=== PATIENT | male | born 1940 | race Caucasian/White ===

== ENCOUNTER → 2017-05-27 15:58 | Outpatient (CLI) | payer MEDICARE, SELFPAY ==
[2017-05-27 17:17] LABS: Absolute Lymphocyte Count 2.94 X10^3/ul (0.83-4.51); Absolute Neutrophil Count 6.9 X10^3/uL (2.0-7.7); Basophil# 0.05 X10^3/uL; Basophil% 0.5 % (0-1); Eosinophil# 0.33 X10^3/uL; Hematocrit 41.6 % (40-54); Lymphocyte # 2.94 X10^3/ul (4.0); Lymphocyte % 27.1 % (19-41); Mean Corp Hgb Conc 33.7 g/gl (32-36); Mean Corpuscular Hgb 29.8 pg (27.0-32.0); Mean Corpuscular Volume 88.5 fL (80-94); Mean Platelet Vol. 10.7 fl (6.2-12.0); Monocyte# 0.61 X10^3/uL; Monocyte% 5.6 % (0-10); Neutrophil # 6.89 X10^3/uL (2.7-7.7); Neutrophil % 63.5 % (47-70); Platelet Count 242 K/mm3 (150-450); RBC Distribution Width CV 14.4 % (11.6-14.6); RBC Distribution Width SD 46.8 fl (35.1-43.9); White Blood Count 10.9 K/mm3 (4.4-11.0)
[2017-05-27 17:29] LABS: POSITIVE COUNT NO; POSITIVE DIFFERENTIAL NO; POSITIVE MORPHOLOGY NO
[2017-05-27 17:30] LABS: Vitamin D,25 Hydroxy 36.4 ng/mL (19.95-100.01)
[2017-05-27 17:34] LABS: ALB/GLOB Ratio 0.8 RATIO (0.9-2.4); AST(SGOT) 23 U/L (15-37); Alanine Aminotransfer ALT/SGPT 45 U/L (16-61); Albumin, Serum 3.3 g/dL (3.2-5.0); Alkaline Phosphatase 127 U/L (45-117); Anion Gap 10 (5-15); BUN 9 mg/dL (7-18); Calcium,Total 9.1 mg/dL (8.5-10.1); Chloride 100 mmol/L (98-107); Creatinine, Serum 0.53 mg/dL (0.70-1.30); EST Glomerular Filtration Rate 161 mL/min (>60); Est Glom Filt Rate - Afr Amer 195 mL/min (>60); Glucose 243 mg/dL (74-106); Potassium 3.9 mmol/L (3.5-5.1); Protein, Total 7.3 g/dL (6.4-8.2); Sodium Level 134 mmol/L (136-145); Thyroid Stim Hormone (TSH) 1.44 uIU/mL (0.358-3.74)
== END ==
PROVIDERS: Visit Provider Family Medicine Geriatric Medicine
DX: R53.83 Other fatigue (principal); E55.9 Vitamin D deficiency, unspecified
CPT/HCPCS: 36415; 80053; 82306; 84443; 85025

== ENCOUNTER → 2017-06-18 17:10 | Outpatient (CLI) | payer MEDICARE, SELFPAY ==
[2017-06-18 17:39] LABS: Absolute Lymphocyte Count 2.85 X10^3/ul (0.83-4.51); Absolute Neutrophil Count 7.6 X10^3/uL (2.0-7.7); Basophil# 0.09 X10^3/uL; Basophil% 0.8 % (0-1); Eosinophil# 0.18 X10^3/uL; Eosinophils% 1.6 % (0-5); Hematocrit 43.9 % (40-54); Hemoglobin 15.3 g/dl (13.0-16.5); Lymphocyte # 2.85 X10^3/ul (4.0); Lymphocyte % 24.7 % (19-41); Mean Corp Hgb Conc 34.9 g/gl (32-36); Mean Corpuscular Hgb 30.6 pg (27.0-32.0); Mean Corpuscular Volume 87.8 fL (80-94); Monocyte% 6.1 % (0-10); Neutrophil # 7.63 X10^3/uL (2.7-7.7); Neutrophil % 66.1 % (47-70); Platelet Count 275 K/mm3 (150-450); RBC Distribution Width CV 14.4 % (11.6-14.6); RBC Distribution Width SD 45.6 fl (35.1-43.9); White Blood Count 11.5 K/mm3 (4.4-11.0)
--- NOTE | 2017-06-18 17:39 | RAD_ITS ---
STUDY: X-RAY - ABDOMEN/PELVIS REASON FOR EXAM: Male, 77 years old. Abdominal pain. TECHNIQUE: AP supine and decubitus views of the abdomen and pelvis. COMPARISON: CT of the abdomen and pelvis dated June 16, 2013. FINDINGS: Normal visualized lung bases. There is an unremarkable bowel gas pattern. Surgical clips are visible in the right upper quadrant. There is no obvious visceromegaly, mass or dilated bowel. There appears to be inspissated contrast within the rectum. There are calcified phleboliths in the pelvis. The bones are osteopenic. There are degenerative changes of the imaged spine. Patient has Muhammad rods within the imaged thoracic spine. There are degenerative changes of both hips. RAD/Abd Inc Decub and/or Erect IMPRESSION: Inspissated contrast is visible in the rectum. Electronically Signed: Enedeila Bruce MD at 12:17 EDT , Service support ,
[2017-06-18 17:41] LABS: POSITIVE COUNT NO; POSITIVE DIFFERENTIAL NO; POSITIVE MORPHOLOGY NO
[2017-06-18 18:21] LABS: ALB/GLOB Ratio 0.9 RATIO (0.9-2.4); AST(SGOT) 22 U/L (15-37); Alanine Aminotransfer ALT/SGPT 46 U/L (16-61); Albumin, Serum 3.5 g/dL (3.2-5.0); Alkaline Phosphatase 120 U/L (45-117); Anion Gap 8 (5-15); BUN 10 mg/dL (7-18); BUN/Creat Ratio 13.2 RATIO (10-20); Calcium,Total 9.1 mg/dL (8.5-10.1); Chloride 100 mmol/L (98-107); Creatinine, Serum 0.76 mg/dL (0.70-1.30); EST Glomerular Filtration Rate 107 mL/min (>60); Est Glom Filt Rate - Afr Amer 129 mL/min (>60); Globulin 3.8 g/dL (2.2-4.2); Glucose 206 mg/dL (74-106); Potassium 3.5 mmol/L (3.5-5.1); Protein, Total 7.3 g/dL (6.4-8.2); Sodium Level 137 mmol/L (136-145); Thyroid Stim Hormone (TSH) 1.19 uIU/mL (0.358-3.74)
== END ==
PROVIDERS: Family Provider Family Medicine Geriatric Medicine; PCP Family Medicine Geriatric Medicine; Visit Provider Family Medicine Geriatric Medicine
DX: R47.02 Dysphasia (principal); I10 Essential (primary) hypertension; N39.0 Urinary tract infection, site not specified; K59.00 Constipation, unspecified
CPT/HCPCS: 36415; 74019; 80053; 84443; 85025; 87077; 87086; 87088; 87186

== ENCOUNTER 2017-07-03 09:14 | Inpatient (IN) | payer MEDICARE, SELFPAY ==
[2017-07-03] VITALS (12 sets, daily range): BP systolic 147–188; BP diastolic 80–151; PULSE 56–73; RESP 17–18; TEMP 36.3–36.7; O2SAT 95–98; BMI 33.0; BMI 27.6; BMI 27.7
--- NOTE | 2017-07-03 09:29 | CT_ITS ---
STUDY: CT BRAIN WITHOUT CONTRAST REASON FOR EXAM: Male, 77 years old. Headache. Mental status change. Recent change. RADIATION DOSAGE (If Supplied By Facility): CTDIvol = ( 44.99 ) mGy, DLP = ( 1524.73 ) mGycm TECHNIQUE: Transaxial CT imaging of the brain was performed without administration of intravenous contrast material. 2 sets of axial images are obtained due to patient's kyphosis causing positioning issues. Reconstructed sagittal/coronal imaging. Individualized dose optimization techniques were used for this CT. COMPARISON: None. FINDINGS: Mortar Carrier scanogram image shows normal sized sella. Normal soft tissue structures. Normal calvarium. No depressed skull fracture identified. Normal size ventricles and extra-axial spaces for the patient's age. Normal white matter tracts of the cerebral hemispheres. Normal basal ganglia and thalami. Normal brainstem. Normal cerebellum. However, low-attenuation oval lesion is seen in the right superior medial frontal cortex approximately 2.9 x 1.2 cm consistent with old infarct and encephalomalacia image #29/41 series #2, stable appearance. Smaller old lacunar infarct is seen in the left posterior lateral periventricular white matter, approximate 0.7 cm diameter image #26/41 series #2, stable appearance. There is no intracranial hemorrhage. There are no findings of a large territorial acute ischemic infarction. Nonacute visualized paranasal sinuses with mild bilateral ethmoid mucoperiosteal thickening suggested. Divergent gaze noted. CT/Brain/Head without Contrast IMPRESSION: Nonacute unenhanced CT scan of the brain. Divergent gaze noted. Clinical correlation recommended. Age-related changes consistent with central cerebral atrophic changes. Old stable appearing bilateral cerebral infarcts as described. Electronically Signed: Cruz Carney, at 10:39 EDT Tel , Service support ,
--- NOTE | 2017-07-03 09:30 | RAD_ITS ---
STUDY: X-RAY CHEST REASON FOR EXAM: Male, 77 years old. Right-sided rales. TECHNIQUE: AP and lateral views of the chest. COMPARISON: Chest radiograph dated January 18, 2017. FINDINGS: Cardiac monitoring leads are present. There is hyperinflation of the lungs consistent with chronic obstructive lung disease (COPD). There is no demonstrated pleural abnormality. Normal size heart. Normal mediastinum and jesus. There is prominence of the pulmonary hilar arteries without peripheral pulmonary vascular congestion. There is atherosclerotic calcification of the aortic arch with tortuosity. There is demineralization of the osseous structures. Patient has had extensive spine surgery with Muhammad rods present. Normal visualized ribs, clavicles, and shoulders. There is no demonstrated abnormality of the visualized soft tissue structures of the upper abdomen. RAD/Chest PA and Lateral IMPRESSION: COPD without radiographic evidence of acute cardiopulmonary disease. Electronically Signed: Enedelia Bruce MD at 10:56 EDT , Service support ,
--- NOTE | 2017-07-03 09:30 | EKG12_ITS ---
Test Reason : CONFUSION Blood Pressure : / mmHG Vent. Rate : 065 BPM Atrial Rate : 065 BPM P-R Int : 210 ms QRS Dur : 100 ms QT Int : 388 ms P-R-T Axes : 047 052 219 degrees QTc Int : 403 ms Sinus rhythm with 1st degree A-V block with Premature supraventricular complexes and Premature ventri cular complexes or Fusion complexes Nonspecific ST and T wave abnormality Abnormal ECG Confirmed by RADHA REESE, AUTUMN ([id number]), science editor TAMARA MURO ([id number]) on 07/06/2017 1:28:32 PM Referred By: EVER Confirmed By:AUTUMN GARCIA MD
[2017-07-03 09:45] LABS: Absolute Lymphocyte Count 2.44 X10^3/ul (0.83-4.51); Basophil# 0.07 X10^3/uL; Basophil% 0.6 % (0-1); Eosinophil# 0.31 X10^3/uL; Eosinophils% 2.6 % (0-5); Hematocrit 42.4 % (40-54); Hemoglobin 14.3 g/dl (13.0-16.5); Lymphocyte # 2.44 X10^3/ul (4.0); Lymphocyte % 20.6 % (19-41); Mean Corp Hgb Conc 33.7 g/gl (32-36); Mean Corpuscular Hgb 29.9 pg (27.0-32.0); Mean Corpuscular Volume 88.5 fL (80-94); Monocyte# 0.99 X10^3/uL; Monocyte% 8.3 % (0-10); Neutrophil # 8.02 X10^3/uL (2.7-7.7); Neutrophil % 67.6 % (47-70); Platelet Count 186 K/mm3 (150-450); RBC Distribution Width CV 14.8 % (11.6-14.6); RBC Distribution Width SD 47.8 fl (35.1-43.9); Red Blood Count 4.79 M/mm3 (4.6-6.2); White Blood Count 11.9 K/mm3 (4.4-11.0)
[2017-07-03 09:47] LABS: POSITIVE COUNT NO; POSITIVE DIFFERENTIAL NO; POSITIVE MORPHOLOGY NO
--- NOTE | 2017-07-03 09:48 | ED.VISSUMM ---
- ER Visit Summary Date of Service: 07/03/17 Chief Complaint: Slurred speech and increased confusion History of Present Illness: The patient is a 77 M disoriented and unable to contribute with regards to history and limited contribution with regards to physical examination. informed me that several of his medications were recently discontinued by his primary care physician, Dr. Rosales. and son states his symptoms started yesterday afternoon. His symptoms have been persistent. Son informed me that he does have dementia and his short-term memory is not as good as his long-term memory. Regardless, son reports that the slurred speech is new and that his confusion is much worse and he is not alert. Both the son and are concerned because he is not eating much. Patient acknowledges headache. states he has complained of headache. 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 He also has history of depression anxiety. Physical Examination: Patient's initial blood pressure was 188/151. Repeat is 139/100. Believe the first blood pressure to be inaccurate. He is not alert and he is not oriented. There is a ptosis on the right side. Pupils are equal round reactive. Believe his extraocular muscles are intact. TMs normal. Nares patent. Posterior pharynx other MHA. He has retained food products. Family was question regarding to difficulty swallowing or choking. Both the son and states he has had difficulty swallowing. Lungs reveal abnormal breath sounds/rales right side. Heart is regular without murmur, gallop or rub. Abdomen soft nontender. There is motor and sensory deficit below T8. Test Results: CT of the head reveals disconjugate gaze. Chest x-ray reveals no acute changes from prior. Cardiac silhouette is normal. Mediastinum appears normal. Lung parenchyma is normal. Muhammad rods are noted. White count is 11.9 thousand with out shift. Electronic panel is unremarkable. The potassium is 3.1 and the glucose is 143. Coags unremarkable. UA is normal. Emergency Department Course and Treatment: Because he complains of headache will obtain a CAT scan to rule out endocardial bleed. Because of difficulty swallowing with retained food products and abnormal breath sounds on the right will obtain chest x-ray to evaluate for possible aspiration pneumonitis. Will obtain blood work and urinalysis to evaluate for metabolic/infectious causes of his altered mental status as well. Treatment Plan: Since patient is disoriented unable to care for himself or help his care for him and has had a rapid deterioration will contact hospitalist for admission for further diagnostic testing to determine if this is a reversible process or not. Disposition: Admission to possibly PCU Impression: 1. Acute change in mental status with dysarthria and dysphasia 2. History of type 2 diabetes with hyperglycemia 3. History of hypertension 4. History of CVA 4. History of depression anxiety 6. T8 paraplegic secondary to remote traumatic injury This note was generated with [employer] dictation software. It may contain incorrect words, spelling, and punctuation that were not noted in review of the chart prior to signing ED Disposition - Plan for ED Patient: Chief Complaint: Confusion Referrals: Young Marie Chi, MD [Primary Care Provider] -
[2017-07-03 09:49] LABS: Prothrombin Time (Protime)PT. 13.5 SECONDS (11.7-14.9)
[2017-07-03 09:51] LABS: Partial Thromboplast Time 40.8 Seconds (24.1-36.2)
[2017-07-03 09:51] LABS: Bedside Glucose 153 mg/dL (70-110)
[2017-07-03 09:55] LABS: Anion Gap 8 (5-15); BUN 7 mg/dL (7-18); BUN/Creat Ratio 12.8 RATIO (10-20); Calcium,Total 9.1 mg/dL (8.5-10.1); Chloride 99 mmol/L (98-107); Creatinine, Serum 0.55 mg/dL (0.70-1.30); EST Glomerular Filtration Rate 154 mL/min (>60); Est Glom Filt Rate - Afr Amer 186 mL/min (>60); Estimated Creatinine Clearance 69.91 ml/min; Glucose 143 mg/dL (74-106); Potassium 3.1 mmol/L (3.5-5.1); Sodium Level 139 mmol/L (136-145)
[2017-07-03 10:23] LABS: Bacteria 0 SEEN /hpf (None Seen); Mucous, Urine 0 SEEN /hpf (<or=2+); Red Blood Cells-Urine 0 SEEN /hpf (0-5); Squamous Epithelial Cells - UA 0 SEEN /hpf (0-5); White Blood Cells 0 SEEN /hpf (0-5)
[2017-07-03 10:31] LABS: Color, Urine Yellow (Yellow); Glucose, Dipstick Normal (Normal); Ketone-Dipstick Negative (Negative); Leukocyte Esterase-Dipstick Negative /ul (Negative); Nitrite-Dipstick Negative (Negative); Occult Blood-Urine Negative /ul (Negative); Protein-Dipstick Negative (Negative); Urine Bilirubin Dipstick Negative (Negative); Urine Clarity Clear (Clear); Urine Urobilinogen Normal (Normal)
--- NOTE | 2017-07-03 11:26 | NURSING ---
PCU AMS, CONFUSION, R/O STROKE LUZ
--- NOTE | 2017-07-03 11:47 | NURSING ---
NO OLD EKGS
--- NOTE | 2017-07-03 13:30 | CT_ITS ---
STUDY: CTA NECK WITH CONTRAST REASON FOR EXAM: Male, 77 years old. Altered mental status. Confusion. RADIATION DOSAGE (If Supplied By Facility): CTDIvol = ( 23.80 ) mGy, DLP = ( 718.80 ) mGycm TECHNIQUE: CT angiography with multi-detector data acquisition was performed from the aortic arch to the skull base following intravenous administration of 100 ml of Isovue 370 contrast. MIP images were reconstructed from the axial data set. Post-processing of the angiographic images was performed, with multiplanar reformation and 3D reconstruction. Individualized dose optimization techniques were used for this CT. COMPARISON: None. FINDINGS: AORTIC ARCH: Not included in the scan. The visualized portions of the brachiocephalic artery, left common carotid artery and left subclavian artery are widely patent. There origins are not included in this scan. RIGHT CAROTID ARTERIES: Normal right common carotid artery (CCA). Normal right common carotid bulb. Normal origin of the right internal carotid (ICA) artery without a hemodynamically significant stenosis. Normal visualized cervical portion of the right internal carotid artery. Normal origin of the right external carotid artery (ECA). LEFT CAROTID ARTERIES: Normal left common carotid artery (CCA). Normal left common carotid bulb. Normal origin of the left internal carotid (ICA) artery without a hemodynamically significant stenosis. Normal visualized cervical portion of the left internal carotid artery. Normal origin of the left external carotid artery (ECA). VERTEBRAL ARTERIES: Normal bilateral vertebral arteries. The left vertebral artery is slightly more dominant. Widely patent subclavian origins of both vertebral arteries and. CT/CTA Neck W/WO Contrast IMPRESSION: 1. No CTA evidence of any vaso-occlusive disease of both common carotid arteries, both internal and external carotid arteries and both vertebral arteries. 2. The aortic arch is not included in the scan. 3. The visualized portions of the right brachiocephalic artery, left common carotid artery and left subclavian artery are widely patent. 4. Widely patent subclavian origins of both vertebral arteries, the cervical portions of both vertebral arteries and the intradural segments of both vertebral arteries. 5. No CT evidence of any suspicious mass in the suprahyoid neck and infrahyoid neck. 6. Bridging anterior longitudinal ligament and anterior marginal spurs from C2-C3 down to C6-C7 disc space levels. Electronically Signed: Peter Anderson MD at 15:34 EDT , Service support ,
--- NOTE | 2017-07-03 13:30 | CT_ITS ---
STUDY: CTA OF THE BRAIN REASON FOR EXAM: Male, 77 years old. Altered mental status. Confusion. RADIATION DOSAGE (If Supplied By Facility): CTDIvol = ( 23.80 ) mGy, DLP = ( 718.80 ) mGycm TECHNIQUE: CT angiography was performed with a multi-detector CT scanner. Data acquisition was obtained from the skull base through the vertex following intravenous administration of 100 ml of Isovue 370. MIP images were reconstructed from the axial data set. Post-processing of the angiographic images was performed, with multiplanar reformation and 3D reconstruction. Individualized dose optimization techniques were used for this CT. COMPARISON: None. FINDINGS: Normal bilateral petrous carotid arteries. Normal right cavernous carotid artery with a normal supraclinoid bifurcation. Normal left cavernous carotid artery with a normal supraclinoid bifurcation. Normal right A1 segment of the anterior cerebral artery. Normal left A1 segment of the anterior cerebral artery. Normal intact anterior communicating artery (ACOM). Normal bilateral A2 segments of the anterior cerebral arteries. Normal right M1 and M2 segments of the middle cerebral arteries, with a normal M1 bifurcation. Normal left M1 and M2 segments of the middle cerebral arteries, with a normal M1 bifurcation. No visible right posterior communicating artery (PCOM). No visible left posterior communicating artery (PCOM). Normal bilateral vertebral arteries. Normal basilar artery with a normal basilar bifurcation. The visualized bilateral superior cerebellar (SCA) arteries are normal. Normal bilateral P1, P2 and visualized P3 segments of the posterior cerebral arteries. There is no demonstrated aneurysm of the [place]. Old lacunar cystic infarct in the left periventricular white matter and chronic white matter ischemic changes in both cerebral hemispheres. CT/CTA Head W/WO Contrast IMPRESSION: 1. No CTA evidence of intracranial vaso-occlusive disease of the anterior and posterior intracranial circulation. 2. Normal CTA head. 3. Old lacunar cystic infarct in the left periventricular white matter and chronic white matter ischemic changes in both cerebral hemispheres. Electronically Signed: Peter Anderson MD at 15:31 EDT , Service support ,
--- NOTE | 2017-07-03 14:35 | HP.PCM_ITS ---
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 (9) Diabetes mellitus, type II Status: Chronic Qualifiers: (10) Muscle spasm Status: Chronic (11) Panic disorder Status: Chronic (12) Anxiety Status: Chronic (13) Depression Status: Chronic (14) COPD (chronic obstructive pulmonary disease) Status: Chronic Qualifiers: History of Present Illness Date of Admission: 07/03/17 Chief Complaint: Altered mental status for a few days The patient is a 77 year old M with multiple comorbidities as listed above including recent history of possible stroke in January 2017 for which he was admitted came to ER with altered mental status since yesterday afternoon. As per the patient's and daughter, the patient is not acting right, mumbling, incomprehensible words and phrases not able to feed himself, and not able to do basic activities of daily living. also stated that he complained of headache. As per his daughter, she also noticed some facial droop on the right side and slurred speech and drooping right eyelid. CT head reports divergent gaze with none acute findings. 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 (Chronic) Diabetes mellitus, type II (Chronic) Muscle spasm (Chronic) Panic disorder (Chronic) Anxiety (Chronic) Depression (Chronic) COPD (chronic obstructive pulmonary disease) (Chronic) Allergies codeine Allergy (Verified 07/03/17 09:17) Unknown morphine Allergy (Verified 07/03/17 09:17) Unknown Home Medications: Ambulatory Orders Medication Instructions Recorded Bupropion HCl [Wellbutrin Xl] 300 mg PO DAILY 07/03/17 Ciprofloxacin [Cipro] 250 mg PO BID 07/03/17 Clonazepam [Klonopin] 1 mg PO BID 07/03/17 Clopidogrel Bisulfate [Plavix] 75 mg PO DAILY 07/03/17 Famotidine 40 mg PO DAILY 07/03/17 Fluticasone/Vilanterol [Breo 1 each IH DAILY 07/03/17 Ellipta Inhaler] Gabapentin [Neurontin] 300 mg PO TIDCM 07/03/17 Metformin HCl 1,000 mg PO BID 07/03/17 Metoprolol Tartrate [Lopressor 50 mg PO BID 07/03/17 (Beta Lamar)] Paroxetine [Paxil] 20 mg PO DAILY 07/03/17 Surgical History: - - Trauma w/ spinal cord injury, hardward thoracic spine, colostomy, BL LE surgery w/ rods, LUE surgery repair (ligament, bone), T+A, Hemorrhoidectomy. Psychiatric History: Anxiety, Depression Smoking Status: Never smoker - *Family History Maternal History Items: No pertinent history Paternal History Items: Heart Disease - Father w/ DC 65 years old. Review of Systems Unable to obtain accurate/complete ROS d/t: Patient is confused and disoriented. 12 ROS unobtainable VTE Information - Inpt Only VTE Present on Admission: No VTE Mechan Device Prophylaxis: SCD's VTE Pharm Prophylaxis ordered?: Yes Patient Problems: Active and Suspected Problems Altered mental status, unspecified (Acute) - Physical Exam General: Confused, Disoriented, Lethargic HEENT: Atraumatic, PERRLA, EOMI, Normocephalic, - - On visual confrontation test although difficult but does not seem to be major hemianopia/quadrantopia. No nystagamus noted Oral: Dry Mucosa Neck: Supple, No JVD, Negative Carotid Bruits Lungs: Clear to auscultation, No rhonchi, No wheeze, Diminished Cardiovascular: Regular rate, Regular Rhythm, Normal S1, Normal S2, No murmurs Abdomen: Bowel Sounds Present, Soft, Non Tender, - - Colostomy bag present over the left upper quadrant Extremities: Edema Musculoskeletal: Arthritic Changes, Muscle Wasting, - - Paraplegia Neurological: Cranial nerves II-XII grossly intact, - - Neuro exam is not possible as patient is confused and disoriented. Patient is not following command Psych/Mental Status: Anxious, Restless Vital Signs Temp Pulse Resp BP Pulse Ox 97.6 F L 65 18 147/85 H 96 07/03/17 13:25 07/03/17 13:25 07/03/17 13:25 07/03/17 13:25 07/03/17 13:25 Oxygen Delivery Method Room Air Weight: 209 lb 14.081 oz Body Mass Index (BMI) 27.6 Assessment/Plan Active and Suspected Problems Altered mental status, unspecified (Acute) The patient is a 77 year old M with multiple comorbidities as listed above including recent history of possible stroke in January 2017 for which he was admitted came to ER with altered mental status since yesterday afternoon. As per the patient's and daughter, the patient is not acting right, mumbling, incomprehensible words and phrases not able to feed himself, and not able to do basic activities of daily living. also stated that he complained of headache. As per his daughter, she also noticed some facial droop on the right side and slurred speech and drooping right eyelid. CT head reports divergent gaze with none acute findings. 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 1. Altered mental status with confusion, acute encephalopathy on baseline with history of a stroke and T8 paraplegia, from spinal cord injury: The patient is being admitted in PCU to rule out new stroke which is difficult as the patient is very claustrophobic for MRI. Her daughter asked that he needs to be sedated in order for MRI which is high risk; explained to the daughter. Patient is on Plavix and a statin. Neuro checks every 4 hourly. PT OT and speech evaluation. Neuro consult. Patient had 2D echo in January 2017 which showed EF 65%, bubble study negative with no valvular abnormalities. CT angiogram head and neck showed lacunar infarct left basal ganglia age-indeterminate with normal bilateral cervical carotid arteries and vertebral arteries. 2. Possible metabolic/toxic encephalopathy from polypharmacy or sudden withdrawal of multiple antipsychotic medications: Patient looks mildly dehydrated. IV fluid normal saline. Mild hypokalemia: Replace potassium. Patient is to be slowly tapered off the antipsychotic medications. Paroxetine decreased to 10 mg daily, clonazepam 0.5 mg twice daily and bupropion XL 150 mg daily. 3. Diabetes mellitus type 2: Currently, patient is n.p.o. except medication until he passes swallow evaluation. Accu-Chek every 6 hours and cover with NovoLog sliding scale. A1c tomorrow a.m. Other multiple comorbidities include hypertension, COPD, anxiety and depression , obesity, old T8 paraplegia from spinal cord injury. Home medication reconciliation done. DVT prophylaxis: On heparin 500 subcutaneous twice daily and bilateral SCDs. Code Visit Inpatient E&M: 88199 Init Hosp L3
[2017-07-03 14:46] LABS: AST(SGOT) 19 U/L (15-37); Alanine Aminotransfer ALT/SGPT 34 U/L (16-61); Albumin, Serum 3.4 g/dL (3.2-5.0); Alkaline Phosphatase 110 U/L (45-117); Bilirubin, Direct 0.19 mg/dL (0.00-0.30); Globulin 3.3 g/dL (2.2-4.2); Protein, Total 6.7 g/dL (6.4-8.2); Thyroid Stim Hormone (TSH) 0.88 uIU/mL (0.358-3.74)
[2017-07-03] MEDS: 0.9% Normal Saline 1,000 ML 100 ML IV (15:32)
--- NOTE | 2017-07-03 15:42 | CON.PCM_ITS ---
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 History is obtained from and medical records, history could not be obtained from the patient. Per he was very confused since yesterday (07/02/17), had garbled speech, at baseline is bed bound , and uses wheel chair to ambulate, at present patient denies any SIMEON, visual disturbances, speech disturbances, new onset focal motor weakness or sensory loss. denies any seizures, per he had some mild right eye ptosis since his stroke in January 2018. Per he sees Dr. Marie/PCP and most of his psychiatry medications were discontinued by the PCP. he was on Klonopin, Xanax, bupropion and Paxil. At present patient denies any double vision. 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) Diabetes mellitus, type II (Chronic) Muscle spasm (Chronic) Panic disorder (Chronic) Anxiety (Chronic) Depression (Chronic) COPD (chronic obstructive pulmonary disease) (Chronic) Allergies codeine Allergy (Verified 07/03/17 09:17) Unknown morphine Allergy (Verified 07/03/17 09:17) Unknown Home Medications: Ambulatory Orders Medication Instructions Recorded Bupropion HCl [Wellbutrin Xl] 300 mg PO DAILY 07/03/17 Ciprofloxacin [Cipro] 250 mg PO BID PRN 07/03/17 Clonazepam [Klonopin] 1 mg PO QHS 07/03/17 Clopidogrel Bisulfate [Plavix] 75 mg PO DAILY 07/03/17 Fluticasone/Vilanterol [Breo 1 each IH DAILY 07/03/17 Ellipta Inhaler] Gabapentin [Neurontin] 600 mg PO TIDCM 07/03/17 Metformin HCl 1,000 mg PO BID 07/03/17 Metoprolol Tartrate [Lopressor 50 mg PO BID 07/03/17 (Beta Lamar)] ALPRAZolam [Xanax] 0.5 mg PO BID 07/04/17 Acetaminophen [Tylenol Extra 500 mg PO TID PRN 07/04/17 Strength] Amlodipine Besylate [Norvasc] 10 mg PO DAILY 07/04/17 Baclofen 10 mg PO TID 07/04/17 Clonazepam [Klonopin] 0.5 mg PO 0800 07/04/17 Cranberry 07/04/17 Duloxetine Hcl [Cymbalta] 60 mg PO DAILY 07/04/17 Glipizide [Glipizide ER] 5 mg PO BID 07/04/17 Multivit-Min/FA/Lycopen/Lutein 1 each PO DAILY 07/04/17 [Centrum Silver Tablet] Pantoprazole Sodium 40 mg PO DAILY 07/04/17 Psyllium [Metamucil] 1 packet PO DAILY 07/04/17 Tramadol HCl [Ultram] 50 mg PO TID PRN 07/04/17 Surgical History: - - Trauma w/ spinal cord injury, hardward thoracic spine, colostomy, BL LE surgery w/ rods, LUE surgery repair (ligament, bone), T+A, Hemorrhoidectomy. Psychiatric History: Anxiety, Depression Lives: Spouse/ Significant Other Smoking Status: Never smoker Alcohol: None Drugs: None - *Family History Maternal History Items: No pertinent history Paternal History Items: Heart Disease - Father w/ MO 65 years old. Review of Systems Constitutional: Reports: - - ROS negative except as documented in HPI Patient Problems: Active and Suspected Problems Altered mental status, unspecified (Acute) Encephalopathy (Acute) - Physical Exam General: Alert HEENT: Normocephalic Neck: Supple Lungs: Clear to auscultation Cardiovascular: Normal S1, Normal S2 Abdomen: Bowel Sounds Present Extremities: No cyanosis Skin: No rashes Musculoskeletal: No Tenderness to Palpation of Joints or Extremities Neurological: - - consious, awake, AoA x2, is following commands, CN 2-12 grossly intact, pupils BERL, EOMI intact, no FD at present, no dysarthria/ aphasia, power 5/5 both UE, LE 0/5, mild sensory loss to light touch UE but per patient it is chronic since his last stroke, Reflexes + B/L B/S, gait cannot be assessed, no cerebellar signs. 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 History is obtained from and medical records, history could not be obtained from the patient. Per he was very confused since yesterday (07/02/17), had garbled speech, at baseline is bed bound , and uses wheel chair to ambulate, at present patient denies any SIMEON, visual disturbances, speech disturbances, new onset focal motor weakness or sensory loss. denies any seizures, per he had some mild right eye ptosis since his stroke in January 2018. Per he sees Dr. Marie/PCP and most of his psychiatry medications were discontinued by the PCP. he was on Klonopin, Xanax, bupropion and Paxil. At present patient denies any double vision. Has been on Plavix since had the stroke in January 2017. Per his garbled speech has improved at present. Impression Likely Metabolic encephalopathy Plan -Recommend MRI brain w/o contrast -CT head-nothing acute -Labs reviewed -Recommend LFTs, ammonia level, Vitamin B12 level, TSH. -On Plavix -Can decrease Lipitor to 40 mg PO q hs -Further medical management per primary team -Avoid polypharmacy, avoid benzodiazepines if possible. -GI/DVT prophylaxis -Fall precautions -Please call with questions if any -Thank you for allowing us to participate in patient's care and management I spent 60 minutes taking history, doing physical examination, reviewing medical records, coordinating care and counseling the patient and his /son. Code Visit Inpatient E&M: 79046 Init Hosp L3
[2017-07-03] MEDS: Gabapentin 300 MG Capsule PO (16:21)
[2017-07-03 16:55] LABS: Bedside Glucose 136 mg/dL (70-110)
[2017-07-03 18:06] LABS: Vitamin B12 1018 pg/mL (211-911)
[2017-07-03] MEDS: LORazepam 2 MG/ML Syringe IV (18:16)
[2017-07-03] MEDS: Albuterol 2.5 MG/3 ML VIAL.NEB. INHALATION (19:43)
[2017-07-03] MEDS: Budesonide Respules 0.5 MG/2 ML AMPUL.NEB. INHALATION (19:44)
[2017-07-03 20:49] LABS: Magnesium 1.8 mg/dL (1.6-2.6); Potassium 3.2 mmol/L (3.5-5.1)
[2017-07-03] MEDS: clonazePAM 1 MG Tablet 0.5 MG PO (21:28)
[2017-07-03] MEDS: Metoprolol Tartrate 50 MG Tablet PO (21:32)
[2017-07-03] MEDS: Famotidine 20 MG Tablet PO (21:33)
[2017-07-03 22:36] LABS: Bedside Glucose 132 mg/dL (70-110)
[2017-07-04] VITALS (17 sets, daily range): BP systolic 137–166; BP diastolic 76–86; PULSE 58–94; RESP 16–20; TEMP 36.5–36.9; O2SAT 93–97; BMI 27.6
[2017-07-04] MEDS: 0.9% Normal Saline 1,000 ML 100 ML IV (02:17)
--- NOTE | 2017-07-04 07:00 | NURSING ---
Patient has removed 3 IV's overnight. Potassium Chloride 40meq in D5 water was not infusing on this nurses arrival at 0700. Patient without IV access. Access obtained to right hand but patient immediately pulled out. MD Wills made aware.
[2017-07-04 07:12] LABS: Anion Gap 8 (5-15); BUN 5 mg/dL (7-18); BUN/Creat Ratio 10.8 RATIO (10-20); Calcium,Total 8.9 mg/dL (8.5-10.1); Chloride 104 mmol/L (98-107); Cholesterol 114 mg/dL (200); Creatinine, Serum 0.46 mg/dL (0.70-1.30); EST Glomerular Filtration Rate 188 mL/min (>60); Est Glom Filt Rate - Afr Amer 228 mL/min (>60); Estimated Creatinine Clearance 69.91 ml/min; Glucose 137 mg/dL (74-106); High Density Lipoprotein 40 mg/dL; Potassium 3.3 mmol/L (3.5-5.1); Sodium Level 139 mmol/L (136-145); Triglycerides 171 mg/dL; Very Low Density Lipoprotein 34 mg/dL (5-40)
[2017-07-04] MEDS: Ipratropium/Albuterol Sulfate 3 ML AMPUL.NEB INHALATION (07:28)
[2017-07-04] MEDS: Albuterol 2.5 MG/3 ML VIAL.NEB. INHALATION (07:28)
[2017-07-04] MEDS: Budesonide Respules 0.5 MG/2 ML AMPUL.NEB. INHALATION (07:28)
[2017-07-04 07:46] LABS: Hemoglobin A1c 6.2 % (4.2-6.3)
[2017-07-04 08:01] LABS: Bedside Glucose 152 mg/dL (70-110)
--- NOTE | 2017-07-04 08:45 | NURSING ---
Attempt made to fix patients IV as he took his dressing off. Patient combative and will not let this nurse assess IV at this time. Will continue to monitor.
[2017-07-04] MEDS: Famotidine 20 MG Tablet PO ×2 (08:49→22:29)
[2017-07-04] MEDS: Atorvastatin Calcium 80 MG Tablet PO (08:49)
[2017-07-04] MEDS: buPROPion (XL) 150 MG TABLET.XL PO (08:49)
[2017-07-04] MEDS: Gabapentin 300 MG Capsule PO ×3 (08:49→16:53)
[2017-07-04] MEDS: PARoxetine 10 MG Tablet PO (08:49)
[2017-07-04] MEDS: Metoprolol Tartrate 50 MG Tablet PO ×2 (08:49→22:29)
[2017-07-04] MEDS: Clopidogrel Bisulfate 75 MG Tablet PO (08:49)
[2017-07-04] MEDS: clonazePAM 1 MG Tablet 0.5 MG PO (08:59)
--- NOTE | 2017-07-04 10:27 | PCM.PN.HOSP ---
Patient Problems: Active and Suspected Problems Altered mental status, unspecified (Acute) Encephalopathy (Acute) Subjective: The patient was very restless and agitated last night. Patient had CT angiogram and neck which does not show acute change. Discussed with the patient's who is very anxious and worried regarding altered mental status and withdrawal reaction of different medications. Discussed with the neurologist Dr. Greenwood and CT head repeat and EEG ordered. Vitals/I&O's: Vital Signs Temp Pulse Resp BP Pulse Ox 97.9 F 73 20 H 158/86 H 94 07/04/17 06:45 07/04/17 08:49 07/04/17 07:28 07/04/17 06:45 07/04/17 06:45 Oxygen Delivery Method Room Air Weight: 209 lb 14.081 oz Body Mass Index (BMI) 27.6 Intake and Output for Last 24 Hours 07/02/17 07/03/17 07/04/17 23:59 23:59 23:59 Intake Total 1569 / 1569 Output Total 650 / 650 1575 / 1575 Balance -650 / -650 -6 / -6 General: Confused, Disoriented, Lethargic, - HEENT: Atraumatic, PERRLA, EOMI, Normocephalic Oral: Dry Mucosa Neck: Supple, No JVD, Negative Carotid Bruits Lungs: No rhonchi, No wheeze, Diminished Cardiovascular: Regular rate, Normal S1, Normal S2, No murmurs Abdomen: Bowel Sounds Present, Soft, Non Tender, Non-Distended, - - Double colostomy Extremities: Edema Skin: No rashes, No breakdown Musculoskeletal: No Tenderness to Palpation of Joints or Extremities, Arthritic Changes, Muscle Wasting, - - Paraplegia Neurological: - - Nonfocal exam with diffuse encephalopathy with lethargic. Laboratory Results 07/03/17 14:10: Total Bilirubin 0.70, Direct Bilirubin 0.19, AST 19, ALT 34, Alkaline Phosphatase 110, Troponin I < 0.02, Total Protein 6.7, Albumin 3.4, Globulin 3.3, TSH 0.88 07/03/17 16:29: POC Glucose 136 H 07/03/17 17:21: Vitamin B12 1018 H 07/03/17 17:21: Ammonia 15.0 07/03/17 20:12: Potassium 3.2 L, Magnesium 1.8 07/03/17 21:21: POC Glucose 132 H 07/04/17 06:20: Sodium 139, Potassium 3.3 L, Chloride 104, Carbon Dioxide 27.0, Anion Gap 8, BUN 5 L, Creatinine 0.46 L, Estim Creat Clear Calc 69.91, Est GFR (MDRD) Af Amer 228, Est GFR (MDRD) Non-Af 188, BUN/Creatinine Ratio 10.8, Glucose 137 H, Calcium 8.9, Triglycerides 171, Cholesterol 114, LDL Cholesterol 40, VLDL Cholesterol 34, HDL Cholesterol 40 07/04/17 06:20: Hemoglobin A1c 6.2 07/04/17 06:55: POC Glucose 152 H Current Medications Acetaminophen (Tylenol) 650 mg PO Q4H PRN PRN PRN Reason: Headache/Temp>99F Acetaminophen (Tylenol) 650 mg RECTAL Q4H PRN PRN PRN Reason: Headache/Temp>99F Albuterol Sulfate (Ventolin Aerosols) 2.5 mg INHALATION Q6H.RT [facility] Last Admin: 07/03/17 19:43 Dose: 2.5 mg Albuterol/Ipratropium (Duoneb) 3 ml INHALATION Q4H PRN PRN Reason: sob Last Admin: 07/04/17 07:28 Dose: 3 ml Alprazolam (Xanax) 0.25 mg PO BID [facility] Amlodipine Besylate (Norvasc) 5 mg PO DAILY [facility] Atorvastatin Calcium (Lipitor) 80 mg PO DAILY [facility] Last Admin: 07/04/17 08:49 Dose: 80 mg Baclofen (Lioresal) 5 mg PO TID [facility] Budesonide (Pulmicort Aerosol) 0.5 mg INHALATION Q12H.RT [facility] Last Admin: 07/04/17 07:28 Dose: 0.5 mg Bupropion HCl (Wellbutrin Xl) 300 mg PO DAILY [facility] Clopidogrel Bisulfate (Plavix) 75 mg PO DAILY [facility] Last Admin: 07/04/17 08:49 Dose: 75 mg Famotidine (Pepcid) 20 mg PO BID [facility] Last Admin: 07/04/17 08:49 Dose: 20 mg Gabapentin (Neurontin) 300 mg PO TIDCM [facility] Last Admin: 07/04/17 08:49 Dose: 300 mg Haloperidol Lactate (Haldol) 2 mg IV Q4H PRN PRN PRN Reason: AGITATION Heparin Sodium (Porcine) () 5,000 units SC BID [facility] Last Admin: 07/03/17 21:33 Dose: Not Given Sodium Chloride () 1,000 mls @ 75 mls/hr IV .[id number] [facility] Metoprolol Tartrate (Lopressor (Beta Lamar)) 50 mg PO BID [facility] Last Admin: 07/04/17 08:49 Dose: 50 mg Paroxetine HCl (Paxil) 20 mg PO DAILY [facility] Quetiapine Fumarate (Seroquel) 25 mg PO QHS [facility] Tramadol HCl (Ultram) 50 mg PO TID PRN PRN PRN Reason: MODERATE PAIN (4-5/10) Medical Necessity - Tobacco Use Smoking Status: Never smoker Assessment/Plan Active and Suspected Problems Altered mental status, unspecified (Acute) Encephalopathy (Acute) The patient is a 77 year old M with multiple comorbidities as listed above including recent history of possible stroke in January 2017 for which he was admitted came to ER with altered mental status since yesterday afternoon. As per the patient's and daughter, the patient is not acting right, mumbling, incomprehensible words and phrases not able to feed himself, and not able to do basic activities of daily living. also stated that he complained of headache. As per his daughter, she also noticed some facial droop on the right side and slurred speech and drooping right eyelid. CT head reports divergent gaze with none acute findings. 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 1. Acute encephalopathy on baseline with history of a stroke and T8 paraplegia, from spinal cord injury most rarely toxic encephalopathy from withdrawal reaction of multiple neurotropic medications/ polypharmacy: The patient is being admitted in PCU to rule out new stroke which is difficult as the patient is very claustrophobic for MRI. Her daughter asked that he needs to be sedated in order for MRI which is high risk; explained to the daughter. Patient was given Ativan 2 mg on 07/03/2017 but could not be calmed down and so MRI was not done. Patient is on Plavix and a statin. Neuro checks every 4 hourly. PT OT and speech evaluation. Just with the neurologist, Dr. Greenwood he advised to repeat CT head. EEG ordered. CTA head and neck does not show acute change this time but old lacunar infarct. Patient had 2D echo in January 2017 which showed EF 65%, bubble study negative with no valvular abnormalities. CT angiogram head and neck in January 2017 showed lacunar infarct left basal ganglia age-indeterminate with normal bilateral cervical carotid arteries and vertebral arteries. 2. Possible metabolic/toxic encephalopathy from polypharmacy or sudden withdrawal of multiple antipsychotic medications: Patient looks mildly dehydrated. IV fluid normal saline. Patient was on bupropion XL 450 mg daily; Xanax 0.5 mg a.m. and 1 mg at bedtime daily, tramadol and paroxetine 20 mg daily and duloxetine 60 mg daily about [address] Marie discontinued it Mild hypokalemia: Replace potassium. 3. Diabetes mellitus type 2: Currently, patient is n.p.o. except medication until he passes swallow evaluation. Accu-Chek every 6 hours and cover with NovoLog sliding scale. 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 Home medication reconciliation done. DVT prophylaxis: On heparin 5000 subcutaneous twice daily and bilateral SCDs. Laboratory Results 07/03/17 09:35: PT 13.5, INR 1.0, APTT 40.8 H 07/03/17 10:20: Urine Color Yellow, Urine Clarity Clear, Urine pH 8.0, Ur Specific [place] 1.010, Urine Protein Negative, Urine Glucose (UA) Normal, Urine Ketones Negative, Urine Occult Blood Negative, Urine Nitrite Negative, Urine Bilirubin Negative, Urine Urobilinogen Normal, Ur Leukocyte Esterase Negative, Urine RBC 0 SEEN, Urine WBC 0 SEEN, Ur Squamous Epith Cells 0 SEEN, Urine Bacteria 0 SEEN, Urine Mucus 0 SEEN 07/03/17 14:10: Total Bilirubin 0.70, Direct Bilirubin 0.19, AST 19, ALT 34, Alkaline Phosphatase 110, Troponin I < 0.02, Total Protein 6.7, Albumin 3.4, Globulin 3.3, TSH 0.88 07/03/17 16:29: POC Glucose 136 H 07/03/17 17:21: Vitamin B12 1018 H 07/03/17 17:21: Ammonia 15.0 07/03/17 20:12: Potassium 3.2 L, Magnesium 1.8 07/03/17 21:21: POC Glucose 132 H 07/04/17 06:20: Sodium 139, Potassium 3.3 L, Chloride 104, Carbon Dioxide 27.0, Anion Gap 8, BUN 5 L, Creatinine 0.46 L, Estim Creat Clear Calc 69.91, Est GFR (MDRD) Af Amer 228, Est GFR (MDRD) Non-Af 188, BUN/Creatinine Ratio 10.8, Glucose 137 H, Calcium 8.9, Triglycerides 171, Cholesterol 114, LDL Cholesterol 40, VLDL Cholesterol 34, HDL Cholesterol 40 07/04/17 06:20: Hemoglobin A1c 6.2 07/04/17 06:55: POC Glucose 152 H Clinical Impression(s) from Imaging Studies Brain CT 07/03/17 09:29 IMPRESSION: Nonacute unenhanced CT scan of the brain. Divergent gaze noted. Clinical correlation recommended. Age-related changes consistent with central cerebral atrophic changes. Old stable appearing bilateral cerebral infarcts as described. Electronically Signed: Cruz Carney at 10:39 EDT Tel , Service support , Chest X-Ray 07/03/17 09:30 IMPRESSION: COPD without radiographic evidence of acute cardiopulmonary disease. Electronically Signed: Enedelia Bruce MD at 10:56 EDT , Service support , Head CTA 07/03/17 13:30 IMPRESSION: 1. No CTA evidence of intracranial vaso-occlusive disease of the anterior and posterior intracranial circulation. 2. Normal CTA head. 3. Old lacunar cystic infarct in the left periventricular white matter and chronic white matter ischemic changes in both cerebral hemispheres. Electronically Signed: Peter Anderson MD at 15:31 EDT , Service support , Neck CTA 07/03/17 13:30 IMPRESSION: 1. No CTA evidence of any vaso-occlusive disease of both common carotid arteries, both internal and external carotid arteries and both vertebral arteries. 2. The aortic arch is not included in the scan. 3. The visualized portions of the right brachiocephalic artery, left common carotid artery and left subclavian artery are widely patent. 4. Widely patent subclavian origins of both vertebral arteries, the cervical portions of both vertebral arteries and the intradural segments of both vertebral arteries. 5. No CT evidence of any suspicious mass in the suprahyoid neck and infrahyoid neck. 6. Bridging anterior longitudinal ligament and anterior marginal spurs from C2-C3 down to C6-C7 disc space levels. Electronically Signed: Peter Anderson MD at 15:34 EDT , Service support , Code Visit Inpatient E&M: 36061 Subs Hosp L3
--- NOTE | 2017-07-04 10:37 | PN_ITS ---
Patient Problems: Active and Suspected Problems Altered mental status, unspecified (Acute) Encephalopathy (Acute) Subjective: The patient was very restless and agitated last night. Patient had CT angiogram and neck which does not show acute change. Discussed with the patient 's who is very anxious and worried regarding altered mental status and withdrawal reaction of different medications. Discussed with the neurologist Dr. Greenwood and CT head repeat and EEG ordered. Vitals/I&O's: Vital Signs Temp Pulse Resp BP Pulse Ox 97.9 F 73 20 H 158/86 H 94 07/04/17 06:45 07/04/17 08:49 07/04/17 07:28 07/04/17 06:45 07/04/17 06:45 Oxygen Delivery Method Room Air Weight: 209 lb 14.081 oz Body Mass Index (BMI) 27.6 Intake and Output for Last 24 Hours 07/02/17 07/03/17 07/04/17 23:59 23:59 23:59 Intake Total 1569 / 1569 Output Total 650 / 650 1575 / 1575 Balance -650 / -650 -6 / -6 General: Confused, Disoriented, Lethargic, - HEENT: Atraumatic, PERRLA, EOMI, Normocephalic Oral: Dry Mucosa Neck: Supple, No JVD, Negative Carotid Bruits Lungs: No rhonchi, No wheeze, Diminished Cardiovascular: Regular rate, Normal S1, Normal S2, No murmurs Abdomen: Bowel Sounds Present, Soft, Non Tender, Non-Distended, - - Double colostomy Extremities: Edema Skin: No rashes, No breakdown Musculoskeletal: No Tenderness to Palpation of Joints or Extremities, Arthritic Changes, Muscle Wasting, - - Paraplegia Neurological: - - Nonfocal exam with diffuse encephalopathy with lethargic. Laboratory Results 07/03/17 14:10: Total Bilirubin 0.70, Direct Bilirubin 0.19, AST 19, ALT 34, Alkaline Phosphatase 110, Troponin I < 0.02, Total Protein 6.7, Albumin 3.4, Globulin 3.3, TSH 0.88 07/03/17 16:29: POC Glucose 136 H 07/03/17 17:21: Vitamin B12 1018 H 07/03/17 17:21: Ammonia 15.0 07/03/17 20:12: Potassium 3.2 L, Magnesium 1.8 07/03/17 21:21: POC Glucose 132 H 07/04/17 06:20: Sodium 139, Potassium 3.3 L, Chloride 104, Carbon Dioxide 27.0, Anion Gap 8, BUN 5 L, Creatinine 0.46 L, Estim Creat Clear Calc 69.91, Est GFR ( MDRD) Af Amer 228, Est GFR (MDRD) Non-Af 188, BUN/Creatinine Ratio 10.8, Glucose 137 H, Calcium 8.9, Triglycerides 171, Cholesterol 114, LDL Cholesterol 40, VLDL Cholesterol 34, HDL Cholesterol 40 07/04/17 06:20: Hemoglobin A1c 6.2 07/04/17 06:55: POC Glucose 152 H Current Medications Acetaminophen (Tylenol) 650 mg PO Q4H PRN PRN PRN Reason: Headache/Temp>99F Acetaminophen (Tylenol) 650 mg RECTAL Q4H PRN PRN PRN Reason: Headache/Temp>99F Albuterol Sulfate (Ventolin Aerosols) 2.5 mg INHALATION Q6H.RT [facility] Last Admin: 07/03/17 19:43 Dose: 2.5 mg Albuterol/Ipratropium (Duoneb) 3 ml INHALATION Q4H PRN PRN Reason: sob Last Admin: 07/04/17 07:28 Dose: 3 ml Alprazolam (Xanax) 0.25 mg PO BID [facility] Amlodipine Besylate (Norvasc) 5 mg PO DAILY [facility] Atorvastatin Calcium (Lipitor) 80 mg PO DAILY [facility] Last Admin: 07/04/17 08:49 Dose: 80 mg Baclofen (Lioresal) 5 mg PO TID [facility] Budesonide (Pulmicort Aerosol) 0.5 mg INHALATION Q12H.RT [facility] Last Admin: 07/04/17 07:28 Dose: 0.5 mg Bupropion HCl (Wellbutrin Xl) 300 mg PO DAILY [facility] Clopidogrel Bisulfate (Plavix) 75 mg PO DAILY [facility] Last Admin: 07/04/17 08:49 Dose: 75 mg Famotidine (Pepcid) 20 mg PO BID [facility] Last Admin: 07/04/17 08:49 Dose: 20 mg Gabapentin (Neurontin) 300 mg PO TIDCM [facility] Last Admin: 07/04/17 08:49 Dose: 300 mg Haloperidol Lactate (Haldol) 2 mg IV Q4H PRN PRN PRN Reason: AGITATION Heparin Sodium (Porcine) () 5,000 units SC BID [facility] Last Admin: 07/03/17 21:33 Dose: Not Given Sodium Chloride () 1,000 mls @ 75 mls/hr IV .[id number] [facility] Metoprolol Tartrate (Lopressor (Beta Lamar)) 50 mg PO BID [facility] Last Admin: 07/04/17 08:49 Dose: 50 mg Paroxetine HCl (Paxil) 20 mg PO DAILY [facility] Quetiapine Fumarate (Seroquel) 25 mg PO QHS [facility] Tramadol HCl (Ultram) 50 mg PO TID PRN PRN PRN Reason: MODERATE PAIN (4-5/10) Medical Necessity - Tobacco Use Smoking Status: Never smoker Assessment/Plan Active and Suspected Problems Altered mental status, unspecified (Acute) Encephalopathy (Acute) The patient is a 77 year old M with multiple comorbidities as listed above including recent history of possible stroke in January 2017 for which he was admitted came to ER with altered mental status since yesterday afternoon. As per the patient's and daughter, the patient is not acting right, mumbling, incomprehensible words and phrases not able to feed himself, and not able to do basic activities of daily living. also stated that he complained of headache. As per his daughter, she also noticed some facial droop on the right side and slurred speech and drooping right eyelid. CT head reports divergent gaze with none acute findings. 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 1. Acute encephalopathy on baseline with history of a stroke and T8 paraplegia , from spinal cord injury most rarely toxic encephalopathy from withdrawal reaction of multiple neurotropic medications/ polypharmacy: The patient is being admitted in PCU to rule out new stroke which is difficult as the patient is very claustrophobic for MRI. Her daughter asked that he needs to be sedated in order for MRI which is high risk; explained to the daughter. Patient was given Ativan 2 mg on 07/03/2017 but could not be calmed down and so MRI was not done. Patient is on Plavix and a statin. Neuro checks every 4 hourly. PT OT and speech evaluation. Just with the neurologist, Dr. Greenwood he advised to repeat CT head. EEG ordered. CTA head and neck does not show acute change this time but old lacunar infarct. Patient had 2D echo in January 2017 which showed EF 65%, bubble study negative with no valvular abnormalities. CT angiogram head and neck in January 2017 showed lacunar infarct left basal ganglia age-indeterminate with normal bilateral cervical carotid arteries and vertebral arteries. 2. Possible metabolic/toxic encephalopathy from polypharmacy or sudden withdrawal of multiple antipsychotic medications: Patient looks mildly dehydrated. IV fluid normal saline. Patient was on bupropion XL 450 mg daily; Xanax 0.5 mg a.m. and 1 mg at bedtime daily, tramadol and paroxetine 20 mg daily and duloxetine 60 mg daily about [address] Marie discontinued it Mild hypokalemia: Replace potassium. 3. Diabetes mellitus type 2: Currently, patient is n.p.o. except medication until he passes swallow evaluation. Accu-Chek every 6 hours and cover with NovoLog sliding scale. 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 Home medication reconciliation done. DVT prophylaxis: On heparin 5000 subcutaneous twice daily and bilateral SCDs. Laboratory Results 07/03/17 09:35: PT 13.5, INR 1.0, APTT 40.8 H 07/03/17 10:20: Urine Color Yellow, Urine Clarity Clear, Urine pH 8.0, Ur Specific [place] 1.010, Urine Protein Negative, Urine Glucose (UA) Normal, Urine Ketones Negative, Urine Occult Blood Negative, Urine Nitrite Negative, Urine Bilirubin Negative, Urine Urobilinogen Normal, Ur Leukocyte Esterase Negative, Urine RBC 0 SEEN, Urine WBC 0 SEEN, Ur Squamous Epith Cells 0 SEEN, Urine Bacteria 0 SEEN, Urine Mucus 0 SEEN 07/03/17 14:10: Total Bilirubin 0.70, Direct Bilirubin 0.19, AST 19, ALT 34, Alkaline Phosphatase 110, Troponin I < 0.02, Total Protein 6.7, Albumin 3.4, Globulin 3.3, TSH 0.88 07/03/17 16:29: POC Glucose 136 H 07/03/17 17:21: Vitamin B12 1018 H 07/03/17 17:21: Ammonia 15.0 07/03/17 20:12: Potassium 3.2 L, Magnesium 1.8 07/03/17 21:21: POC Glucose 132 H 07/04/17 06:20: Sodium 139, Potassium 3.3 L, Chloride 104, Carbon Dioxide 27.0, Anion Gap 8, BUN 5 L, Creatinine 0.46 L, Estim Creat Clear Calc 69.91, Est GFR ( MDRD) Af Amer 228, Est GFR (MDRD) Non-Af 188, BUN/Creatinine Ratio 10.8, Glucose 137 H, Calcium 8.9, Triglycerides 171, Cholesterol 114, LDL Cholesterol 40, VLDL Cholesterol 34, HDL Cholesterol 40 07/04/17 06:20: Hemoglobin A1c 6.2 07/04/17 06:55: POC Glucose 152 H Clinical Impression(s) from Imaging Studies Brain CT 07/03/17 09:29 IMPRESSION: Nonacute unenhanced CT scan of the brain. Divergent gaze noted. Clinical correlation recommended. Age-related changes consistent with central cerebral atrophic changes. Old stable appearing bilateral cerebral infarcts as described. Electronically Signed: Cruz Carney at 10:39 EDT Tel , Service support , Chest X-Ray 07/03/17 09:30 IMPRESSION: COPD without radiographic evidence of acute cardiopulmonary disease. Electronically Signed: Enedelia Bruce MD at 10:56 EDT , Service support , Head CTA 07/03/17 13:30 IMPRESSION: 1. No CTA evidence of intracranial vaso-occlusive disease of the anterior and posterior intracranial circulation. 2. Normal CTA head. 3. Old lacunar cystic infarct in the left periventricular white matter and chronic white matter ischemic changes in both cerebral hemispheres. Electronically Signed: Peter Anderson MD at 15:31 EDT , Service support , Neck CTA 07/03/17 13:30 IMPRESSION: 1. No CTA evidence of any vaso-occlusive disease of both common carotid arteries, both internal and external carotid arteries and both vertebral arteries. 2. The aortic arch is not included in the scan. 3. The visualized portions of the right brachiocephalic artery, left common carotid artery and left subclavian artery are widely patent. 4. Widely patent subclavian origins of both vertebral arteries, the cervical portions of both vertebral arteries and the intradural segments of both vertebral arteries. 5. No CT evidence of any suspicious mass in the suprahyoid neck and infrahyoid neck. 6. Bridging anterior longitudinal ligament and anterior marginal spurs from C2-C3 down to C6-C7 disc space levels. Electronically Signed: Peter Anderson MD at 15:34 EDT , Service support , Code Visit Inpatient E&M: 30665 Subs Hosp L3
--- NOTE | 2017-07-04 10:45 | NURSING ---
Attempt made by this nurse to preform NIH at this time. Patient not answering questions or following commands at this time. Patient noted to be turning over side to side quickly in bed, talking but not answering questions appropriately when asked. Unable to obtain accurate NIH assessment. Will continue to monitor.
--- NOTE | 2017-07-04 10:59 | CPS ---
Dr. Wills ordered EEG. Pt is extremely agitated. Spoke to Dr. Osman (revenue liaison neurologist) per Dr. Wills request concerning EEG. Dr. Osman said to hold off on EEG.
--- NOTE | 2017-07-04 11:45 | NURSING ---
Attempt made at this time to assess and redress patients IV to start ordered IV fluids. Patient combative at this time turning back and forth in the bed. Haldol administered IM with family permission. Will continue to attempt to assess IV and start fluids. Patient tolerated straight cath without complaints of discomfort.
[2017-07-04] MEDS: Haloperidol Lactate 5 MG/ML Vial 2 MG IV ×2 (11:46→16:53)
[2017-07-04] MEDS: amLODIPine 5 MG Tablet PO (12:52)
[2017-07-04] MEDS: Ziprasidone IM 20 MG/ML VIAL IM ×2 (13:35→19:26)
--- NOTE | 2017-07-04 14:45 | NURSING ---
Attempt made by this nurse to complete NIH assessment at this time. Patient restless and agitated, grabbing at this nurse and staff. Patient will not answer questions or cooperate for assessment. Unable to complete appropriate NIH assessment at this time. Dr. Wills aware of patient's condition. Will continue to monitor and assess as appropriate.
[2017-07-04 16:51] LABS: Bedside Glucose 164 mg/dL (70-110)
--- NOTE | 2017-07-04 18:45 | NURSING ---
Attempt made at this time to complete NIH assessment with patient. Patient continues to be agitated and restless, grabbing at staff and family. Patient is unable to follow the commands at this time for an accurate NIH assessment. MD Johann aware of patient condition. Will continue to monitor and reassess to complete NIH.
--- NOTE | 2017-07-04 19:58 | NURSING ---
This nurse made multiple attempts at the times of 1045, 1245, 1645, and 1835 to obtain vitals as ordered for the hospital policy of patients admitted to rule out stroke. Due to patient being agitated and combative this nurse was unable to obtain vitals at all of the appropriate times.
[2017-07-04] MEDS: 0.9% Normal Saline 1,000 ML 75 ML IV (20:13)
[2017-07-04] MEDS: Baclofen 10 MG Tablet 5 MG PO (22:29)
[2017-07-04] MEDS: Heparin Injection 5,000 UNITS/ML Syringe 5000 UNITS SC (22:29)
[2017-07-04] MEDS: QUEtiapine 25 MG Tablet 50 MG PO (22:29)
[2017-07-04] MEDS: ALPRAZolam 0.5 MG Tablet 0.25 MG PO (22:47)
[2017-07-04 22:51] LABS: Bedside Glucose 176 mg/dL (70-110)
[2017-07-05] VITALS (15 sets, daily range): BP systolic 128–186; BP diastolic 58–97; PULSE 68–97; RESP 16–18; TEMP 36.6–37.1; O2SAT 94–98; BMI 27.6
[2017-07-05] MEDS: Haloperidol Lactate 5 MG/ML Vial IM ×2 (01:09→20:47)
--- NOTE | 2017-07-05 04:12 | NURSING ---
This RN has documented what areas of NIH scale patient has been able to do/answer. Full NIH not able to obtain d/t patient agitation and restlessness.
[2017-07-05] MEDS: Baclofen 10 MG Tablet 5 MG PO (05:11)
--- NOTE | 2017-07-05 06:26 | NURSING ---
Addendum entered by Laura Carolina 07/05/17 07:16: This RN unable to complete NIH at this time d/t patient agitation. Original Note: This
[2017-07-05 06:46] LABS: Bedside Glucose 166 mg/dL (70-110)
[2017-07-05] MEDS: 0.9% Normal Saline 1,000 ML 75 ML IV ×2 (08:35→22:08)
[2017-07-05] MEDS: Gabapentin 300 MG Capsule PO ×3 (08:36→16:52)
--- NOTE | 2017-07-05 10:29 | PCM.PN.HOSP ---
Patient Problems: Active and Suspected Problems Altered mental status, unspecified (Acute) Encephalopathy (Acute) Subjective: Patient is awake but restless, incoherent speech. Patient is disoriented and not able to recognize his daughter. No fever. No hypoxia. Vitals/I&O's: Vital Signs Temp Pulse Resp BP Pulse Ox 97.9 F 68 18 151/68 H 94 07/05/17 06:26 07/05/17 07:07 07/05/17 06:26 07/05/17 06:26 07/05/17 07:40 Oxygen Flow Rate (L/min) 4 Oxygen Delivery Method Room Air Weight: 209 lb 14.081 oz Body Mass Index (BMI) 27.6 Intake and Output for Last 24 Hours 07/03/17 07/04/17 07/05/17 23:59 23:59 23:59 Intake Total 0 / 0 527 / 527 Output Total 650 / 650 2450 / 2450 250 / 250 Balance -650 / -650 -370 / -370 277 / 277 General: Confused, Disoriented, - - / HEENT: Atraumatic, PERRLA, EOMI, Normocephalic Neck: Supple, No JVD, Negative Carotid Bruits Lungs: Diminished, - - No hypoxia or tachypnea Cardiovascular: Regular rate, Normal S1, Normal S2, No murmurs Abdomen: Bowel Sounds Present, Soft, Non Tender, - - Stop Extremities: Edema Skin: No rashes, No breakdown Musculoskeletal: Arthritic Changes Neurological: - - Paraplegia. Nonfocal exam Laboratory Results 07/04/17 16:45: POC Glucose 164 H 07/04/17 22:28: POC Glucose 176 H 07/05/17 06:39: POC Glucose 166 H Current Medications Acetaminophen (Tylenol) 650 mg PO Q4H PRN PRN PRN Reason: Headache/Temp>99F Acetaminophen (Tylenol) 650 mg RECTAL Q4H PRN PRN PRN Reason: Headache/Temp>99F Albuterol Sulfate (Ventolin Aerosols) 2.5 mg INHALATION Q6H.RT [place] Last Admin: 07/05/17 07:32 Dose: Not Given Albuterol/Ipratropium (Duoneb) 3 ml INHALATION Q4H PRN PRN Reason: sob Last Admin: 07/04/17 07:28 Dose: 3 ml Alprazolam (Xanax) 0.25 mg PO BID [facility] Last Admin: 07/04/17 22:47 Dose: 0.25 mg Amlodipine Besylate (Norvasc) 5 mg PO DAILY [facility] Last Admin: 07/04/17 12:52 Dose: 5 mg Atorvastatin Calcium (Lipitor) 80 mg PO DAILY [facility] Last Admin: 07/04/17 08:49 Dose: 80 mg Baclofen (Lioresal) 5 mg PO TID [facility] Last Admin: 07/05/17 05:11 Dose: 5 mg Budesonide (Pulmicort Aerosol) 0.5 mg INHALATION Q12H.RT [facility] Last Admin: 07/05/17 07:32 Dose: Not Given Bupropion HCl (Wellbutrin Xl) 300 mg PO DAILY [facility] Clopidogrel Bisulfate (Plavix) 75 mg PO DAILY [facility] Last Admin: 07/04/17 08:49 Dose: 75 mg Famotidine (Pepcid) 20 mg PO BID [facility] Last Admin: 07/04/17 22:29 Dose: 20 mg Gabapentin (Neurontin) 300 mg PO TIDCM [facility] Last Admin: 07/05/17 08:36 Dose: 300 mg Haloperidol Lactate (Haldol) 5 mg IM Q4H PRN PRN PRN Reason: AGITATION Last Admin: 07/05/17 01:09 Dose: 5 mg Heparin Sodium (Porcine) () 5,000 units SC BID [facility] Last Admin: 07/04/17 22:29 Dose: 5,000 units Sodium Chloride () 1,000 mls @ 75 mls/hr IV .[id number] [facility] Last Admin: 07/05/17 08:35 Dose: 75 mls/hr Insulin Aspart (Novolog Flexpen (Bkc)) 0 units SC ACHS [facility] PRN Reason: Protocol Last Admin: 07/05/17 08:40 Dose: 1 u Metoprolol Tartrate (Lopressor (Beta Lamar)) 50 mg PO BID [facility] Last Admin: 07/04/17 22:29 Dose: 50 mg Paroxetine HCl (Paxil) 20 mg PO DAILY [facility] Last Admin: 07/04/17 12:52 Dose: 10 mg Quetiapine Fumarate (Seroquel) 50 mg PO QHS [facility] Last Admin: 07/04/17 22:29 Dose: 50 mg Tramadol HCl (Ultram) 50 mg PO TID PRN PRN PRN Reason: MODERATE PAIN (4-5/10) Medical Necessity - Tobacco Use Smoking Status: Never smoker Assessment/Plan Active and Suspected Problems Altered mental status, unspecified (Acute) Encephalopathy (Acute) The patient is a 77 year old M with multiple comorbidities as listed above including recent history of possible stroke in January 2017 for which he was admitted came to ER with altered mental status since yesterday afternoon. As per the patient's and daughter, the patient is not acting right, mumbling, incomprehensible words and phrases not able to feed himself, and not able to do basic activities of daily living. also stated that he complained of headache. As per his daughter, she also noticed some facial droop on the right side and slurred speech and drooping right eyelid. CT head reports divergent gaze with none acute findings. 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 1. Acute encephalopathy on baseline with history of a stroke and T8 paraplegia, from spinal cord injury most probably toxic encephalopathy from withdrawal reaction of multiple neurotropic medications/ polypharmacy: The patient is being admitted in PCU to rule out new stroke which is difficult as the patient is very claustrophobic for MRI. Her daughter asked that he needs to be sedated in order for MRI which is high risk; explained to the daughter. Patient was given Ativan 2 mg on 07/03/2017 but could not be calmed down and so MRI was not done. Patient is on Plavix and a statin. Neuro checks every 4 hourly. PT OT and speech evaluation. Discussed with the neurologist, Dr. Greenwood he advised to repeat CT head. EEG ordered. CTA head and neck does not show acute change this time but old lacunar infarct. Patient had 2D echo in January 2017 which showed EF 65%, bubble study negative with no valvular abnormalities. CT angiogram head and neck in January 2017 showed lacunar infarct left basal ganglia age-indeterminate with normal bilateral cervical carotid arteries and vertebral arteries. 2. Possible metabolic/toxic encephalopathy from polypharmacy or sudden withdrawal of multiple antipsychotic medications: Patient looks mildly dehydrated. IV fluid normal saline. Patient was on bupropion XL 450 mg daily; Xanax 0.5 mg a.m. and 1 mg at bedtime daily, tramadol and paroxetine 20 mg daily and duloxetine 60 mg daily about [address] Marie discontinued it. Genex is being tapered off. Paroxetine decreased paroxetine 10 mg daily. On gabapentin. Duloxetine discontinued. Bupropion XL decreased to 300 mg daily. Mild hypokalemia: Replace potassium. 3. Diabetes mellitus type 2: Currently, patient is n.p.o. except medication until he passes swallow evaluation. Accu-Chek every 6 hours and cover with NovoLog sliding scale. 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 Home medication reconciliation done. DVT prophylaxis: On heparin 5000 subcutaneous twice daily and bilateral SCDs. Laboratory Results 07/03/17 09:35: PT 13.5, INR 1.0, APTT 40.8 H 07/03/17 10:20: Urine Color Yellow, Urine Clarity Clear, Urine pH 8.0, Ur Specific [place] 1.010, Urine Protein Negative, Urine Glucose (UA) Normal, Urine Ketones Negative, Urine Occult Blood Negative, Urine Nitrite Negative, Urine Bilirubin Negative, Urine Urobilinogen Normal, Ur Leukocyte Esterase Negative, Urine RBC 0 SEEN, Urine WBC 0 SEEN, Ur Squamous Epith Cells 0 SEEN, Urine Bacteria 0 SEEN, Urine Mucus 0 SEEN 07/03/17 14:10: Total Bilirubin 0.70, Direct Bilirubin 0.19, AST 19, ALT 34, Alkaline Phosphatase 110, Troponin I < 0.02, Total Protein 6.7, Albumin 3.4, Globulin 3.3, TSH 0.88 07/03/17 16:29: POC Glucose 136 H 07/03/17 17:21: Vitamin B12 1018 H 07/03/17 17:21: Ammonia 15.0 07/03/17 20:12: Potassium 3.2 L, Magnesium 1.8 07/03/17 21:21: POC Glucose 132 H 07/04/17 06:20: Sodium 139, Potassium 3.3 L, Chloride 104, Carbon Dioxide 27.0, Anion Gap 8, BUN 5 L, Creatinine 0.46 L, Estim Creat Clear Calc 69.91, Est GFR (MDRD) Af Amer 228, Est GFR (MDRD) Non-Af 188, BUN/Creatinine Ratio 10.8, Glucose 137 H, Calcium 8.9, Triglycerides 171, Cholesterol 114, LDL Cholesterol 40, VLDL Cholesterol 34, HDL Cholesterol 40 07/04/17 06:20: Hemoglobin A1c 6.2 07/04/17 06:55: POC Glucose 152 H Clinical Impression(s) from Imaging Studies Brain CT 07/03/17 09:29 IMPRESSION: Nonacute unenhanced CT scan of the brain. Divergent gaze noted. Clinical correlation recommended. Age-related changes consistent with central cerebral atrophic changes. Old stable appearing bilateral cerebral infarcts as described. Chest X-Ray 07/03/17 09:30 IMPRESSION: COPD without radiographic evidence of acute cardiopulmonary disease. Head CTA 07/03/17 13:30 IMPRESSION: 1. No CTA evidence of intracranial vaso-occlusive disease of the anterior and posterior intracranial circulation. 2. Normal CTA head. 3. Old lacunar cystic infarct in the left periventricular white matter and chronic white matter ischemic changes in both cerebral hemispheres. Neck CTA 07/03/17 13:30 IMPRESSION: 1. No CTA evidence of any vaso-occlusive disease of both common carotid arteries, both internal and external carotid arteries and both vertebral arteries. 2. The aortic arch is not included in the scan. 3. The visualized portions of the right brachiocephalic artery, left common carotid artery and left subclavian artery are widely patent. 4. Widely patent subclavian origins of both vertebral arteries, the cervical portions of both vertebral arteries and the intradural segments of both vertebral arteries. 5. No CT evidence of any suspicious mass in the suprahyoid neck and infrahyoid neck. 6. Bridging anterior longitudinal ligament and anterior marginal spurs from C2-C3 down to C6-C7 disc space levels. Code Visit Inpatient E&M: 95602 Subs Hosp L3
[2017-07-05 10:39] LABS: Absolute Lymphocyte Count 2.51 X10^3/ul (0.83-4.51); Absolute Neutrophil Count 8.4 X10^3/uL (2.0-7.7); Basophil# 0.08 X10^3/uL; Basophil% 0.7 % (0-1); Eosinophil# 0.14 X10^3/uL; Eosinophils% 1.1 % (0-5); Hematocrit 41.1 % (40-54); Hemoglobin 14.7 g/dl (13.0-16.5); Lymphocyte # 2.51 X10^3/ul (4.0); Lymphocyte % 20.5 % (19-41); Mean Corp Hgb Conc 35.8 g/gl (32-36); Mean Corpuscular Volume 86.7 fL (80-94); Mean Platelet Vol. 10.3 fl (6.2-12.0); Monocyte# 1.13 X10^3/uL; Monocyte% 9.2 % (0-10); Neutrophil # 8.37 X10^3/uL (2.7-7.7); Neutrophil % 68.3 % (47-70); Platelet Count 241 K/mm3 (150-450); RBC Distribution Width CV 14.6 % (11.6-14.6); RBC Distribution Width SD 45.4 fl (35.1-43.9); Red Blood Count 4.74 M/mm3 (4.6-6.2); White Blood Count 12.3 K/mm3 (4.4-11.0)
--- NOTE | 2017-07-05 10:42 | PN_ITS ---
Patient Problems: Active and Suspected Problems Altered mental status, unspecified (Acute) Encephalopathy (Acute) Subjective: Patient is awake but restless, incoherent speech. Patient is disoriented and not able to recognize his daughter. No fever. No hypoxia. Vitals/I&O's: Vital Signs Temp Pulse Resp BP Pulse Ox 97.9 F 68 18 151/68 H 94 07/05/17 06:26 07/05/17 07:07 07/05/17 06:26 07/05/17 06:26 07/05/17 07:40 Oxygen Flow Rate (L/min) 4 Oxygen Delivery Method Room Air Weight: 209 lb 14.081 oz Body Mass Index (BMI) 27.6 Intake and Output for Last 24 Hours 07/03/17 07/04/17 07/05/17 23:59 23:59 23:59 Intake Total 0 / 0 527 / 527 Output Total 650 / 650 2450 / 2450 250 / 250 Balance -650 / -650 -370 / -370 277 / 277 General: Confused, Disoriented, - - / HEENT: Atraumatic, PERRLA, EOMI, Normocephalic Neck: Supple, No JVD, Negative Carotid Bruits Lungs: Diminished, - - No hypoxia or tachypnea Cardiovascular: Regular rate, Normal S1, Normal S2, No murmurs Abdomen: Bowel Sounds Present, Soft, Non Tender, - - Stop Extremities: Edema Skin: No rashes, No breakdown Musculoskeletal: Arthritic Changes Neurological: - - Paraplegia. Nonfocal exam Laboratory Results 07/04/17 16:45: POC Glucose 164 H 07/04/17 22:28: POC Glucose 176 H 07/05/17 06:39: POC Glucose 166 H Current Medications Acetaminophen (Tylenol) 650 mg PO Q4H PRN PRN PRN Reason: Headache/Temp>99F Acetaminophen (Tylenol) 650 mg RECTAL Q4H PRN PRN PRN Reason: Headache/Temp>99F Albuterol Sulfate (Ventolin Aerosols) 2.5 mg INHALATION Q6H.RT [place] Last Admin: 07/05/17 07:32 Dose: Not Given Albuterol/Ipratropium (Duoneb) 3 ml INHALATION Q4H PRN PRN Reason: sob Last Admin: 07/04/17 07:28 Dose: 3 ml Alprazolam (Xanax) 0.25 mg PO BID [facility] Last Admin: 07/04/17 22:47 Dose: 0.25 mg Amlodipine Besylate (Norvasc) 5 mg PO DAILY [facility] Last Admin: 07/04/17 12:52 Dose: 5 mg Atorvastatin Calcium (Lipitor) 80 mg PO DAILY [facility] Last Admin: 07/04/17 08:49 Dose: 80 mg Baclofen (Lioresal) 5 mg PO TID [facility] Last Admin: 07/05/17 05:11 Dose: 5 mg Budesonide (Pulmicort Aerosol) 0.5 mg INHALATION Q12H.RT [facility] Last Admin: 07/05/17 07:32 Dose: Not Given Bupropion HCl (Wellbutrin Xl) 300 mg PO DAILY [facility] Clopidogrel Bisulfate (Plavix) 75 mg PO DAILY [facility] Last Admin: 07/04/17 08:49 Dose: 75 mg Famotidine (Pepcid) 20 mg PO BID [facility] Last Admin: 07/04/17 22:29 Dose: 20 mg Gabapentin (Neurontin) 300 mg PO TIDCM [facility] Last Admin: 07/05/17 08:36 Dose: 300 mg Haloperidol Lactate (Haldol) 5 mg IM Q4H PRN PRN PRN Reason: AGITATION Last Admin: 07/05/17 01:09 Dose: 5 mg Heparin Sodium (Porcine) () 5,000 units SC BID [facility] Last Admin: 07/04/17 22:29 Dose: 5,000 units Sodium Chloride () 1,000 mls @ 75 mls/hr IV .[id number] [facility] Last Admin: 07/05/17 08:35 Dose: 75 mls/hr Insulin Aspart (Novolog Flexpen (Bkc)) 0 units SC ACHS [facility] PRN Reason: Protocol Last Admin: 07/05/17 08:40 Dose: 1 u Metoprolol Tartrate (Lopressor (Beta Lamar)) 50 mg PO BID [facility] Last Admin: 07/04/17 22:29 Dose: 50 mg Paroxetine HCl (Paxil) 20 mg PO DAILY [facility] Last Admin: 07/04/17 12:52 Dose: 10 mg Quetiapine Fumarate (Seroquel) 50 mg PO QHS [facility] Last Admin: 07/04/17 22:29 Dose: 50 mg Tramadol HCl (Ultram) 50 mg PO TID PRN PRN PRN Reason: MODERATE PAIN (4-5/10) Medical Necessity - Tobacco Use Smoking Status: Never smoker Assessment/Plan Active and Suspected Problems Altered mental status, unspecified (Acute) Encephalopathy (Acute) The patient is a 77 year old M with multiple comorbidities as listed above including recent history of possible stroke in January 2017 for which he was admitted came to ER with altered mental status since yesterday afternoon. As per the patient's and daughter, the patient is not acting right, mumbling, incomprehensible words and phrases not able to feed himself, and not able to do basic activities of daily living. also stated that he complained of headache. As per his daughter, she also noticed some facial droop on the right side and slurred speech and drooping right eyelid. CT head reports divergent gaze with none acute findings. 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 1. Acute encephalopathy on baseline with history of a stroke and T8 paraplegia , from spinal cord injury most probably toxic encephalopathy from withdrawal reaction of multiple neurotropic medications/ polypharmacy: The patient is being admitted in PCU to rule out new stroke which is difficult as the patient is very claustrophobic for MRI. Her daughter asked that he needs to be sedated in order for MRI which is high risk; explained to the daughter. Patient was given Ativan 2 mg on 07/03/2017 but could not be calmed down and so MRI was not done. Patient is on Plavix and a statin. Neuro checks every 4 hourly. PT OT and speech evaluation. Discussed with the neurologist, Dr. Greenwood he advised to repeat CT head. EEG ordered. CTA head and neck does not show acute change this time but old lacunar infarct. Patient had 2D echo in January 2017 which showed EF 65%, bubble study negative with no valvular abnormalities. CT angiogram head and neck in January 2017 showed lacunar infarct left basal ganglia age-indeterminate with normal bilateral cervical carotid arteries and vertebral arteries. 2. Possible metabolic/toxic encephalopathy from polypharmacy or sudden withdrawal of multiple antipsychotic medications: Patient looks mildly dehydrated. IV fluid normal saline. Patient was on bupropion XL 450 mg daily; Xanax 0.5 mg a.m. and 1 mg at bedtime daily, tramadol and paroxetine 20 mg daily and duloxetine 60 mg daily about [address] Marie discontinued it. Genex is being tapered off. Paroxetine decreased paroxetine 10 mg daily. On gabapentin. Duloxetine discontinued. Bupropion XL decreased to 300 mg daily. Mild hypokalemia: Replace potassium. 3. Diabetes mellitus type 2: Currently, patient is n.p.o. except medication until he passes swallow evaluation. Accu-Chek every 6 hours and cover with NovoLog sliding scale. 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 Home medication reconciliation done. DVT prophylaxis: On heparin 5000 subcutaneous twice daily and bilateral SCDs. Laboratory Results 07/03/17 09:35: PT 13.5, INR 1.0, APTT 40.8 H 07/03/17 10:20: Urine Color Yellow, Urine Clarity Clear, Urine pH 8.0, Ur Specific [place] 1.010, Urine Protein Negative, Urine Glucose (UA) Normal, Urine Ketones Negative, Urine Occult Blood Negative, Urine Nitrite Negative, Urine Bilirubin Negative, Urine Urobilinogen Normal, Ur Leukocyte Esterase Negative, Urine RBC 0 SEEN, Urine WBC 0 SEEN, Ur Squamous Epith Cells 0 SEEN, Urine Bacteria 0 SEEN, Urine Mucus 0 SEEN 07/03/17 14:10: Total Bilirubin 0.70, Direct Bilirubin 0.19, AST 19, ALT 34, Alkaline Phosphatase 110, Troponin I < 0.02, Total Protein 6.7, Albumin 3.4, Globulin 3.3, TSH 0.88 07/03/17 16:29: POC Glucose 136 H 07/03/17 17:21: Vitamin B12 1018 H 07/03/17 17:21: Ammonia 15.0 07/03/17 20:12: Potassium 3.2 L, Magnesium 1.8 07/03/17 21:21: POC Glucose 132 H 07/04/17 06:20: Sodium 139, Potassium 3.3 L, Chloride 104, Carbon Dioxide 27.0, Anion Gap 8, BUN 5 L, Creatinine 0.46 L, Estim Creat Clear Calc 69.91, Est GFR ( MDRD) Af Amer 228, Est GFR (MDRD) Non-Af 188, BUN/Creatinine Ratio 10.8, Glucose 137 H, Calcium 8.9, Triglycerides 171, Cholesterol 114, LDL Cholesterol 40, VLDL Cholesterol 34, HDL Cholesterol 40 07/04/17 06:20: Hemoglobin A1c 6.2 07/04/17 06:55: POC Glucose 152 H Clinical Impression(s) from Imaging Studies Brain CT 07/03/17 09:29 IMPRESSION: Nonacute unenhanced CT scan of the brain. Divergent gaze noted. Clinical correlation recommended. Age-related changes consistent with central cerebral atrophic changes. Old stable appearing bilateral cerebral infarcts as described. Chest X-Ray 07/03/17 09:30 IMPRESSION: COPD without radiographic evidence of acute cardiopulmonary disease. Head CTA 07/03/17 13:30 IMPRESSION: 1. No CTA evidence of intracranial vaso-occlusive disease of the anterior and posterior intracranial circulation. 2. Normal CTA head. 3. Old lacunar cystic infarct in the left periventricular white matter and chronic white matter ischemic changes in both cerebral hemispheres. Neck CTA 07/03/17 13:30 IMPRESSION: 1. No CTA evidence of any vaso-occlusive disease of both common carotid arteries, both internal and external carotid arteries and both vertebral arteries. 2. The aortic arch is not included in the scan. 3. The visualized portions of the right brachiocephalic artery, left common carotid artery and left subclavian artery are widely patent. 4. Widely patent subclavian origins of both vertebral arteries, the cervical portions of both vertebral arteries and the intradural segments of both vertebral arteries. 5. No CT evidence of any suspicious mass in the suprahyoid neck and infrahyoid neck. 6. Bridging anterior longitudinal ligament and anterior marginal spurs from C2-C3 down to C6-C7 disc space levels. Code Visit Inpatient E&M: 53329 Subs Hosp L3
[2017-07-05] MEDS: Clopidogrel Bisulfate 75 MG Tablet PO (10:47)
[2017-07-05] MEDS: buPROPion (XL) 150 MG TABLET.XL 300 MG PO (10:47)
[2017-07-05] MEDS: Heparin Injection 5,000 UNITS/ML Syringe 5000 UNITS SC ×2 (10:47→22:09)
[2017-07-05] MEDS: Famotidine 20 MG Tablet PO ×2 (10:47→22:10)
[2017-07-05] MEDS: Atorvastatin Calcium 80 MG Tablet PO (10:48)
[2017-07-05] MEDS: Metoprolol Tartrate 50 MG Tablet PO ×2 (10:48→22:09)
[2017-07-05] MEDS: amLODIPine 5 MG Tablet PO (10:48)
[2017-07-05 10:49] LABS: POSITIVE COUNT NO; POSITIVE DIFFERENTIAL NO; POSITIVE MORPHOLOGY NO
[2017-07-05 10:59] LABS: ALB/GLOB Ratio 1.1 RATIO (0.9-2.4); AST(SGOT) 80 U/L (15-37); Alanine Aminotransfer ALT/SGPT 47 U/L (16-61); Albumin, Serum 3.6 g/dL (3.2-5.0); Alkaline Phosphatase 104 U/L (45-117); Anion Gap 8 (5-15); BUN 7 mg/dL (7-18); BUN/Creat Ratio 12.9 RATIO (10-20); Calcium,Total 8.8 mg/dL (8.5-10.1); Chloride 110 mmol/L (98-107); Creatinine, Serum 0.54 mg/dL (0.70-1.30); EST Glomerular Filtration Rate 156 mL/min (>60); Est Glom Filt Rate - Afr Amer 188 mL/min (>60); Estimated Creatinine Clearance 69.91 ml/min; Globulin 3.4 g/dL (2.2-4.2); Glucose 184 mg/dL (74-106); Magnesium 1.7 mg/dL (1.6-2.6); Potassium 3.2 mmol/L (3.5-5.1); Sodium Level 143 mmol/L (136-145)
--- NOTE | 2017-07-05 10:59 | PCM.PN.NEU ---
Patient Problems: Active and Suspected Problems Altered mental status, unspecified (Acute) Encephalopathy (Acute) Subjective: family reports meds dc'd as op include xanax, neurontin, baclofen, tramadol and cymbalta about one month ago, then somewhere between 2-7days ago he began to experience nausea, stomach upset. he now has now been agitated and confused with circadian disruption. 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 intact bue intact - Physical Exam Vital Signs Temp Pulse Resp BP Pulse Ox 36.6 C 88 16 186/58 H 98 07/05/17 10:25 07/05/17 10:48 07/05/17 10:25 07/05/17 10:48 07/05/17 10:25 Oxygen Flow Rate (L/min) 4 Oxygen Delivery Method Room Air Weight: 95.2 kg Body Mass Index (BMI) 27.6 Intake and Output for Last 24 Hours 07/03/17 07/04/17 07/05/17 23:59 23:59 23:59 Intake Total 2080 / 2080 527 / 527 Output Total 650 / 650 2450 / 2450 250 / 250 Balance -650 / -650 -370 / -370 277 / 277 Laboratory Tests Past 24 Hrs 07/05/17 07/05/17 10:25 10:25 WBC 12.3 H RBC 4.74 Hgb 14.7 Hct 41.1 MCV 86.7 MCH 31.0 MCHC 35.8 RDW 14.6 RDW Differential 45.4 H Plt Count 241 MPV 10.3 Immature Gran % (Auto) 0.200 Neut % (Auto) 68.3 Lymph % (Auto) 20.5 [place] % (Auto) 9.2 Eos % (Auto) 1.1 Baso % (Auto) 0.7 Absolute Neuts (auto) 8.4 H Absolute Lymphs (auto) 2.51 Total Counted Not Reportable Sodium Pending Potassium Pending Chloride Pending Carbon Dioxide Pending Anion Gap Pending BUN Pending Creatinine Pending Est GFR (MDRD) Af Amer Pending Est GFR (MDRD) Non-Af Pending BUN/Creatinine Ratio Pending Glucose Pending Calcium Pending Magnesium Pending Total Bilirubin Pending AST Pending ALT Pending Alkaline Phosphatase Pending Total Protein Pending Albumin Pending POC Glucose 07/05/17 07/04/17 07/04/17 06:39 22:28 16:45 POC Glucose 166 H 176 H 164 H Current Medications Generic Name Dose Route Start Last Admin Trade Name Freq PRN Reason Stop Dose Admin Acetaminophen 650 mg 07/03/17 13:30 Tylenol PO Q4H PRN PRN Headache/Temp>99F Acetaminophen 650 mg 07/03/17 13:30 Tylenol RECTAL Q4H PRN PRN Headache/Temp>99F Albuterol Sulfate 2.5 mg 07/03/17 17:00 07/05/17 07:32 Ventolin Aerosols INHALATION Not Given Q6H.RT [place] Albuterol/Ipratropium 3 ml 07/03/17 14:51 07/04/17 07:28 Duoneb INHALATION 3 ml Q4H PRN Administration sob Alprazolam 0.25 mg 07/06/17 10:00 Xanax PO 07/06/17 10:01 DAILY [place] Amlodipine Besylate 5 mg 07/04/17 11:30 07/05/17 10:48 Norvasc PO 5 mg DAILY [place] Administration Atorvastatin Calcium 80 mg 07/04/17 10:00 07/05/17 10:48 Lipitor PO 80 mg DAILY [place] Administration Baclofen 5 mg 07/05/17 10:39 Lioresal PO TID PRN muscle rigidity Budesonide 0.5 mg 07/03/17 17:00 07/05/17 07:32 Pulmicort Aerosol INHALATION Not Given Q12H.RT [place] Bupropion HCl 300 mg 07/05/17 10:00 07/05/17 10:47 Wellbutrin Xl PO 300 mg DAILY [place] Administration Clopidogrel Bisulfate 75 mg 07/04/17 10:00 07/05/17 10:47 Plavix PO 75 mg DAILY [place] Administration Famotidine 20 mg 07/03/17 22:00 07/05/17 10:47 Pepcid PO 20 mg BID [place] Administration Gabapentin 300 mg 07/03/17 17:00 07/05/17 08:36 Neurontin PO 300 mg TIDCM [place] Administration Haloperidol Lactate 5 mg 07/04/17 17:34 07/05/17 01:09 Haldol IM 5 mg Q4H PRN PRN Administration AGITATION Heparin Sodium (Porcine) 5,000 units 07/03/17 22:00 07/05/17 10:47 SC 5,000 units BID [place] Administration Sodium Chloride 1,000 mls @ 75 mls/hr 07/04/17 10:18 07/05/17 08:35 IV 75 mls/hr .[id number] [place] Administration Insulin Aspart 0 units 07/05/17 07:00 07/05/17 08:40 Novolog Flexpen (Bkc) SC 1 u ACHS [place] Administration Protocol Metoprolol Tartrate 50 mg 07/03/17 22:00 07/05/17 10:48 Lopressor (Beta Lamar) PO 50 mg BID [place] Administration Paroxetine HCl 10 mg 07/05/17 10:40 Paxil PO DAILY [facility] Quetiapine Fumarate 25 mg 07/05/17 10:39 Seroquel PO QHS [facility] Current Home Med List Medication Instructions Recorded Confirmed Type Bupropion HCl [Wellbutrin Xl] 300 mg PO DAILY 07/03/17 07/03/17 History Ciprofloxacin [Cipro] 250 mg PO BID PRN 07/03/17 07/03/17 History Clonazepam [Klonopin] 1 mg PO QHS 07/03/17 07/04/17 History Clopidogrel Bisulfate [Plavix] 75 mg PO DAILY 07/03/17 07/03/17 History Fluticasone/Vilanterol [Breo 1 each IH DAILY 07/03/17 07/03/17 History Ellipta Inhaler] Gabapentin [Neurontin] 600 mg PO TIDCM 07/03/17 07/04/17 History Metformin HCl 1,000 mg PO BID 07/03/17 07/03/17 History Metoprolol Tartrate [Lopressor 50 mg PO BID 07/03/17 07/03/17 History (Beta Lamar)] ALPRAZolam [Xanax] 0.5 mg PO BID 07/04/17 07/04/17 History Acetaminophen [Tylenol Extra 500 mg PO TID PRN 07/04/17 07/04/17 History Strength] Amlodipine Besylate [Norvasc] 10 mg PO DAILY 07/04/17 07/04/17 History Baclofen 10 mg PO TID 07/04/17 07/04/17 History Clonazepam [Klonopin] 0.5 mg PO 0800 07/04/17 07/04/17 History [place] 07/04/17 History Duloxetine Hcl [Cymbalta] 60 mg PO DAILY 07/04/17 07/04/17 History Glipizide [Glipizide ER] 5 mg PO BID 07/04/17 07/04/17 History Multivit-Min/FA/Lycopen/Lutein 1 each PO DAILY 07/04/17 07/04/17 History [Centrum Silver Tablet] Pantoprazole Sodium 40 mg PO DAILY 07/04/17 07/04/17 History Psyllium [Metamucil] 1 packet PO DAILY 07/04/17 07/04/17 History Tramadol HCl [Ultram] 50 mg PO TID PRN 07/04/17 07/04/17 History Medical Necessity - Tobacco Use Smoking Status: Never smoker Assessment/Plan Active and Suspected Problems Altered mental status, unspecified (Acute) Encephalopathy (Acute) delerium seroquel qhs prn xanax avoid circadian disruption avoid other sedatives during daytime mri if able
--- NOTE | 2017-07-05 11:12 | PN.NEURO_ITS ---
Patient Problems: Active and Suspected Problems Altered mental status, unspecified (Acute) Encephalopathy (Acute) Subjective: family reports meds dc'd as op include xanax, neurontin, baclofen, tramadol and cymbalta about one month ago, then somewhere between 2-7days ago he began to experience nausea, stomach upset. he now has now been agitated and confused with circadian disruption. 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 bue intact - Physical Exam Vital Signs Temp Pulse Resp BP Pulse Ox 36.6 C 88 16 186/58 H 98 07/05/17 10:25 07/05/17 10:48 07/05/17 10:25 07/05/17 10:48 07/05/17 10:25 Oxygen Flow Rate (L/min) 4 Oxygen Delivery Method Room Air Weight: 95.2 kg Body Mass Index (BMI) 27.6 Intake and Output for Last 24 Hours 07/03/17 07/04/17 07/05/17 23:59 23:59 23:59 Intake Total 2080 / 2080 527 / 527 Output Total 650 / 650 2450 / 2450 250 / 250 Balance -650 / -650 -370 / -370 277 / 277 Laboratory Tests Past 24 Hrs 07/05/17 07/05/17 10:25 10:25 WBC 12.3 H RBC 4.74 Hgb 14.7 Hct 41.1 MCV 86.7 MCH 31.0 MCHC 35.8 RDW 14.6 RDW Differential 45.4 H Plt Count 241 MPV 10.3 Immature Gran % (Auto) 0.200 Neut % (Auto) 68.3 Lymph % (Auto) 20.5 [place] % (Auto) 9.2 Eos % (Auto) 1.1 Baso % (Auto) 0.7 Absolute Neuts (auto) 8.4 H Absolute Lymphs (auto) 2.51 Total Counted Not Reportable Sodium Pending Potassium Pending Chloride Pending Carbon Dioxide Pending Anion Gap Pending BUN Pending Creatinine Pending Est GFR (MDRD) Af Amer Pending Est GFR (MDRD) Non-Af Pending BUN/Creatinine Ratio Pending Glucose Pending Calcium Pending Magnesium Pending Total Bilirubin Pending AST Pending ALT Pending Alkaline Phosphatase Pending Total Protein Pending Albumin Pending POC Glucose 07/05/17 07/04/17 07/04/17 06:39 22:28 16:45 POC Glucose 166 H 176 H 164 H Current Medications Generic Name Dose Route Start Last Admin Trade Name Freq PRN Reason Stop Dose Admin Acetaminophen 650 mg 07/03/17 13:30 Tylenol PO Q4H PRN PRN Headache/Temp>99F Acetaminophen 650 mg 07/03/17 13:30 Tylenol RECTAL Q4H PRN PRN Headache/Temp>99F Albuterol Sulfate 2.5 mg 07/03/17 17:00 07/05/17 07:32 Ventolin Aerosols INHALATION Not Given Q6H.RT [place] Albuterol/Ipratropium 3 ml 07/03/17 14:51 07/04/17 07:28 Duoneb INHALATION 3 ml Q4H PRN Administration sob Alprazolam 0.25 mg 07/06/17 10:00 Xanax PO 07/06/17 10:01 DAILY [place] Amlodipine Besylate 5 mg 07/04/17 11:30 07/05/17 10:48 Norvasc PO 5 mg DAILY [place] Administration Atorvastatin Calcium 80 mg 07/04/17 10:00 07/05/17 10:48 Lipitor PO 80 mg DAILY [place] Administration Baclofen 5 mg 07/05/17 10:39 Lioresal PO TID PRN muscle rigidity Budesonide 0.5 mg 07/03/17 17:00 07/05/17 07:32 Pulmicort Aerosol INHALATION Not Given Q12H.RT [place] Bupropion HCl 300 mg 07/05/17 10:00 07/05/17 10:47 Wellbutrin Xl PO 300 mg DAILY [place] Administration Clopidogrel Bisulfate 75 mg 07/04/17 10:00 07/05/17 10:47 Plavix PO 75 mg DAILY [place] Administration Famotidine 20 mg 07/03/17 22:00 07/05/17 10:47 Pepcid PO 20 mg BID [place] Administration Gabapentin 300 mg 07/03/17 17:00 07/05/17 08:36 Neurontin PO 300 mg TIDCM [place] Administration Haloperidol Lactate 5 mg 07/04/17 17:34 07/05/17 01:09 Haldol IM 5 mg Q4H PRN PRN Administration AGITATION Heparin Sodium (Porcine) 5,000 units 07/03/17 22:00 07/05/17 10:47 SC 5,000 units BID [place] Administration Sodium Chloride 1,000 mls @ 75 mls/hr 07/04/17 10:18 07/05/17 08:35 IV 75 mls/hr .[id number] [place] Administration Insulin Aspart 0 units 07/05/17 07:00 07/05/17 08:40 Novolog Flexpen (Bkc) SC 1 u ACHS [place] Administration Protocol Metoprolol Tartrate 50 mg 07/03/17 22:00 07/05/17 10:48 Lopressor (Beta Lamar) PO 50 mg BID [place] Administration Paroxetine HCl 10 mg 07/05/17 10:40 Paxil PO DAILY [facility] Quetiapine Fumarate 25 mg 07/05/17 10:39 Seroquel PO QHS [facility] Current Home Med List Medication Instructions Recorded Confirmed Type Bupropion HCl [Wellbutrin Xl] 300 mg PO DAILY 07/03/17 07/03/17 History Ciprofloxacin [Cipro] 250 mg PO BID PRN 07/03/17 07/03/17 History Clonazepam [Klonopin] 1 mg PO QHS 07/03/17 07/04/17 History Clopidogrel Bisulfate [Plavix] 75 mg PO DAILY 07/03/17 07/03/17 History Fluticasone/Vilanterol [Breo 1 each IH DAILY 07/03/17 07/03/17 History Ellipta Inhaler] Gabapentin [Neurontin] 600 mg PO TIDCM 07/03/17 07/04/17 History Metformin HCl 1,000 mg PO BID 07/03/17 07/03/17 History Metoprolol Tartrate [Lopressor 50 mg PO BID 07/03/17 07/03/17 History (Beta [place])] ALPRAZolam [Xanax] 0.5 mg PO BID 07/04/17 07/04/17 History Acetaminophen [Tylenol Extra 500 mg PO TID PRN 07/04/17 07/04/17 History Strength] Amlodipine Besylate [Norvasc] 10 mg PO DAILY 07/04/17 07/04/17 History Baclofen 10 mg PO TID 07/04/17 07/04/17 History Clonazepam [Klonopin] 0.5 mg PO 0800 07/04/17 07/04/17 History Cranberry 07/04/17 History Duloxetine Hcl [Cymbalta] 60 mg PO DAILY 07/04/17 07/04/17 History Glipizide [Glipizide ER] 5 mg PO BID 07/04/17 07/04/17 History Multivit-Min/FA/Lycopen/Lutein 1 each PO DAILY 07/04/17 07/04/17 History [Centrum Silver Tablet] Pantoprazole Sodium 40 mg PO DAILY 07/04/17 07/04/17 History Psyllium [Metamucil] 1 packet PO DAILY 07/04/17 07/04/17 History Tramadol HCl [Ultram] 50 mg PO TID PRN 07/04/17 07/04/17 History Medical Necessity - Tobacco Use Smoking Status: Never smoker Assessment/Plan Active and Suspected Problems Altered mental status, unspecified (Acute) Encephalopathy (Acute) delerium seroquel qhs prn xanax avoid circadian disruption avoid other sedatives during daytime mri if able
[2017-07-05] MEDS: ALPRAZolam 0.25 MG Tablet PO ×2 (11:38→14:38)
[2017-07-05] MEDS: Acetaminophen 325 MG Tablet 650 MG PO (11:38)
[2017-07-05 17:01] LABS: Bedside Glucose 183 mg/dL (70-110)
[2017-07-05 21:11] LABS: Bedside Glucose 201 mg/dL (70-110)
[2017-07-05] MEDS: QUEtiapine 25 MG Tablet PO (22:10)
[2017-07-05 22:30] LABS: Bedside Glucose 143 mg/dL (70-110)
[2017-07-06] VITALS (16 sets, daily range): BP systolic 158–202; BP diastolic 66–101; PULSE 70–105; RESP 12–21; TEMP 36.6–37.3; O2SAT 92–100; BMI 27.6
--- NOTE | 2017-07-06 | CT_ITS ---
STUDY: CT BRAIN WITHOUT CONTRAST REASON FOR EXAM: Male, 77 years old. Agitated, combative with altered mental status. RADIATION DOSAGE (If Supplied By Facility): CTDIvol = ( 44.99 ) mGy, DLP = ( 863.60 ) mGycm TECHNIQUE: Transaxial CT imaging of the brain was performed without administration of intravenous contrast material. Individualized dose optimization techniques were used for this CT. COMPARISON: None. FINDINGS: Normal soft tissue structures. Normal calvarium. There is moderate cerebral atrophy with widening of the extra-axial spaces and ventricular dilatation. There are areas of decreased attenuation within the white matter tracts of the supratentorial brain, consistent with microvascular disease changes. Normal basal ganglia and thalami. Normal brainstem. Normal cerebellum. There is no intracranial hemorrhage. There are no findings of an acute ischemic infarction. Normal visualized paranasal sinuses. CT/Brain/Head without Contrast IMPRESSION: Senescent changes with no evidence of acute intracranial bleed, mass or ischemia. Electronically Signed: Robbie King DO at 21:56 EDT , Service support ,
[2017-07-06] MEDS: ALPRAZolam 0.25 MG Tablet PO ×3 (02:56→09:16)
[2017-07-06] MEDS: Acetaminophen 325 MG Tablet 650 MG PO (05:00)
--- NOTE | 2017-07-06 05:59 | NURSING ---
Spoke with patient's on phone at this time to see if family member able to come in and sit with patient d/t patient agitation and yelling
[2017-07-06 06:04] LABS: Anion Gap 10 (5-15); BUN 4 mg/dL (7-18); BUN/Creat Ratio 9.7 RATIO (10-20); Calcium,Total 8.9 mg/dL (8.5-10.1); Chloride 107 mmol/L (98-107); Creatinine, Serum 0.41 mg/dL (0.70-1.30); EST Glomerular Filtration Rate 214 mL/min (>60); Est Glom Filt Rate - Afr Amer 259 mL/min (>60); Estimated Creatinine Clearance 69.91 ml/min; Glucose 176 mg/dL (74-106); Potassium 3.7 mmol/L (3.5-5.1); Sodium Level 141 mmol/L (136-145)
[2017-07-06 07:01] LABS: Bedside Glucose 191 mg/dL (70-110)
[2017-07-06] MEDS: Budesonide Respules 0.5 MG/2 ML AMPUL.NEB. INHALATION ×2 (07:28→20:45)
[2017-07-06] MEDS: Ipratropium/Albuterol Sulfate 3 ML AMPUL.NEB INHALATION ×2 (07:28→13:22)
[2017-07-06] MEDS: Gabapentin 300 MG Capsule PO ×2 (09:55→12:50)
[2017-07-06] MEDS: Atorvastatin Calcium 80 MG Tablet PO (09:55)
[2017-07-06] MEDS: Metoprolol Tartrate 50 MG Tablet PO ×2 (09:56→22:31)
[2017-07-06] MEDS: amLODIPine 5 MG Tablet PO (09:56)
[2017-07-06] MEDS: PARoxetine 10 MG Tablet PO (09:56)
[2017-07-06] MEDS: Clopidogrel Bisulfate 75 MG Tablet PO (09:57)
[2017-07-06] MEDS: Heparin Injection 5,000 UNITS/ML Syringe 5000 UNITS SC ×2 (09:57→21:40)
[2017-07-06] MEDS: buPROPion (XL) 150 MG TABLET.XL 300 MG PO (09:58)
[2017-07-06] MEDS: 0.9% Normal Saline 1,000 ML 75 ML IV (10:00)
--- NOTE | 2017-07-06 10:01 | PN.NEURO_ITS ---
Patient Problems: Active and Suspected Problems Altered mental status, unspecified (Acute) Encephalopathy (Acute) Subjective: and daughter at the bedside, as well as nursing. He apparently did not sleep at all last night and remains agitated and confused. He received Seroquel 25 mg at bedtime last night and has had several doses of Xanax 0.25 mg but no Haldol or anything else. He has not been out of bed. Objective: On examination, he appears agitated and confused, moving his bilateral upper extremities, cranial nerves appear intact. Follows simple commands, speech is clear but nonsensical. - Physical Exam Vital Signs Temp Pulse Resp BP Pulse Ox 36.7 C 96 18 200/98 H 97 07/06/17 08:41 07/06/17 08:41 07/06/17 08:41 07/06/17 08:41 07/06/17 08:41 Oxygen Flow Rate (L/min) 4 Oxygen Delivery Method Room Air Weight: 95.2 kg Body Mass Index (BMI) 27.6 Intake and Output for Last 24 Hours 07/04/17 07/05/17 07/06/17 23:59 23:59 23:59 Intake Total 2080 / 2080 2393 / 2393 493 / 493 Output Total 2450 / 2450 1325 / 1325 550 / 550 Balance -370 / -370 1068 / 1068 -57 / -57 Laboratory Tests Past 24 Hrs 07/05/17 07/05/17 07/06/17 10:25 10:25 05:20 WBC 12.3 H RBC 4.74 Hgb 14.7 Hct 41.1 MCV 86.7 MCH 31.0 MCHC 35.8 RDW 14.6 RDW Differential 45.4 H Plt Count 241 MPV 10.3 Immature Gran % (Auto) 0.200 Neut % (Auto) 68.3 Lymph % (Auto) 20.5 [place] % (Auto) 9.2 Eos % (Auto) 1.1 Baso % (Auto) 0.7 Absolute Neuts (auto) 8.4 H Absolute Lymphs (auto) 2.51 Total Counted Not Reportable Sodium 143 141 Potassium 3.2 L 3.7 Chloride 110 H 107 Carbon Dioxide 25.0 24.0 Anion Gap 8 10 BUN 7 4 L Creatinine 0.54 L 0.41 L Estim Creat Clear Calc 69.91 69.91 Est GFR (MDRD) Af Amer 188 259 Est GFR (MDRD) Non-Af 156 214 BUN/Creatinine Ratio 12.9 9.7 L Glucose 184 H 176 H Calcium 8.8 8.9 Magnesium 1.7 Total Bilirubin 1.40 H AST 80 H ALT 47 Alkaline Phosphatase 104 Total Protein 7.0 Albumin 3.6 Globulin 3.4 Albumin/Globulin Ratio 1.1 POC Glucose 07/06/17 07/05/17 07/05/17 06:55 22:07 16:51 POC Glucose 191 H 143 H 183 H 07/05/17 11:34 POC Glucose 201 H Current Medications Acetaminophen 650 mg 07/03/17 13:30 07/06/17 05:00 Tylenol PO 650 mg Q4H PRN PRN Administration Headache/Temp>99F Acetaminophen 650 mg 07/03/17 13:30 Tylenol RECTAL Q4H PRN PRN Headache/Temp>99F Albuterol Sulfate 2.5 mg 07/03/17 17:00 07/05/17 19:42 Ventolin Aerosols INHALATION Not Given Q6H.RT [place] Albuterol/Ipratropium 3 ml 07/03/17 14:51 07/06/17 07:28 Duoneb INHALATION 3 ml Q4H PRN Administration sob Alprazolam 0.25 mg 07/06/17 10:00 07/06/17 09:16 Xanax PO 07/06/17 10:01 0.25 mg DAILY [place] Administration Alprazolam 0.25 mg 07/05/17 13:30 07/06/17 04:59 Xanax PO 0.25 mg Q2H PRN Administration AGITATION Amlodipine Besylate 5 mg 07/04/17 11:30 07/05/17 10:48 Norvasc PO 5 mg DAILY [place] Administration Atorvastatin Calcium 80 mg 07/04/17 10:00 07/05/17 10:48 Lipitor PO 80 mg DAILY [place] Administration Baclofen 5 mg 07/05/17 10:39 Lioresal PO TID PRN muscle rigidity Budesonide 0.5 mg 07/03/17 17:00 07/06/17 07:28 Pulmicort Aerosol INHALATION 0.5 mg Q12H.RT [place] Administration Bupropion HCl 300 mg 07/05/17 10:00 07/05/17 10:47 Wellbutrin Xl PO 300 mg DAILY [place] Administration Clopidogrel Bisulfate 75 mg 07/04/17 10:00 07/05/17 10:47 Plavix PO 75 mg DAILY [place] Administration Famotidine 20 mg 07/03/17 22:00 07/05/17 22:10 Pepcid PO 20 mg BID [place] Administration Gabapentin 300 mg 07/03/17 17:00 07/05/17 16:52 Neurontin PO 300 mg TIDCM [place] Administration Haloperidol Lactate 5 mg 07/04/17 17:34 07/05/17 20:47 Haldol IM 5 mg Q4H PRN PRN Administration AGITATION Heparin Sodium (Porcine) 5,000 units 07/03/17 22:00 07/05/17 22:09 SC 5,000 units BID [place] Administration Sodium Chloride 1,000 mls @ 75 mls/hr 07/04/17 10:18 07/05/17 22:08 IV 75 mls/hr .[id number] [place] Administration Insulin Aspart 0 units 07/05/17 07:00 07/06/17 09:13 Novolog Flexpen (Bkc) SC 1 u ACHS [place] Administration Protocol Metoprolol Tartrate 50 mg 07/03/17 22:00 07/05/17 22:09 Lopressor (Beta Lamar) PO 50 mg BID [place] Administration Paroxetine HCl 10 mg 07/05/17 10:40 Paxil PO DAILY [place] Quetiapine Fumarate 25 mg 07/05/17 10:39 07/05/17 22:10 Seroquel PO 25 mg QHS [place] Administration Medical Necessity - Tobacco Use Smoking Status: Never smoker Assessment/Plan Active and Suspected Problems Altered mental status, unspecified (Acute) Encephalopathy (Acute) 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
[2017-07-06] MEDS: Famotidine 20 MG Tablet PO ×2 (10:11→22:35)
--- NOTE | 2017-07-06 11:05 | CASEMGMT ---
Face to Face with patient for initial transition planning/care coordination assessment. BESSY COSTA introduced self and role at [facility], voices understanding and consents to assessment at this time. Pt is confused, agitated, and unable to answer any questions appropriately at this time. is A/O x4 at this time and answers all questions appropriately at this time. Care providers, pharmacy, and demographics verified. See attached link. voices no further questions/concerns at this time. Advised that Esmer GONCALVES will f/u with her regarding SNF placement after she places call to [facility] per their request, voices understanding. Advised to ask for CM if any further questions/concerns/needs arise, voices understanding. PLAN: SNF, possibly [facility]. SStaten BESSY COSTA
--- NOTE | 2017-07-06 11:45 | CASEMGMT ---
RN JULISSA said family would like patient to go to [facility]. IVANNA called [facility] and spoke with Sherine. They do have beds available and she can look at referral. IVANNA told her that patient is currently very confused, but his confusion is not normally this bad. She said family stopped by there recently to ask about placement. IVANNA faxed referral information to [facility]. We will need insurance authorization, however right now he is too confused to participate in therapy. Plan: placement pending accepting facility and insurance approval. Ila COLLIER
[2017-07-06 13:05] LABS: Bedside Glucose 240 mg/dL (70-110)
[2017-07-06] MEDS: ALPRAZolam 0.5 MG Tablet PO (13:20)
--- NOTE | 2017-07-06 13:34 | CASEMGMT ---
Call placed to Geri at [facility] to verify if HHC still active and she states that pt was discharged from RN on 06/04 and PT on 06/11. Alyssa DOHERTY CM
--- NOTE | 2017-07-06 13:46 | CPS ---
rx administered by blow-by method. pt combative and agitated at time aerosol being performed. family at bedside.
--- NOTE | 2017-07-06 15:20 | MRI_ITS ---
STUDY: MRI BRAIN WITHOUT CONTRAST REASON FOR EXAM: Male, 77 years old. Confusion. TECHNIQUE: Standardized multiplanar fat and water weighted pulse sequences were obtained. COMPARISON: None. FINDINGS: There is moderate cerebral atrophy with widening of the extra-axial spaces and ventricular dilatation. There are multiple confluent white matter hyperintensities, distributed throughout the deep white matter tracts of the cerebral hemispheres, consistent with severe chronic white matter ischemic changes. There is no evidence for recent intracranial ischemia or other cause of cytotoxic edema on diffusion weighted imaging (DWI). Normal T2* images of the brain without demonstrated susceptibility artifact. There is no demonstrated hemosiderin stain. Normal bilateral basal ganglia. Normal thalami. There is no extra-axial fluid accumulation. Normal flow voids within the major intracranial circulation suggesting patency by spin echo criteria. Normal sella turcica, pituitary gland, infundibular stalk, optic chiasm and hypothalamus. Normal tectal plate and pineal gland. Normal midbrain, amaris and medulla. Normal cerebellum. Normal basal cisterns. Normal bilateral temporal bones. Normal bilateral internal auditory canals. No demonstrated orbital abnormality, within the constraints of a routine brain study. Normal visualized paranasal sinuses. Normal calvarium and skull base. Normal visualized soft tissue structures. Normal visualized upper cervical spine. MRI/Brain without Contrast IMPRESSION: Moderate periventricular senescent changes with no evidence of acute intracranial bleed, mass or ischemia. Electronically Signed: Robbie King DO at 21:57 EDT , Service support ,
[2017-07-06] MEDS: LORazepam 2 MG/ML Syringe 1 MG IV (16:06)
--- NOTE | 2017-07-06 18:12 | PCM.PN.HOSP ---
Patient Problems: Active and Suspected Problems Altered mental status, unspecified (Acute) Encephalopathy (Acute) Subjective: CC; mental status changes Objective: Patient is still agitated , he is confused , he is making incomprehensible sounds. Vitals/I&O's: Vital Signs Temp Pulse Resp BP Pulse Ox 98.7 F 86 18 158/66 H 96 07/06/17 16:11 07/06/17 16:11 07/06/17 16:11 07/06/17 16:11 07/06/17 16:11 Oxygen Flow Rate (L/min) 4 Oxygen Delivery Method Room Air Weight: 95.2 kg Body Mass Index (BMI) 27.6 Intake and Output for Last 24 Hours 07/04/17 07/05/17 07/06/17 23:59 23:59 23:59 Intake Total 2080 / 2080 2393 / 2393 613 / 613 Output Total 2450 / 2450 1325 / 1325 1050 / 1050 Balance -370 / -370 1068 / 1068 -437 / -437 General: Alert, Oriented x3 HEENT: Atraumatic Oral: Moist Mucosa Neck: Supple, No JVD Lungs: Clear to auscultation, No wheeze, No rales Cardiovascular: Normal S1, Normal S2 Abdomen: Bowel Sounds Present, Soft, Non Tender Extremities: No clubbing Musculoskeletal: No Tenderness to Palpation of Joints or Extremities Neurological: Cranial nerves II-XII grossly intact, Neuro grossly intact, Motor Exam 5/5 strength throughout, Facial Droop Laboratory Results 07/05/17 11:34: POC Glucose 201 H 07/05/17 22:07: POC Glucose 143 H 07/06/17 05:20: Sodium 141, Potassium 3.7, Chloride 107, Carbon Dioxide 24.0, Anion Gap 10, BUN 4 L, Creatinine 0.41 L, Estim Creat Clear Calc 69.91, Est GFR (MDRD) Af Amer 259, Est GFR (MDRD) Non-Af 214, BUN/Creatinine Ratio 9.7 L, Glucose 176 H, Calcium 8.9 07/06/17 06:55: POC Glucose 191 H 07/06/17 12:49: POC Glucose 240 H Current Medications Acetaminophen (Tylenol) 650 mg PO Q4H PRN PRN PRN Reason: Headache/Temp>99F Last Admin: 07/06/17 05:00 Dose: 650 mg Acetaminophen (Tylenol) 650 mg RECTAL Q4H PRN PRN PRN Reason: Headache/Temp>99F Albuterol Sulfate (Ventolin Aerosols) 2.5 mg INHALATION Q6H.RT [facility] Last Admin: 07/05/17 19:42 Dose: Not Given Albuterol/Ipratropium (Duoneb) 3 ml INHALATION Q4H PRN PRN Reason: sob Last Admin: 07/06/17 13:22 Dose: 3 ml Alprazolam (Xanax) 0.5 mg PO Q2H PRN PRN PRN Reason: AGITATION Last Admin: 07/06/17 13:20 Dose: 0.5 mg Amlodipine Besylate (Norvasc) 5 mg PO DAILY [facility] Last Admin: 07/06/17 09:56 Dose: 5 mg Atorvastatin Calcium (Lipitor) 80 mg PO DAILY [facility] Last Admin: 07/06/17 09:55 Dose: 80 mg Baclofen (Lioresal) 5 mg PO TID PRN PRN Reason: muscle rigidity Budesonide (Pulmicort Aerosol) 0.5 mg INHALATION Q12H.RT [facility] Last Admin: 07/06/17 07:28 Dose: 0.5 mg Bupropion HCl (Wellbutrin Xl) 300 mg PO DAILY [facility] Last Admin: 07/06/17 09:58 Dose: 300 mg Clopidogrel Bisulfate (Plavix) 75 mg PO DAILY [facility] Last Admin: 07/06/17 09:57 Dose: 75 mg Famotidine (Pepcid) 20 mg PO BID [facility] Last Admin: 07/06/17 10:11 Dose: 20 mg Gabapentin (Neurontin) 300 mg PO TIDCM [facility] Last Admin: 07/06/17 12:50 Dose: 300 mg Haloperidol Lactate (Haldol) 5 mg IM Q4H PRN PRN PRN Reason: AGITATION Last Admin: 07/05/17 20:47 Dose: 5 mg Heparin Sodium (Porcine) () 5,000 units SC BID [facility] Last Admin: 07/06/17 09:57 Dose: 5,000 units Sodium Chloride () 1,000 mls @ 75 mls/hr IV .[id number] [facility] Last Admin: 07/06/17 10:00 Dose: 75 mls/hr Insulin Aspart (Novolog Flexpen (Bkc)) 0 units SC ACHS [facility] PRN Reason: Protocol Last Admin: 07/06/17 12:50 Dose: 2 u Lisinopril (Zestril) 5 mg PO DAILY [facility] Metoprolol Tartrate (Lopressor (Beta Lamar)) 50 mg PO BID [facility] Last Admin: 07/06/17 09:56 Dose: 50 mg Paroxetine HCl (Paxil) 10 mg PO DAILY [facility] Last Admin: 07/06/17 09:56 Dose: 10 mg Quetiapine Fumarate (Seroquel) 100 mg PO QHS [facility] Medical Necessity - Tobacco Use Smoking Status: Never smoker Assessment/Plan Active and Suspected Problems Altered mental status, unspecified (Acute) Encephalopathy (Acute) 1. Acute encephalopathy ; continue current medical regimen we will attempt to obtain MRI of the brain today. 2. Type 2 diabetes; continue a regular insulin sliding scale. 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 DVT prophylaxis with subcutaneous heparin. Code Visit Inpatient E&M: 74675 Subs Hosp L2
--- NOTE | 2017-07-06 18:15 | PN_ITS ---
Patient Problems: Active and Suspected Problems Altered mental status, unspecified (Acute) Encephalopathy (Acute) Subjective: CC; mental status changes Objective: Patient is still agitated , he is confused , he is making incomprehensible sounds. Vitals/I&O's: Vital Signs Temp Pulse Resp BP Pulse Ox 98.7 F 86 18 158/66 H 96 07/06/17 16:11 07/06/17 16:11 07/06/17 16:11 07/06/17 16:11 07/06/17 16:11 Oxygen Flow Rate (L/min) 4 Oxygen Delivery Method Room Air Weight: 95.2 kg Body Mass Index (BMI) 27.6 Intake and Output for Last 24 Hours 07/04/17 07/05/17 07/06/17 23:59 23:59 23:59 Intake Total 2080 / 2080 2393 / 2393 613 / 613 Output Total 2450 / 2450 1325 / 1325 1050 / 1050 Balance -370 / -370 1068 / 1068 -437 / -437 General: Alert, Oriented x3 HEENT: Atraumatic Oral: Moist Mucosa Neck: Supple, No JVD Lungs: Clear to auscultation, No wheeze, No rales Cardiovascular: Normal S1, Normal S2 Abdomen: Bowel Sounds Present, Soft, Non Tender Extremities: No clubbing Musculoskeletal: No Tenderness to Palpation of Joints or Extremities Neurological: Cranial nerves II-XII grossly intact, Neuro grossly intact, Motor Exam 5/5 strength throughout, Facial Droop Laboratory Results 07/05/17 11:34: POC Glucose 201 H 07/05/17 22:07: POC Glucose 143 H 07/06/17 05:20: Sodium 141, Potassium 3.7, Chloride 107, Carbon Dioxide 24.0, Anion Gap 10, BUN 4 L, Creatinine 0.41 L, Estim Creat Clear Calc 69.91, Est GFR (MDRD) Af Amer 259, Est GFR (MDRD) Non-Af 214, BUN/Creatinine Ratio 9.7 L, Glucose 176 H, Calcium 8.9 07/06/17 06:55: POC Glucose 191 H 07/06/17 12:49: POC Glucose 240 H Current Medications Acetaminophen (Tylenol) 650 mg PO Q4H PRN PRN PRN Reason: Headache/Temp>99F Last Admin: 07/06/17 05:00 Dose: 650 mg Acetaminophen (Tylenol) 650 mg RECTAL Q4H PRN PRN PRN Reason: Headache/Temp>99F Albuterol Sulfate (Ventolin Aerosols) 2.5 mg INHALATION Q6H.RT [facility] Last Admin: 07/05/17 19:42 Dose: Not Given Albuterol/Ipratropium (Duoneb) 3 ml INHALATION Q4H PRN PRN Reason: sob Last Admin: 07/06/17 13:22 Dose: 3 ml Alprazolam (Xanax) 0.5 mg PO Q2H PRN PRN PRN Reason: AGITATION Last Admin: 07/06/17 13:20 Dose: 0.5 mg Amlodipine Besylate (Norvasc) 5 mg PO DAILY [facility] Last Admin: 07/06/17 09:56 Dose: 5 mg Atorvastatin Calcium (Lipitor) 80 mg PO DAILY [facility] Last Admin: 07/06/17 09:55 Dose: 80 mg Baclofen (Lioresal) 5 mg PO TID PRN PRN Reason: muscle rigidity Budesonide (Pulmicort Aerosol) 0.5 mg INHALATION Q12H.RT [facility] Last Admin: 07/06/17 07:28 Dose: 0.5 mg Bupropion HCl (Wellbutrin Xl) 300 mg PO DAILY [facility] Last Admin: 07/06/17 09:58 Dose: 300 mg Clopidogrel Bisulfate (Plavix) 75 mg PO DAILY [facility] Last Admin: 07/06/17 09:57 Dose: 75 mg Famotidine (Pepcid) 20 mg PO BID [facility] Last Admin: 07/06/17 10:11 Dose: 20 mg Gabapentin (Neurontin) 300 mg PO TIDCM [facility] Last Admin: 07/06/17 12:50 Dose: 300 mg Haloperidol Lactate (Haldol) 5 mg IM Q4H PRN PRN PRN Reason: AGITATION Last Admin: 07/05/17 20:47 Dose: 5 mg Heparin Sodium (Porcine) () 5,000 units SC BID [facility] Last Admin: 07/06/17 09:57 Dose: 5,000 units Sodium Chloride () 1,000 mls @ 75 mls/hr IV .[id number] [facility] Last Admin: 07/06/17 10:00 Dose: 75 mls/hr Insulin Aspart (Novolog Flexpen (Bkc)) 0 units SC ACHS [facility] PRN Reason: Protocol Last Admin: 07/06/17 12:50 Dose: 2 u Lisinopril (Zestril) 5 mg PO DAILY [facility] Metoprolol Tartrate (Lopressor (Beta Lamar)) 50 mg PO BID [facility] Last Admin: 07/06/17 09:56 Dose: 50 mg Paroxetine HCl (Paxil) 10 mg PO DAILY [facility] Last Admin: 07/06/17 09:56 Dose: 10 mg Quetiapine Fumarate (Seroquel) 100 mg PO QHS [facility] Medical Necessity - Tobacco Use Smoking Status: Never smoker Assessment/Plan Active and Suspected Problems Altered mental status, unspecified (Acute) Encephalopathy (Acute) 1. Acute encephalopathy ; continue current medical regimen we will attempt to obtain MRI of the brain today. 2. Type 2 diabetes; continue a regular insulin sliding scale. 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 DVT prophylaxis with subcutaneous heparin. Code Visit Inpatient E&M: 04958 Subs Hosp L2
[2017-07-06 18:36] LABS: Bedside Glucose 171 mg/dL (70-110)
[2017-07-06] MEDS: Albuterol 2.5 MG/3 ML VIAL.NEB. INHALATION (20:45)
--- NOTE | 2017-07-06 21:35 | NURSING ---
Pt difficult to assess at this time. Given antianxiety meds for MRI. Has been lethargic since.
[2017-07-06 22:31] LABS: Bedside Glucose 184 mg/dL (70-110)
[2017-07-06] MEDS: QUEtiapine 100 MG Tablet PO (22:43)
[2017-07-07] VITALS (15 sets, daily range): BP systolic 166–209; BP diastolic 81–114; PULSE 72–118; RESP 11–24; TEMP 36.9–37.5; O2SAT 93–99; BMI 27.6
[2017-07-07] MEDS: 0.9% Normal Saline 1,000 ML 75 ML IV ×2 (01:57→16:21)
[2017-07-07 07:06] LABS: Bedside Glucose 203 mg/dL (70-110)
[2017-07-07] MEDS: Budesonide Respules 0.5 MG/2 ML AMPUL.NEB. INHALATION ×2 (07:33→19:41)
[2017-07-07] MEDS: Albuterol 2.5 MG/3 ML VIAL.NEB. INHALATION ×2 (07:33→13:29)
[2017-07-07] MEDS: amLODIPine 5 MG Tablet PO (11:06)
[2017-07-07] MEDS: Clopidogrel Bisulfate 75 MG Tablet PO (11:06)
[2017-07-07] MEDS: Lisinopril 5 MG Tablet PO (11:06)
[2017-07-07] MEDS: Gabapentin 300 MG Capsule PO ×2 (11:06→12:16)
[2017-07-07] MEDS: Famotidine 20 MG Tablet PO (11:07)
[2017-07-07] MEDS: buPROPion (XL) 150 MG TABLET.XL 300 MG PO (11:07)
[2017-07-07] MEDS: PARoxetine 10 MG Tablet PO (11:07)
[2017-07-07] MEDS: Metoprolol Tartrate 50 MG Tablet PO (11:07)
[2017-07-07] MEDS: Heparin Injection 5,000 UNITS/ML Syringe 5000 UNITS SC ×2 (11:09→21:11)
--- NOTE | 2017-07-07 12:06 | NURSING ---
Colostomy appliance intact to the left lower quadrant. applied was just changed on 07/05/17. no signs of leak. If patient is not discharged, plan to change appliance tomorrow or to assess peristomal skin. Since appliance was recently changed, did not want to remove today.
--- NOTE | 2017-07-07 12:08 | NURSING ---
Redness noted to bilateral elbows. applied elbow protectors at this time. states patient has been rubbing elbows on the bed.
[2017-07-07 12:30] LABS: Bedside Glucose 202 mg/dL (70-110)
--- NOTE | 2017-07-07 13:44 | CPS ---
aerosol rx given blow-by method. pt agitated and combative at time of rx. rx terminated after 5 min.
--- NOTE | 2017-07-07 16:35 | PCM.PN.HOSP ---
Patient Problems: Active and Suspected Problems Altered mental status, unspecified (Acute) Encephalopathy (Acute) Vitals/I&O's: Vital Signs Temp Pulse Resp BP Pulse Ox 98.4 F 82 13 187/85 H 97 07/07/17 14:30 07/07/17 14:30 07/07/17 14:30 07/07/17 14:30 07/07/17 14:30 Oxygen Flow Rate (L/min) 4 Oxygen Delivery Method Room Air Weight: 95.2 kg Body Mass Index (BMI) 27.6 Intake and Output for Last 24 Hours 07/05/17 07/06/17 07/07/17 23:59 23:59 23:59 Intake Total 2393 / 2393 2103 / 2103 1148 / 1148 Output Total 1325 / 1325 1550 / 1550 1050 / 1050 Balance 1068 / 1068 553 / 553 98 / 98 Laboratory Results 07/06/17 18:16: POC Glucose 171 H 07/06/17 21:38: POC Glucose 184 H 07/07/17 07:01: POC Glucose 203 H 07/07/17 12:14: POC Glucose 202 H Current Medications Acetaminophen (Tylenol) 650 mg PO Q4H PRN PRN PRN Reason: Headache/Temp>99F Last Admin: 07/06/17 05:00 Dose: 650 mg Acetaminophen (Tylenol) 650 mg RECTAL Q4H PRN PRN PRN Reason: Headache/Temp>99F Albuterol Sulfate (Ventolin Aerosols) 2.5 mg INHALATION Q6H.RT [facility] Last Admin: 07/07/17 13:29 Dose: 2.5 mg Albuterol/Ipratropium (Duoneb) 3 ml INHALATION Q4H PRN PRN Reason: sob Last Admin: 07/06/17 13:22 Dose: 3 ml Alprazolam (Xanax) 0.5 mg PO Q2H PRN PRN PRN Reason: AGITATION Last Admin: 07/06/17 13:20 Dose: 0.5 mg Amlodipine Besylate (Norvasc) 5 mg PO DAILY [facility] Last Admin: 07/07/17 11:06 Dose: 5 mg Atorvastatin Calcium (Lipitor) 80 mg PO DAILY [facility] Last Admin: 07/07/17 11:25 Dose: Not Given Baclofen (Lioresal) 5 mg PO TID PRN PRN Reason: muscle rigidity Budesonide (Pulmicort Aerosol) 0.5 mg INHALATION Q12H.RT [facility] Last Admin: 07/07/17 07:33 Dose: 0.5 mg Bupropion HCl (Wellbutrin Xl) 300 mg PO DAILY [facility] Last Admin: 07/07/17 11:07 Dose: 300 mg Clopidogrel Bisulfate (Plavix) 75 mg PO DAILY [facility] Last Admin: 07/07/17 11:06 Dose: 75 mg Famotidine (Pepcid) 20 mg PO BID [facility] Last Admin: 07/07/17 11:07 Dose: 20 mg Gabapentin (Neurontin) 300 mg PO TIDCM [facility] Last Admin: 07/07/17 12:16 Dose: 300 mg Haloperidol Lactate (Haldol) 5 mg IM Q4H PRN PRN PRN Reason: AGITATION Last Admin: 07/05/17 20:47 Dose: 5 mg Heparin Sodium (Porcine) () 5,000 units SC BID [facility] Last Admin: 07/07/17 11:09 Dose: 5,000 units Sodium Chloride () 1,000 mls @ 75 mls/hr IV .[id number] [facility] Last Admin: 07/07/17 01:57 Dose: 75 mls/hr Insulin Aspart (Novolog Flexpen (Bkc)) 0 units SC ACHS [facility] PRN Reason: Protocol Last Admin: 07/07/17 12:16 Dose: 1 u Lisinopril (Zestril) 5 mg PO DAILY [facility] Last Admin: 07/07/17 11:06 Dose: 5 mg Metoprolol Tartrate (Lopressor (Beta Lamar)) 50 mg PO BID [facility] Last Admin: 07/07/17 11:07 Dose: 50 mg Paroxetine HCl (Paxil) 10 mg PO DAILY [facility] Last Admin: 07/07/17 11:07 Dose: 10 mg Quetiapine Fumarate (Seroquel) 100 mg PO QHS [facility] Last Admin: 07/06/17 22:43 Dose: 100 mg Medical Necessity - Tobacco Use Smoking Status: Never smoker Assessment/Plan Active and Suspected Problems Altered mental status, unspecified (Acute) Encephalopathy (Acute) 1. 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 2. Type 2 diabetes; continue a regular insulin sliding scale. 3. old stroke; he is on Plavix for secondary stroke prevention. MRI of the brain is nonacute. 4. DVT prophylaxis with subcutaneous heparin. Code Visit Inpatient E&M: 14240 Subs Hosp L2
[2017-07-07 16:36] LABS: Bedside Glucose 164 mg/dL (70-110)
--- NOTE | 2017-07-07 16:38 | PN_ITS ---
Patient Problems: Active and Suspected Problems Altered mental status, unspecified (Acute) Encephalopathy (Acute) Vitals/I&O's: Vital Signs Temp Pulse Resp BP Pulse Ox 98.4 F 82 13 187/85 H 97 07/07/17 14:30 07/07/17 14:30 07/07/17 14:30 07/07/17 14:30 07/07/17 14:30 Oxygen Flow Rate (L/min) 4 Oxygen Delivery Method Room Air Weight: 95.2 kg Body Mass Index (BMI) 27.6 Intake and Output for Last 24 Hours 07/05/17 07/06/17 07/07/17 23:59 23:59 23:59 Intake Total 2393 / 2393 2103 / 2103 1148 / 1148 Output Total 1325 / 1325 1550 / 1550 1050 / 1050 Balance 1068 / 1068 553 / 553 98 / 98 Laboratory Results 07/06/17 18:16: POC Glucose 171 H 07/06/17 21:38: POC Glucose 184 H 07/07/17 07:01: POC Glucose 203 H 07/07/17 12:14: POC Glucose 202 H Current Medications Acetaminophen (Tylenol) 650 mg PO Q4H PRN PRN PRN Reason: Headache/Temp>99F Last Admin: 07/06/17 05:00 Dose: 650 mg Acetaminophen (Tylenol) 650 mg RECTAL Q4H PRN PRN PRN Reason: Headache/Temp>99F Albuterol Sulfate (Ventolin Aerosols) 2.5 mg INHALATION Q6H.RT [facility] Last Admin: 07/07/17 13:29 Dose: 2.5 mg Albuterol/Ipratropium (Duoneb) 3 ml INHALATION Q4H PRN PRN Reason: sob Last Admin: 07/06/17 13:22 Dose: 3 ml Alprazolam (Xanax) 0.5 mg PO Q2H PRN PRN PRN Reason: AGITATION Last Admin: 07/06/17 13:20 Dose: 0.5 mg Amlodipine Besylate (Norvasc) 5 mg PO DAILY [facility] Last Admin: 07/07/17 11:06 Dose: 5 mg Atorvastatin Calcium (Lipitor) 80 mg PO DAILY [facility] Last Admin: 07/07/17 11:25 Dose: Not Given Baclofen (Lioresal) 5 mg PO TID PRN PRN Reason: muscle rigidity Budesonide (Pulmicort Aerosol) 0.5 mg INHALATION Q12H.RT [facility] Last Admin: 07/07/17 07:33 Dose: 0.5 mg Bupropion HCl (Wellbutrin Xl) 300 mg PO DAILY [facility] Last Admin: 07/07/17 11:07 Dose: 300 mg Clopidogrel Bisulfate (Plavix) 75 mg PO DAILY [facility] Last Admin: 07/07/17 11:06 Dose: 75 mg Famotidine (Pepcid) 20 mg PO BID [facility] Last Admin: 07/07/17 11:07 Dose: 20 mg Gabapentin (Neurontin) 300 mg PO TIDCM [facility] Last Admin: 07/07/17 12:16 Dose: 300 mg Haloperidol Lactate (Haldol) 5 mg IM Q4H PRN PRN PRN Reason: AGITATION Last Admin: 07/05/17 20:47 Dose: 5 mg Heparin Sodium (Porcine) () 5,000 units SC BID [facility] Last Admin: 07/07/17 11:09 Dose: 5,000 units Sodium Chloride () 1,000 mls @ 75 mls/hr IV .[id number] [facility] Last Admin: 07/07/17 01:57 Dose: 75 mls/hr Insulin Aspart (Novolog Flexpen (Bkc)) 0 units SC ACHS [facility] PRN Reason: Protocol Last Admin: 07/07/17 12:16 Dose: 1 u Lisinopril (Zestril) 5 mg PO DAILY [facility] Last Admin: 07/07/17 11:06 Dose: 5 mg Metoprolol Tartrate (Lopressor (Beta Lamar)) 50 mg PO BID [facility] Last Admin: 07/07/17 11:07 Dose: 50 mg Paroxetine HCl (Paxil) 10 mg PO DAILY [facility] Last Admin: 07/07/17 11:07 Dose: 10 mg Quetiapine Fumarate (Seroquel) 100 mg PO QHS [facility] Last Admin: 07/06/17 22:43 Dose: 100 mg Medical Necessity - Tobacco Use Smoking Status: Never smoker Assessment/Plan Active and Suspected Problems Altered mental status, unspecified (Acute) Encephalopathy (Acute) 1. 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 2. Type 2 diabetes; continue a regular insulin sliding scale. 3. old stroke; he is on Plavix for secondary stroke prevention. MRI of the brain is nonacute. 4. DVT prophylaxis with subcutaneous heparin. Code Visit Inpatient E&M: 97207 Subs Hosp L2
--- NOTE | 2017-07-07 16:51 | NURSING ---
Patient sitting up in bed for supper. PATTERN PAINTER gave patient one bite of food and the patient began to choke. Patient able to clear throat on his own, but did cough up and spit out small pieces of macaroni. Patient was suctioned and mouth cleaned. Sitting up in bed right now. Family at bedside. Patient made NPO.
[2017-07-07] MEDS: Haloperidol Lactate 5 MG/ML Vial 2 MG IM (19:32)
[2017-07-07] MEDS: Ipratropium/Albuterol Sulfate 3 ML AMPUL.NEB INHALATION (19:41)
--- NOTE | 2017-07-07 20:08 | NURSING ---
RN provided education to family several times that patient would need to remain NPO for his safety until seen by ST again since he choked earlier today. Continued reinforcement needed.
[2017-07-07] MEDS: hydrALAZINE 20 MG/ML Vial 10 MG IV (21:07)
[2017-07-07 23:01] LABS: Bedside Glucose 131 mg/dL (70-110)
[2017-07-08] VITALS (17 sets, daily range): BP systolic 126–158; BP diastolic 64–94; PULSE 60–115; RESP 16–20; TEMP 36.7–37.4; O2SAT 93–96; BMI 27.6
[2017-07-08] MEDS: Albuterol 2.5 MG/3 ML VIAL.NEB. INHALATION ×4 (02:00→19:08)
[2017-07-08] MEDS: 0.9% Normal Saline 1,000 ML 75 ML IV ×2 (05:37→17:32)
[2017-07-08] MEDS: Haloperidol Lactate 5 MG/ML Vial 2 MG IM ×2 (05:38→20:32)
[2017-07-08 06:50] LABS: Bedside Glucose 168 mg/dL (70-110)
--- NOTE | 2017-07-08 07:00 | NURSING ---
Pt. called in to PCU for update and spoke with this nurse. Informed there was not much change in mental status overnight. Pt. sleeping at this time and was given a dose of Haldol this morning. felt that pt. condition was her fault because she took pt. to Dr. Marie who took pt. off some of his medications. This nurse also spoke with about risk for aspiration with pt. and needs to be further evaluated by speech therapy. verbalized understanding.
[2017-07-08] MEDS: Budesonide Respules 0.5 MG/2 ML AMPUL.NEB. INHALATION ×2 (07:22→19:08)
[2017-07-08] MEDS: Heparin Injection 5,000 UNITS/ML Syringe 5000 UNITS SC ×2 (09:00→22:08)
--- NOTE | 2017-07-08 10:36 | CASEMGMT ---
IVANNA spoke with patient's . She is very upset about her 's confused state and that he does not seem to be getting better. SW provided emotional support. IVANNA explained to her that right now he cannot even participate in therapy so we would not be able to get insurance to approve a SNF stay. IVANNA told her he may have to go to a fdc private pay. IVANNA told her SW is talking with [facility], but they have not told SW yes or no as they want to see if his confusion clears up at all and if they are able to manage his care. IVANNA told her SW will keep in touch with [facility]. The doctor then came to talk with patient's . IVANNA then called Sherine at [facility] and she asked SW to send more information and that she may come and do an on site visit. IVANNA told her that would be fine. IVANNA faxed updates to [facility]. IVANNA then went back and spoke with patient's letting her know this information. She said her son and daughter are working with their finances. She said SW should talk with them about finances. Her daughter is [facility] Hospital[facility]joe-[phone] Oedc-[phone] Her son is Benedicto[facility] Community HospitalKbby-[phone] Uyro-[phone] Plan: SNF. Waiting on [facility] to let us know if they can take patient. Also, not sure if patient will be able to go on his insurance or if he will have to go private pay. Ila DARNELL MSW
[2017-07-08] MEDS: Gabapentin 300 MG Capsule PO ×3 (10:42→17:25)
[2017-07-08] MEDS: amLODIPine 5 MG Tablet PO (10:42)
[2017-07-08] MEDS: Famotidine 20 MG Tablet PO ×2 (10:42→22:10)
[2017-07-08] MEDS: Clopidogrel Bisulfate 75 MG Tablet PO (10:42)
[2017-07-08] MEDS: Atorvastatin Calcium 80 MG Tablet PO (10:42)
[2017-07-08] MEDS: Metoprolol Tartrate 50 MG Tablet PO ×2 (10:42→22:09)
[2017-07-08] MEDS: PARoxetine 10 MG Tablet PO (10:42)
[2017-07-08] MEDS: Lisinopril 5 MG Tablet PO (10:42)
[2017-07-08] MEDS: buPROPion (XL) 150 MG TABLET.XL 300 MG PO (10:43)
--- NOTE | 2017-07-08 11:12 | PN.NEURO_ITS ---
Patient Problems: Active and Suspected Problems Altered mental status, unspecified (Acute) Encephalopathy (Acute) Subjective: Appears calm today, does not remember me from yesterday. Follow simple commands. and [id number] are present, questions are answered. They are looking into the [facility] upon discharge. Nursing tells me he did receive 2 doses of Haldol last night to help him sleep, otherwise slept okay, he was mildly agitated yesterday afternoon briefly. Objective: On examination he is awake and alert, oriented ?1. Follows commands, there is no asterixis, no drift, his cranial nerves in his upper extremities are intact, he has T8 paraparesis - Physical Exam Vital Signs Temp Pulse Resp BP Pulse Ox 37.4 C H 110 H 18 148/86 H 96 07/08/17 08:20 07/08/17 10:42 07/08/17 08:20 07/08/17 08:20 07/08/17 08:20 Oxygen Flow Rate (L/min) 4 Oxygen Delivery Method Room Air Weight: 95.2 kg Body Mass Index (BMI) 27.6 Intake and Output for Last 24 Hours 07/06/17 07/07/17 07/08/17 23:59 23:59 23:59 Intake Total 2103 / 2103 2105 / 2105 308 / 308 Output Total 1550 / 1550 1650 / 1650 150 / 150 Balance 553 / 553 455 / 455 158 / 158 POC Glucose 07/08/17 07/07/17 07/07/17 05:43 21:15 16:26 POC Glucose 168 H 131 H 164 H 07/07/17 12:14 POC Glucose 202 H Medical Necessity - Tobacco Use Smoking Status: Never smoker Assessment/Plan Active and Suspected Problems Altered mental status, unspecified (Acute) Encephalopathy (Acute) 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 Still has not been out of bed which is complicated because of his paresis in his lower extremities however this would help his orientation will ask again for him to be out of bed to chair seroquel qhs 100mg prn xanax increase to 0.5 avoid circadian disruption avoid other sedatives during daytime mri unremarkable * Suggest extended care facility at this point.
--- NOTE | 2017-07-08 11:29 | CASEMGMT ---
Pt's stopped this RN CM in hallway asking about SNF and is also very upset at this time that pt is still confused and that she feels like she 'did this to him' because she agreed with Dr. Marie stopping all pt meds about 6 weeks ago. also upset that family has been staying with her and she doesn't want to 'be a burden.' Emotional support given. This RN CM spoke with pt's for awhile and attempted to answer questions for at this time. Advised that this RN CM would send Esmer GONCALVES in for all questions regarding SNF and also for emotional support, voices understanding. Esmer GONCALVES aware and to lobby to speak with pt's at this time. Alyssa RN CM
[2017-07-08 13:00] LABS: Bedside Glucose 179 mg/dL (70-110)
--- NOTE | 2017-07-08 14:46 | CASEMGMT ---
SW spoke with patient's , daughter, and daughter in law. Explained that [facility] will come and visit patient. They want to make sure they can manage his care. SW explained he did do therapy today so that is good and we may be able to get insurance to approve a skilled stay at the care home instead of private pay. SW will continue to follow. Ila DARNELL MSW
--- NOTE | 2017-07-08 16:20 | PCM.PN.HOSP ---
Patient Problems: Active and Suspected Problems Altered mental status, unspecified (Acute) Encephalopathy (Acute) Subjective: CC: Acute Change in mental status Objective: Patient is less agitated today. He was able to tell me his full name and asked me who I was. Vitals/I&O's: Vital Signs Temp Pulse Resp BP Pulse Ox 99.4 F H 73 18 148/86 H 96 07/08/17 08:20 07/08/17 15:19 07/08/17 13:45 07/08/17 08:20 07/08/17 08:20 Oxygen Flow Rate (L/min) 4 Oxygen Delivery Method Room Air Weight: 95.2 kg Body Mass Index (BMI) 27.6 Intake and Output for Last 24 Hours 07/06/17 07/07/17 07/08/17 23:59 23:59 23:59 Intake Total 2103 / 2103 2105 / 2105 951 / 951 Output Total 1550 / 1550 1650 / 1650 500 / 500 Balance 553 / 553 455 / 455 451 / 451 General: Alert Oral: Moist Mucosa Neck: Supple, No JVD Lungs: Clear to auscultation, No rales Abdomen: Bowel Sounds Present Neurological: Cranial nerves II-XII grossly intact Laboratory Results 07/07/17 16:26: POC Glucose 164 H 07/07/17 21:15: POC Glucose 131 H 07/08/17 05:43: POC Glucose 168 H 07/08/17 12:13: POC Glucose 179 H Current Medications Acetaminophen (Tylenol) 650 mg PO Q4H PRN PRN PRN Reason: Headache/Temp>99F Last Admin: 07/06/17 05:00 Dose: 650 mg Acetaminophen (Tylenol) 650 mg RECTAL Q4H PRN PRN PRN Reason: Headache/Temp>99F Albuterol Sulfate (Ventolin Aerosols) 2.5 mg INHALATION Q6H.RT [facility] Last Admin: 07/08/17 13:45 Dose: 2.5 mg Albuterol/Ipratropium (Duoneb) 3 ml INHALATION Q4H PRN PRN Reason: sob Last Admin: 07/07/17 19:41 Dose: 3 ml Alprazolam (Xanax) 0.5 mg PO Q2H PRN PRN PRN Reason: AGITATION Last Admin: 07/06/17 13:20 Dose: 0.5 mg Amlodipine Besylate (Norvasc) 5 mg PO DAILY [facility] Last Admin: 07/08/17 10:42 Dose: 5 mg Atorvastatin Calcium (Lipitor) 80 mg PO DAILY [facility] Last Admin: 07/08/17 10:42 Dose: 80 mg Baclofen (Lioresal) 5 mg PO TID PRN PRN Reason: muscle rigidity Budesonide (Pulmicort Aerosol) 0.5 mg INHALATION Q12H.RT [facility] Last Admin: 07/08/17 07:22 Dose: 0.5 mg Bupropion HCl (Wellbutrin Xl) 300 mg PO DAILY [facility] Last Admin: 07/08/17 10:43 Dose: 300 mg Clopidogrel Bisulfate (Plavix) 75 mg PO DAILY [facility] Last Admin: 07/08/17 10:42 Dose: 75 mg Famotidine (Pepcid) 20 mg PO BID [facility] Last Admin: 07/08/17 10:42 Dose: 20 mg Gabapentin (Neurontin) 300 mg PO TIDCM [facility] Last Admin: 07/08/17 12:17 Dose: 300 mg Haloperidol Lactate (Haldol) 2 mg IM Q6H PRN PRN PRN Reason: AGITATION Last Admin: 07/08/17 05:38 Dose: 2 mg Heparin Sodium (Porcine) () 5,000 units SC BID [facility] Last Admin: 07/08/17 09:00 Dose: 5,000 units Hydralazine HCl (Apresoline Iv) 10 mg IV Q4H PRN PRN PRN Reason: Hypertensive Emergency Last Admin: 07/07/17 21:07 Dose: 10 mg Sodium Chloride () 1,000 mls @ 75 mls/hr IV .[id number] [facility] Last Admin: 07/08/17 05:37 Dose: 75 mls/hr Insulin Aspart (Novolog Flexpen (Bkc)) 0 units SC ACHS [facility] PRN Reason: Protocol Last Admin: 07/08/17 12:17 Dose: 1 u Lisinopril (Zestril) 5 mg PO DAILY [facility] Last Admin: 07/08/17 10:42 Dose: 5 mg Metoprolol Tartrate (Lopressor (Beta Lamar)) 50 mg PO BID [facility] Last Admin: 07/08/17 10:42 Dose: 50 mg Paroxetine HCl (Paxil) 10 mg PO DAILY [facility] Last Admin: 07/08/17 10:42 Dose: 10 mg Quetiapine Fumarate (Seroquel) 100 mg PO QHS [facility] Last Admin: 07/07/17 21:18 Dose: Not Given Medical Necessity - Tobacco Use Smoking Status: Never smoker Assessment/Plan Active and Suspected Problems Altered mental status, unspecified (Acute) Encephalopathy (Acute) 1. 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 2. Type 2 diabetes; continue a regular insulin sliding scale. 3. old stroke; he is on Plavix for secondary stroke prevention. MRI of the brain is nonacute. 4. 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 s/p colostomy 6. Neurogenic bladder; montez the in place 7. DVT Prophylaxis with subcutaneous heparin. Code Visit Inpatient E&M: 30062 Subs Hosp L2
--- NOTE | 2017-07-08 16:23 | PN_ITS ---
Patient Problems: Active and Suspected Problems Altered mental status, unspecified (Acute) Encephalopathy (Acute) Subjective: CC: Acute Change in mental status Objective: Patient is less agitated today. He was able to tell me his full name and asked me who I was. Vitals/I&O's: Vital Signs Temp Pulse Resp BP Pulse Ox 99.4 F H 73 18 148/86 H 96 07/08/17 08:20 07/08/17 15:19 07/08/17 13:45 07/08/17 08:20 07/08/17 08:20 Oxygen Flow Rate (L/min) 4 Oxygen Delivery Method Room Air Weight: 95.2 kg Body Mass Index (BMI) 27.6 Intake and Output for Last 24 Hours 07/06/17 07/07/17 07/08/17 23:59 23:59 23:59 Intake Total 2103 / 2103 2105 / 2105 951 / 951 Output Total 1550 / 1550 1650 / 1650 500 / 500 Balance 553 / 553 455 / 455 451 / 451 General: Alert Oral: Moist Mucosa Neck: Supple, No JVD Lungs: Clear to auscultation, No rales Abdomen: Bowel Sounds Present Neurological: Cranial nerves II-XII grossly intact Laboratory Results 07/07/17 16:26: POC Glucose 164 H 07/07/17 21:15: POC Glucose 131 H 07/08/17 05:43: POC Glucose 168 H 07/08/17 12:13: POC Glucose 179 H Current Medications Acetaminophen (Tylenol) 650 mg PO Q4H PRN PRN PRN Reason: Headache/Temp>99F Last Admin: 07/06/17 05:00 Dose: 650 mg Acetaminophen (Tylenol) 650 mg RECTAL Q4H PRN PRN PRN Reason: Headache/Temp>99F Albuterol Sulfate (Ventolin Aerosols) 2.5 mg INHALATION Q6H.RT [place] Last Admin: 07/08/17 13:45 Dose: 2.5 mg Albuterol/Ipratropium (Duoneb) 3 ml INHALATION Q4H PRN PRN Reason: sob Last Admin: 07/07/17 19:41 Dose: 3 ml Alprazolam (Xanax) 0.5 mg PO Q2H PRN PRN PRN Reason: AGITATION Last Admin: 07/06/17 13:20 Dose: 0.5 mg Amlodipine Besylate (Norvasc) 5 mg PO DAILY [facility] Last Admin: 07/08/17 10:42 Dose: 5 mg Atorvastatin Calcium (Lipitor) 80 mg PO DAILY [facility] Last Admin: 07/08/17 10:42 Dose: 80 mg Baclofen (Lioresal) 5 mg PO TID PRN PRN Reason: muscle rigidity Budesonide (Pulmicort Aerosol) 0.5 mg INHALATION Q12H.RT [facility] Last Admin: 07/08/17 07:22 Dose: 0.5 mg Bupropion HCl (Wellbutrin Xl) 300 mg PO DAILY [facility] Last Admin: 07/08/17 10:43 Dose: 300 mg Clopidogrel Bisulfate (Plavix) 75 mg PO DAILY [facility] Last Admin: 07/08/17 10:42 Dose: 75 mg Famotidine (Pepcid) 20 mg PO BID [facility] Last Admin: 07/08/17 10:42 Dose: 20 mg Gabapentin (Neurontin) 300 mg PO TIDCM [facility] Last Admin: 07/08/17 12:17 Dose: 300 mg Haloperidol Lactate (Haldol) 2 mg IM Q6H PRN PRN PRN Reason: AGITATION Last Admin: 07/08/17 05:38 Dose: 2 mg Heparin Sodium (Porcine) () 5,000 units SC BID [facility] Last Admin: 07/08/17 09:00 Dose: 5,000 units Hydralazine HCl (Apresoline Iv) 10 mg IV Q4H PRN PRN PRN Reason: Hypertensive Emergency Last Admin: 07/07/17 21:07 Dose: 10 mg Sodium Chloride () 1,000 mls @ 75 mls/hr IV .[id number] [facility] Last Admin: 07/08/17 05:37 Dose: 75 mls/hr Insulin Aspart (Novolog Flexpen (Bkc)) 0 units SC ACHS [facility] PRN Reason: Protocol Last Admin: 07/08/17 12:17 Dose: 1 u Lisinopril (Zestril) 5 mg PO DAILY [facility] Last Admin: 07/08/17 10:42 Dose: 5 mg Metoprolol Tartrate (Lopressor (Beta Lamar)) 50 mg PO BID [facility] Last Admin: 07/08/17 10:42 Dose: 50 mg Paroxetine HCl (Paxil) 10 mg PO DAILY [facility] Last Admin: 07/08/17 10:42 Dose: 10 mg Quetiapine Fumarate (Seroquel) 100 mg PO QHS [facility] Last Admin: 07/07/17 21:18 Dose: Not Given Medical Necessity - Tobacco Use Smoking Status: Never smoker Assessment/Plan Active and Suspected Problems Altered mental status, unspecified (Acute) Encephalopathy (Acute) 1. 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 2. Type 2 diabetes; continue a regular insulin sliding scale. 3. old stroke; he is on Plavix for secondary stroke prevention. MRI of the brain is nonacute. 4. 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 s/p colostomy 6. Neurogenic bladder; montez the in place 7. DVT Prophylaxis with subcutaneous heparin. Code Visit Inpatient E&M: 66441 Subs Hosp L2
[2017-07-08 16:36] LABS: Bedside Glucose 150 mg/dL (70-110)
[2017-07-08] MEDS: ALPRAZolam 0.5 MG Tablet PO ×2 (17:24→19:38)
[2017-07-08] MEDS: Acetaminophen 325 MG Tablet 650 MG PO (19:38)
[2017-07-08] MEDS: QUEtiapine 100 MG Tablet PO (22:09)
[2017-07-08 22:35] LABS: Bedside Glucose 167 mg/dL (70-110)
[2017-07-09] VITALS (18 sets, daily range): BP systolic 117–195; BP diastolic 66–98; PULSE 58–95; RESP 16–20; TEMP 36.2–37.1; O2SAT 94–97
[2017-07-09] MEDS: ALPRAZolam 0.5 MG Tablet PO (00:30)
[2017-07-09] MEDS: Albuterol 2.5 MG/3 ML VIAL.NEB. INHALATION ×4 (00:43→19:40)
[2017-07-09 06:56] LABS: Bedside Glucose 142 mg/dL (70-110)
[2017-07-09] MEDS: Budesonide Respules 0.5 MG/2 ML AMPUL.NEB. INHALATION ×2 (07:18→19:40)
--- NOTE | 2017-07-09 09:31 | CASEMGMT ---
IVANNA received a call from Sherine at [facility]. She said she and her interim academic director looked through patient's information and they have decided that they are not able to take patient. She said they just do not have the staffing to manage him if he continues to yell out etc. IVANNA told her he is doing really well and explained his medications need a chance to get back into his system. She still said no. IVANNA asked if she could just come in and see him and she again said they have decided not to take patient. IVANNA let patient and her daughter in law know this information. They were both very upset. We discussed a few more places. They would like SW to try [facility]. IVANNA told them that [facility] is often more difficult when it comes to patient's that may have behavioral issues. We also discussed some of the other options in the area. They would like to start with [facility]. IVANNA faxed a referral to [facility]. IVANNA also called Natalee. She said they are out of network with [facility]. IVANNA told her SW will call and see if he has in and out of network benefits. SW called [facility] and patient's benefits are as follows: In and out of network benefits are the same, days 1-100 are covered at 100% as long as insurance approves, his deductible (combined in and out of network) is $200 which has been met, and his max out of pocket (combined in and out of network) is $700 of which $312.92 has been met. IVANNA called [facility] back, but had to leave her a voice mail. IVANNA also told her SW would like to talk to her about the referral rather than her just reviewing it. IVANNA explained that patient has not had a sitter, he has yelled out, he is paralyzed from the waist down so he will not be able to get out of bed. Await return call from [facility]. Ila DARNELL MSW
[2017-07-09] MEDS: Lisinopril 5 MG Tablet PO (09:50)
[2017-07-09] MEDS: amLODIPine 5 MG Tablet PO (09:50)
[2017-07-09] MEDS: Gabapentin 300 MG Capsule PO ×2 (09:50→12:11)
[2017-07-09] MEDS: Clopidogrel Bisulfate 75 MG Tablet PO (09:50)
[2017-07-09] MEDS: Famotidine 20 MG Tablet PO ×2 (09:50→21:43)
[2017-07-09] MEDS: Atorvastatin Calcium 80 MG Tablet PO (09:50)
[2017-07-09] MEDS: PARoxetine 10 MG Tablet PO (09:50)
[2017-07-09] MEDS: Metoprolol Tartrate 50 MG Tablet PO ×2 (09:50→21:35)
[2017-07-09] MEDS: buPROPion (XL) 150 MG TABLET.XL 300 MG PO (09:50)
[2017-07-09] MEDS: Heparin Injection 5,000 UNITS/ML Syringe 5000 UNITS SC ×2 (09:50→21:34)
[2017-07-09] MEDS: 0.9% Normal Saline 1,000 ML 75 ML IV ×2 (09:51→21:50)
--- NOTE | 2017-07-09 10:26 | CASEMGMT ---
Addendum entered by Ila Sherwood 07/09/17 15:15: Eli from [facility] called and said they would be in to see patient today around 2p. SW let family know this information. Ila COLLIER Original Note: Received call from Natalee at [facility]. They are not able to accept patient. SW spoke with patient and her daughter in law letting them know that [facility] has said no. SW also did mention that [facility] may be able to take him as his in and out of network benefits are the same. They asked SW to send a referral to [facility]. SW called Eli at [facility] and told her about patient. SW also faxed referral. Await response from [facility]. Ila COLLIER
[2017-07-09 12:21] LABS: Bedside Glucose 286 mg/dL (70-110)
--- NOTE | 2017-07-09 15:16 | CASEMGMT ---
IVANNA spoke with Eli after she saw patient. She and her school of nursing director will go back and discuss the case. She will call IVANNA with their answer. Await response from [facility]. Ila COLLIER
[2017-07-09 16:25] LABS: Bedside Glucose 189 mg/dL (70-110)
--- NOTE | 2017-07-09 17:21 | PCM.PN.HOSP ---
Patient Problems: Active and Suspected Problems Altered mental status, unspecified (Acute) Encephalopathy (Acute) Subjective: CC: Confusion Objective: Patient is alert and oriented, he is sitting down and communicating with family . He recognized I was his doctor today. Vitals/I&O's: Vital Signs Temp Pulse Resp BP Pulse Ox 97.1 F L 69 18 143/82 H 94 07/09/17 15:40 07/09/17 15:40 07/09/17 15:40 07/09/17 15:40 07/09/17 15:40 Oxygen Flow Rate (L/min) 4 Oxygen Delivery Method Room Air Weight: 95.2 kg Body Mass Index (BMI) 27.6 Intake and Output for Last 24 Hours 07/07/17 07/08/17 07/09/17 23:59 23:59 23:59 Intake Total 2105 / 2105 1574 / 1574 2393 / 2393 Output Total 1650 / 1650 500 / 500 1950 / 1950 Balance 455 / 455 1074 / 1074 443 / 443 Laboratory Results 07/08/17 22:15: POC Glucose 167 H 07/09/17 06:49: POC Glucose 142 H 07/09/17 12:08: POC Glucose 286 H 07/09/17 16:17: POC Glucose 189 H Current Medications Acetaminophen (Tylenol) 650 mg PO Q4H PRN PRN PRN Reason: Headache/Temp>99F Last Admin: 07/08/17 19:38 Dose: 650 mg Acetaminophen (Tylenol) 650 mg RECTAL Q4H PRN PRN PRN Reason: Headache/Temp>99F Albuterol Sulfate (Ventolin Aerosols) 2.5 mg INHALATION Q6H.RT [facility] Last Admin: 07/09/17 13:19 Dose: 2.5 mg Albuterol/Ipratropium (Duoneb) 3 ml INHALATION Q4H PRN PRN Reason: sob Last Admin: 07/07/17 19:41 Dose: 3 ml Alprazolam (Xanax) 0.5 mg PO Q2H PRN PRN PRN Reason: AGITATION Last Admin: 07/09/17 00:30 Dose: 0.5 mg Amlodipine Besylate (Norvasc) 5 mg PO DAILY [facility] Last Admin: 07/09/17 09:50 Dose: 5 mg Atorvastatin Calcium (Lipitor) 80 mg PO DAILY [facility] Last Admin: 07/09/17 09:50 Dose: 80 mg Baclofen (Lioresal) 5 mg PO TID PRN PRN Reason: muscle rigidity Budesonide (Pulmicort Aerosol) 0.5 mg INHALATION Q12H.RT [facility] Last Admin: 07/09/17 07:18 Dose: 0.5 mg Bupropion HCl (Wellbutrin Xl) 300 mg PO DAILY [facility] Last Admin: 07/09/17 09:50 Dose: 300 mg Clopidogrel Bisulfate (Plavix) 75 mg PO DAILY [facility] Last Admin: 07/09/17 09:50 Dose: 75 mg Famotidine (Pepcid) 20 mg PO BID [facility] Last Admin: 07/09/17 09:50 Dose: 20 mg Gabapentin (Neurontin) 300 mg PO TIDCM [facility] Last Admin: 07/09/17 12:11 Dose: 300 mg Haloperidol Lactate (Haldol) 2 mg IM Q6H PRN PRN PRN Reason: AGITATION Last Admin: 07/08/17 20:32 Dose: 2 mg Heparin Sodium (Porcine) () 5,000 units SC BID [facility] Last Admin: 07/09/17 09:50 Dose: 5,000 units Hydralazine HCl (Apresoline Iv) 10 mg IV Q4H PRN PRN PRN Reason: Hypertensive Emergency Last Admin: 07/07/17 21:07 Dose: 10 mg Sodium Chloride () 1,000 mls @ 75 mls/hr IV .[id number] [facility] Last Admin: 07/09/17 09:51 Dose: 75 mls/hr Insulin Aspart (Novolog Flexpen (Bkc)) 0 units SC ACHS [facility] PRN Reason: Protocol Last Admin: 07/09/17 12:11 Dose: 3 u Lisinopril (Zestril) 10 mg PO DAILY [facility] Metoprolol Tartrate (Lopressor (Beta Lamar)) 50 mg PO BID [facility] Last Admin: 07/09/17 09:50 Dose: 50 mg Paroxetine HCl (Paxil) 10 mg PO DAILY [facility] Last Admin: 07/09/17 09:50 Dose: 10 mg Quetiapine Fumarate (Seroquel) 100 mg PO QHS [facility] Last Admin: 07/08/17 22:09 Dose: 100 mg Medical Necessity - Tobacco Use Smoking Status: Never smoker Assessment/Plan Active and Suspected Problems Altered mental status, unspecified (Acute) Encephalopathy (Acute) 1. 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 2. Type 2 diabetes; continue a regular insulin sliding scale. 3. old stroke; he is on Plavix for secondary stroke prevention. MRI of the brain is nonacute. 4. 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 s/p colostomy 6. Neurogenic bladder; Clifford the in place 7. Disposition; discharge planning to [facility] soon. 8.DVT Prophylaxis with subcutaneous heparin. Code Visit Inpatient E&M: 59985 Subs Hosp L2
--- NOTE | 2017-07-09 17:33 | PN_ITS ---
Patient Problems: Active and Suspected Problems Altered mental status, unspecified (Acute) Encephalopathy (Acute) Subjective: CC: Confusion Objective: Patient is alert and oriented, he is sitting down and communicating with family . He recognized I was his doctor today. Vitals/I&O's: Vital Signs Temp Pulse Resp BP Pulse Ox 97.1 F L 69 18 143/82 H 94 07/09/17 15:40 07/09/17 15:40 07/09/17 15:40 07/09/17 15:40 07/09/17 15:40 Oxygen Flow Rate (L/min) 4 Oxygen Delivery Method Room Air Weight: 95.2 kg Body Mass Index (BMI) 27.6 Intake and Output for Last 24 Hours 07/07/17 07/08/17 07/09/17 23:59 23:59 23:59 Intake Total 2105 / 2105 1574 / 1574 2393 / 2393 Output Total 1650 / 1650 500 / 500 1950 / 1950 Balance 455 / 455 1074 / 1074 443 / 443 Laboratory Results 07/08/17 22:15: POC Glucose 167 H 07/09/17 06:49: POC Glucose 142 H 07/09/17 12:08: POC Glucose 286 H 07/09/17 16:17: POC Glucose 189 H Current Medications Acetaminophen (Tylenol) 650 mg PO Q4H PRN PRN PRN Reason: Headache/Temp>99F Last Admin: 07/08/17 19:38 Dose: 650 mg Acetaminophen (Tylenol) 650 mg RECTAL Q4H PRN PRN PRN Reason: Headache/Temp>99F Albuterol Sulfate (Ventolin Aerosols) 2.5 mg INHALATION Q6H.RT [facility] Last Admin: 07/09/17 13:19 Dose: 2.5 mg Albuterol/Ipratropium (Duoneb) 3 ml INHALATION Q4H PRN PRN Reason: sob Last Admin: 07/07/17 19:41 Dose: 3 ml Alprazolam (Xanax) 0.5 mg PO Q2H PRN PRN PRN Reason: AGITATION Last Admin: 07/09/17 00:30 Dose: 0.5 mg Amlodipine Besylate (Norvasc) 5 mg PO DAILY [facility] Last Admin: 07/09/17 09:50 Dose: 5 mg Atorvastatin Calcium (Lipitor) 80 mg PO DAILY [facility] Last Admin: 07/09/17 09:50 Dose: 80 mg Baclofen (Lioresal) 5 mg PO TID PRN PRN Reason: muscle rigidity Budesonide (Pulmicort Aerosol) 0.5 mg INHALATION Q12H.RT [facility] Last Admin: 07/09/17 07:18 Dose: 0.5 mg Bupropion HCl (Wellbutrin Xl) 300 mg PO DAILY [facility] Last Admin: 07/09/17 09:50 Dose: 300 mg Clopidogrel Bisulfate (Plavix) 75 mg PO DAILY [facility] Last Admin: 07/09/17 09:50 Dose: 75 mg Famotidine (Pepcid) 20 mg PO BID [facility] Last Admin: 07/09/17 09:50 Dose: 20 mg Gabapentin (Neurontin) 300 mg PO TIDCM [facility] Last Admin: 07/09/17 12:11 Dose: 300 mg Haloperidol Lactate (Haldol) 2 mg IM Q6H PRN PRN PRN Reason: AGITATION Last Admin: 07/08/17 20:32 Dose: 2 mg Heparin Sodium (Porcine) () 5,000 units SC BID [facility] Last Admin: 07/09/17 09:50 Dose: 5,000 units Hydralazine HCl (Apresoline Iv) 10 mg IV Q4H PRN PRN PRN Reason: Hypertensive Emergency Last Admin: 07/07/17 21:07 Dose: 10 mg Sodium Chloride () 1,000 mls @ 75 mls/hr IV .[id number] [facility] Last Admin: 07/09/17 09:51 Dose: 75 mls/hr Insulin Aspart (Novolog Flexpen (Bkc)) 0 units SC ACHS [facility] PRN Reason: Protocol Last Admin: 07/09/17 12:11 Dose: 3 u Lisinopril (Zestril) 10 mg PO DAILY [facility] Metoprolol Tartrate (Lopressor (Beta Lamar)) 50 mg PO BID [facility] Last Admin: 07/09/17 09:50 Dose: 50 mg Paroxetine HCl (Paxil) 10 mg PO DAILY [facility] Last Admin: 07/09/17 09:50 Dose: 10 mg Quetiapine Fumarate (Seroquel) 100 mg PO QHS [facility] Last Admin: 07/08/17 22:09 Dose: 100 mg Medical Necessity - Tobacco Use Smoking Status: Never smoker Assessment/Plan Active and Suspected Problems Altered mental status, unspecified (Acute) Encephalopathy (Acute) 1. 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 2. Type 2 diabetes; continue a regular insulin sliding scale. 3. old stroke; he is on Plavix for secondary stroke prevention. MRI of the brain is nonacute. 4. 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 s/p colostomy 6. Neurogenic bladder; Clifford the in place 7. Disposition; discharge planning to [facility] soon. 8.DVT Prophylaxis with subcutaneous heparin. Code Visit Inpatient E&M: 49305 Subs Hosp L2
[2017-07-09] MEDS: hydrALAZINE 20 MG/ML Vial 10 MG IV (20:48)
[2017-07-09] MEDS: QUEtiapine 100 MG Tablet PO (21:43)
[2017-07-09 22:55] LABS: Bedside Glucose 150 mg/dL (70-110)
[2017-07-10] VITALS (15 sets, daily range): BP systolic 117–164; BP diastolic 75–94; PULSE 65–117; RESP 12–20; TEMP 36.8–37.1; O2SAT 93–97
[2017-07-10] MEDS: Albuterol 2.5 MG/3 ML VIAL.NEB. INHALATION ×4 (01:03→19:37)
[2017-07-10 07:01] LABS: Bedside Glucose 126 mg/dL (70-110)
[2017-07-10] MEDS: Budesonide Respules 0.5 MG/2 ML AMPUL.NEB. INHALATION ×2 (07:12→19:37)
[2017-07-10] MEDS: Gabapentin 300 MG Capsule PO ×2 (09:57→16:07)
[2017-07-10] MEDS: Heparin Injection 5,000 UNITS/ML Syringe 5000 UNITS SC ×2 (09:57→21:26)
[2017-07-10] MEDS: Metoprolol Tartrate 50 MG Tablet PO ×2 (09:58→21:26)
[2017-07-10] MEDS: amLODIPine 5 MG Tablet PO (09:58)
[2017-07-10] MEDS: Famotidine 20 MG Tablet PO ×2 (09:58→21:26)
[2017-07-10] MEDS: PARoxetine 10 MG Tablet PO (09:58)
[2017-07-10] MEDS: Clopidogrel Bisulfate 75 MG Tablet PO (09:59)
[2017-07-10] MEDS: buPROPion (XL) 150 MG TABLET.XL 300 MG PO (09:59)
[2017-07-10] MEDS: Atorvastatin Calcium 80 MG Tablet PO (10:01)
[2017-07-10] MEDS: Lisinopril 10 MG Tablet PO (10:01)
[2017-07-10] MEDS: 0.9% Normal Saline 1,000 ML 75 ML IV ×2 (11:14→23:54)
[2017-07-10 11:25] LABS: Bedside Glucose 224 mg/dL (70-110)
--- NOTE | 2017-07-10 15:54 | NURSING ---
TODAY, 07/10/17, PT HAS BEEN VERY COOPERATIVE WITH CARE. PT IS ALERT AND RESPONSIVE. PT VERBALIZES UNDERSTANDING WHEN THIS RN DISCUSSES TASKS NEEDED TO BE DONE. NO INSTANCES OF CONFUSION OR ABNORMAL BEHAVIOR EXHIBITED. PT'S STATES PT IS VERY CLOSE TO BASELINE.
--- NOTE | 2017-07-10 16:07 | CASEMGMT ---
Social Work Multiple phone [facility] throughout the day requesting determination on acceptance to facility. At 1500 [facility] stating that they have decided they cannot accept pt due to behaviors. SW attempted to explain that pt is much calmer today than previously and mentation is almost back to baseline per pt . Eli continues to deny acceptance. SW met with pt, and dgt in room and informed of above. Presented other SNF options and provided Medicare Star Rating list. and dgt would like referrals to be made to [facility] and [facility]. Phone call to [facility] and they do have beds available. Referral faxed. Phone call to [facility] and they also have beds available. Referral faxed. Family updated on bed availability. SW will continue to follow for SNF placement. BREANNE Thornton
--- NOTE | 2017-07-10 16:54 | PCM.PN.HOSP ---
Patient Problems: Active and Suspected Problems Altered mental status, unspecified (Acute) Encephalopathy (Acute) Subjective: CC: Acute change in mental status Objective: Interval history: This is a 77-year-old male with paraplegia secondary to T8 spinal injury who presented with acute mental status changes. Per his psychotropic medications were abruptly discontinued by the PCP. He was on Klonopin, Xanax, bupropion and Paxil. He was very agitated and confused. Past 24 hours he is calm he is alert and communicative. No acute events reported overnight. Vitals/I&O's: Vital Signs Temp Pulse Resp BP Pulse Ox 98.3 F 78 12 164/94 H 94 07/10/17 15:50 07/10/17 15:50 07/10/17 15:50 07/10/17 15:50 07/10/17 15:50 Oxygen Flow Rate (L/min) 4 Oxygen Delivery Method Room Air Weight: 95.2 kg Body Mass Index (BMI) 27.6 Intake and Output for Last 24 Hours 07/08/17 07/09/17 07/10/17 23:59 23:59 23:59 Intake Total 1574 / 1574 3050 / 3050 1584 / 1584 Output Total 500 / 500 2350 / 2350 1200 / 1200 Balance 1074 / 1074 700 / 700 384 / 384 General: Alert, Oriented x3 Oral: Moist Mucosa Neck: Supple, No JVD Lungs: Clear to auscultation Cardiovascular: Regular rate, Normal S1 Abdomen: Bowel Sounds Present, Non Tender Extremities: No clubbing Neurological: Cranial nerves II-XII grossly intact, - - He is paraplegic Laboratory Results 07/09/17 22:49: POC Glucose 150 H 07/10/17 06:57: POC Glucose 126 H 07/10/17 11:13: POC Glucose 224 H Current Medications Acetaminophen (Tylenol) 650 mg PO Q4H PRN PRN PRN Reason: Headache/Temp>99F Last Admin: 07/08/17 19:38 Dose: 650 mg Acetaminophen (Tylenol) 650 mg RECTAL Q4H PRN PRN PRN Reason: Headache/Temp>99F Albuterol Sulfate (Ventolin Aerosols) 2.5 mg INHALATION Q6H.RT [place] Last Admin: 07/10/17 13:20 Dose: 2.5 mg Albuterol/Ipratropium (Duoneb) 3 ml INHALATION Q4H PRN PRN Reason: sob Last Admin: 07/07/17 19:41 Dose: 3 ml Alprazolam (Xanax) 0.5 mg PO Q2H PRN PRN PRN Reason: AGITATION Last Admin: 07/09/17 00:30 Dose: 0.5 mg Amlodipine Besylate (Norvasc) 5 mg PO DAILY [facility] Last Admin: 07/10/17 09:58 Dose: 5 mg Atorvastatin Calcium (Lipitor) 80 mg PO DAILY [facility] Last Admin: 07/10/17 10:01 Dose: 80 mg Baclofen (Lioresal) 5 mg PO TID PRN PRN Reason: muscle rigidity Budesonide (Pulmicort Aerosol) 0.5 mg INHALATION Q12H.RT [facility] Last Admin: 07/10/17 07:12 Dose: 0.5 mg Bupropion HCl (Wellbutrin Xl) 300 mg PO DAILY [facility] Last Admin: 07/10/17 09:59 Dose: 300 mg Clopidogrel Bisulfate (Plavix) 75 mg PO DAILY [facility] Last Admin: 07/10/17 09:59 Dose: 75 mg Famotidine (Pepcid) 20 mg PO BID [facility] Last Admin: 07/10/17 09:58 Dose: 20 mg Gabapentin (Neurontin) 300 mg PO TIDCM [facility] Last Admin: 07/10/17 16:07 Dose: 300 mg Haloperidol Lactate (Haldol) 2 mg IM Q6H PRN PRN PRN Reason: AGITATION Last Admin: 07/08/17 20:32 Dose: 2 mg Heparin Sodium (Porcine) () 5,000 units SC BID [facility] Last Admin: 07/10/17 09:57 Dose: 5,000 units Hydralazine HCl (Apresoline Iv) 10 mg IV Q4H PRN PRN PRN Reason: Hypertensive Emergency Last Admin: 07/09/17 20:48 Dose: 10 mg Sodium Chloride () 1,000 mls @ 75 mls/hr IV .[id number] [facility] Last Admin: 07/10/17 11:14 Dose: 75 mls/hr Insulin Aspart (Novolog Flexpen (Bkc)) 0 units SC ACHS [facility] PRN Reason: Protocol Last Admin: 07/10/17 16:07 Dose: 1 u Lisinopril (Zestril) 10 mg PO DAILY [facility] Last Admin: 07/10/17 10:01 Dose: 10 mg Metoprolol Tartrate (Lopressor (Beta Lamar)) 50 mg PO BID [facility] Last Admin: 07/10/17 09:58 Dose: 50 mg Paroxetine HCl (Paxil) 10 mg PO DAILY [facility] Last Admin: 07/10/17 09:58 Dose: 10 mg Quetiapine Fumarate (Seroquel) 100 mg PO QHS [facility] Last Admin: 07/09/17 21:43 Dose: 100 mg Tramadol HCl (Ultram) 50 mg PO TID PRN PRN PRN Reason: MODERATE PAIN (4-5/10) Medical Necessity - Tobacco Use Smoking Status: Never smoker Assessment/Plan Active and Suspected Problems Altered mental status, unspecified (Acute) Encephalopathy (Acute) 1. 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 2. Type 2 diabetes; continue a regular insulin sliding scale. 3. old stroke; he is on Plavix for secondary stroke prevention. MRI of the brain is nonacute. 4. 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 s/p colostomy 6. Neurogenic bladder; montez the in place 7. Disposition; discharge planning to ECF soon. 8.DVT Prophylaxis with subcutaneous heparin. Code Visit Inpatient E&M: 28030 Subs Hosp L2
[2017-07-10 17:36] LABS: Bedside Glucose 197 mg/dL (70-110)
[2017-07-10] MEDS: QUEtiapine 100 MG Tablet PO (21:26)
[2017-07-10 21:41] LABS: Bedside Glucose 218 mg/dL (70-110)
[2017-07-11] VITALS (17 sets, daily range): BP systolic 132–163; BP diastolic 58–105; PULSE 63–86; RESP 14–20; TEMP 36.4–36.9; O2SAT 95–97
[2017-07-11] MEDS: Albuterol 2.5 MG/3 ML VIAL.NEB. INHALATION ×2 (06:41→13:32)
[2017-07-11] MEDS: Budesonide Respules 0.5 MG/2 ML AMPUL.NEB. INHALATION (06:41)
[2017-07-11 07:01] LABS: Bedside Glucose 125 mg/dL (70-110)
[2017-07-11] MEDS: Clopidogrel Bisulfate 75 MG Tablet PO (09:21)
[2017-07-11] MEDS: amLODIPine 5 MG Tablet PO (09:21)
[2017-07-11] MEDS: PARoxetine 10 MG Tablet PO (09:21)
[2017-07-11] MEDS: Lisinopril 10 MG Tablet PO (09:21)
[2017-07-11] MEDS: buPROPion (XL) 150 MG TABLET.XL 300 MG PO (09:22)
[2017-07-11] MEDS: Metoprolol Tartrate 50 MG Tablet PO ×2 (09:22→21:22)
[2017-07-11] MEDS: Atorvastatin Calcium 80 MG Tablet PO (09:22)
[2017-07-11] MEDS: Famotidine 20 MG Tablet PO ×2 (09:22→21:22)
[2017-07-11] MEDS: Gabapentin 300 MG Capsule PO ×3 (09:26→16:14)
[2017-07-11] MEDS: Heparin Injection 5,000 UNITS/ML Syringe 5000 UNITS SC ×2 (09:27→21:22)
[2017-07-11] MEDS: traMADol 50 MG Tablet PO (10:40)
[2017-07-11 11:31] LABS: Bedside Glucose 220 mg/dL (70-110)
[2017-07-11] MEDS: 0.9% Normal Saline 1,000 ML 75 ML IV (12:10)
--- NOTE | 2017-07-11 12:29 | PCM.PN.HOSP ---
Patient Problems: Active and Suspected Problems Altered mental status, unspecified (Acute) Encephalopathy (Acute) Objective: Is a 77-year-old male with paraplegia due to spinal injury to [facility] was admitted with acute altered mental status. According to his his psychotropic medications had been abruptly discontinued by his primary care doctor; he had been on Klonopin, Xanax, bupropion and Paxil. On admission he was noted to be very agitated and confused. This was thought to be medication induced due to withdrawal from his psychotropic medications. Patient subsequently became calm, alert and communicative. He has remained stable and is awaiting placement. Patient seen and examined this morning. He has no complaints. He feels quite well and denies any fever or chills, any cough, any chest pain, any shortness of breath, any abdominal pain, any diarrhea vomiting. Review of systems otherwise negative. Vitals/I&O's: Vital Signs Temp Pulse Resp BP Pulse Ox 98.4 F 73 14 151/83 H 95 07/11/17 12:04 07/11/17 12:04 07/11/17 12:04 07/11/17 12:04 07/11/17 12:04 Oxygen Flow Rate (L/min) 4 Oxygen Delivery Method Room Air Weight: 209 lb 14.081 oz Body Mass Index (BMI) 27.6 Intake and Output for Last 24 Hours 07/09/17 07/10/17 07/11/17 23:59 23:59 23:59 Intake Total 3050 / 3050 1759 / 1759 1900 / 1900 Output Total 2350 / 2350 1500 / 1500 2650 / 2650 Balance 700 / 700 259 / 259 -750 / -750 General: Alert, Oriented x3, Cooperative, No apparent distress HEENT: Atraumatic, PERRLA, EOMI, Normocephalic Oral: Moist Mucosa Neck: Supple, No JVD, Negative Carotid Bruits Lungs: Clear to auscultation, Normal air movement, No rhonchi, No wheeze, No rales Cardiovascular: Regular rate, Regular Rhythm, Normal S1, Normal S2, No murmurs Abdomen: Bowel Sounds Present, Soft, Non Tender, Non-Distended, No Hepato-splenomegaly Extremities: No clubbing, No cyanosis, No edema, Capillary Refill Less than 3 Seconds Skin: No rashes, No breakdown Musculoskeletal: No Tenderness to Palpation of Joints or Extremities, - Lymphatic: No Cervical, Supraclavicular, or Inguinal Adenopathy Neurological: Cranial nerves II-XII grossly intact, - - Paraplegia of lower extremities due to remote spinal injury. Psych/Mental Status: Normal Affect, Appropriate, Alert and oriented to time, place, person, mood and affect Laboratory Results 07/10/17 16:05: POC Glucose 197 H 07/10/17 21:19: POC Glucose 218 H 07/11/17 06:47: POC Glucose 125 H 07/11/17 11:07: POC Glucose 220 H Current Medications Acetaminophen (Tylenol) 650 mg PO Q4H PRN PRN PRN Reason: Headache/Temp>99F Last Admin: 07/08/17 19:38 Dose: 650 mg Acetaminophen (Tylenol) 650 mg RECTAL Q4H PRN PRN PRN Reason: Headache/Temp>99F Albuterol Sulfate (Ventolin Aerosols) 2.5 mg INHALATION Q6H.RT [facility] Last Admin: 07/11/17 06:41 Dose: 2.5 mg Albuterol/Ipratropium (Duoneb) 3 ml INHALATION Q4H PRN PRN Reason: sob Last Admin: 07/07/17 19:41 Dose: 3 ml Alprazolam (Xanax) 0.5 mg PO Q2H PRN PRN PRN Reason: AGITATION Last Admin: 07/09/17 00:30 Dose: 0.5 mg Amlodipine Besylate (Norvasc) 5 mg PO DAILY [facility] Last Admin: 07/11/17 09:21 Dose: 5 mg Atorvastatin Calcium (Lipitor) 80 mg PO DAILY [facility] Last Admin: 07/11/17 09:22 Dose: 80 mg Baclofen (Lioresal) 5 mg PO TID PRN PRN Reason: muscle rigidity Budesonide (Pulmicort Aerosol) 0.5 mg INHALATION Q12H.RT [facility] Last Admin: 07/11/17 06:41 Dose: 0.5 mg Bupropion HCl (Wellbutrin Xl) 300 mg PO DAILY [facility] Last Admin: 07/11/17 09:22 Dose: 300 mg Clopidogrel Bisulfate (Plavix) 75 mg PO DAILY [facility] Last Admin: 07/11/17 09:21 Dose: 75 mg Famotidine (Pepcid) 20 mg PO BID [facility] Last Admin: 07/11/17 09:22 Dose: 20 mg Gabapentin (Neurontin) 300 mg PO TIDCM [facility] Last Admin: 07/11/17 12:06 Dose: 300 mg Haloperidol Lactate (Haldol) 2 mg IM Q6H PRN PRN PRN Reason: AGITATION Last Admin: 07/08/17 20:32 Dose: 2 mg Heparin Sodium (Porcine) () 5,000 units SC BID [facility] Last Admin: 07/11/17 09:27 Dose: 5,000 units Hydralazine HCl (Apresoline Iv) 10 mg IV Q4H PRN PRN PRN Reason: Hypertensive Emergency Last Admin: 07/09/17 20:48 Dose: 10 mg Sodium Chloride () 1,000 mls @ 75 mls/hr IV .[id number] [facility] Last Admin: 07/11/17 12:10 Dose: 75 mls/hr Insulin Aspart (Novolog Flexpen (Bkc)) 0 units SC ACHS [facility] PRN Reason: Protocol Last Admin: 07/11/17 12:06 Dose: 2 u Lisinopril (Zestril) 10 mg PO DAILY [facility] Last Admin: 07/11/17 09:21 Dose: 10 mg Metoprolol Tartrate (Lopressor (Beta Lamar)) 50 mg PO BID [facility] Last Admin: 07/11/17 09:22 Dose: 50 mg Paroxetine HCl (Paxil) 10 mg PO DAILY [facility] Last Admin: 07/11/17 09:21 Dose: 10 mg Quetiapine Fumarate (Seroquel) 100 mg PO QHS [facility] Last Admin: 07/10/17 21:26 Dose: 100 mg Tramadol HCl (Ultram) 50 mg PO TID PRN PRN PRN Reason: MODERATE PAIN (4-5/10) Last Admin: 07/11/17 10:40 Dose: 50 mg Medical Necessity - Tobacco Use Smoking Status: Never smoker Assessment/Plan Active and Suspected Problems Altered mental status, unspecified (Acute) Encephalopathy (Acute) 1. Acute delirum due to circadian disruption Patient currently stable. This comment was alert and oriented ?2 this morning. Stable. Physical examination noncontributory. Seroquel 100 mg nightly, on Xanax 0.5 mg as needed. Avoid circadian disruption and to avoid sedatives during the daytime. Received 2 doses of Haldol overnight to calm down. MRI was unremarkable upon admission. Awaiting discharge to extended-care facility. Family looking into going [facility] upon discharge. 2. History of CVA: MRI was unremarkable on admission. On plavix for secondary stroke prevention. 3. Hypertension: On amlodipine, lisinopril and metoprolol. 4. Type 2 diabetes: On metformin and glipizide. On insulin sliding scale. 7. 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 PT/OT on board 8. DVT prophylaxis: heparin 9. GI prophylaxis: pantoprazole 10. Disposition:Awaiting DC to extended care facility. Code Visit Inpatient E&M: 32062 Subs Hosp L2
--- NOTE | 2017-07-11 12:37 | PN_ITS ---
Patient Problems: Active and Suspected Problems Altered mental status, unspecified (Acute) Encephalopathy (Acute) Objective: Is a 77-year-old male with paraplegia due to spinal injury to [facility] was admitted with acute altered mental status. According to his his psychotropic medications had been abruptly discontinued by his primary care doctor; he had been on Klonopin, Xanax, bupropion and Paxil. On admission he was noted to be very agitated and confused. This was thought to be medication induced due to withdrawal from his psychotropic medications. Patient subsequently became calm , alert and communicative. He has remained stable and is awaiting placement. Patient seen and examined this morning. He has no complaints. He feels quite well and denies any fever or chills, any cough, any chest pain, any shortness of breath, any abdominal pain, any diarrhea vomiting. Review of systems otherwise negative. Vitals/I&O's: Vital Signs Temp Pulse Resp BP Pulse Ox 98.4 F 73 14 151/83 H 95 07/11/17 12:04 07/11/17 12:04 07/11/17 12:04 07/11/17 12:04 07/11/17 12:04 Oxygen Flow Rate (L/min) 4 Oxygen Delivery Method Room Air Weight: 209 lb 14.081 oz Body Mass Index (BMI) 27.6 Intake and Output for Last 24 Hours 07/09/17 07/10/17 07/11/17 23:59 23:59 23:59 Intake Total 3050 / 3050 1759 / 1759 1900 / 1900 Output Total 2350 / 2350 1500 / 1500 2650 / 2650 Balance 700 / 700 259 / 259 -750 / -750 General: Alert, Oriented x3, Cooperative, No apparent distress HEENT: Atraumatic, PERRLA, EOMI, Normocephalic Oral: Moist Mucosa Neck: Supple, No JVD, Negative Carotid Bruits Lungs: Clear to auscultation, Normal air movement, No rhonchi, No wheeze, No rales Cardiovascular: Regular rate, Regular Rhythm, Normal S1, Normal S2, No murmurs Abdomen: Bowel Sounds Present, Soft, Non Tender, Non-Distended, No Hepato- splenomegaly Extremities: No clubbing, No cyanosis, No edema, Capillary Refill Less than 3 Seconds Skin: No rashes, No breakdown Musculoskeletal: No Tenderness to Palpation of Joints or Extremities, - Lymphatic: No Cervical, Supraclavicular, or Inguinal Adenopathy Neurological: Cranial nerves II-XII grossly intact, - - Paraplegia of lower extremities due to remote spinal injury. Psych/Mental Status: Normal Affect, Appropriate, Alert and oriented to time, place, person, mood and affect Laboratory Results 07/10/17 16:05: POC Glucose 197 H 07/10/17 21:19: POC Glucose 218 H 07/11/17 06:47: POC Glucose 125 H 07/11/17 11:07: POC Glucose 220 H Current Medications Acetaminophen (Tylenol) 650 mg PO Q4H PRN PRN PRN Reason: Headache/Temp>99F Last Admin: 07/08/17 19:38 Dose: 650 mg Acetaminophen (Tylenol) 650 mg RECTAL Q4H PRN PRN PRN Reason: Headache/Temp>99F Albuterol Sulfate (Ventolin Aerosols) 2.5 mg INHALATION Q6H.RT [facility] Last Admin: 07/11/17 06:41 Dose: 2.5 mg Albuterol/Ipratropium (Duoneb) 3 ml INHALATION Q4H PRN PRN Reason: sob Last Admin: 07/07/17 19:41 Dose: 3 ml Alprazolam (Xanax) 0.5 mg PO Q2H PRN PRN PRN Reason: AGITATION Last Admin: 07/09/17 00:30 Dose: 0.5 mg Amlodipine Besylate (Norvasc) 5 mg PO DAILY [facility] Last Admin: 07/11/17 09:21 Dose: 5 mg Atorvastatin Calcium (Lipitor) 80 mg PO DAILY [facility] Last Admin: 07/11/17 09:22 Dose: 80 mg Baclofen (Lioresal) 5 mg PO TID PRN PRN Reason: muscle rigidity Budesonide (Pulmicort Aerosol) 0.5 mg INHALATION Q12H.RT [facility] Last Admin: 07/11/17 06:41 Dose: 0.5 mg Bupropion HCl (Wellbutrin Xl) 300 mg PO DAILY [facility] Last Admin: 07/11/17 09:22 Dose: 300 mg Clopidogrel Bisulfate (Plavix) 75 mg PO DAILY [facility] Last Admin: 07/11/17 09:21 Dose: 75 mg Famotidine (Pepcid) 20 mg PO BID [facility] Last Admin: 07/11/17 09:22 Dose: 20 mg Gabapentin (Neurontin) 300 mg PO TIDCM [facility] Last Admin: 07/11/17 12:06 Dose: 300 mg Haloperidol Lactate (Haldol) 2 mg IM Q6H PRN PRN PRN Reason: AGITATION Last Admin: 07/08/17 20:32 Dose: 2 mg Heparin Sodium (Porcine) () 5,000 units SC BID [facility] Last Admin: 07/11/17 09:27 Dose: 5,000 units Hydralazine HCl (Apresoline Iv) 10 mg IV Q4H PRN PRN PRN Reason: Hypertensive Emergency Last Admin: 07/09/17 20:48 Dose: 10 mg Sodium Chloride () 1,000 mls @ 75 mls/hr IV .[id number] [facility] Last Admin: 07/11/17 12:10 Dose: 75 mls/hr Insulin Aspart (Novolog Flexpen (Bkc)) 0 units SC ACHS [facility] PRN Reason: Protocol Last Admin: 07/11/17 12:06 Dose: 2 u Lisinopril (Zestril) 10 mg PO DAILY [facility] Last Admin: 07/11/17 09:21 Dose: 10 mg Metoprolol Tartrate (Lopressor (Beta Lamar)) 50 mg PO BID [facility] Last Admin: 07/11/17 09:22 Dose: 50 mg Paroxetine HCl (Paxil) 10 mg PO DAILY [facility] Last Admin: 07/11/17 09:21 Dose: 10 mg Quetiapine Fumarate (Seroquel) 100 mg PO QHS [facility] Last Admin: 07/10/17 21:26 Dose: 100 mg Tramadol HCl (Ultram) 50 mg PO TID PRN PRN PRN Reason: MODERATE PAIN (4-5/10) Last Admin: 07/11/17 10:40 Dose: 50 mg Medical Necessity - Tobacco Use Smoking Status: Never smoker Assessment/Plan Active and Suspected Problems Altered mental status, unspecified (Acute) Encephalopathy (Acute) 1. Acute delirum due to circadian disruption * Patient currently stable. This comment was alert and oriented ?2 this morning. * Stable. Physical examination noncontributory. * Seroquel 100 mg nightly, on Xanax 0.5 mg as needed. * Avoid circadian disruption and to avoid sedatives during the daytime. Received 2 doses of Haldol overnight to calm down. * MRI was unremarkable upon admission. * Awaiting discharge to extended-care facility. Family looking into going [facility] upon discharge. * 2. History of CVA: MRI was unremarkable on admission. On plavix for secondary stroke prevention. 3. Hypertension: On amlodipine, lisinopril and metoprolol. 4. Type 2 diabetes: On metformin and glipizide. On insulin sliding scale. 7. 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 PT/OT on board 8. DVT prophylaxis: heparin 9. GI prophylaxis: pantoprazole 10. Disposition:Awaiting DC to extended care facility. Code Visit Inpatient E&M: 88427 Subs Hosp L2
[2017-07-11] MEDS: Baclofen 10 MG Tablet 5 MG PO (12:59)
[2017-07-11] MEDS: metFORMIN HCl 1,000 MG Tablet 1000 MG PO (16:13)
[2017-07-11 17:11] LABS: Bedside Glucose 202 mg/dL (70-110)
[2017-07-11] MEDS: QUEtiapine 100 MG Tablet PO (21:22)
[2017-07-11 23:15] LABS: Bedside Glucose 190 mg/dL (70-110)
[2017-07-12] VITALS (15 sets, daily range): BP systolic 144–183; BP diastolic 70–96; PULSE 60–82; RESP 16–18; TEMP 36.6–36.8; O2SAT 95–97
[2017-07-12] MEDS: 0.9% Normal Saline 1,000 ML 75 ML IV ×2 (03:15→17:28)
[2017-07-12 06:03] LABS: Absolute Lymphocyte Count 3.29 X10^3/ul (0.83-4.51); Absolute Neutrophil Count 6.1 X10^3/uL (2.0-7.7); Basophil# 0.12 X10^3/uL; Basophil% 1.1 % (0-1); Eosinophil# 0.31 X10^3/uL; Eosinophils% 2.9 % (0-5); Hematocrit 38.2 % (40-54); Hemoglobin 13.3 g/dl (13.0-16.5); Lymphocyte # 3.29 X10^3/ul (4.0); Lymphocyte % 30.4 % (19-41); Mean Corp Hgb Conc 34.8 g/gl (32-36); Mean Corpuscular Hgb 30.7 pg (27.0-32.0); Mean Corpuscular Volume 88.2 fL (80-94); Mean Platelet Vol. 10.8 fl (6.2-12.0); Monocyte# 0.94 X10^3/uL; Monocyte% 8.7 % (0-10); Neutrophil # 6.11 X10^3/uL (2.7-7.7); Neutrophil % 56.3 % (47-70); Platelet Count 244 K/mm3 (150-450); RBC Distribution Width CV 14.8 % (11.6-14.6); RBC Distribution Width SD 46.7 fl (35.1-43.9); Red Blood Count 4.33 M/mm3 (4.6-6.2); White Blood Count 10.8 K/mm3 (4.4-11.0)
[2017-07-12 06:11] LABS: POSITIVE COUNT NO; POSITIVE DIFFERENTIAL NO; POSITIVE MORPHOLOGY NO
[2017-07-12 06:41] LABS: Anion Gap 9 (5-15); BUN 4 mg/dL (7-18); BUN/Creat Ratio 12.4 RATIO (10-20); Calcium,Total 8.6 mg/dL (8.5-10.1); Chloride 106 mmol/L (98-107); Creatinine, Serum 0.32 mg/dL (0.70-1.30); EST Glomerular Filtration Rate 284 mL/min (>60); Est Glom Filt Rate - Afr Amer 343 mL/min (>60); Estimated Creatinine Clearance 69.91 ml/min; Glucose 119 mg/dL (74-106); Potassium 2.5 mmol/L (3.5-5.1); Sodium Level 143 mmol/L (136-145)
[2017-07-12] MEDS: Budesonide Respules 0.5 MG/2 ML AMPUL.NEB. INHALATION ×2 (06:42→19:21)
[2017-07-12] MEDS: Albuterol 2.5 MG/3 ML VIAL.NEB. INHALATION ×3 (06:42→19:21)
[2017-07-12 06:54] LABS: Magnesium 1.7 mg/dL (1.6-2.6)
[2017-07-12 07:05] LABS: Bedside Glucose 142 mg/dL (70-110)
[2017-07-12] MEDS: Gabapentin 300 MG Capsule PO ×3 (09:39→17:23)
[2017-07-12] MEDS: Famotidine 20 MG Tablet PO ×2 (09:40→21:29)
[2017-07-12] MEDS: PARoxetine 10 MG Tablet PO (09:40)
[2017-07-12] MEDS: Metoprolol Tartrate 50 MG Tablet PO ×2 (09:40→21:29)
[2017-07-12] MEDS: Atorvastatin Calcium 80 MG Tablet PO (09:41)
[2017-07-12] MEDS: buPROPion (XL) 150 MG TABLET.XL 300 MG PO (09:41)
[2017-07-12] MEDS: Lisinopril 10 MG Tablet PO (09:41)
[2017-07-12] MEDS: amLODIPine 5 MG Tablet PO (09:41)
[2017-07-12] MEDS: Clopidogrel Bisulfate 75 MG Tablet PO (09:42)
[2017-07-12] MEDS: metFORMIN HCl 1,000 MG Tablet 1000 MG PO ×2 (09:43→17:23)
[2017-07-12] MEDS: glipiZIDE XL 5 MG Tablet PO (09:43)
[2017-07-12] MEDS: Heparin Injection 5,000 UNITS/ML Syringe 5000 UNITS SC ×2 (09:56→21:29)
[2017-07-12] MEDS: ALPRAZolam 0.5 MG Tablet PO ×2 (11:41→20:11)
[2017-07-12 11:56] LABS: Bedside Glucose 184 mg/dL (70-110)
--- NOTE | 2017-07-12 12:21 | PN_ITS ---
Patient Problems: Active and Suspected Problems Altered mental status, unspecified (Acute) Encephalopathy (Acute) Subjective: Patient seen and examined this morning. he had no complaints, though upon further questioning, he admitted to being depressed. He denied any fever, chills , cough, chest pain, SOB, abdominal pain, diarrhea or vomiting. Review of systems is otherwise negative. Vitals/I&O's: Vital Signs Temp Pulse Resp BP Pulse Ox 98.1 F 82 18 183/96 H 96 07/12/17 09:36 07/12/17 09:40 07/12/17 09:36 07/12/17 09:36 07/12/17 09:36 Oxygen Flow Rate (L/min) 4 Oxygen Delivery Method Room Air Weight: 209 lb 14.081 oz Body Mass Index (BMI) 27.6 Intake and Output for Last 24 Hours 07/10/17 07/11/17 07/12/17 23:59 23:59 23:59 Intake Total 1759 / 1759 2770 / 2770 1334 / 1334 Output Total 1500 / 1500 3720 / 3720 1750 / 1750 Balance 259 / 259 -950 / -950 -416 / -416 General: Alert, Oriented x3, Cooperative HEENT: Atraumatic, PERRLA, EOMI, Normocephalic Oral: Moist Mucosa Neck: Supple, No JVD, Negative Carotid Bruits Lungs: Clear to auscultation, Normal air movement, No rhonchi, No wheeze, No rales Cardiovascular: Regular rate, Regular Rhythm, Normal S1, Normal S2, No murmurs Abdomen: Bowel Sounds Present, Soft, Non Tender, Non-Distended, No Hepato- splenomegaly, - - has colostomy bag, which was empty at time of review Extremities: No clubbing, No cyanosis, No edema, Capillary Refill Less than 3 Seconds Skin: No rashes, No breakdown Musculoskeletal: No Tenderness to Palpation of Joints or Extremities Lymphatic: No Cervical, Supraclavicular, or Inguinal Adenopathy Neurological: Cranial nerves II-XII grossly intact, Neuro grossly intact, Motor Exam 5/5 strength throughout Psych/Mental Status: Normal Affect, Appropriate, Alert and oriented to time, place, person, mood and affect Laboratory Results 07/11/17 16:13: POC Glucose 202 H 07/11/17 21:21: POC Glucose 190 H 07/12/17 05:11: WBC 10.8, RBC 4.33 L, Hgb 13.3, Hct 38.2 L, MCV 88.2, MCH 30.7, MCHC 34.8, RDW 14.8 H, RDW Differential 46.7 H, Plt Count 244, MPV 10.8, Immature Gran % (Auto) 0.600, Neut % (Auto) 56.3, Lymph % (Auto) 30.4, [place] % ( Auto) 8.7, Eos % (Auto) 2.9, Baso % (Auto) 1.1 H, Absolute Neuts (auto) 6.1, Absolute Lymphs (auto) 3.29, Total Counted Not Reportable 07/12/17 05:11: Sodium 143, Potassium 2.5 L*, Chloride 106, Carbon Dioxide 28.0 , Anion Gap 9, BUN 4 L, Creatinine 0.32 L, Estim Creat Clear Calc 69.91, Est GFR (MDRD) Af Amer 343, Est GFR (MDRD) Non-Af 284, BUN/Creatinine Ratio 12.4, Glucose 119 H, Calcium 8.6 07/12/17 05:11: Magnesium 1.7 07/12/17 06:58: POC Glucose 142 H 07/12/17 11:38: POC Glucose 184 H Current Medications Acetaminophen (Tylenol) 650 mg PO Q4H PRN PRN PRN Reason: Headache/Temp>99F Last Admin: 07/08/17 19:38 Dose: 650 mg Acetaminophen (Tylenol) 650 mg RECTAL Q4H PRN PRN PRN Reason: Headache/Temp>99F Albuterol Sulfate (Ventolin Aerosols) 2.5 mg INHALATION Q6H.RT [facility] Last Admin: 07/12/17 06:42 Dose: 2.5 mg Albuterol/Ipratropium (Duoneb) 3 ml INHALATION Q4H PRN PRN Reason: sob Last Admin: 07/07/17 19:41 Dose: 3 ml Alprazolam (Xanax) 0.5 mg PO Q2H PRN PRN PRN Reason: AGITATION Last Admin: 07/12/17 11:41 Dose: 0.5 mg Amlodipine Besylate (Norvasc) 5 mg PO DAILY [facility] Last Admin: 07/12/17 09:41 Dose: 5 mg Atorvastatin Calcium (Lipitor) 80 mg PO DAILY [facility] Last Admin: 07/12/17 09:41 Dose: 80 mg Baclofen (Lioresal) 5 mg PO TID PRN PRN Reason: muscle rigidity Last Admin: 07/11/17 12:59 Dose: 5 mg Budesonide (Pulmicort Aerosol) 0.5 mg INHALATION Q12H.RT [facility] Last Admin: 07/12/17 06:42 Dose: 0.5 mg Bupropion HCl (Wellbutrin Xl) 300 mg PO DAILY [facility] Last Admin: 07/12/17 09:41 Dose: 300 mg Clopidogrel Bisulfate (Plavix) 75 mg PO DAILY [facility] Last Admin: 07/12/17 09:42 Dose: 75 mg Famotidine (Pepcid) 20 mg PO BID [facility] Last Admin: 07/12/17 09:40 Dose: 20 mg Gabapentin (Neurontin) 300 mg PO TIDCM [facility] Last Admin: 07/12/17 12:04 Dose: 300 mg Glipizide (Glucotrol Xl) 5 mg PO DAILY@0800 [facility] Last Admin: 07/12/17 09:43 Dose: 5 mg Haloperidol Lactate (Haldol) 2 mg IM Q6H PRN PRN PRN Reason: AGITATION Last Admin: 07/08/17 20:32 Dose: 2 mg Heparin Sodium (Porcine) () 5,000 units SC BID [facility] Last Admin: 07/12/17 09:56 Dose: 5,000 units Hydralazine HCl (Apresoline Iv) 10 mg IV Q4H PRN PRN PRN Reason: Hypertensive Emergency Last Admin: 07/09/17 20:48 Dose: 10 mg Sodium Chloride () 1,000 mls @ 75 mls/hr IV .[id number] [facility] Last Admin: 07/12/17 03:15 Dose: 75 mls/hr Potassium Chloride (Kcl 10meq/100ml) 10 meq in 100 mls @ 100 mls/hr IV BOLUS Q1H [facility] Stop: 07/12/17 12:59 Last Admin: 07/12/17 11:41 Dose: 100 mls/hr Potassium Chloride (Kcl 10meq/100ml) 10 meq in 100 mls @ 100 mls/hr IV BOLUS Q1H [facility] Stop: 07/12/17 14:59 Insulin Aspart (Novolog Flexpen (Bkc)) 0 units SC ACHS [facility] PRN Reason: Protocol Last Admin: 07/12/17 12:05 Dose: 1 u Lisinopril (Zestril) 10 mg PO DAILY [facility] Last Admin: 07/12/17 09:41 Dose: 10 mg Metformin HCl (Glucophage) 1,000 mg PO BIDCM [facility] Last Admin: 07/12/17 09:43 Dose: 1,000 mg Metoprolol Tartrate (Lopressor (Beta Lmaar)) 50 mg PO BID [facility] Last Admin: 07/12/17 09:40 Dose: 50 mg Paroxetine HCl (Paxil) 10 mg PO DAILY [facility] Last Admin: 07/12/17 09:40 Dose: 10 mg Quetiapine Fumarate (Seroquel) 100 mg PO QHS [facility] Last Admin: 07/11/17 21:22 Dose: 100 mg Tramadol HCl (Ultram) 50 mg PO TID PRN PRN PRN Reason: MODERATE PAIN (4-5/10) Last Admin: 07/11/17 10:40 Dose: 50 mg Medical Necessity - Tobacco Use Smoking Status: Never smoker Assessment/Plan Active and Suspected Problems Altered mental status, unspecified (Acute) Encephalopathy (Acute) 1. Acute delirum due to circadian disruption * resolving. Patient currently stable. MRI was normal at admission * on seroquel qhs and xanax 0.5mg prn. * to avoid circadian disruption adn avoid sedatives during the daytime. * Awaiting discharge to extended-care facility. Family looking into [facility] upon discharge. * 2. Hypokalemia; K is 2.5 today. replacement given. Magnesium was 1.7. Replacement also given. Will recheck K in the evening. 3. History of CVA: MRI was unremarkable on admission. On plavix for secondary stroke prevention. 3. Hypertension: On amlodipine, lisinopril and metoprolol. 4. Type 2 diabetes: On metformin and glipizide. On insulin sliding scale. 7. 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 PT/OT on board 8. DVT prophylaxis: heparin 9. GI prophylaxis: pantoprazole 10. Disposition:Awaiting DC to extended care facility. Code Visit Inpatient E&M: 62899 Subs Hosp L2
[2017-07-12] MEDS: traMADol 50 MG Tablet PO (15:17)
[2017-07-12] MEDS: Ondansetron 4 MG/2 ML Vial IV (16:00)
[2017-07-12 16:45] LABS: Potassium 3.2 mmol/L (3.5-5.1)
[2017-07-12 17:55] LABS: Bedside Glucose 162 mg/dL (70-110)
[2017-07-12] MEDS: QUEtiapine 100 MG Tablet PO (21:29)
[2017-07-13] VITALS (10 sets, daily range): BP systolic 129–160; BP diastolic 68–75; PULSE 60–74; RESP 16; TEMP 36.9; O2SAT 95–97
[2017-07-13 00:25] LABS: Bedside Glucose 131 mg/dL (70-110)
[2017-07-13 05:41] LABS: Anion Gap 7 (5-15); BUN 7 mg/dL (7-18); BUN/Creat Ratio 15.1 RATIO (10-20); Calcium,Total 8.5 mg/dL (8.5-10.1); Chloride 107 mmol/L (98-107); Creatinine, Serum 0.46 mg/dL (0.70-1.30); EST Glomerular Filtration Rate 187 mL/min (>60); Est Glom Filt Rate - Afr Amer 226 mL/min (>60); Estimated Creatinine Clearance 69.91 ml/min; Glucose 95 mg/dL (74-106); Magnesium 1.9 mg/dL (1.6-2.6); Potassium 3.3 mmol/L (3.5-5.1); Sodium Level 143 mmol/L (136-145)
[2017-07-13 05:43] LABS: Absolute Lymphocyte Count 3.42 X10^3/ul (0.83-4.51); Absolute Neutrophil Count 5.3 X10^3/uL (2.0-7.7); Basophil# 0.06 X10^3/uL; Basophil% 0.6 % (0-1); Eosinophil# 0.31 X10^3/uL; Eosinophils% 3.1 % (0-5); Hematocrit 37.2 % (40-54); Hemoglobin 12.5 g/dl (13.0-16.5); Lymphocyte # 3.42 X10^3/ul (4.0); Lymphocyte % 33.8 % (19-41); Mean Corp Hgb Conc 33.6 g/gl (32-36); Mean Corpuscular Hgb 30.3 pg (27.0-32.0); Mean Corpuscular Volume 90.3 fL (80-94); Mean Platelet Vol. 10.1 fl (6.2-12.0); Monocyte# 0.91 X10^3/uL; Neutrophil # 5.33 X10^3/uL (2.7-7.7); Neutrophil % 52.7 % (47-70); Platelet Count 226 K/mm3 (150-450); RBC Distribution Width CV 15.1 % (11.6-14.6); RBC Distribution Width SD 49.4 fl (35.1-43.9); Red Blood Count 4.12 M/mm3 (4.6-6.2); White Blood Count 10.1 K/mm3 (4.4-11.0)
[2017-07-13 05:47] LABS: POSITIVE COUNT NO; POSITIVE DIFFERENTIAL NO; POSITIVE MORPHOLOGY NO
--- NOTE | 2017-07-13 05:55 | RAD_ITS ---
STUDY: X-RAY - ABDOMEN/PELVIS REASON FOR EXAM: Male, 77 years old. Abdominal distention. TECHNIQUE: AP supine and decubitus views of the abdomen and pelvis. COMPARISON: Comparison is made with prior examination dated June 19, 2017. FINDINGS: Stable mild increased markings at the left lung base suggestive scarring. There is an abundance of fecal material throughout the colon. A colostomy is seen in the left lower quadrant. Dense barium is seen within the rectal stump. There is no demonstrated free abdominal air. The visualized liver, spleen and kidneys are grossly normal in size and morphology. Normal soft tissue structures. There are diffuse degenerative changes of the visualized lumbar spine. The patient is status post averaging nato fixation of the dorsal spine. RAD/Abd Inc Decub and/or Erect IMPRESSION: Large amount of fecal material is seen in the colon. Stable appearance of the dense contrast within the rectal stump Electronically Signed: Wiley Marcial MD at 11:31 EDT Tel [phone], Service support ,
[2017-07-13 06:50] LABS: Bedside Glucose 106 mg/dL (70-110)
[2017-07-13] MEDS: Albuterol 2.5 MG/3 ML VIAL.NEB. INHALATION ×2 (07:44→13:04)
[2017-07-13] MEDS: Budesonide Respules 0.5 MG/2 ML AMPUL.NEB. INHALATION (07:44)
[2017-07-13] MEDS: metFORMIN HCl 1,000 MG Tablet 1000 MG PO (09:36)
[2017-07-13] MEDS: Metoprolol Tartrate 50 MG Tablet PO (09:37)
[2017-07-13] MEDS: glipiZIDE XL 5 MG Tablet PO (09:37)
[2017-07-13] MEDS: Gabapentin 300 MG Capsule PO ×2 (09:37→12:02)
[2017-07-13] MEDS: Atorvastatin Calcium 80 MG Tablet PO (09:37)
[2017-07-13] MEDS: PARoxetine 10 MG Tablet PO (09:38)
[2017-07-13] MEDS: Famotidine 20 MG Tablet PO (09:38)
[2017-07-13] MEDS: amLODIPine 5 MG Tablet PO (09:38)
[2017-07-13] MEDS: Lisinopril 10 MG Tablet PO (09:39)
[2017-07-13] MEDS: Clopidogrel Bisulfate 75 MG Tablet PO (09:39)
[2017-07-13] MEDS: buPROPion (XL) 150 MG TABLET.XL 300 MG PO (09:39)
--- NOTE | 2017-07-13 09:47 | CASEMGMT ---
Social Work Met with pt and two daughters. Family stating they visited both [facility] and [facility] over the weekend and family does not want pt to go to [facility] but is agreeable to [facility]. Phone call to [facility] and they are able to accept pt. SW requested that insurance precert be started as soon as possible as pt is ready for d/c. Updated Clinicals faxed. Met with family and informed that [facility] is accepting and they will start precert. Phone call to [facility] and cancelled referral. SW will continue to follow for SNF placement. Plan: [facility], pending insurance BREANNE Ramos
[2017-07-13] MEDS: 0.9% Normal Saline 1,000 ML 75 ML IV (10:36)
[2017-07-13] MEDS: Heparin Injection 5,000 UNITS/ML Syringe 5000 UNITS SC (10:37)
[2017-07-13 11:23] LABS: Phosphorus 2.9 mg/dL (2.5-4.9)
[2017-07-13 11:36] LABS: Bedside Glucose 183 mg/dL (70-110)
[2017-07-13] MEDS: Senna/Docusate Sodium 1 Tablet 2 TABLET PO (12:00)
[2017-07-13] MEDS: Polyethylene Glycol 3350 17 GM PACKET PO (12:00)
--- NOTE | 2017-07-13 13:05 | PCM.PROGNOTE ---
<Freddy Roberts - Last Filed: 07/13/17 13:05> Patient Problems: Active and Suspected Problems Altered mental status, unspecified (Acute) Encephalopathy (Acute) Constipation (Acute) Debility (Acute) Dysphagia (Acute) Subjective: He received some tramadol yesterday for increased lower abdominal pain which has improved today. He has not had any stool in his colostomy yesterday or today and kub shows constipation. He denies irritation around his colostomy site. He has no nausea or vomiting. His family and he both agree that his mentation is significantly improved and he is mostly back to his normal self. They are awaiting for insurance approval to be discharged to a custodial facility. He is in his own wheelchair and is comfortable. - Physical Exam General: Alert, Oriented x3, Cooperative HEENT: Atraumatic, PERRLA, EOMI, Normocephalic Neck: Supple, No JVD, Negative Carotid Bruits Lungs: Clear to auscultation, Normal air movement Cardiovascular: Regular rate, No murmurs Abdomen: Bowel Sounds Present, Soft, Non Tender Extremities: No edema, Capillary Refill Less than 3 Seconds Skin: No rashes, No breakdown Musculoskeletal: No Tenderness to Palpation of Joints or Extremities Neurological: Cranial nerves II-XII grossly intact Psych/Mental Status: Normal Affect, Appropriate Vital Signs Temp Pulse Resp BP Pulse Ox 98.5 F 73 16 160/75 H 95 07/13/17 09:15 07/13/17 11:07 07/13/17 09:15 07/13/17 09:15 07/13/17 09:15 Oxygen Flow Rate (L/min) 4 Oxygen Delivery Method Room Air Weight: 95.2 kg Body Mass Index (BMI) 27.6 Intake and Output for Last 24 Hours 07/11/17 07/12/17 07/13/17 23:59 23:59 23:59 Intake Total 2770 / 2770 2884 / 2884 Output Total 3720 / 3720 2300 / 2300 650 / 650 Balance -950 / -950 584 / 584 -650 / -650 Laboratory Tests Past 24 Hrs 07/12/17 07/12/17 07/13/17 16:10 16:10 05:16 WBC 10.1 RBC 4.12 L Hgb 12.5 L Hct 37.2 L MCV 90.3 MCH 30.3 MCHC 33.6 RDW 15.1 H RDW Differential 49.4 H Plt Count 226 MPV 10.1 Immature Gran % (Auto) 0.800 Neut % (Auto) 52.7 Lymph % (Auto) 33.8 [place] % (Auto) 9.0 Eos % (Auto) 3.1 Baso % (Auto) 0.6 Absolute Neuts (auto) 5.3 Absolute Lymphs (auto) 3.42 Total Counted Not Reportable Sodium Potassium 3.2 L Chloride Carbon Dioxide Anion Gap BUN Creatinine Estim Creat Clear Calc Est GFR (MDRD) Af Amer Est GFR (MDRD) Non-Af BUN/Creatinine Ratio Glucose Calcium Phosphorus Magnesium 2.0 07/13/17 07/13/17 05:16 05:16 WBC RBC Hgb Hct MCV MCH MCHC RDW RDW Differential Plt Count MPV Immature Gran % (Auto) Neut % (Auto) Lymph % (Auto) [place] % (Auto) Eos % (Auto) Baso % (Auto) Absolute Neuts (auto) Absolute Lymphs (auto) Total Counted Sodium 143 Potassium 3.3 L Chloride 107 Carbon Dioxide 29.0 Anion Gap 7 BUN 7 Creatinine 0.46 L Estim Creat Clear Calc 69.91 Est GFR (MDRD) Af Amer 226 Est GFR (MDRD) Non-Af 187 BUN/Creatinine Ratio 15.1 Glucose 95 Calcium 8.5 Phosphorus 2.9 Magnesium 1.9 POC Glucose 07/13/17 07/13/17 07/12/17 11:29 06:48 21:25 POC Glucose 183 H 106 131 H 07/12/17 16:13 POC Glucose 162 H Medical Necessity - Tobacco Use Smoking Status: Never smoker Assessment/Plan Active and Suspected Problems Altered mental status, unspecified (Acute) Encephalopathy (Acute) Constipation (Acute) Debility (Acute) Dysphagia (Acute) 1. Acute delirium 2/2 medication withdrawal/circadian disruption - continue current medications. Dc IV haldol as he has remained stable. 2. Constipation - with lower abd pain and constipation seen on KUB. Bowel regimen adjusted. Senna S + miralax. 3. Hypokalemia - replete. Mag and phos normal. 4. HTN - trending high, increase lisinopril 5. T2DM - continue current regimen 6. Neurogenic bladder - montez in place. 7. s/p colostomy - ostomy care, adjust bowel regimen as above for constipation 8. Debility 2/2 paraplegia 2/2 spinal injury, and prior CVA. PTOT, SNF placement. On plavix, statin. Acute stroke ruled out. 9. Dysphagia - Speech therapy, mechanical and liquid alterations per shirt marker. Continue at discharge. DC planning: stable for discharge, waiting for insurance auth DVT prophylaxis:heparin This patient was seen by Freddy Roberts PA-C under the supervision of Doctor Johann. <Benjy Wills - Last Filed: 07/13/17 15:45> - Physical Exam Vital Signs Temp Pulse Resp BP Pulse Ox 98.4 F 67 16 131/68 H 96 07/13/17 15:10 07/13/17 15:22 07/13/17 15:10 07/13/17 15:10 07/13/17 15:10 Oxygen Flow Rate (L/min) 4 Oxygen Delivery Method Room Air Weight: 209 lb 14.081 oz Body Mass Index (BMI) 27.6 Intake and Output for Last 24 Hours 07/11/17 07/12/17 07/13/17 23:59 23:59 23:59 Intake Total 2770 / 2770 2884 / 2884 Output Total 3720 / 3720 2300 / 2300 650 / 650 Balance -950 / -950 584 / 584 -650 / -650 Laboratory Tests Past 24 Hrs 07/12/17 07/12/17 07/13/17 16:10 16:10 05:16 WBC 10.1 RBC 4.12 L Hgb 12.5 L Hct 37.2 L MCV 90.3 MCH 30.3 MCHC 33.6 RDW 15.1 H RDW Differential 49.4 H Plt Count 226 MPV 10.1 Immature Gran % (Auto) 0.800 Neut % (Auto) 52.7 Lymph % (Auto) 33.8 [place] % (Auto) 9.0 Eos % (Auto) 3.1 Baso % (Auto) 0.6 Absolute Neuts (auto) 5.3 Absolute Lymphs (auto) 3.42 Total Counted Not Reportable Sodium Potassium 3.2 L Chloride Carbon Dioxide Anion Gap BUN Creatinine Estim Creat Clear Calc Est GFR (MDRD) Af Amer Est GFR (MDRD) Non-Af BUN/Creatinine Ratio Glucose Calcium Phosphorus Magnesium 2.0 07/13/17 07/13/17 05:16 05:16 WBC RBC Hgb Hct MCV MCH MCHC RDW RDW Differential Plt Count MPV Immature Gran % (Auto) Neut % (Auto) Lymph % (Auto) [place] % (Auto) Eos % (Auto) Baso % (Auto) Absolute Neuts (auto) Absolute Lymphs (auto) Total Counted Sodium 143 Potassium 3.3 L Chloride 107 Carbon Dioxide 29.0 Anion Gap 7 BUN 7 Creatinine 0.46 L Estim Creat Clear Calc 69.91 Est GFR (MDRD) Af Amer 226 Est GFR (MDRD) Non-Af 187 BUN/Creatinine Ratio 15.1 Glucose 95 Calcium 8.5 Phosphorus 2.9 Magnesium 1.9 POC Glucose 07/13/17 07/13/17 07/12/17 11:29 06:48 21:25 POC Glucose 183 H 106 131 H 07/12/17 16:13 POC Glucose 162 H Assessment/Plan Seen and examined. Please see discharge summary note. Hospital course, medication reconciliation discussed with the patient's .
--- NOTE | 2017-07-13 14:44 | CASEMGMT ---
Addendum entered by Ruby Tang 07/13/17 15:38: Social Work Pt ready for discharge. Transportation arranged for 4pm picked edge sewing machine operator by Janine Meehan. Pt, and nurse made aware of d/c time. HENS [id number] completed and faxed along with the orders to [facility]. Phone call to Jenna at [facility] and notified of pickup time. No further d/c needs. BREANNE Thornton Original Note: Social Work Return call from Claudia at [facility] and insurance auth has been obtained and can be admitted to [facility] today. Physician notified and plan is for d/c today. Met with pt and family in room and informed that pt insurance has given authorization and physician planned to d/c today. Pt and family are agreeable. Explained insurance coverage at [facility] and also asked about pt transportation. Pt verbalizing that he feels he can go by wheelchair van and does not need an ambulance. SW spoke with pt nurse and she agrees pt would be appropriate for Wheelchair transport. IVANNA will continue to follow for SNF placement. BREANNE Thornton
--- NOTE | 2017-07-13 14:59 | NURSING ---
Removed colostomy appliance to assess the peristomal skin. there is a large amount of flatus noted in the appliance. peristomal skin is intact. no breakdown noted. applied a 2 piece flat [place] appliance. states she prefers to not use stoma paste.
--- NOTE | 2017-07-13 15:05 | TREXTCAR_ITS ---
- Diet 07/08/17 10:37 Diet: Carbohydrate Controlled Food consistency:: Mechanical Soft/Ground Liquid Consistency:: [place] Thick Dietary Modifications:: Mechanical Soft Diet [place] Thick Liquids Type of Dietary Supplement:: ENSURE PUDDING WITH MEALS Is pt able to select menu?: No Diet Comments: TOTAL FEED; straw w/ nectar thickened liquids; seated upright - Routine Orders/Code Status Suppository Type: Dulcolax 10mg Suppository Frequency: Daily PRN Routine Lab Work: CBC, BMP Code Status: DNC-A - Therapies Physical Therapy: Eval and Treat Occupational Therapy: Eval and Treat Speech Therapy: Eval and Treat - Problem/Diagnosis (1) Altered mental status, unspecified Status: Acute Current Visit: Yes (2) Constipation Status: Acute Current Visit: Yes (3) Debility Status: Acute Current Visit: Yes (4) Dysphagia Status: Acute Current Visit: Yes (5) Anxiety and depression Status: Chronic Current Visit: No (6) Neurogenic bladder Status: Chronic Current Visit: No (7) GERD (gastroesophageal reflux disease) Status: Chronic Current Visit: No (8) HTN (hypertension) Status: Chronic Current Visit: No (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 Current Visit: No (10) Diabetes mellitus, type II Status: Chronic Current Visit: No (11) COPD (chronic obstructive pulmonary disease) Status: Chronic Current Visit: No (12) Colostomy in place Status: Chronic Current Visit: Yes - Allergies/Procedures Done in Hospital Allergies/Adverse Reactions: Allergies codeine Allergy (Verified 07/03/17 09:17) Unknown morphine Allergy (Verified 07/03/17 09:17) Unknown Procedures: None - Type of Care/Length of Stay Estimated LOS: Convalescent Care Less Than 30 days Type of Care Needed: Skilled Rehab Potential: Fair Prognosis: Fair - Additional Orders/Day of Discharge Day of Discharge: 07/13/17 - Dietary and Speech Recommendations Dietitian Recommendations/Changes: Obtain current weight as able. - Follow Up Care Primary Care Physician: Young Marie Chi, MD [Primary Care Provider] - Please follow up with your Primary Care Physician in: 2 weeks
--- NOTE | 2017-07-13 15:14 | PCM.DC.SUM ---
<Freddy Roberts - Last Filed: 07/13/17 15:14> Discharge Date and Diagnosis - Problem List Patient Problems: Active and Suspected Problems Altered mental status, unspecified (Acute) Encephalopathy (Acute) Constipation (Acute) Debility (Acute) Dysphagia (Acute) Date of Admission: 07/03/17 Date of Discharge: 07/13/17 - Primary Discharge Diagnosis Active and Suspected Problems Altered mental status 2/2 medication withdrawal, circadian disruption Constipation (Acute) Debility (Acute) Dysphagia (Acute) Paraplegia 2/2 prior thoracic spine injury Neurogenic bladder Prior CVA s/p colostomy HTN T2DM - Secondary Discharge Diagnosis Chronic Problems Colostomy in place (Chronic) Stroke (Chronic) Anxiety and depression (Chronic) Neurogenic bladder (Chronic) GERD (gastroesophageal reflux disease) (Chronic) HTN (hypertension) (Chronic) Obesity (BMI 30.0-34.9) (Chronic) 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 Divergent gaze noted. Clinical correlation recommended. Age-related changes consistent with central cerebral atrophic changes. Old stable appearing bilateral cerebral infarcts as described. CT/CTA Head W/WO Contrast IMPRESSION: 1. No CTA evidence of intracranial vaso-occlusive disease of the anterior and posterior intracranial circulation. 2. Normal CTA head. 3. Old lacunar cystic infarct in the left periventricular white matter and chronic white matter ischemic changes in both cerebral hemispheres. CT/CTA Neck W/WO Contrast IMPRESSION: 1. No CTA evidence of any vaso-occlusive disease of both common carotid arteries, both internal and external carotid arteries and both vertebral arteries. 2. The aortic arch is not included in the scan. 3. The visualized portions of the right brachiocephalic artery, left common carotid artery and left subclavian artery are widely patent. 4. Widely patent subclavian origins of both vertebral arteries, the cervical portions of both vertebral arteries and the intradural segments of both vertebral arteries. 5. No CT evidence of any suspicious mass in the suprahyoid neck and infrahyoid neck. 6. Bridging anterior longitudinal ligament and anterior marginal spurs from C2-C3 down to C6-C7 disc space levels. CT/Brain/Head without Contrast IMPRESSION: Senescent changes with no evidence of acute intracranial bleed, mass or ischemia. MRI/Brain without Contrast IMPRESSION: Moderate periventricular senescent changes with no evidence of acute intracranial bleed, mass or ischemia. RAD/Abd Inc Decub and/or Erect IMPRESSION: Large amount of fecal material is seen in the colon. Stable appearance of the dense contrast within the rectal stump Consultations Neuro: Dawson 07/04/17 08:26 Consult: Onc/Wound/orchard sprayer Routine Comment: Reason for Consult:: Colostomy Operations: None Procedures: None Summary of Care Provided: Physical exam on day of discharge: See daily progress note Hospital course: The patient is a 77 year old M with a hx of stroke, paraplegia 2/2 prior thoracic spine T8 injury, neurogenic bladder, HTN, anxiety and depression, DM2t, and COPD hwo presented to the ER with change in mental status. He was reported to be behaving abnormally, mumbling, incomprehensible words and phrases, not able to feed himself, not able to complete ADLs. His daughter felt he may have right facial droop, right eyelid droop, and slurred speech. He also had recently been discontinued from multiple psychotropic medications by his PCP (this included xanax, neurontin, baclofen, tramadol, and cymbalta about a month prior) as their was a concern for polypharmacy. He was placed on these medications as he was expected to be in withdrawal. He experienced agitation, confusion, and incomprehensible speech while here. Stroke work up including CTA head and neck, brain MRI, CT brain were negative for an acute process. His symptoms were felt to be related to the sudden medication changes. His medications were adjusted until he had an appropriate behavioral response. The day of discharge the family felt that his behavior was dramatically improved. He did have an episode of lower abdominal pain. He had not had a BM in several days from his ostomy, and a KUB was done which showed constipation. His bowel regimen was adjusted. We also adjusted his diabetic medications and antihypertensives. His diet was adjusted for dysphagia to include mechanical soft and nectar thick liquids. He will need to continue his medications as ordered, which if further discontinuation is desired will require slow taper down. Xanax should be use during the daytime only for agitation. [facility]. Please follow up with your PCP in 2 weeks. This patient was seen by Freddy Roberts PA-C under the supervision of Doctor Wills. [] Discharge Diet: Low fat/ Low Cholesterol, 1800 Calorie Control Diet, 2000 mg Sodium Diet Discharge Activity: Return to Normal Activity Home Medications: Medications to take at Discharge Bupropion HCl [Wellbutrin Xl] 300 mg PO DAILY 07/03/17 Clopidogrel Bisulfate [Plavix] 75 mg PO DAILY 07/03/17 Fluticasone/Vilanterol [Breo Ellipta 100-25 Mcg INH] 1 each IH DAILY 07/03/17 Metoprolol Tartrate [Lopressor (beta vanessa)] 50 mg PO BID 07/03/17 Multivit-Min/FA/Lycopen/Lutein [Centrum Silver Tablet] 1 each PO DAILY 07/04/17 Pantoprazole Sodium 40 mg PO DAILY 07/04/17 Psyllium [Metamucil] 1 packet PO DAILY 07/04/17 ALPRAZolam [Xanax] 0.5 mg PO Q2H PRN PRN #8 tab 07/13/17 Acetaminophen [Tylenol Tablet] 650 mg PO Q4H PRN PRN tablet 07/13/17 Albuterol Aerosols [Ventolin Aerosols] 2.5 mg INHALATION Q6H.RT vial.neb. 07/13/17 Amlodipine [Norvasc] 5 mg PO DAILY tablet 07/13/17 Atorvastatin Calcium [Lipitor] 80 mg PO DAILY tablet 07/13/17 Baclofen [Lioresal] 5 mg PO TID PRN tablet 07/13/17 Gabapentin [Neurontin] 300 mg PO TIDCM capsule 07/13/17 Lisinopril [Zestril] 20 mg PO DAILY tablet 07/13/17 Metformin HCl [Glucophage] 1,000 mg PO BIDCM tablet 07/13/17 Paroxetine [Paxil] 10 mg PO DAILY tablet 07/13/17 Polyethylene Glycol 3350 [Miralax] 17 gm PO DAILY packet 07/13/17 Potassium Chloride [K-Dur] 40 meq PO DAILYCM tablet 07/13/17 Quetiapine Fumarate [Seroquel] 100 mg PO QHS tablet 07/13/17 Senna/Docusate Sodium [Senokot-S] 2 tablet PO BID tablet 07/13/17 glipiZIDE XL [Glucotrol Xl] 5 mg PO DAILY@0800 tablet 07/13/17 traMADol [Ultram] 50 mg PO TID PRN PRN #9 tab 07/13/17 Following Prescrptions Were Given to Patient: ALPRAZolam [Xanax] 0.5 mg PO Q2H PRN PRN #8 tab PRN Reason: AGITATION traMADol [Ultram] 50 mg PO TID PRN PRN #9 tab PRN Reason: Moderate Pain (4-5/10) Primary Care Physician: Young Marie Chi, MD [Primary Care Provider] - Please follow up with your Primary Care Physician in: 2 weeks Disposition: [facility] facility Minutes spent on discharge:: 40 Patient Condition:: Stable Medical Necessity - Tobacco Use Smoking Status: Never smoker Meaningful Use Info Meaningful Use Diagnoses (Choose all that apply): None applicable <Benjy Wills - Last Filed: 07/13/17 15:44> Discharge Date and Diagnosis - Primary Discharge Diagnosis Active and Suspected Problems Acute encephalopathy due to medication withdrawal, circadian disruption, unspecified (Acute) Encephalopathy (Acute) Constipation (Acute) Debility (Acute) Dysphagia (Acute) - Secondary Discharge Diagnosis Chronic Problems Colostomy in place (Chronic) Stroke (Chronic) Anxiety and depression (Chronic) Neurogenic bladder (Chronic) GERD (gastroesophageal reflux disease) (Chronic) HTN (hypertension) (Chronic) Obesity (BMI 30.0-34.9) (Chronic) 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 I have independently interviewed and examined the patient and reviewed pertinent history, examination findings, laboratory and plan of management. I have reviewed the note and agree with the documented findings with the few additional points. In brief, patient is admitted for change in mental status associated with agitation, restlessness, abnormality in behavior and speech; incomprehensible words and phrases. Patient was seen by neurologist and was thought to be due to polypharmacy associated with drug withdrawal and disruption of psychotic and rhythm. Patient also has mild constipation and x-ray KUB shows fecal material in the colon. Patient is started on senna S and MiraLAX. I have discussed my assessment with Freddy KATZ and orders have been reviewed. [] Code Visit Inpatient E&M: 59541 Disch Hosp
[2017-07-13] MEDS: Acetaminophen 325 MG Tablet 650 MG PO (15:16)
--- NOTE | 2017-07-13 15:31 | DS.PCM_ITS ---
<Freddy Roberts - Last Filed: 07/13/17 15:14> Discharge Date and Diagnosis - Problem List Patient Problems: Active and Suspected Problems Altered mental status, unspecified (Acute) Encephalopathy (Acute) Constipation (Acute) Debility (Acute) Dysphagia (Acute) Date of Admission: 07/03/17 Date of Discharge: 07/13/17 - Primary Discharge Diagnosis Active and Suspected Problems Altered mental status 2/2 medication withdrawal, circadian disruption Constipation (Acute) Debility (Acute) Dysphagia (Acute) Paraplegia 2/2 prior thoracic spine injury Neurogenic bladder Prior CVA s/p colostomy HTN T2DM - Secondary Discharge Diagnosis Chronic Problems Colostomy in place (Chronic) Stroke (Chronic) Anxiety and depression (Chronic) Neurogenic bladder (Chronic) GERD (gastroesophageal reflux disease) (Chronic) HTN (hypertension) (Chronic) Obesity (BMI 30.0-34.9) (Chronic) 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 Divergent gaze noted. Clinical correlation recommended. Age-related changes consistent with central cerebral atrophic changes. Old stable appearing bilateral cerebral infarcts as described. CT/CTA Head W/WO Contrast IMPRESSION: 1. No CTA evidence of intracranial vaso-occlusive disease of the anterior and posterior intracranial circulation. 2. Normal CTA head. 3. Old lacunar cystic infarct in the left periventricular white matter and chronic white matter ischemic changes in both cerebral hemispheres. CT/CTA Neck W/WO Contrast IMPRESSION: 1. No CTA evidence of any vaso-occlusive disease of both common carotid arteries, both internal and external carotid arteries and both vertebral arteries. 2. The aortic arch is not included in the scan. 3. The visualized portions of the right brachiocephalic artery, left common carotid artery and left subclavian artery are widely patent. 4. Widely patent subclavian origins of both vertebral arteries, the cervical portions of both vertebral arteries and the intradural segments of both vertebral arteries. 5. No CT evidence of any suspicious mass in the suprahyoid neck and infrahyoid neck. 6. Bridging anterior longitudinal ligament and anterior marginal spurs from C2-C3 down to C6-C7 disc space levels. CT/Brain/Head without Contrast IMPRESSION: Senescent changes with no evidence of acute intracranial bleed, mass or ischemia. MRI/Brain without Contrast IMPRESSION: Moderate periventricular senescent changes with no evidence of acute intracranial bleed, mass or ischemia. RAD/Abd Inc Decub and/or Erect IMPRESSION: Large amount of fecal material is seen in the colon. Stable appearance of the dense contrast within the rectal stump Consultations Neuro: Dawson 07/04/17 08:26 Consult: Onc/Wound/refinery process engineer Routine Comment: Reason for Consult:: Colostomy Operations: None Procedures: None Summary of Care Provided: Physical exam on day of discharge: See daily progress note Hospital course: The patient is a 77 year old M with a hx of stroke, paraplegia 2/2 prior thoracic spine T8 injury, neurogenic bladder, HTN, anxiety and depression, DM2t , and COPD hwo presented to the ER with change in mental status. He was reported to be behaving abnormally, mumbling, incomprehensible words and phrases , not able to feed himself, not able to complete ADLs. His daughter felt he may have right facial droop, right eyelid droop, and slurred speech. He also had recently been discontinued from multiple psychotropic medications by his PCP ( this included xanax, neurontin, baclofen, tramadol, and cymbalta about a month prior) as their was a concern for polypharmacy. He was placed on these medications as he was expected to be in withdrawal. He experienced agitation, confusion, and incomprehensible speech while here. Stroke work up including CTA head and neck, brain MRI, CT brain were negative for an acute process. His symptoms were felt to be related to the sudden medication changes. His medications were adjusted until he had an appropriate behavioral response. The day of discharge the family felt that his behavior was dramatically improved. He did have an episode of lower abdominal pain. He had not had a BM in several days from his ostomy, and a KUB was done which showed constipation. His bowel regimen was adjusted. We also adjusted his diabetic medications and antihypertensives. His diet was adjusted for dysphagia to include mechanical soft and nectar thick liquids. He will need to continue his medications as ordered, which if further discontinuation is desired will require slow taper down. Xanax should be use during the daytime only for agitation. [facility] Please follow up with your PCP in 2 weeks. This patient was seen by Freddy Roberts PA-C under the supervision of Doctor Wills. [] Discharge Diet: Low fat/ Low Cholesterol, 1800 Calorie Control Diet, 2000 mg Sodium Diet Discharge Activity: Return to Normal Activity Home Medications: Medications to take at Discharge Bupropion HCl [Wellbutrin Xl] 300 mg PO DAILY 07/03/17 Clopidogrel Bisulfate [Plavix] 75 mg PO DAILY 07/03/17 Fluticasone/Vilanterol [Breo Ellipta 100-25 Mcg INH] 1 each IH DAILY 07/03/17 Metoprolol Tartrate [Lopressor (beta vanessa)] 50 mg PO BID 07/03/17 Multivit-Min/FA/Lycopen/Lutein [Centrum Silver Tablet] 1 each PO DAILY 07/04/17 Pantoprazole Sodium 40 mg PO DAILY 07/04/17 Psyllium [Metamucil] 1 packet PO DAILY 07/04/17 ALPRAZolam [Xanax] 0.5 mg PO Q2H PRN PRN #8 tab 07/13/17 Acetaminophen [Tylenol Tablet] 650 mg PO Q4H PRN PRN tablet 07/13/17 Albuterol Aerosols [Ventolin Aerosols] 2.5 mg INHALATION Q6H.RT vial.neb. 07/13 Amlodipine [Norvasc] 5 mg PO DAILY tablet 07/13/17 Atorvastatin Calcium [Lipitor] 80 mg PO DAILY tablet 07/13/17 Baclofen [Lioresal] 5 mg PO TID PRN tablet 07/13/17 Gabapentin [Neurontin] 300 mg PO TIDCM capsule 07/13/17 Lisinopril [Zestril] 20 mg PO DAILY tablet 07/13/17 Metformin HCl [Glucophage] 1,000 mg PO BIDCM tablet 07/13/17 Paroxetine [Paxil] 10 mg PO DAILY tablet 07/13/17 Polyethylene Glycol 3350 [Miralax] 17 gm PO DAILY packet 07/13/17 Potassium Chloride [K-Dur] 40 meq PO DAILYCM tablet 07/13/17 Quetiapine Fumarate [Seroquel] 100 mg PO QHS tablet 07/13/17 Senna/Docusate Sodium [Senokot-S] 2 tablet PO BID tablet 07/13/17 glipiZIDE XL [Glucotrol Xl] 5 mg PO DAILY@0800 tablet 07/13/17 traMADol [Ultram] 50 mg PO TID PRN PRN #9 tab 07/13/17 Following Prescrptions Were Given to Patient: ALPRAZolam [Xanax] 0.5 mg PO Q2H PRN PRN #8 tab PRN Reason: AGITATION traMADol [Ultram] 50 mg PO TID PRN PRN #9 tab PRN Reason: Moderate Pain (4-5/10) Primary Care Physician: Young Marie Chi, MD [Primary Care Provider] - Please follow up with your Primary Care Physician in: 2 weeks Disposition: [facility] facility Minutes spent on discharge:: 40 Patient Condition:: Stable Medical Necessity - Tobacco Use Smoking Status: Never smoker Meaningful Use Info Meaningful Use Diagnoses (Choose all that apply): None applicable <Benjy Wills - Last Filed: 07/13/17 15:44> Discharge Date and Diagnosis - Primary Discharge Diagnosis Active and Suspected Problems Acute encephalopathy due to medication withdrawal, circadian disruption, unspecified (Acute) Encephalopathy (Acute) Constipation (Acute) Debility (Acute) Dysphagia (Acute) - Secondary Discharge Diagnosis Chronic Problems Colostomy in place (Chronic) Stroke (Chronic) Anxiety and depression (Chronic) Neurogenic bladder (Chronic) GERD (gastroesophageal reflux disease) (Chronic) HTN (hypertension) (Chronic) Obesity (BMI 30.0-34.9) (Chronic) 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 I have independently interviewed and examined the patient and reviewed pertinent history, examination findings, laboratory and plan of management. I have reviewed the note and agree with the documented findings with the few additional points. In brief, patient is admitted for change in mental status associated with agitation, restlessness, abnormality in behavior and speech; incomprehensible words and phrases. Patient was seen by neurologist and was thought to be due to polypharmacy associated with drug withdrawal and disruption of psychotic and rhythm. Patient also has mild constipation and x-ray KUB shows fecal material in the colon. Patient is started on senna S and MiraLAX. I have discussed my assessment with Freddy KATZ and orders have been reviewed. [] Code Visit Inpatient E&M: 05585 Disch Hosp
== END 2017-07-13 16:17 | disposition skilled nursing facility (03) | DRG 92 ==
LOC: ED 11:38 → PCU 12:03
PROVIDERS: Family Medicine; Internal Medicine; Physician Assistant; Psychiatry & Neurology Neurology; Student in an Organized Health Care Education/Training Program; Admitting Provider Internal Medicine; Emergency Provider Emergency Medicine; Family Provider Family Medicine Geriatric Medicine; PCP Family Medicine Geriatric Medicine; Visit Provider Internal Medicine
DX: G47.20 Circadian rhythm sleep disorder, unspecified type (principal); G82.20 Paraplegia, unspecified; F19.931 Other psychoactive substance use, unspecified with withdrawal delirium; E86.0 Dehydration; K59.00 Constipation, unspecified; E87.6 Hypokalemia; I10 Essential (primary) hypertension; E11.9 Type 2 diabetes mellitus without complications; N31.9 Neuromuscular dysfunction of bladder, unspecified; R13.10 Dysphagia, unspecified; E66.9 Obesity, unspecified; K21.9 Gastro-esophageal reflux disease without esophagitis; F32.9 Major depressive disorder, single episode, unspecified; F41.9 Anxiety disorder, unspecified; Z86.73 Personal history of transient ischemic attack (TIA), and cerebral infarction without residual deficits; Z93.3 Colostomy status; Z68.27 Body mass index [BMI] 27.0-27.9, adult; F40.240 Claustrophobia; J44.9 Chronic obstructive pulmonary disease, unspecified; Z74.01 Bed confinement status
CPT/HCPCS: 36415; 70450; 70496; 70498; 70551; 71046; 74019; 80048; 80053; 80061; 80076; 81001; 82140; 82607; 82962; 83036; 83735; 84100; 84132; 84443; 84484; 85025; 85610; 85730; 92507; 92526; 93005; 94640; 97110; 97162; 97165; 97530; 97802; 99284; J7030; P9612; Q9967; A4216; J2405; J3486

== ENCOUNTER → 2017-12-08 11:14 | Outpatient (CLI) | payer MEDICARE, SELFPAY ==
[2017-12-08 12:38] LABS: AST(SGOT) 24 U/L (15-37); Alanine Aminotransfer ALT/SGPT 49 U/L (16-61); Albumin, Serum 3.6 g/dL (3.2-5.0); Alkaline Phosphatase 138 U/L (45-117); Anion Gap 11 (5-15); BUN 6 mg/dL (7-18); BUN/Creat Ratio 11.8 RATIO (10-20); Calcium,Total 9.3 mg/dL (8.5-10.1); Chloride 101 mmol/L (98-107); Cholesterol 78 mg/dL (200); Creatinine, Serum 0.51 mg/dL (0.70-1.30); EST Glomerular Filtration Rate 168 mL/min (>60); Est Glom Filt Rate - Afr Amer 203 mL/min (>60); Globulin 3.5 g/dL (2.2-4.2); Glucose 154 mg/dL (74-106); High Density Lipoprotein 45 mg/dL; Protein, Total 7.1 g/dL (6.4-8.2); Sodium Level 140 mmol/L (136-145); Triglycerides 118 mg/dL; Very Low Density Lipoprotein 24 mg/dL (5-40)
[2017-12-08 12:41] LABS: Hemoglobin A1c 6.4 % (4.2-6.3)
== END ==
PROVIDERS: Family Provider Family Medicine Geriatric Medicine; PCP Family Medicine Geriatric Medicine
DX: E78.2 Mixed hyperlipidemia (principal); E11.9 Type 2 diabetes mellitus without complications
CPT/HCPCS: 36415; 80053; 80061; 83036

== ENCOUNTER → 2018-01-25 10:43 | Outpatient (CLI) | payer MEDICARE, SELFPAY ==
[2018-01-25 12:11] LABS: AST(SGOT) 21 U/L (15-37); Alanine Aminotransfer ALT/SGPT 40 U/L (16-61); Cholesterol 79 mg/dL (200); High Density Lipoprotein 46 mg/dL; Triglycerides 123 mg/dL; Very Low Density Lipoprotein 25 mg/dL (5-40)
== END ==
DX: E78.5 Hyperlipidemia, unspecified (principal); Z79.899 Other long term (current) drug therapy
CPT/HCPCS: 36415; 80061; 84450; 84460

== ENCOUNTER → 2018-05-12 11:18 | Outpatient (CLI) | payer MEDICARE, SELFPAY ==
[2018-05-12 13:21] LABS: Cholesterol 96 mg/dL (200); High Density Lipoprotein 45 mg/dL; Triglycerides 143 mg/dL; Very Low Density Lipoprotein 29 mg/dL (5-40)
[2018-05-12 13:23] LABS: Hemoglobin A1c 6.8 % (4.2-6.3)
== END ==
DX: E11.9 Type 2 diabetes mellitus without complications (principal)
CPT/HCPCS: 36415; 80061; 83036

== ENCOUNTER 2018-05-14 11:21 | Outpatient (RCR) | payer MEDICARE, SELFPAY ==
[2017-07-08 01:41] VITALS: BMI 27.6
--- NOTE | 2018-05-14 12:20 | HP.PTEVAL_ITS ---
Patient's Visit Information KIN FONTANEZ is a 77 year old M referred to Physical Therapy by TANYA MANCINI with a diagnosis of SCI. Date of Evaluation: 05/14/18 Physical Therapist: Britney Tripp DPT - Visit Plan Plan: w/c evaluation - Subjective Findings: 77 year old male- has been in a w/c for 26 years- fell off a roof and had a spinal cord injury at T8. 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 He was doing great until January 18, 2017 when he had a mild stroke- then had a delerium for about [address] [facility] and they worked on his speech, OT and PT. Lives with his who can't lift but she can help some. They live in a single story home that has been built for him. Either in bed or chair- uses a slide board transfer. Full size bed that moves like a hospital bed. Has someone who comes 3x a week for bathing purposes. Fully I with transfers. Has a van currently but someone has to drive it for him. Can himself around his home but is unable to get himself up/down ramps. Does have lower back pain- he also has problems with his shoulders and was told the only option is to have surgery. Has a lot of pain in the shoulders when he pushes to much. He is able to do his own weight shifts with his UE and has never had a pressure sore. Does not stand at all- no stand pivot transfers. Patient is 6'1 approx 235 lbs. - Objective Posture:FH, RS, Increased kyphosis. Gait: does not ambulate. ROM: LE: PROM: WFL, UE: WFL in all planes- reports discomfort at end range flexion/abduction of the shoulder. Strength: LE: no trace contractions UE: Left 5/5 throughout Right: 4+/5 including shoulder, elbow, wrist and project development director Scap: fair Core: fair minus. Weight shift: able to lift himself with his UE to change positions in chair. Transfers: slide board I to/from different surfaces. W/c mobility: able to propel himself to treatment room 150 feet and turn chair to face different directions - Anticipated Interventions Thank you for the opportunity to evaluate your patient. For Medicare and Medicare HMO plans, please review the plan of care and approve it. It will need to be FAXED BACK to us at [phone] for Medicare purposes. For Medicare only, by signing this I certify the plan of care. Please let me know if there are questions or concerns regarding this plan of care. Physician Signature: Date:
--- NOTE | 2018-08-05 10:35 | HP.PT.NRP ---
HP - Discharge Summary (1) - Patient Information KIN FONTANEZ was seen in my office for initial evaluation on 05/14/18. The following Plan of Care was established for this patient: This patient was last seen in our office . Pertinent comments regarding their Physical therapy will appear below: Patient was here for w/c evaluation- d/c At this point I will be discontinuing this patient from physical therapy. I would be happy to see this patient again in the future if found appropriate by the physician. Thank you! KIMBERLI WalkerT
== END 2018-05-14 19:00 | disposition home or self-care (01) ==
LOC: PT 11:21
DX: G82.20 Paraplegia, unspecified (principal)
CPT/HCPCS: 97161

== ENCOUNTER 2018-07-16 06:11 | Emergency (ER) | payer MEDICARE, SELFPAY ==
[2018-07-16 06:15] VITALS: BP 158/88; PULSE 82; RESP 16; TEMP 36.7; O2SAT 94; BMI 31.0
--- NOTE | 2018-07-16 06:27 | RAD_ITS ---
STUDY: X-RAY CHEST REASON FOR EXAM: Male, 78 years old. Cough. TECHNIQUE: Two AP portable views of the chest. COMPARISON: July 03, 2017. FINDINGS: There is hyperinflation of the lungs consistent with chronic obstructive lung disease (COPD). There is mild interstitial thickening present in both lungs. There is no demonstrated pleural abnormality. There is mild cardiac enlargement. Normal mediastinum and jesus. Normal visualized pulmonary arteries. There is atherosclerotic tortuosity of the aortic arch and descending thoracic aorta. There is demineralization of the osseous structures. The patient has had surgery on the thoracic spine with two Muhammad rods. There is no demonstrated abnormality of the visualized soft tissue structures of the upper abdomen. RAD/Chest 1 View (Portable) IMPRESSION: COPD and mild pulmonary congestion. Electronically Signed: Enedelia Bruce MD at 7:00 EDT , Service support ,
--- NOTE | 2018-07-16 06:27 | ED.VIS.GEN ---
History of Present Illness Chief Complaint: Cough Narrative: Patient stated he has had a cough nonproductive with some chest congestion for the last week. He saw his family doctor was told it was likely viral and would have to run its course. He has been using Delsym and Afrin nasal spray. No fevers or chills. He is paralyzed from the chest down. Comes in for further evaluation as he wants to make sure he does not have a pneumonia as he still has symptoms. Current severity is mild. It is worse when he lays flat. Relieved when they are able to sit him up. - Past Medical History (1) Altered mental status, unspecified Status: Acute (2) Constipation Status: Acute (3) Debility Status: Acute (4) Dysphagia Status: Acute (5) Encephalopathy Status: Acute (6) Anxiety Status: Chronic (7) Anxiety and depression Status: Chronic (8) COPD (chronic obstructive pulmonary disease) Status: Chronic (9) Colostomy in place Status: Chronic (10) Depression Status: Chronic (11) Diabetes mellitus, type II Status: Chronic (12) GERD (gastroesophageal reflux disease) Status: Chronic (13) HTN (hypertension) Status: Chronic (14) Muscle spasm Status: Chronic (15) Neurogenic bladder Status: Chronic (16) Obesity (BMI 30.0-34.9) Status: Chronic (17) Panic disorder Status: Chronic (18) Stroke Status: Chronic (1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 Lives: Spouse/ Significant Other Smoking Status: Never smoker Alcohol: None Drugs: None - Family History Maternal Family History: Reports: No pertinent history Paternal Family History: Reports: Heart Disease - Father w/ [place] 65 years old. Review of Systems General: Denies: Chills, Fever, Sweats Eyes: Denies: Visual changes - bilaterally, Diplopia ENT: Denies: Rhinorrhea, Sore throat Cardiovascular: Denies: Chest pain, Palpitations Respiratory: Reports: Cough. Denies: Dyspnea, Dyspnea on exertion Gastrointestinal: Denies: Abdominal pain, Nausea, Vomiting, Diarrhea, Melena, Hematochezia Genitourinary: Denies: Dysuria, Hematuria, Frequency Musculoskeletal: Denies: Back pain, Extremity Pain Skin: Denies: Rash, Wounds Neurological: Denies: Headache, Weakness, Numbness Physical Exam Vital Signs/Narrative: Vital Signs Temp Pulse Resp BP Pulse Ox 07/16/18 06:15 98.1 F 82 16 158/88 H 94 General: Well nourished, Well developed, No Acute Distress Head: Normocephalic, Atraumatic Eyes: Perrl, EOMI ENT: Moist mucous membranes, No rhinorrhea Neck: Supple, Nontender Cardiovascular: Regular rate, Regular rhythm, No murmurs Respiratory: No distress, CTA bilaterally, Chest nontender Abdomen: Soft, Nontender, Nondistended, Normal bowel sounds Back: Nontender, Normal Inspection Extremities: Nontender, No edema Skin: Normal color, No rash Neurological: Alert, Oriented x3, Cranial nerves II-XII grossly intact, Weakness - Chronic paralysis chest down Psychological: Normal affect, Normal Mood Diagnostic/Tx/Re-eval - Medical Decision Making Appears to be resting comfortably. Normal vital signs except for slightly elevated blood pressure. Afebrile. Normal pulse ox. Chest x-ray obtained. Chest x-ray shows COPD-like picture. Patient does not have any wheezing. Will be treated with Levaquin for her symptoms have been going on for a week and history of COPD. We will follow-up as an outpatient. ED Disposition - Plan for ED Patient: Disposition: Home or Assisted Living Diagnosis: Pneumonia Instructions: ED Pneumonia Adult Prescriptions: Levofloxacin [Levaquin] 750 mg PO DAILY 6 Days #6 tab Referrals: [facility] Doctor,Out of [Primary Care Provider] -
[2018-07-16] MEDS: levoFLOXacin 750 MG Tablet PO (07:20)
[2018-07-16 07:22] VITALS: BP 165/106; PULSE 73; RESP 20; O2SAT 94
== END 2018-07-16 07:32 | disposition home or self-care (01) ==
PROVIDERS: Emergency Provider Emergency Medicine
DX: J18.9 Pneumonia, unspecified organism (principal); Z88.5 Allergy status to narcotic agent; G82.20 Paraplegia, unspecified; F41.0 Panic disorder [episodic paroxysmal anxiety]; N31.9 Neuromuscular dysfunction of bladder, unspecified; I10 Essential (primary) hypertension; K21.9 Gastro-esophageal reflux disease without esophagitis; E11.9 Type 2 diabetes mellitus without complications; F32.9 Major depressive disorder, single episode, unspecified; J44.9 Chronic obstructive pulmonary disease, unspecified; F41.9 Anxiety disorder, unspecified; Z93.3 Colostomy status
CPT/HCPCS: 71045; 99283

== ENCOUNTER → 2018-09-07 14:48 | Outpatient (CLI) | payer MEDICARE, SELFPAY ==
[2018-09-07 16:14] LABS: AST(SGOT) 24 U/L (15-37); Alanine Aminotransfer ALT/SGPT 33 U/L (16-61); Albumin, Serum 3.7 g/dL (3.2-5.0); Alkaline Phosphatase 103 U/L (45-117); Anion Gap 8 (5-15); BUN 7 mg/dL (7-18); BUN/Creat Ratio 13.4 RATIO (10-20); Calcium,Total 9.2 mg/dL (8.5-10.1); Chloride 104 mmol/L (98-107); Cholesterol 107 mg/dL (200); Creatinine, Serum 0.52 mg/dL (0.70-1.30); EST Glomerular Filtration Rate 163 mL/min (>60); Est Glom Filt Rate - Afr Amer 197 mL/min (>60); Globulin 3.7 g/dL (2.2-4.2); Glucose 115 mg/dL (74-106); High Density Lipoprotein 46 mg/dL; Potassium 3.9 mmol/L (3.5-5.1); Protein, Total 7.4 g/dL (6.4-8.2); Sodium Level 140 mmol/L (136-145); Triglycerides 142 mg/dL; Very Low Density Lipoprotein 28 mg/dL (5-40)
== END ==
DX: E11.9 Type 2 diabetes mellitus without complications (principal); I63.9 Cerebral infarction, unspecified; F32.9 Major depressive disorder, single episode, unspecified; E78.5 Hyperlipidemia, unspecified; J43.9 Emphysema, unspecified
CPT/HCPCS: 36415; 80053; 80061; 83036

== ENCOUNTER → 2018-12-10 17:07 | Outpatient (CLI) | payer MEDICARE, SELFPAY ==
[2018-11-10 09:50] VITALS: BMI 31.0
== END ==
DX: R19.7 Diarrhea, unspecified (principal)

== ENCOUNTER 2019-01-29 16:38 | Emergency (ER) | payer MEDICARE, SELFPAY ==
[2018-11-10 09:50] VITALS: BMI 31.0
[2019-01-29 16:38] VITALS: BP 186/87; PULSE 62; RESP 16; TEMP 36.1; O2SAT 97; BMI 29.1
--- NOTE | 2019-01-29 17:26 | CT_ITS ---
STUDY: CT BRAIN WITHOUT CONTRAST REASON FOR EXAM: Male, 78 years old. Headache, visual problems. RADIATION DOSAGE (If Supplied By Facility): CTDIvol = ( 44.99 ) mGy, DLP = ( 829.85 ) mGycm TECHNIQUE: Transaxial CT imaging of the brain was performed without administration of intravenous contrast material. Individualized dose optimization techniques were used for this CT. COMPARISON: 07/06/2017. FINDINGS: Normal soft tissue structures. Normal calvarium. There is mild cerebral atrophy with widening of the extra-axial spaces and ventricular dilatation. There are areas of decreased attenuation within the white matter tracts of the supratentorial brain, consistent with microvascular disease changes. There is no intracranial hemorrhage. There are no findings of an acute ischemic infarction. Normal visualized paranasal sinuses. CT/Brain/Head without Contrast IMPRESSION: 1. No acute findings. 2. Moderate microvascular ischemic changes. Atrophy. Electronically Signed: Gloria Crawford MD at 19:43 EDT Tel , Service support ,
--- NOTE | 2019-01-29 17:27 | EKG12_ITS ---
Test Reason : Blood Pressure : / mmHG Vent. Rate : 053 BPM Atrial Rate : 053 BPM P-R Int : 222 ms QRS Dur : 108 ms QT Int : 444 ms P-R-T Axes : 090 050 073 degrees QTc Int : 416 ms Sinus bradycardia with 1st degree A-V block Nonspecific ST and T wave abnormality Abnormal ECG Confirmed by RADHA REESE, AUTUMN ([id number]), website/blog editor MARCELLO WEI ([id number]) on 02/01/2019 11:22:32 AM Referred By: Confirmed By:AUTUMN GARCIA MD
--- NOTE | 2019-01-29 17:39 | RAD_ITS ---
STUDY: X-RAY CHEST REASON FOR EXAM: Male, 78 years old. Fatigue. TECHNIQUE: Portable chest. COMPARISON: 07/16/2018. FINDINGS: The lungs are clear and expanded. There is no demonstrated pleural abnormality. Normal size heart. Normal mediastinum and jesus. Normal visualized pulmonary arteries. Normal visualized aortic arch and descending thoracic aorta. Parenting rods in the thoracic spine. Degenerative changes of the right shoulder. Soft tissues and bony structures are otherwise unremarkable. RAD/Chest 1 View (Portable) IMPRESSION: No acute findings. Electronically Signed: Gloria Crawford MD at 17:59 EDT Tel , Service support ,
[2019-01-29 17:47] LABS: Absolute Neutrophil Count 4.2 X10^3/uL (2.0-7.7); Basophil% 1.2 % (0-1); Eosinophil# 0.43 X10^3/uL; Eosinophils% 5.2 % (0-5); Lymphocyte % 34.1 % (19-41); Mean Corp Hgb Conc 33.3 g/dL (32-36); Mean Platelet Vol. 10.8 fl (6.2-12.0); Monocyte# 0.63 X10^3/uL; Monocyte% 7.7 % (0-10); NRBC Flagged by Analyzer 0 % (0-5); Neutrophil # 4.22 X10^3/uL (2.7-7.7); Neutrophil % 51.3 % (47-70); Platelet Count 232 K/mm3 (150-450); RBC Distribution Width CV 14.1 % (11.6-14.6); White Blood Count 8.2 K/mm3 (4.4-11.0)
[2019-01-29 18:01] LABS: AST(SGOT) 16 U/L (15-37); Alanine Aminotransfer ALT/SGPT 33 U/L (16-61); Albumin, Serum 3.6 g/dL (3.2-5.0); Alkaline Phosphatase 109 U/L (45-117); Anion Gap 4 (5-15); BUN 8 mg/dL (7-18); BUN/Creat Ratio 14.1 RATIO (10-20); Calcium,Total 9.2 mg/dL (8.5-10.1); Chloride 105 mmol/L (98-107); Creatinine, Serum 0.57 mg/dL (0.70-1.30); EST Glomerular Filtration Rate 148 mL/min (>60); Est Glom Filt Rate - Afr Amer 179 mL/min (>60); Estimated Creatinine Clearance 66.82 ml/min; Globulin 3.7 g/dL (2.2-4.2); Glucose 166 mg/dL (74-106); Lipase 70 U/L (73-393); Potassium 3.9 mmol/L (3.5-5.1); Protein, Total 7.3 g/dL (6.4-8.2); Sodium Level 139 mmol/L (136-145)
--- NOTE | 2019-01-29 18:08 | CT_ITS ---
STUDY: CT ABDOMEN AND PELVIS WITH CONTRAST REASON FOR EXAM: Male, 78 years old. Right lower quadrant pain. Paraplegia. RADIATION DOSAGE (If Supplied By Facility): CTDIvol = ( 21.99 ) mGy, DLP = ( 1472.67 ) mGycm TECHNIQUE: Transaxial images were obtained from the dome of the diaphragm to the symphysis pubis without oral contrast. IV 100mL Isovue-300 100ML was administered. Sagittal and coronal images were reconstructed. Individualized dose optimization techniques were used for this CT. COMPARISON: None. FINDINGS: Lung bases are clear. Heart size is normal. The liver is unremarkable. The gallbladder is surgically absent. Splenic calcifications consistent with old granulomatous disease. The spleen is otherwise unremarkable. Moderate pancreatic atrophy. No focal lesion. The adrenal glands are normal. The kidneys are unremarkable. No stones or hydronephrosis. The aorta is normal in caliber. There is no free fluid, free air, or organized collection. Left lower quadrant colostomy. No bowel obstruction or inflammatory change. Retained oral contrast in the distal colon. Urinary bladder is unremarkable. Normal abdominal wall. Mild to moderate degenerative changes of the lumbar spine. L3-[address]/Abdomen/Pelvis W IV Cont ONLY IMPRESSION: 1. No acute findings. 2. Retained contrast in the rectosigmoid colon consistent with recent barium study. 3. Old granulomatous disease. Additional chronic changes are detailed above. Electronically Signed: Gloria rCawford MD at 19:41 EDT Tel , Service support ,
--- NOTE | 2019-01-29 18:09 | ED.DCSUM_ITS ---
History of Present Illness Chief Complaint: Headache Informant: Patient, Family Onset: Days - 4 Timing: Intermittent Quality: Aching Location: From right neck radiating over her forehead and behind both eyes Current Severity: Mild Narrative: Patient is a 78-year-old male with history of stroke and paraplegia from the chest down presenting with 4 days of headache and blurry vision. Patient states that headache is intermittent and is relieved with Tylenol but comes back. He notes that his vision feels blurry and like it is at 50%. He is not having any defects of his visual field. He notes the headache is worse when he sits up and better when he lays down. The headache seems to come from his right neck and radiate up his face and across. It is behind his eyes bilaterally. It is aching in nature. He said no associated fevers, head injuries or falls. Patient is a paraplegic and wheelchair-bound. He self caths himself and has a colostomy. notes that he has had increased output from his colostomy over the past few days. They are not sure if he had any blood. He did have a colonoscopy about 3 weeks ago. They are not sure if that is associated. Patient has complained of some mild upset stomach but its been nonspecific. Patient does have a history of stroke which presented with right facial droop and speech changes as well as right-sided weakness. His symptoms have since resolved. This was years ago. Patient is on Plavix but nothing else. He denies any other complaints at this time. Past Medical History - Allergies and Home Meds Allergies/Adverse Reactions: Allergies codeine Allergy (Verified 01/29/19 16:39) Unknown morphine Allergy (Verified 01/29/19 16:39) Unknown Primary Care Physician: Kush Álvarez MD [STAFF PHYSICIAN] - [facility] Doctor,Out of [Primary Care Provider] - Past Medical History: - - T8 Paraplegia, stroke, Anxiety, neurogenic bladder, GERD, hypertension, DM 2, COPD Surgical History: - Lives: With Family Smoking Status: Never smoker - Family History Maternal Family History: Family History (Last Reviewed 11/15/18 @ 14:52 by Britney Lagunas) Father Diabetes Mother Hypertension Family History: Reports: No pertinent history Paternal Family History: Family History (Last Reviewed 11/15/18 @ 14:52 by Britney Lagunas) Father Diabetes Mother Hypertension Family History: Reports: Heart Disease - Father w/ [place] 65 years old. Review of Systems All systems negative except as indicated Eyes: Reports: Blurred Vision - bilaterally Gastrointestinal: Reports: Abdominal pain, Nausea Neurological: Reports: Headache, - - Chronic paralysis from the chest down Physical Exam Vital Signs/Narrative: Vital Signs Temp Pulse Resp BP Pulse Ox 01/29/19 16:38 96.9 F L 62 16 186/87 H 97 Inital Vital Signs reviewed: Yes General: Well nourished, Well developed, No Acute Distress Head: Normocephalic, Atraumatic Eyes: Perrl, EOMI, - - Normal visual lopez ENT: Moist mucous membranes, No rhinorrhea, TM's clear. Negative for: Nasal congestion, Sinus tenderness Neck: Supple, Nontender Cardiovascular: Regular rate, Regular rhythm, No murmurs Respiratory: No distress, CTA bilaterally, Chest nontender Abdomen: Soft, Nondistended, Normal bowel sounds, Tender - Right lower quadrant, suprapubic region, Hyperactive bowel sounds, - - Colostomy in place Back: Nontender, Normal Inspection Extremities: Nontender, No edema Skin: Normal color, No rash Neurological: Alert, Oriented x3, Cranial nerves II-XII grossly intact, - - Paralysis of the lower extreme is bilaterally. Negative for: Left side facial droop, Right side facial droop Psychological: Normal affect, Normal Mood Diagnostic/Tx/Re-eval Chest X-Ray - ED: 1 View, Read by ED Physician, Read by Radiologist, No Acute Disease Clinical Impression(s) from Imaging Studies Brain CT 01/29/19 17:26 IMPRESSION: 1. No acute findings. 2. Moderate microvascular ischemic changes. Atrophy. Electronically Signed: Gloria Crawford MD at 19:43 EDT Tel , Service support , Chest X-Ray 01/29/19 17:39 IMPRESSION: No acute findings. Electronically Signed: Gloria Crawford MD at 17:59 EDT Tel , Service support , Abdomen/Pelvis CT 01/29/19 18:08 IMPRESSION: 1. No acute findings. 2. Retained contrast in the rectosigmoid colon consistent with recent barium study. 3. Old granulomatous disease. Additional chronic changes are detailed above. Electronically Signed: Gloria Crawford MD at 19:41 EDT Tel , Service support , Laboratory Data 01/29/19 01/29/19 01/29/19 16:49 16:49 19:00 WBC 8.2 RBC 5.00 Hgb 15.0 Hct 45.0 MCV 90.0 MCH 30.0 MCHC 33.3 RDW Std Deviation 46.0 H RDW Coeff of Madhav 14.1 Plt Count 232 MPV 10.8 Immature Gran % (Auto) 0.500 Neut % (Auto) 51.3 Lymph % (Auto) 34.1 Gregg % (Auto) 7.7 Eos % (Auto) 5.2 H Baso % (Auto) 1.2 H Absolute Neuts (auto) 4.2 Absolute Lymphs (auto) 2.80 Nucleated RBC % 0 Sodium 139 Potassium 3.9 Chloride 105 Carbon Dioxide 30.0 Anion Gap 4 L BUN 8 Creatinine 0.57 L Estim Creat Clear Calc 66.82 Est GFR (MDRD) Af Amer 179 Est GFR (MDRD) Non-Af 148 BUN/Creatinine Ratio 14.1 Glucose 166 H Calcium 9.2 Total Bilirubin 0.40 AST 16 ALT 33 Alkaline Phosphatase 109 Troponin I < 0.015 Total Protein 7.3 Albumin 3.6 Globulin 3.7 Albumin/Globulin Ratio 1.0 Lipase 70 L Urine Color Straw Urine Clarity Clear Urine pH 7.0 Ur Specific [place] 1.010 Urine Protein Negative Urine Glucose (UA) Normal Urine Ketones Negative Urine Occult Blood Negative Urine Nitrite Negative Urine Bilirubin Negative Urine Urobilinogen Normal Ur Leukocyte Esterase 25 H Urine RBC 0-5 SEEN Urine WBC 0-5 SEEN Ur Squamous Epith Cells 0-5 SEEN Urine Bacteria 0 SEEN Urine Mucus 0 SEEN - Rhythm Strip Rhythm Strip: Sinus bradycardia Rate: 53 Ectopy: None - EKG Initial EKG Interpretation: Sinus Bradycardia, - - Sinus tachycardia at a rate of 53 First- degree AV block QRS 108 QT/QTc 444/460 Normal axis No significant ST segment changes - Medical Decision Making Patient is evaluated for headaches as well as vision changes. He appears nontoxic in no acute distress. Vital signs are significant only for hypertension. Patient does have a history of hypertension. Patient admits that he only came to the ER because a friend of the family insisted that he be evalu ated. Symptoms been present for for 5 days. He has no focal neurologic deficits. He has no visual field deficits. He currently only has a very mild headache. The headache has been improving with Tylenol at home. It does seem to be positional. Head CT does not show any acute intracranial process. CBC, BMP, troponin and urinalysis do not show any acute abnormality. Patient has no obvious signs of acute infection. He has no meningeal signs. I do not suspect meningitis or encephalitis at this time. Patient was complaining of some upset stomach and had some tenderness to palpation of his abdomen. CT the abdomen pelvis also obtained to look for any acute process. This was also grossly normal. I feel that patient is stable for outpatient follow-up. I did call his PCP superintendent operations division line to make sure they are aware that he was in the emergency room and his need for short outpatient follow-up. Spoke to Dr. Hilario who states he will relay the message to his primary care doctor. Patient is also referred to ophthalmology for outpatient follow-up of his vision changes. Patient and family are counseled on signs and symptoms requiring return to emergency room. They verbalized agreement understand this plan. Patient discharged home in stable condition. ED Disposition - Plan for ED Patient: Disposition: Home or Assisted Living Diagnosis: Headache, Blurry vision, bilateral Instructions: Blurred Vision, HEADACHE, Unspecified Referrals: [facility] Doctor,Out of [Primary Care Provider] - Kush Álvarez MD [STAFF PHYSICIAN] - Additional Instructions: We could not find a cause of your symptoms today. At this time I believe it safe for you to go home. While you are blood pressure is elevated it is not dangerously elevated. Continue to take all of your medications at home as prescribed. Please follow-up with your primary care doctor early next week as well as your eye doctor. If you cannot get into your eye doctor, you have been referred to a local vegetable trimmer, . Return to the emergency room if you develop worsening symptoms or change in your symptoms including vomiting, fever, chest pain or strokelike symptoms such as change in speech or facial droop.
[2019-01-29 19:09] LABS: Bacteria 0 SEEN /hpf (None Seen); Mucous, Urine 0 SEEN /hpf (<or=2+)
[2019-01-29 19:10] LABS: Color, Urine Straw (Yellow); Glucose, Dipstick Normal (Normal); Ketone-Dipstick Negative (Negative); Leukocyte Esterase-Dipstick 25 /ul (Negative); Nitrite-Dipstick Negative (Negative); Occult Blood-Urine Negative /ul (Negative); Protein-Dipstick Negative (Negative); Urine Bilirubin Dipstick Negative (Negative); Urine Clarity Clear (Clear); Urine Urobilinogen Normal (Normal)
[2019-01-29 19:27] LABS: Red Blood Cells-Urine 0-5 SEEN /hpf (0-5); Squamous Epithelial Cells - UA 0-5 SEEN /hpf (0-5); White Blood Cells 0-5 SEEN /hpf (0-5)
[2019-01-29 21:36] VITALS: BP 174/86; PULSE 62; RESP 14; O2SAT 95
== END 2019-01-29 21:37 | disposition home or self-care (01) ==
PROVIDERS: Emergency Provider Emergency Medicine
DX: R51 Headache (principal); H53.8 Other visual disturbances; G82.20 Paraplegia, unspecified; I44.0 Atrioventricular block, first degree; I10 Essential (primary) hypertension; E11.9 Type 2 diabetes mellitus without complications; J44.9 Chronic obstructive pulmonary disease, unspecified; K21.9 Gastro-esophageal reflux disease without esophagitis; F41.9 Anxiety disorder, unspecified; Z93.3 Colostomy status; Z99.3 Dependence on wheelchair; Z79.02 Long term (current) use of antithrombotics/antiplatelets; Z79.84 Long term (current) use of oral hypoglycemic drugs; Z79.899 Other long term (current) drug therapy; Z86.73 Personal history of transient ischemic attack (TIA), and cerebral infarction without residual deficits
CPT/HCPCS: 70450; 71045; 74177; 80053; 81001; 83690; 84484; 85025; 93005; 96360; 99284; J7040; Q9967; A4216

== ENCOUNTER → 2019-02-07 10:04 | Outpatient (CLI) | payer MEDICARE, SELFPAY ==
[2019-01-29 16:38] VITALS: BMI 29.1
--- NOTE | 2019-02-07 10:07 | CT_ITS ---
STUDY: CTA HEAD AND NECK WITH CONTRAST REASON FOR EXAM: Male, 78 years old. Headaches. Visual disturbances. The patient is paraplegic. RADIATION DOSAGE (If Supplied By Facility): CTDIvol = ( 31.29 ) mGy, DLP = ( 1615.19 ) mGycm TECHNIQUE: CT angiography was performed with a multi-detector CT scanner. Data acquisition was obtained from the skull base through the vertex following intravenous administration of IV Isovue 370 100. MIP images were reconstructed from the axial data set. Post-processing of the angiographic images was performed, with multiplanar reformation and 3D reconstruction. Individualized dose optimization techniques were used for this CT. COMPARISON: No relevant priors. FINDINGS: Normal bilateral petrous carotid arteries. Normal right cavernous carotid artery with a normal supraclinoid bifurcation. Normal left cavernous carotid artery with a normal supraclinoid bifurcation. Normal right A1 segments of the anterior cerebral artery. Normal left A1 segments of the anterior cerebral artery. Normal intact anterior communicating artery (ACOM). Normal bilateral A2 segments of the anterior cerebral arteries. Normal right M1 and M2 segments of the middle cerebral arteries, with a normal M1 bifurcation. Normal left M1 and M2 segments of the middle cerebral arteries, with a normal M1 bifurcation. Normal right posterior communicating artery (PCOM). Normal left posterior communicating artery (PCOM). Normal bilateral vertebral arteries. Normal basilar artery with a normal basilar bifurcation. The visualized bilateral superior cerebellar (SCA) arteries are normal. Normal bilateral P1, P2 and visualized P3 segments of the posterior cerebral arteries. There is no demonstrated aneurysm of the [place]. There is no demonstrated abnormality of the visualized brain. AORTIC ARCH: There is scattered atherosclerotic calcific plaque formation of the aortic arch and great vessels arising from the aortic arch, without a hemodynamically significant stenosis. There is a normal origin of the brachiocephalic, left common carotid, and left subclavian arteries. Normal origins of the brachiocephalic, left common carotid, and left subclavian arteries. RIGHT CAROTID ARTERIES: Normal right common carotid artery (CCA). Normal right common carotid bulb. There is mild atherosclerotic plaque formation of the origin of the right internal carotid artery with less than 50% cross sectional diameter stenosis. Normal visualized cervical portion of the right internal carotid artery. Normal origin of the right external carotid artery (ECA). LEFT CAROTID ARTERIES: Normal left common carotid artery (CCA). Normal left common carotid bulb. Normal origin of the left internal carotid (ICA) artery without a hemodynamically significant stenosis. Normal visualized cervical portion of the left internal carotid artery. Normal origin of the left external carotid artery (ECA). VERTEBRAL ARTERIES: Normal bilateral vertebral arteries. CT/CTA Head AND Neck W/ Contrast IMPRESSION: Tiny calcific plaque at the origin of the right internal carotid artery without significant stenosis. Electronically Signed: Wiley Marcial, at 12:33 EST , Service support ,
== END ==
PROVIDERS: Referring Provider Ophthalmology; Visit Provider Ophthalmology
DX: H53.10 Unspecified subjective visual disturbances (principal); R51 Headache
CPT/HCPCS: 70496; 70498; Q9967

== ENCOUNTER → 2019-03-08 09:31 | Outpatient (CLI) | payer MEDICARE, SELFPAY ==
[2019-03-08 10:47] LABS: Cholesterol 121 mg/dL (200); High Density Lipoprotein 49 mg/dL; Triglycerides 164 mg/dL; Very Low Density Lipoprotein 33 mg/dL (5-40)
[2019-03-08 10:49] LABS: Hemoglobin A1c 6.6 % (4.2-6.3)
== END ==
DX: E78.5 Hyperlipidemia, unspecified (principal); E11.9 Type 2 diabetes mellitus without complications
CPT/HCPCS: 36415; 80061; 83036

== ENCOUNTER → 2019-09-28 10:34 | Outpatient (CLI) | payer MEDICARE, SELFPAY ==
[2019-09-28 11:26] LABS: ALB/GLOB Ratio 0.9 RATIO (0.9-2.4); AST(SGOT) 19 U/L (15-37); Alanine Aminotransfer ALT/SGPT 38 U/L (16-61); Albumin, Serum 3.7 g/dL (3.2-5.0); Alkaline Phosphatase 106 U/L (45-117); Anion Gap 5 (5-15); BUN 8 mg/dL (7-18); BUN/Creat Ratio 14.7 RATIO (10-20); Calcium,Total 9.4 mg/dL (8.5-10.1); Chloride 104 mmol/L (98-107); Cholesterol 118 mg/dL (200); Creatinine, Serum 0.54 mg/dL (0.70-1.30); EST Glomerular Filtration Rate 154 mL/min (>60); Est Glom Filt Rate - Afr Amer 187 mL/min (>60); Globulin 3.9 g/dL (2.2-4.2); Glucose 137 mg/dL (74-106); High Density Lipoprotein 47 mg/dL; Protein, Total 7.6 g/dL (6.4-8.2); Sodium Level 139 mmol/L (136-145); Triglycerides 156 mg/dL; Very Low Density Lipoprotein 31 mg/dL (5-40)
[2019-09-28 11:29] LABS: Hemoglobin A1c 6.5 % (3.8-5.6)
== END ==
DX: I10 Essential (primary) hypertension (principal); E78.5 Hyperlipidemia, unspecified; E11.9 Type 2 diabetes mellitus without complications
CPT/HCPCS: 36415; 80053; 80061; 83036

== ENCOUNTER → 2019-10-06 15:24 | Outpatient (CLI) | payer MEDICARE, SELFPAY | DX: R19.4 Change in bowel habit (principal); R19.7 Diarrhea, unspecified | CPT/HCPCS: 87493 ==

== ENCOUNTER 2020-01-14 11:25 | Emergency (ER) | payer MEDICARE, SELFPAY ==
[2020-01-14 11:27] VITALS: BP 167/118; PULSE 74; RESP 16; TEMP 36.3; O2SAT 99; BMI 29.1
--- NOTE | 2020-01-14 11:52 | EKG12_ITS ---
Test Reason : Blood Pressure : / mmHG Vent. Rate : 068 BPM Atrial Rate : 068 BPM P-R Int : 230 ms QRS Dur : 098 ms QT Int : 406 ms P-R-T Axes : 078 028 107 degrees QTc Int : 431 ms Sinus rhythm with 1st degree A-V block Nonspecific ST and T wave abnormality Abnormal ECG Confirmed by SONAL REESE, AGNES ([id number]), metropolitan editor ROGELIO ARREGUIN ([id number]) on 01/17/2020 12:30:43 PM Referred By: BRANDON Confirmed By:AGNES PRUITT MD
--- NOTE | 2020-01-14 11:52 | RAD_ITS ---
STUDY: X-RAY CHEST REASON FOR EXAM: Male, 79 years old. Worsening shortness of breath. TECHNIQUE: Single AP portable view of the chest. COMPARISON: 01/29/2019 FINDINGS: The lungs are clear and expanded. There is no demonstrated pleural abnormality. There is borderline cardiomegaly. Normal mediastinum and jesus. Normal visualized pulmonary arteries. There is atherosclerotic tortuosity of the aortic arch and descending thoracic aorta. The osseous structures are unchanged. Muhammad rods in the thoracic spine are again seen. There is no demonstrated abnormality of the visualized soft tissue structures of the upper abdomen. RAD/Chest PA and Lateral IMPRESSION: No active pulmonary disease. Electronically Signed: Jaya Florez MD at 13:14 EDT Tel , Service support ,
--- NOTE | 2020-01-14 11:55 | ED.VIS.DYS ---
History of Present Illness <Didire Townsend - Last Filed: 01/14/20 13:16> Informant: Patient, Relative Onset: Days - 5 days Activity at onset: Light Activity, Rest Timing: Continuous Quality: Wheezing Current Severity: Moderate Maximum Severity: Severe Worsened by: Coughing Relieved by: Nothing Associated Symptoms: Cough, Green sputum. Negative for: Bloody Sputum, Chills, Clear sputum, Ear pain, Fever, Post-nasal drainage, Rhinorrhea, Sore throat, Sweats, White sputum, Yellow sputum Chest Pain: None Narrative: 79-year-old male history of COPD and paraplegia from a previous work incident 20 years ago presents with his daughter to the emergency department secondary to shortness of breath and cough. Symptoms have been ongoing now for about 5 days. Patient states he is coughing up green sputum. He feels short of breath. He states it is worse at night when he tries to sleep. Patient has not had chest pain or fever or hemoptysis. No vomiting or diarrhea. He uses a daily inhaler for his COPD but nothing as needed. He has no sick contacts. No history of CHF or PE. No history of sleep apnea. Otherwise he has been eating and drinking normally he has had normal output through his colostomy he does self catheterize and has no issues with that either. PE Risk Factors: Negative for: Cancer, OCP + Smoking + > 35, Prior DVT or PE, Recent immobilization, Recent surgery, Recent travel Prior similar symptoms: Yes Recent Illness/Hospitalization: No <Enoc Aguirre - Last Filed: 01/14/20 13:20> Chief Complaint: Shortness of Breath Past Medical History - Family History Maternal Family History: Family History (Last Reviewed 11/15/18 @ 14:52 by Britney Lagunas) Father Diabetes Mother Hypertension Paternal Family History: Family History (Last Reviewed 11/15/18 @ 14:52 by Britney Lagunas) Father Diabetes Mother Hypertension <Didier Townsend - Last Filed: 01/14/20 13:16> Prior records reviewed: Yes Past Medical History: - - Hypertension, hyperlipidemia, type 2 diabetes mellitus, COPD, paraplegia, CVA Surgical History: - - Colostomy Lives: With Family Smoking Status: Never smoker Alcohol: None Drugs: None - Family History Maternal Family History: Family History (Last Reviewed 11/15/18 @ 14:52 by Britney Lagunas) Father Diabetes Mother Hypertension Family History: Reports: No pertinent history Paternal Family History: Family History (Last Reviewed 11/15/18 @ 14:52 by Britney Lagunas) Father Diabetes Mother Hypertension Family History: Reports: Heart Disease - Father w/ AL 65 years old. <Enoc Aguirre - Last Filed: 01/14/20 13:20> - Allergies and Home Meds Allergies/Adverse Reactions: Allergies codeine Allergy (Verified 01/14/20 11:27) Unknown morphine Allergy (Verified 01/14/20 11:27) Unknown Primary Care Physician: TANYA MANCINI [Other] Review of Systems All systems negative except as indicated General: Denies: Chills, Fever, Sweats Eyes: Denies: Visual changes - bilaterally, Diplopia ENT: Denies: Rhinorrhea, Sore throat Cardiovascular: Denies: Chest pain, Palpitations Respiratory: Reports: Dyspnea, Cough, Sputum. Denies: Dyspnea on exertion, Orthopnea, Paroxysmal nocturnal dyspnea Gastrointestinal: Denies: Abdominal pain, Nausea, Vomiting, Diarrhea, Melena, Hematochezia Genitourinary: Denies: Dysuria, Hematuria, Frequency Musculoskeletal: Denies: Neck pain, Back pain, Swelling, Extremity Pain Skin: Denies: Rash, Wounds Neurological: Denies: Headache, Weakness, Numbness <Enoc Aguirre - Last Filed: 01/14/20 13:20> Physical Exam Vital Signs/Narrative: Vital Signs Temp Pulse Resp BP Pulse Ox 01/14/20 11:27 97.3 F L 74 16 167/118 H 99 <Didier Townsend - Last Filed: 01/14/20 13:16> Vital Signs/Narrative: Vital Signs Temp Pulse Resp BP Pulse Ox 01/14/20 11:27 97.3 F L 74 16 167/118 H 99 Inital Vital Signs reviewed: Yes General: Well nourished, Well developed, No Acute Distress Head: Normocephalic, Atraumatic Eyes: Perrl, EOMI ENT: Moist mucous membranes, No rhinorrhea Neck: Supple, Nontender Cardiovascular: Regular rate, Regular rhythm, No murmurs Respiratory: No distress, Chest nontender, Diminished, Decreased Air Movement Abdomen: Soft, Nontender, Nondistended, Normal bowel sounds Back: Nontender, Normal Inspection Extremities: Nontender, No edema Skin: Normal color, No rash Neurological: Alert, Oriented x3, - - Patient has paraplegia which is at baseline. He has right-sided weakness from previous stroke which is at baseline as well. He has no focal neurological deficits. Psychological: Normal affect, Normal Mood <Enoc Aguirre - Last Filed: 01/14/20 13:20> Diagnostic/Tx/Re-eval - Medical Decision Making Patient seen with Enoc zee with history and physical as above, presents with some shortness of breath he has a history of COPD he is on 1 inhaler at home he has had no obvious exposures to coronavirus but he does per the daughter go to [employer] and does not wear a mask etc., he has had just a sense of shortness of breath no fever cough is dry nonproductive and for the most part he is at his baseline in a wheelchair related to prior stroke His lungs are clear his pulse ox is 92% his nose is clear he is in no distress speaking full sentences S COVID screen we discussed differential he does not wish to be admitted to the hospital he wants to go home the daughter believes that he requires more than 1 inhaler we discussed that with her we will try to enhance his medication status he wants to be managed as an outpatient and will follow-up with his outpatient providers see the chart for full details <Didier Townsend - Last Filed: 01/14/20 13:16> Chest X-Ray - ED: 2 View, Read by ED Physician, Read by Radiologist - Rhythm Strip Rhythm Strip: Sinus Rhythm Rate: 68 Ectopy: None - EKG Initial EKG Interpretation: Sinus Rhythm, No Acute Injury Pattern Prior: Unchanged Treatment - Dyspnea: Albuterol Repeat Evaluation: Improved <Enoc Aguirre - Last Filed: 01/14/20 13:20> ED Disposition <Didier Townsend - Last Filed: 01/14/20 13:16> <Enoc Aguirre - Last Filed: 01/14/20 13:20> - Plan for ED Patient: Disposition: Home or Assisted Living Diagnosis: Dyspnea, COPD (chronic obstructive pulmonary disease), 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
[2020-01-14 12:24] LABS: Absolute Lymphocyte Count 2.55 X10^3/uL (0.83-4.51); Absolute Neutrophil Count 6.5 X10^3/uL (2.0-7.7); Basophil# 0.09 X10^3/uL; Basophil% 0.9 % (0-1); Eosinophil# 0.29 X10^3/uL; Eosinophils% 2.9 % (0-5); Hematocrit 44.6 % (40-54); Hemoglobin 14.8 g/dL (13.0-16.5); Lymphocyte # 2.55 X10^3/ul (4.0); Lymphocyte % 25.1 % (19-41); Mean Corp Hgb Conc 33.2 g/dL (32-36); Mean Corpuscular Hgb 29.8 pg (27.0-32.0); Mean Corpuscular Volume 89.7 fL (80-94); Mean Platelet Vol. 10.7 fl (6.2-12.0); Monocyte# 0.69 X10^3/uL; Monocyte% 6.8 % (0-10); NRBC Flagged by Analyzer 0 % (0-5); Neutrophil # 6.47 X10^3/uL (2.7-7.7); Neutrophil % 63.7 % (47-70); Platelet Count 237 K/mm3 (150-450); RBC Distribution Width CV 14.4 % (11.6-14.6); Red Blood Count 4.97 M/mm3 (4.6-6.2); White Blood Count 10.2 K/mm3 (4.4-11.0)
[2020-01-14 12:28] VITALS: BP 128/83; PULSE 68; RESP 18; TEMP 36; O2SAT 95
[2020-01-14 12:39] LABS: Anion Gap 5 (5-15); BUN 9 mg/dL (7-18); BUN/Creat Ratio 15.3 RATIO (10-20); Calcium,Total 9.2 mg/dL (8.5-10.1); Chloride 106 mmol/L (98-107); Creatinine, Serum 0.59 mg/dL (0.70-1.30); EST Glomerular Filtration Rate 141 mL/min (>60); Est Glom Filt Rate - Afr Amer 171 mL/min (>60); Estimated Creatinine Clearance 65.74 ml/min; Glucose 140 mg/dL (74-106); Potassium 3.8 mmol/L (3.5-5.1); Sodium Level 139 mmol/L (136-145)
[2020-01-14 12:46] LABS: BNP,B-Type NATRIURETIC PEPTIDE 34.6 pg/mL (0-100)
[2020-01-14 13:00] VITALS: BP 121/72; PULSE 68; RESP 18; TEMP 36.1; O2SAT 96
[2020-01-14 14:09] VITALS: BP 146/74; PULSE 91; RESP 22; O2SAT 97
--- NOTE | 2020-01-14 14:10 | ED.RN ---
THIS NURSE REVIEWED D/C INSTRUCTIONS WITH PT AND DAUGHTER. BOTH VERBALIZED UNDERSTANDING OF INSTRUCTIONS. IV D/C. IV CATHETER INTACT. PT TOLERATED WELL. PT ASSISTED TO HIS W/C WITH THIS NURSE AND DAUGHTER'S ASSISTANCE. BOTH DENY FURTHER NEEDS OR QUESTIONS AT THIS TIME.
== END 2020-01-14 14:12 | disposition home or self-care (01) ==
PROVIDERS: Emergency Provider Physician Assistant Medical
DX: R06.00 Dyspnea, unspecified (principal); J44.9 Chronic obstructive pulmonary disease, unspecified; G82.20 Paraplegia, unspecified; S24.103S Unspecified injury at T7-T10 level of thoracic spinal cord, sequela; Z93.3 Colostomy status
CPT/HCPCS: 71046; 80048; 83880; 84484; 85025; 87635; 93005; 99284; A4216; U0003

== ENCOUNTER → 2020-05-08 14:58 | Outpatient (CLI) | payer MEDICARE, SELFPAY ==
[2020-05-08 16:02] LABS: Hematocrit 47.4 % (40-54); Hemoglobin 15.7 g/dL (13.0-16.5); Mean Corp Hgb Conc 33.1 g/dL (32-36); Mean Corpuscular Hgb 29.3 pg (27.0-32.0); Mean Corpuscular Volume 88.6 fL (80-94); Platelet Count 272 K/mm3 (150-450); RBC Distribution Width CV 13.8 % (11.6-14.6); RBC Distribution Width SD 44.6 fl (35.1-43.9); Red Blood Count 5.35 M/mm3 (4.6-6.2); White Blood Count 8.7 K/mm3 (4.4-11.0)
[2020-05-08 16:34] LABS: ALB/GLOB Ratio 0.9 RATIO (0.9-2.4); AST(SGOT) 29 U/L (15-37); Alanine Aminotransfer ALT/SGPT 36 U/L (16-61); Albumin, Serum 3.7 g/dL (3.2-5.0); Alkaline Phosphatase 117 U/L (45-117); Anion Gap 6 (5-15); BUN 8 mg/dL (7-18); BUN/Creat Ratio 14.1 RATIO (10-20); Calcium,Total 9.3 mg/dL (8.5-10.1); Chloride 105 mmol/L (98-107); Cholesterol 119 mg/dL (200); Creatinine, Serum 0.57 mg/dL (0.70-1.30); EST Glomerular Filtration Rate 147 mL/min (>60); Est Glom Filt Rate - Afr Amer 178 mL/min (>60); Globulin 4.1 g/dL (2.2-4.2); Glucose 130 mg/dL (74-106); High Density Lipoprotein 52 mg/dL; Protein, Total 7.8 g/dL (6.4-8.2); Sodium Level 137 mmol/L (136-145); Thyroid Stim Hormone (TSH) 1.61 uIU/mL (0.358-3.74); Triglycerides 168 mg/dL; Very Low Density Lipoprotein 34 mg/dL (5-40)
== END ==
DX: Z00.00 Encounter for general adult medical examination without abnormal findings (principal); E11.9 Type 2 diabetes mellitus without complications; E78.5 Hyperlipidemia, unspecified
CPT/HCPCS: 36415; 80053; 80061; 83036; 84443; 85027

== ENCOUNTER → 2020-11-09 11:14 | Outpatient (CLI) | payer MEDICARE, SELFPAY ==
[2020-11-09 12:50] LABS: Hemoglobin A1c 6.7 % (3.8-5.6)
[2020-11-09 12:52] LABS: PSA,Total - Annual Screen 2.95 ng/mL (0.00-4.00)
== END ==
DX: E11.9 Type 2 diabetes mellitus without complications (principal); Z12.5 Encounter for screening for malignant neoplasm of prostate
CPT/HCPCS: 36415; 83036; 84153; G0103

== ENCOUNTER 2020-12-11 09:29 | Inpatient (IN) | payer MEDICARE, SELFPAY ==
[2020-12-11] VITALS (14 sets, daily range): BP systolic 122–161; BP diastolic 67–117; PULSE 63–81; RESP 18–24; TEMP 36.4–37.4; O2SAT 91–95; BMI 30.5; BMI 31.0
--- NOTE | 2020-12-11 10:12 | EDS_ITS ---
HPI History of Present Illness Chief Complaint: Shortness of Breath Narrative Narrative: Patient is on day 8 of symptoms, he was tested positive for Covid 7 days ago. He does not have Covid vaccination. He is presenting with shortness of breath and generalized weakness. No fevers or chills. He has chronic debility and is in a wheelchair secondary to spinal cord trauma 29 years ago. He has anxiety, he has no chest pain or pleuritic component. [facility] Medical History (Updated 12/11/20 @ 11:[address] 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 Home Medications bupropion HCl 300 mg PO DAILY 07/03/17 [History Last Taken 07/03/17 08:00] clopidogrel 75 mg PO DAILY 07/03/17 [History Last Taken 07/03/17 08:00] fluticasone furoate-vilanterol 1 ea IH DAILY 07/03/17 [History Last Taken 07/02/17 18:00] metoprolol tartrate 50 mg PO BID 07/03/17 [History Last Taken 07/03/17 08:00] gkaxvpdz-jrt-XR-lycopen-lutein 1 ea PO DAILY 07/04/17 [History Last Taken Unknown] pantoprazole 40 mg PO DAILY 07/04/17 [History Last Taken Unknown] psyllium husk (aspartame) 1 packet PO DAILY 07/04/17 [History Last Taken Unknown] gabapentin 300 mg PO TIDCM cap 07/13/17 [Rx Last Taken Unknown] glipizide 5 mg PO DAILY@0800 tab 07/13/17 [Rx Last Taken Unknown] polyethylene glycol 3350 17 gm PO DAILY packet 07/13/17 [Rx Last Taken Unknown] potassium chloride 40 meq PO DAILYCM tab 07/13/17 [Rx Last Taken Unknown] tramadol 50 mg PO TID PRN PRN #9 tab 07/13/17 [Rx Last Taken Unknown] alprazolam 0.5 mg PO TID PRN PRN 07/16/18 [History Last Taken Unknown] paroxetine HCl 40 mg PO DAILY 07/16/18 [History Last Taken Unknown] metformin 1,000 mg tablet 1,000 mg PO DAILY tab 10/28/18 [History Last Taken Unknown] albuterol sulfate 1 - 2 puff INHALATION Q4H PRN PRN #1 inhaler 01/14/20 [Rx Last Taken Unknown] albuterol sulfate 2.5 mg INHALATION Q4H PRN #25 vial 01/14/20 [Rx Last Taken Unknown] amlodipine 10 mg PO DAILY 01/14/20 [History Last Taken Unknown] atorvastatin 5 mg PO QHS 01/14/20 [History Last Taken Unknown] lisinopril 40 mg PO DAILY 01/14/20 [History Last Taken Unknown] Allergy/AdvReac Type Severity Reaction Status Date / Time codeine Allergy Unknown Verified 12/11/20 09:33 morphine Allergy Unknown Verified 12/11/20 09:33 Family History Father Diabetes Mother Hypertension Surgical History history left arm surgery History of colostomy History of hemorrhoidectomy History of laparoscopic cholecystectomy History of spinal surgery History of tonsillectomy history nato left leg Social History (Updated 11/16/18 @ 12:39 by JAY CalabreseC) Smoking Status: Never smoker alcohol intake: never substance use type: does not use ROS ROS ED ROS Narrative Past medical history: Reviewed, significant for history of encephalopathy, stroke, paraplegia T8 and down, diabetes, hypertension, hypercholesterolemia, COPD Medications: Reviewed Social history: Noncontributory Review of systems: All systems negative except as indicated General: No fever. Generalized weakness as in HPI Eyes: No visual changes ENT: No upper airway congestion, normal voice Neck: No neck pain Cardiovascular: No chest pain Respiratory: Shortness of breath as in HPI Gastrointestinal: No abdominal pain, nausea vomiting or diarrhea Genitourinary: Neurogenic bladder no change Musculoskeletal: Paraplegia otherwise no other myalgias Skin: No rash Neurological: No memory loss, confusion or any new focal weakness Psych: No recent behavioral changes Hematologic: No easy bleeding or easy bruising EXAM Physical Exam Narrative Exam Narrative: Physical exam General: Patient appears chronically ill, otherwise he appears anxious but he does not appear in any significant distress. Head: Normocephalic, Atraumatic Eyes: Conjunctiva not pale ENT: Moist mucous membranes. No upper airway congestion. Neck: Supple, Nontender, No lymphadenopathy Cardiovascular: Regular rate, Regular rhythm Respiratory: Mostly clear breath sounds he is speaking in full sentences. I do not appreciate any wheezing. Abdomen: Soft, Nontender, Nondistended Back: Nontender, Normal Inspection. Negative for: CVA tenderness Extremities: Slight bilateral lower extremity edema without any signs of cellulitis. Skin: Normal color, No rash Neurological: Paraplegia lower extremities otherwise moves upper extremities without any problem. Psychological: Appears somewhat anxious Const Vital Signs: 12/11/20 09:30 12/11/20 10:19 12/11/20 10:23 Temperature 98.4 F 97.8 F Temperature Source Oral Temporal Pulse Rate 78 74 Respiratory Rate 24 H 18 Respiratory Effort Non-Labored Labored Respiratory Depth Normal Respiratory Pattern Tachypnea Blood Pressure 138/117 H 149/108 H Blood Pressure Mean 124 121 Pulse Ox 93 93 Oxygen Delivery Method Room Air Nasal Cannula Room Air Oxygen Flow Rate (L/min) 2 2 12/11/20 11:29 Temperature Temperature Source Pulse Rate 70 Respiratory Rate 19 H Respiratory Effort Respiratory Depth Respiratory Pattern Blood Pressure 140/67 H Blood Pressure Mean 91 Pulse Ox 91 Oxygen Delivery Method Nasal Cannula Oxygen Flow Rate (L/min) MDM MDM MDM Narrative Medical decision making narrative: Patient is found to have a left-sided pneumonia, he also is positive for Covid but the x-ray does not show a classic Covid type x-ray therefore I will be cautious and start antibiotics. I discussed with the hospitalist for admission. At this time he is saturating at 91% on room air and he was started on oxygen for comfort and he will be ad mitted. Lab Data Labs: Laboratory Results - last 24 hr 12/11/20 12/11/20 12/11/20 10:15 10:15 10:15 WBC 4.1 L RBC 5.05 Hgb 14.7 Hct 43.7 MCV 86.5 MCH 29.1 MCHC 33.6 RDW Std Deviation 45.0 H RDW Coeff of Madhav 14.4 Plt Count 149 L MPV 11.0 Immature Gran % (Auto) 0.700 Neut % (Auto) 67.9 Lymph % (Auto) 24.2 Billings % (Auto) 6.5 Eos % (Auto) 0.2 Baso % (Auto) 0.5 Absolute Neuts (auto) 2.8 Absolute Lymphs (auto) 1.00 Nucleated RBC % 0 Fibrinogen 346 Sodium 133 L Potassium 3.6 Chloride 100 Carbon Dioxide 25.0 Anion Gap 8 BUN 4 L Creatinine 0.58 L Estim Creat Clear Calc 64.67 Est GFR (MDRD) Af Amer 172 Est GFR (MDRD) Non-Af 142 BUN/Creatinine Ratio 6.8 L Glucose 199 H Lactic Acid Calcium 8.8 Total Bilirubin 0.70 AST 83 H ALT 81 H Alkaline Phosphatase 125 H Troponin I High Sens 16 Total Protein 7.4 Albumin 3.3 Globulin 4.1 Albumin/Globulin Ratio 0.8 L 12/11/20 10:15 WBC RBC Hgb Hct MCV MCH MCHC RDW Std Deviation RDW Coeff of Madhav Plt Count MPV Immature Gran % (Auto) Neut % (Auto) Lymph % (Auto) Bill[place] % (Auto) Eos % (Auto) Baso % (Auto) Absolute Neuts (auto) Absolute Lymphs (auto) Nucleated RBC % Fibrinogen Sodium Potassium Chloride Carbon Dioxide Anion Gap BUN Creatinine Estim Creat Clear Calc Est GFR (MDRD) Af Amer Est GFR (MDRD) Non-Af BUN/Creatinine Ratio Glucose Lactic Acid 2.1 H* Calcium Total Bilirubin AST ALT Alkaline Phosphatase Troponin I High Sens Total Protein Albumin Globulin Albumin/Globulin Ratio Radiography Diagnostic Testing: Radiology Impression Chest X-Ray 12/11/20 10:27 IMPRESSION: Patchy lingular/left lower lobe infiltrate. Electronically Signed: Wiley Marcial MD at 10:53 EDT , Service support , Chest x-ray read by me and the radiologist shows a left-sided infiltrate this is different than the prior x-ray. Discharge Plan Dx/Rx/DC Orders Clinical Impression: Pneumonia, COVID-19 Disposition Disposition: Acute Care [facility]
--- NOTE | 2020-12-11 10:27 | RAD_ITS ---
STUDY: X-RAY CHEST REASON FOR EXAM: Male, 80 years old. Increasing shortness of breath. Headaches. Covid positive. TECHNIQUE: Single AP portable view of the chest. COMPARISON: Comparison is made with prior study dated 01/14/2020. FINDINGS: EKG electrodes are seen. Hyperinflation. Patchy left lower lobe infiltrate. There is no demonstrated pleural abnormality. Normal size heart. Normal mediastinum and jesus. Normal visualized pulmonary arteries. There is atherosclerotic tortuosity of the aortic arch and descending thoracic aorta. Prior LEIA and nato fixation of multiple thoracic vertebral level. Normal visualized ribs, clavicles, and shoulders. There is no demonstrated abnormality of the visualized soft tissue structures of the upper abdomen. RAD/Chest 1 View (Portable) IMPRESSION: Patchy lingular/left lower lobe infiltrate. Electronically Signed: Wiley Marcial MD at 10:53 EDT , Service support ,
[2020-12-11 10:33] LABS: Absolute Neutrophil Count 2.8 X10^3/uL (2.0-7.7); Basophil# 0.02 X10^3/uL; Basophil% 0.5 % (0-1); Eosinophil# 0.01 X10^3/uL; Eosinophils% 0.2 % (0-5); Hematocrit 43.7 % (40-54); Hemoglobin 14.7 g/dL (13.0-16.5); Lymphocyte % 24.2 % (19-41); Mean Corp Hgb Conc 33.6 g/dL (32-36); Mean Corpuscular Hgb 29.1 pg (27.0-32.0); Mean Corpuscular Volume 86.5 fL (80-94); Monocyte# 0.27 X10^3/uL; Monocyte% 6.5 % (0-10); NRBC Flagged by Analyzer 0 % (0-5); Neutrophil % 67.9 % (47-70); Platelet Count 149 K/mm3 (150-450); RBC Distribution Width CV 14.4 % (11.6-14.6); Red Blood Count 5.05 M/mm3 (4.6-6.2); White Blood Count 4.1 K/mm3 (4.4-11.0)
[2020-12-11 10:51] LABS: Fibrinogen 346 mg/dl (203-444)
[2020-12-11 10:56] LABS: Lactic Acid 2.1 mmol/L (0.4-1.9)
[2020-12-11 10:57] LABS: ALB/GLOB Ratio 0.8 RATIO (0.9-2.4); AST(SGOT) 83 U/L (15-37); Alanine Aminotransfer ALT/SGPT 81 U/L (16-61); Albumin, Serum 3.3 g/dL (3.2-5.0); Alkaline Phosphatase 125 U/L (45-117); Anion Gap 8 (5-15); BUN 4 mg/dL (7-18); BUN/Creat Ratio 6.8 RATIO (10-20); Calcium,Total 8.8 mg/dL (8.5-10.1); Chloride 100 mmol/L (98-107); Creatinine, Serum 0.58 mg/dL (0.70-1.30); EST Glomerular Filtration Rate 142 mL/min (>60); Est Glom Filt Rate - Afr Amer 172 mL/min (>60); Estimated Creatinine Clearance 64.67 ml/min; Globulin 4.1 g/dL (2.2-4.2); Glucose 199 mg/dL (74-106); Potassium 3.6 mmol/L (3.5-5.1); Protein, Total 7.4 g/dL (6.4-8.2); Sodium Level 133 mmol/L (136-145); Troponin-I HS 16 pg/mL (3.0-78.0)
--- NOTE | 2020-12-11 11:31 | NURSING ---
DR LUZ ALBARRAN
--- NOTE | 2020-12-11 11:58 | NURSING ---
PCU LUZ PNEUMONIA, COVID
--- NOTE | 2020-12-11 12:19 | HP.PCM.HOS_ITS ---
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 Patient has symptoms for 8 days and tested +7 days ago. He did not had Covid vaccine. He has history of COPD/emphysema and his has been giving him frequent bronchodilator nebulization at home. He is not on oxygen at home. He also complains of productive cough of clearish sputum. Denies chest pain or tightness. No fever In ED, no fever mild tachypneic 22-24 pulse ox 93% on 2 L of oxygen. Chest x-ray shows left lung infiltrate, individually reviewed.The patient is started on IV Decadron, remdesivir, Rocephin and Zithromax. [facility] Medical History (Updated 12/11/20 @ 12:[address] 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 Home Medications bupropion HCl 300 mg PO DAILY 07/03/17 [History Last Taken 07/03/17 08:00] clopidogrel 75 mg PO DAILY 07/03/17 [History Last Taken 07/03/17 08:00] fluticasone furoate-vilanterol 1 ea IH DAILY 07/03/17 [History Last Taken 07/02/17 18:00] metoprolol tartrate 50 mg PO BID 07/03/17 [History Last Taken 07/03/17 08:00] awlwqywy-gmb-PD-lycopen-lutein 1 ea PO DAILY 07/04/17 [History Last Taken Unknown] pantoprazole 40 mg PO DAILY 07/04/17 [History Last Taken Unknown] psyllium husk (aspartame) 1 packet PO DAILY 07/04/17 [History Last Taken Unknown] gabapentin 300 mg PO TIDCM cap 07/13/17 [Rx Last Taken Unknown] glipizide 5 mg PO DAILY@0800 tab 07/13/17 [Rx Last Taken Unknown] polyethylene glycol 3350 17 gm PO DAILY packet 07/13/17 [Rx Last Taken Unknown] potassium chloride 40 meq PO DAILYCM tab 07/13/17 [Rx Last Taken Unknown] tramadol 50 mg PO TID PRN PRN #9 tab 07/13/17 [Rx Last Taken Unknown] alprazolam 0.5 mg PO TID PRN PRN 07/16/18 [History Last Taken Unknown] paroxetine HCl 40 mg PO DAILY 07/16/18 [History Last Taken Unknown] metformin 1,000 mg tablet 1,000 mg PO DAILY tab 10/28/18 [History Last Taken Unknown] albuterol sulfate 1 - 2 puff INHALATION Q4H PRN PRN #1 inhaler 01/14/20 [Rx Last Taken Unknown] albuterol sulfate 2.5 mg INHALATION Q4H PRN #25 vial 01/14/20 [Rx Last Taken Unknown] amlodipine 10 mg PO DAILY 01/14/20 [History Last Taken Unknown] atorvastatin 5 mg PO QHS 01/14/20 [History Last Taken Unknown] lisinopril 40 mg PO DAILY 01/14/20 [History Last Taken Unknown] Allergy/AdvReac Type Severity Reaction Status Date / Time codeine Allergy Unknown Verified 12/11/20 09:33 morphine Allergy Unknown Verified 12/11/20 09:33 Family History Father Diabetes Mother Hypertension Surgical History history left arm surgery History of colostomy History of hemorrhoidectomy History of laparoscopic cholecystectomy History of spinal surgery History of tonsillectomy history nato left leg Social History Smoking Status: Never smoker alcohol intake: never substance use type: does not use ROS ROS Narrative Constitutional: Reports fatigue and weakness, shortness of breath on exertion HEENT: Reports systems reviewed and no addt'l complaints, except as documented Respiratory/Chest: As mentioned in HPI Gastrointestinal: Patient has colostomy. Denies coffee ground emesis, hematemesis or vomiting Genitourinary: Self-intermittent catheterization. Musculoskeletal: Paraplegia. Uses hands for transfer. Has home health care and to help Neurologic: Paraplegia below T8 level. No sensation below T8 level. Denies seizure-like activity skin: Dry skin. No ulcer Endocrinology: Reports systems reviewed and no addt'l complaints, except as documented Hematologic/Lymphatic: Reports systems reviewed and no addt'l complaints, except as documented Rest 12 ROS are negative except as mentioned in HPI Vital Signs Vital Signs Vital Signs: 12/11/20 09:30 12/11/20 10:19 12/11/20 10:23 Temperature 98.4 F 97.8 F Temperature Source Oral Temporal Pulse Rate 78 74 Respiratory Rate 24 H 18 Respiratory Effort Non-Labored Labored Respiratory Depth Normal Respiratory Pattern Tachypnea Blood Pressure 138/117 H 149/108 H Blood Pressure Mean 124 121 Pulse Ox 93 93 Oxygen Delivery Method Room Air Nasal Cannula Room Air Oxygen Flow Rate (L/min) 2 2 12/11/20 11:29 Temperature Temperature Source Pulse Rate 70 Respiratory Rate 19 H Respiratory Effort Respiratory Depth Respiratory Pattern Blood Pressure 140/67 H Blood Pressure Mean 91 Pulse Ox 91 Oxygen Delivery Method Nasal Cannula Oxygen Flow Rate (L/min) Weight Weight: 225 lb Body Mass Index (BMI) 30.5 Physical Exam Narrative General: Alert, Oriented x3, Cooperative HEENT: Atraumatic, PERRLA, EOMI, Normocephalic Oral: No Gingival or Mucosal Lesions/ Ulcerations Neck: Supple, No JVD, Negative Carotid Bruits Lungs: Air entry diminished in bilateral lung bases. No crepitation/rhonchi Cardiovascular: Regular rate, Regular Rhythm, Normal S1, Normal S2, No murmurs Abdomen: Colostomy present. Bowel Sounds Present, Soft, Non Tender, Non- Distended : Self intermittent catheterization. No renal angle or suprapubic tenderness. Extremities: Mild dependent bilateral ankle edema, Capillary Refill Less than 3 Seconds Skin: No rashes, No breakdown Musculoskeletal: Back surgery. Muhammad rods multiple thoracic vertebra. Paraplegic Neurological: Cranial nerves II-XII grossly intact, paraplegia and no sensation below T8 level Psych/Mental Status: Normal Affect, Appropriate. Results Lab / Micro Data Result Diagrams: 12/11/20 10:15 12/11/20 10:15 Labs: Laboratory Results - last 24 hr 12/11/20 10:15: WBC 4.1 L, RBC 5.05, Hgb 14.7, Hct 43.7, MCV 86.5, MCH 29.1, MCHC 33.6, RDW Std Deviation 45.0 H, RDW Coeff of Madhav 14.4, Plt Count 149 L, MPV 11.0, Immature Gran % (Auto) 0.700, Neut % (Auto) 67.9, Lymph % (Auto) 24.2, [place] % (Auto) 6.5, Eos % (Auto) 0.2, Baso % (Auto) 0.5, Absolute Neuts (auto) 2.8, Absolute Lymphs (auto) 1.00, Nucleated RBC % 0 12/11/20 10:15: Fibrinogen 346 12/11/20 10:15: Sodium 133 L, Potassium 3.6, Chloride 100, Carbon Dioxide 25.0, Anion Gap 8, BUN 4 L, Creatinine 0.58 L, Estim Creat Clear Calc 64.67, Est GFR (MDRD) Af Amer 172, Est GFR (MDRD) Non-Af 142, BUN/Creatinine Ratio 6.8 L, Glucose 199 H, Calcium 8.8, Total Bilirubin 0.70, AST 83 H, ALT 81 H, Alkaline Phosphatase 125 H, Troponin I High Sens 16, Total Protein 7.4, Albumin 3.3, Globulin 4.1, Albumin/Globulin Ratio 0.8 L 12/11/20 10:15: Lactic Acid 2.1 H* Radiology Impression Chest X-Ray 12/11/20 10:27 IMPRESSION: Patchy lingular/left lower lobe infiltrate. Electronically Signed: Wiley Marcial MD at 10:53 EDT , Service support , Assessment & Plan Assessment/Plan (1) COVID-19: (2) Pneumonia: QUALIFIERS: Pneumonia type: due to unspecified organism PLAN: This 80-year-old gentleman admitted with Covid pneumonia and mild hypoxia 1 severe sepsis due to Covid infection with possible bacterial superinfection, left lower lobe. Patient is admitted in PCU. Lactic acid elevated. Mild leukopenia. Started on IV Decadron and remdesivir. IV ceftriaxone and Zi thromax for bacterial superinfection. ID consult. Inflammatory markers ordered. IV fluid 1 L in 2 hours and then 125 mL/h for 1 L, then reevaluate. Pneumonia work-up including urinary antigens and sputum culture and blood culture ordered. ALT and AST are elevated. Sodium 133, mild hyponatremia 2. COPD exacerbation probably from pneumonia: DuoNeb every 4 hourly. Patient is on Decadron. Incentive spirometry PEP. 3. Debility due to T8 spinal cord injury with paraplegia and anesthesia, n eurogenic bladder on self intermittent catheterization and colostomy: PT and OT ordered. Nursing care. 4. Diabetes mellitus type 2: Glucose 199. Accu-Chek ACH and cover with block sliding scale 5. Hypertension, GERD with history of a stroke: Home medication reconciliation done 6. Anxiety and depression disorder VTE prophylaxis: Lovenox 30 mg subcu twice daily. D-dimer normal Living will/advanced directive/end of life care: Patient does have living will or advanced directive. His is power of permastone installer for health. After discussion of benefits/risks procedures involved with full code, DNR CC arrest and DNR CC, the patient opted for DNR-CC Arrest with no intubation Patient does not want artificial life support including intubation, tube feed, ventilator and/chest compression, central venous catheter, vasopressor and DC shock if needed Total time spent in oqco-qf-gvck encounter in discussion of advanced directive 16 minutes. Laboratory Results 12/11/20 10:15: WBC 4.1 L, RBC 5.05, Hgb 14.7, Hct 43.7, MCV 86.5, MCH 29.1, MCHC 33.6, RDW Std Deviation 45.0 H, RDW Coeff of Madhav 14.4, Plt Count 149 L, MPV 11.0, Immature Gran % (Auto) 0.700, Neut % (Auto) 67.9, Lymph % (Auto) 24.2, [place] % (Auto) 6.5, Eos % (Auto) 0.2, Baso % (Auto) 0.5, Absolute Neuts (auto) 2.8, Absolute Lymphs (auto) 1.00, Nucleated RBC % 0 12/11/20 10:15: Fibrinogen 346 12/11/20 10:15: Sodium 133 L, Potassium 3.6, Chloride 100, Carbon Dioxide 25.0, Anion Gap 8, BUN 4 L, Creatinine 0.58 L, Estim Creat Clear Calc 64.67, Est GFR (MDRD) Af Amer 172, Est GFR (MDRD) Non-Af 142, BUN/Creatinine Ratio 6.8 L, Glucose 199 H, Calcium 8.8, Total Bilirubin 0.70, AST 83 H, ALT 81 H, Alkaline Phosphatase 125 H, Troponin I High Sens 16, Total Protein 7.4, Albumin 3.3, Globulin 4.1, Albumin/Globulin Ratio 0.8 L 12/11/20 10:15: Lactic Acid 2.1 H* 12/11/20 10:15: Magnesium Pending Clinical Impression(s) from Imaging Studies Chest X-Ray 12/11/20 10:27 IMPRESSION: Patchy lingular/left lower lobe infiltrate. Charges/Coding Visit Charges Inpatient E&M: 72879 Init Hosp L3 Procedures Hospitalists Procedures: 65932 Advncd Care Plan 30 Min
[2020-12-11] MEDS: Ceftriaxone 1 GM/50 ML BAG IV (12:32)
[2020-12-11 12:45] LABS: Magnesium 1.5 mg/dL (1.6-2.6)
--- NOTE | 2020-12-11 12:52 | EKG12_ITS ---
Test Reason : Blood Pressure : / mmHG Vent. Rate : 067 BPM Atrial Rate : 067 BPM P-R Int : 216 ms QRS Dur : 090 ms QT Int : 420 ms P-R-T Axes : 090 035 -24 degrees QTc Int : 443 ms Sinus rhythm with 1st degree A-V block Nonspecific ST and T wave abnormality Abnormal ECG Confirmed by SONAL REESE, AGNES ([id number]), acquisition editor MARCELLO WEI ([id number]) on 12/13/2020 9:37:29 AM Referred By: LUZ Confirmed By:AGNES PRUITT MD
[2020-12-11 13:12] LABS: Prothrombin Time (Protime)PT. 12.5 SECONDS (11.7-14.9)
[2020-12-11 13:22] LABS: CPK Total, Creatine Kinase 223 U/L (39-308); LDH 227 U/L (87-241)
[2020-12-11 13:27] LABS: Procalcitonin 0.09 ng/mL (0.00-0.09)
[2020-12-11 13:47] LABS: BNP,B-Type NATRIURETIC PEPTIDE 39.7 pg/mL (0-100)
[2020-12-11 14:17] LABS: D-Dimer Quantitative (DVT/PE) 0.47 FEU/ug/m (0.27-0.49)
[2020-12-11 14:29] LABS: Reflex Lactate? Y
[2020-12-11] MEDS: ALPRAZolam 0.5 MG Tablet PO ×2 (14:40→20:45)
[2020-12-11] MEDS: dexAMETHasone 10 MG/ML Vial 6 MG IV (14:45)
[2020-12-11] MEDS: Enoxaparin 30 MG/0.3 ML Syringe SC ×2 (14:48→20:45)
[2020-12-11] MEDS: 0.9% Normal Saline 1,000 ML 500 ML IV (14:54)
[2020-12-11 15:33] LABS: Lactic Acid 2.1 mmol/L (0.4-1.9)
[2020-12-11] MEDS: Potassium Chloride Oral Tablet 20 MEQ 40 MEQ PO (15:46)
[2020-12-11] MEDS: guaiFENesin/D-Methorphan TAB.SR.12H 1 TABLET PO ×2 (16:37→20:45)
[2020-12-11] MEDS: glipiZIDE 5 MG Tablet PO (16:37)
[2020-12-11] MEDS: Gabapentin 300 MG Capsule PO (16:37)
[2020-12-11] MEDS: 0.9% Normal Saline 1,000 ML 125 ML IV (16:39)
--- NOTE | 2020-12-11 19:27 | PCS.PANDOC ---
PANDEMIC DOCUMENTATION INITIATED: Date: 11/19/2020 Time: 190
[2020-12-11] MEDS: Ipratropium/Albuterol Sulfate 3 ML AMPUL.NEB INHALATION (20:06)
[2020-12-11] MEDS: Metoprolol Tartrate 50 MG Tablet PO (20:44)
[2020-12-11] MEDS: Acetaminophen 325 MG Tablet 650 MG PO (20:45)
[2020-12-11] MEDS: Senna/Docusate Sodium 1 Tablet 2 TABLET PO (20:45)
[2020-12-11] MEDS: Atorvastatin Calcium 10 MG Tablet 5 MG PO (20:45)
[2020-12-12] VITALS (16 sets, daily range): BP systolic 138–182; BP diastolic 59–88; PULSE 57–73; RESP 16–20; TEMP 36.3–37.2; O2SAT 87–96
[2020-12-12] MEDS: ALPRAZolam 0.5 MG Tablet PO ×3 (05:50→21:14)
[2020-12-12] MEDS: Ipratropium/Albuterol Sulfate 3 ML AMPUL.NEB INHALATION ×4 (07:08→19:32)
[2020-12-12 07:56] LABS: Absolute Lymphocyte Count 0.62 X10^3/uL (0.83-4.51); Absolute Neutrophil Count 1.1 X10^3/uL (2.0-7.7); Basophil# 0.01 X10^3/uL; Basophil% 0.5 % (0-1); Hematocrit 41.6 % (40-54); Lymphocyte # 0.62 X10^3/ul (0.83-4.51); Lymphocyte % 30.4 % (19-41); Mean Corp Hgb Conc 33.7 g/dL (32-36); Mean Corpuscular Hgb 29.1 pg (27.0-32.0); Mean Corpuscular Volume 86.5 fL (80-94); Mean Platelet Vol. 10.8 fl (6.2-12.0); Monocyte# 0.24 X10^3/uL; Monocyte% 11.8 % (0-10); NRBC Flagged by Analyzer 0 % (0-5); Neutrophil # 1.14 X10^3/uL (2.7-7.7); Neutrophil % 55.8 % (47-70); Platelet Count 139 K/mm3 (150-450); RBC Distribution Width CV 14.3 % (11.6-14.6); RBC Distribution Width SD 45.8 fl (35.1-43.9); Red Blood Count 4.81 M/mm3 (4.6-6.2)
[2020-12-12 08:02] LABS: ALB/GLOB Ratio 0.7 RATIO (0.9-2.4); AST(SGOT) 75 U/L (15-37); Alanine Aminotransfer ALT/SGPT 77 U/L (16-61); Albumin, Serum 2.8 g/dL (3.2-5.0); Alkaline Phosphatase 110 U/L (45-117); Anion Gap 6 (5-15); BUN 8 mg/dL (7-18); BUN/Creat Ratio 17.9 RATIO (10-20); Calcium,Total 8.3 mg/dL (8.5-10.1); Chloride 104 mmol/L (98-107); Creatinine, Serum 0.45 mg/dL (0.70-1.30); EST Glomerular Filtration Rate 193 mL/min (>60); Est Glom Filt Rate - Afr Amer 233 mL/min (>60); Estimated Creatinine Clearance 64.67 ml/min; Glucose 211 mg/dL (74-106); Potassium 3.5 mmol/L (3.5-5.1); Protein, Total 6.8 g/dL (6.4-8.2); Sodium Level 135 mmol/L (136-145)
[2020-12-12] MEDS: Ceftriaxone 1 GM/50 mL Premix Q24 IV (10:16)
[2020-12-12] MEDS: dexAMETHasone 10 MG/ML Vial 6 MG IV (10:21)
[2020-12-12] MEDS: Enoxaparin 30 MG/0.3 ML Syringe SC ×2 (10:23→21:14)
[2020-12-12] MEDS: Metoprolol Tartrate 50 MG Tablet PO ×2 (10:24→21:14)
[2020-12-12] MEDS: buPROPion (XL) 300 MG TABLET.XL PO (10:24)
[2020-12-12] MEDS: Pantoprazole Sodium 40 MG Tablet PO (10:24)
[2020-12-12] MEDS: glipiZIDE 5 MG Tablet PO ×2 (10:24→16:21)
[2020-12-12] MEDS: Lisinopril 20 MG Tablet PO ×2 (10:24→17:45)
[2020-12-12] MEDS: Azithromycin 250 MG Tablet 500 MG PO (10:24)
[2020-12-12] MEDS: Paroxetine 20 MG Tablet 40 MG PO (10:24)
[2020-12-12] MEDS: Clopidogrel Bisulfate 75 MG Tablet PO (10:24)
[2020-12-12] MEDS: Gabapentin 300 MG Capsule PO ×3 (10:24→16:21)
[2020-12-12] MEDS: Potassium Chloride Oral Tablet 20 MEQ 40 MEQ PO (10:25)
[2020-12-12] MEDS: Senna/Docusate Sodium 1 Tablet 2 TABLET PO ×2 (10:25→21:15)
[2020-12-12] MEDS: guaiFENesin/D-Methorphan TAB.SR.12H 1 TABLET PO ×2 (10:25→21:15)
--- NOTE | 2020-12-12 11:30 | CASEMGMT ---
Addendum entered by Sariah Dunn 12/12/20 14:16: Patient states he had is covid testing completed at [facility] Urgent Care Original Note: RN CM Face to Face with patient for initial transition planning/care coordination assessment. RN CM introduced self and role at [facility]. Patient lying in bed, alert and oriented. Patient willing to participate in assessment and is able to answer all questions appropriately. Care providers, pharmacy, and demographics verified. Patient wishes to discharge home with resumption of HHC with [facility]. Patient states he has no further needs or concerns at this time. CM to follow for discharge planning needs that may arise. PCP: Y[facility] Specialists: none Preferred Pharmacy: susi Arias with [facility] at discharge. Insurance: [employer] Prescription Benefit: yes Living Will/HPOA:yes, Ainsley Julien LNOK: Living Arrangements: Patient lives with in a single story home with ramp to enter. Patient states that provides care for patient with ADLs. Transportation: son, friends, has own wheelchair van. DME/HHC: Patient states he has shower chair, wheelchair, adjustable bed, and nebulizer at home. Patient is active with [facility] and also has aide service 3 days per week for 4 hours per day. Patient was provided a list of DME providers consistent with the patient?s preferred geographic region, medical needs, and insurance network. Patient states he has no prefrences. Disposition Plan: Paitent to discharge home with resumption of HHC, family support, and follow-up plans in place. Sariah CHINO, RN, CM
--- NOTE | 2020-12-12 15:37 | CON.PCM.ID_ITS ---
Assessment & Plan Assessment/Plan (1) COVID-19: PLAN: Covid with hypoxia. Sx started around 12/04. Unvaccinated, recom mend get tested. On dex for 10 day course, on remdesivir, will order monitoring lab. On lovenox 30mg bid, d-dimer was normal. Sputum with heavy GPC, cont azithro/ceftriaxone for now. Recommended covid vaccine after he recovers. Quarantine for 20 days from start of symptoms. Will follow, thank you (2) T8 Paraplegia after Spinal Cord Injury: HPI Consult Data Date of Consult: 12/12/20 HPI Narrative HPI Narrative: KIN FONTANEZ, is a 80 M who presented with 8 days of cough, headache, weakness, progressive dyspnea. Paraplegic. Unvaccinated. feeling ok. No fever. Came to ED, admitted on dex, remdesivir, azithro/ceftriaxone, feeling ok today. Full ROS performed and neg except as noted above. [facility] Medical History Altered mental status, unspecified Anxiety Anxiety and depression Colostomy in place Constipation COPD (chronic obstructive pulmonary disease) Debility Depression Diabetes mellitus, type II Dysphagia Encephalopathy GERD (gastroesophageal reflux disease) History of spinal cord injury HTN (hypertension) Muscle spasm Neurogenic bladder Obesity (BMI 30.0-34.9) Panic disorder Sebaceous cyst Stroke T8 Paraplegia after Spinal Cord Injury Home Medications bupropion HCl 300 mg PO DAILY 07/03/17 [History Last Taken 07/03/17 08:00] clopidogrel 75 mg PO DAILY 07/03/17 [History Last Taken 07/03/17 08:00] metoprolol tartrate 50 mg PO BID 07/03/17 [History Last Taken 07/03/17 08:00] yjzwcraw-iwh-RE-lycopen-lutein 1 ea PO DAILY 07/04/17 [History Last Taken Unknown] pantoprazole 40 mg PO DAILY 07/04/17 [History Last Taken Unknown] tramadol 50 mg PO TID PRN PRN #9 tab 07/13/17 [Rx Last Taken Unknown] alprazolam 0.5 mg PO TID PRN PRN 07/16/18 [History Last Taken Unknown] paroxetine HCl 40 mg PO DAILY 07/16/18 [History Last Taken Unknown] metformin 1,000 mg tablet 1,000 mg PO DAILY tab 10/28/18 [History Last Taken Unknown] atorvastatin 5 mg PO QHS 01/14/20 [History Last Taken Unknown] lisinopril 40 mg PO DAILY 01/14/20 [History Last Taken Unknown] albuterol sulfate 2.5 mg INHALATION Q4H PRN PRN 12/11/20 [History Last Taken Unknown] gabapentin 300 mg PO TIDCM 12/11/20 [History Last Taken Unknown] glipizide 5 mg PO BID 12/11/20 [History Last Taken Unknown] polyethylene glycol 3350 17 gm PO DAILY PRN 12/11/20 [History Last Taken Unknown] potassium chloride 40 meq PO DAILYCM 12/11/20 [History Last Taken Unknown] Allergy/AdvReac Type Severity Reaction Status Date / Time codeine Allergy Unknown Verified 12/11/20 09:33 morphine Allergy Unknown Verified 12/11/20 09:33 Family History Father Diabetes Mother Hypertension Surgical History history left arm surgery History of colostomy History of hemorrhoidectomy History of laparoscopic cholecystectomy History of spinal surgery History of tonsillectomy history nato left leg Social History Smoking Status: Never smoker alcohol intake: never substance use type: does not use Physical Exam Const alert and no apparent distress General Appearance: cooperative Exam Limitations: no limitations HEENT normocephalic and head/scalp atraumatic Eyes PERRL and EOMs intact bilaterally Neck supple and No nodes Resp clear to auscultation bilaterally Auscultation: diminished lung sounds Cardio regular rate and regular rhythm GI normal to inspection, nondistended, normoactive bowel sounds Extremity no clubbing, cyanosis or edema Skin no rashes or lesions noted Neuro CN's II-XII intact bilaterally Neuro Narrative: paraplegia Lab / Micro Data Result Diagrams: 12/12/20 07:06 12/12/20 07:06 Labs: Laboratory Results - last 24 hr 12/12/20 07:06: WBC 2.0 L, RBC 4.81, Hgb 14.0, Hct 41.6, MCV 86.5, MCH 29.1, MCHC 33.7, RDW Std Deviation 45.8 H, RDW Coeff of Madhav 14.3, Plt Count 139 L, MPV 10.8, Immature Gran % (Auto) 1.500 H, Neut % (Auto) 55.8, Lymph % (Auto) 30.4, [place] % (Auto) 11.8 H, Eos % (Auto) 0.0, Baso % (Auto) 0.5, Absolute Neuts (auto) 1.1 L, Absolute Lymphs (auto) 0.62 L, Nucleated RBC % 0 12/12/20 07:06: Sodium 135 L, Potassium 3.5, Chloride 104, Carbon Dioxide 25.0, Anion Gap 6, BUN 8, Creatinine 0.45 L, Estim Creat Clear Calc 64.67, Est GFR (MDRD) Af Amer 233, Est GFR (MDRD) Non-Af 193, BUN/Creatinine Ratio 17.9, Glucose 211 H, Calcium 8.3 L, Total Bilirubin 0.50, AST 75 H, ALT 77 H, Alkaline Phosphatase 110, Total Protein 6.8, Albumin 2.8 L, Globulin 4.0, Albumin/Globulin Ratio 0.7 L Micro: Microbiology 12/11/20 15:50 Sputum, Expectorated/Coughed Gram Stain - Final 12/11/20 15:50 Sputum, Expectorated/Coughed Respiratory Culture - Preliminary Staphylococcus aureus 12/11/20 15:00 Urine Catheter - Catheter Legionella Antigen - Final 12/11/20 15:00 Urine Catheter - Catheter Streptococcus pneumoniae Antigen (M - Final
--- NOTE | 2020-12-12 16:12 | PN.HOSP_ITS ---
Subjective Subjective Patient very anxious and restless to go home since last evening. T-max 99.3 Fahrenheit. Patient mild short of breath. We talked to the patient's and daughter and gave clinical update. Objective Data Objective Data Vital Signs: Vital Signs Temp Pulse Resp BP Pulse Ox 97.4 F L 72 19 H 182/88 H 96 12/12/20 10:02 12/12/20 15:05 12/12/20 15:05 12/12/20 10:02 12/12/20 15:29 Oxygen Flow Rate (L/min) 2 Oxygen Delivery Method Room Air Weight: 228 lb 13.437 oz Body Mass Index (BMI) 31.0 Intake & Output: Intake and Output for Last 24 Hours 12/10/20 12/11/20 12/12/20 23:59 23:59 23:59 Intake Total 1795 / 1795 1462.92 / 1462.92 Output Total 3350 / 3350 900 / 900 Balance -1555 / -1555 562.92 / 562.92 Lab / Micro Data Result Diagrams: 12/12/20 07:06 12/12/20 07:06 Labs: Laboratory Results - last 24 hr 12/12/20 07:06: WBC 2.0 L, RBC 4.81, Hgb 14.0, Hct 41.6, MCV 86.5, MCH 29.1, MCHC 33.7, RDW Std Deviation 45.8 H, RDW Coeff of Madhav 14.3, Plt Count 139 L, MPV 10.8, Immature Gran % (Auto) 1.500 H, Neut % (Auto) 55.8, Lymph % (Auto) 30.4, [place] % (Auto) 11.8 H, Eos % (Auto) 0.0, Baso % (Auto) 0.5, Absolute Neuts (auto) 1.1 L, Absolute Lymphs (auto) 0.62 L, Nucleated RBC % 0 12/12/20 07:06: Sodium 135 L, Potassium 3.5, Chloride 104, Carbon Dioxide 25.0, Anion Gap 6, BUN 8, Creatinine 0.45 L, Estim Creat Clear Calc 64.67, Est GFR (MDRD) Af Amer 233, Est GFR (MDRD) Non-Af 193, BUN/Creatinine Ratio 17.9, Glucose 211 H, Calcium 8.3 L, Total Bilirubin 0.50, AST 75 H, ALT 77 H, Alkaline Phosphatase 110, Total Protein 6.8, Albumin 2.8 L, Globulin 4.0, Albumin/Globulin Ratio 0.7 L Micro: Microbiology 12/11/20 15:50 Sputum, Expectorated/Coughed Gram Stain - Final 12/11/20 15:50 Sputum, Expectorated/Coughed Respiratory Culture - Preliminary Staphylococcus aureus 12/11/20 15:00 Urine Catheter - Catheter Legionella Antigen - Final 12/11/20 15:00 Urine Catheter - Catheter Streptococcus pneumoniae Antigen (M - Final Physical Exam Narrative General: Alert, Oriented x3, Cooperative HEENT: Atraumatic, PERRLA, EOMI, Normocephalic Oral: No Gingival or Mucosal Lesions/ Ulcerations Neck: Supple, No JVD, Negative Carotid Bruits Lungs: Air entry diminished in bilateral lung bases. No crepitation/rhonchi Cardiovascular: Sinus rhythm, PVCs, Normal S1, Normal S2, No murmurs Abdomen: Colostomy present. Bowel Sounds Present, Soft, Non Tender, Non- Distended : Self intermittent catheterization. No renal angle or suprapubic tenderness. Extremities: Mild dependent bilateral ankle edema, Capillary Refill Less than 3 Seconds Skin: No rashes, No breakdown Musculoskeletal: Back surgery. Muhammad rods multiple thoracic vertebra. Paraplegic Neurological: Cranial nerves II-XII grossly intact, paraplegia and no sensation below T8 level Psych/Mental Status: Restless, anxious Assessment & Plan Assessment/Plan (1) COVID-19: (2) Pneumonia: QUALIFIERS: Pneumonia type: due to unspecified organism PLAN: This 80-year-old gentleman admitted with Covid pneumonia and mild hypoxia 1 Covid infection with possible bacterial superinfection, left lower lobe. Patient is admitted in PCU. Lactic acid elevated. Mild leukopenia. Started on IV Decadron and remdesivir. IV ceftriaxone and Zithromax for bacterial superinfection. ID consult. Inflammatory markers ordered. IV fluid 1 L in 2 hours and then 125 mL/h for 1 L, then reevaluate. Pneumonia work-up including urinary antigens and sputum culture and blood culture ordered. ALT and AST are elevated. Sodium 133, mild hyponatremia 9/8: qSOFA score is 0. Patient still visibly short of breath on mild exertion. Leukopenia with with monocytosis. Continue antibiotics. Blood pressure is elevated. Blood pressure meds adjusted. I talked to patient's and daughter and though the patient wants to go home, they are agreeable for more monitoring and keeping the patient here and if he continues to improve then discharge. 2. COPD exacerbation probably from pneumonia: DuoNeb every 4 hourly. Patient is on Decadron. Incentive spirometry PEP. 3. Debility due to T8 spinal cord injury with paraplegia and anesthesia, neurogenic bladder on self intermittent catheterization and colostomy: PT and OT ordered. Nursing care. 4. Diabetes mellitus type 2: Glucose 199. Accu-Chek ACH and cover with block sliding scale 5. Hypertension, GERD with history of a stroke: Home medication reconciliation done 6. Anxiety and depression disorder VTE prophylaxis: Lovenox 30 mg subcu twice daily. D-dimer normal Living will/advanced directive/end of life care: Patient does have living will or advanced directive. His is power of trade mark attorney for health. After discussion of benefits/risks procedures involved with full code, DNR CC arrest and DNR CC, the patient opted for DNR-CC Arrest with no intubation Patient does not want artificial life support including intubation, tube feed, ventilator and/chest compression, central venous catheter, vasopressor and DC shock if needed Total time spent in [id number]-yf-rdsf encounter in discussion of advanced directive 16 minutes. Microbiology Past 72 Hours 12/11/20 15:50 Sputum, Expectorated/Coughed Gram Stain - Final 12/11/20 15:50 Sputum, Expectorated/Coughed Respiratory Culture - Preliminary Staphylococcus aureus 12/11/20 15:00 Urine Catheter - Catheter Legionella Antigen - Final 12/11/20 15:00 Urine Catheter - Catheter Streptococcus pneumoniae Antigen (M - Final Laboratory Results 12/12/20 07:06: WBC 2.0 L, RBC 4.81, Hgb 14.0, Hct 41.6, MCV 86.5, MCH 29.1, MCHC 33.7, RDW Std Deviation 45.8 H, RDW Coeff of Madhav 14.3, Plt Count 139 L, MPV 10.8, Immature Gran % (Auto) 1.500 H, Neut % (Auto) 55.8, Lymph % (Auto) 30.4, [place] % (Auto) 11.8 H, Eos % (Auto) 0.0, Baso % (Auto) 0.5, Absolute Neuts (auto) 1.1 L, Absolute Lymphs (auto) 0.62 L, Nucleated RBC % 0 12/12/20 07:06: Sodium 135 L, Potassium 3.5, Chloride 104, Carbon Dioxide 25.0, Anion Gap 6, BUN 8, Creatinine 0.45 L, Estim Creat Clear Calc 64.67, Est GFR (MDRD) Af Amer 233, Est GFR (MDRD) Non-Af 193, BUN/Creatinine Ratio 17.9, Glucose 211 H, Calcium 8.3 L, Total Bilirubin 0.50, AST 75 H, ALT 77 H, Alkaline Phosphatase 110, Total Protein 6.8, Albumin 2.8 L, Globulin 4.0, Albumin/Globulin Ratio 0.7 L Clinical Impression(s) from Imaging Studies Chest X-Ray 12/11/20 10:27 IMPRESSION: Patchy lingular/left lower lobe infiltrate. Charges/Coding Visit Charges Inpatient E&M: 89185 Subs Hosp L2
[2020-12-12] MEDS: Atorvastatin Calcium 10 MG Tablet 5 MG PO (21:14)
[2020-12-12] MEDS: traMADol 50 MG Tablet PO (23:39)
[2020-12-13] VITALS (17 sets, daily range): BP systolic 151–185; BP diastolic 74–108; PULSE 59–78; RESP 16–20; TEMP 36.1–36.6; O2SAT 87–94
[2020-12-13] MEDS: Ipratropium/Albuterol Sulfate 3 ML AMPUL.NEB INHALATION ×3 (06:48→14:27)
[2020-12-13 07:47] LABS: Hematocrit 42.8 % (40-54); Hemoglobin 14.7 g/dL (13.0-16.5); Mean Corp Hgb Conc 34.3 g/dL (32-36); Mean Corpuscular Hgb 29.2 pg (27.0-32.0); Mean Corpuscular Volume 84.9 fL (80-94); Mean Platelet Vol. 10.5 fl (6.2-12.0); Platelet Count 187 K/mm3 (150-450); RBC Distribution Width CV 14.3 % (11.6-14.6); Red Blood Count 5.04 M/mm3 (4.6-6.2); White Blood Count 5.5 K/mm3 (4.4-11.0)
[2020-12-13 08:18] LABS: ALB/GLOB Ratio 0.7 RATIO (0.9-2.4); AST(SGOT) 99 U/L (15-37); Alanine Aminotransfer ALT/SGPT 84 U/L (16-61); Alkaline Phosphatase 108 U/L (45-117); Anion Gap 8 (5-15); BUN 9 mg/dL (7-18); BUN/Creat Ratio 20.4 RATIO (10-20); Calcium,Total 8.8 mg/dL (8.5-10.1); Chloride 102 mmol/L (98-107); Creatinine, Serum 0.44 mg/dL (0.70-1.30); EST Glomerular Filtration Rate 196 mL/min (>60); Est Glom Filt Rate - Afr Amer 238 mL/min (>60); Estimated Creatinine Clearance 64.67 ml/min; Globulin 4.2 g/dL (2.2-4.2); Glucose 247 mg/dL (74-106); Potassium 3.6 mmol/L (3.5-5.1); Protein, Total 7.2 g/dL (6.4-8.2); Sodium Level 133 mmol/L (136-145)
[2020-12-13] MEDS: Potassium Chloride Oral Tablet 20 MEQ 40 MEQ PO (09:37)
[2020-12-13] MEDS: Lisinopril 40 MG Tablet PO (09:38)
[2020-12-13] MEDS: Metoprolol Tartrate 50 MG Tablet PO ×2 (09:38→23:07)
[2020-12-13] MEDS: glipiZIDE 5 MG Tablet PO ×2 (09:38→18:10)
[2020-12-13] MEDS: guaiFENesin/D-Methorphan TAB.SR.12H 1 TABLET PO (09:39)
[2020-12-13] MEDS: Clopidogrel Bisulfate 75 MG Tablet PO (09:39)
[2020-12-13] MEDS: Senna/Docusate Sodium 1 Tablet 2 TABLET PO ×2 (09:39→23:12)
[2020-12-13] MEDS: Pantoprazole Sodium 40 MG Tablet PO (09:39)
[2020-12-13] MEDS: buPROPion (XL) 300 MG TABLET.XL PO (09:39)
[2020-12-13] MEDS: 0.9% Saline Lock 10 ML Syringe IV ×3 (09:44→23:11)
[2020-12-13] MEDS: dexAMETHasone 10 MG/ML Vial 6 MG IV (09:47)
--- NOTE | 2020-12-13 09:48 | PCM.DC ---
Discharge Instructions Diet Discharge Diet: Low fat / Low cholesterol Activity Discharge Activity: Return to Normal Activity Weight Bearing Status: Weight bearing as tolerated Dressing / Incision Call your doctor if you observe: Fever of 101 or Higher, Change in Color, Fainting spells, Swelling in the ankles, Prolonged hiccupping, Increased palpitations (irregular heartbeat) and Uncontrolled pain Follow Up Care Test Results: Test results from this visit will be discussed in further detail at your follow-up appointment, if applicable. Discharge Plan Admission Admit Date/Time: 12/11/20 11:42 Primary Reason for Your Visit: MSSA Pneumonia on COVID Pnuemonia Attending Provider: Benjy Wills Consulting Providers: Cruz Alberto Instructions Additional Instructions / Restrictions: Patient Problems: Altered Health Status related to Hospitalization Patient Goals: *Optimal Level of Health *Keep Appointments *Medication Compliance *Remain Safe Self quarantine for 3 weeks from the start of symptoms on December 03, 2020 Discharge Orders/Prescriptions Prescriptions: New cephalexin 500 mg tablet 500 mg PO TID Qty: 15 RF: 0 dexamethasone 6 mg tablet 6 mg PO DAILY Qty: 7 RF: 0 Mucinex 1,200 mg tablet extended release 12hr 1,200 mg PO BID Qty: 14 RF: 0 Eliquis 2.5 mg tablet 2.5 mg PO BID Qty: 30 RF: 0 Continued metformin 1,000 mg tablet 1,000 mg PO DAILY RF: 0 clopidogrel 75 MG tablet 75 mg PO DAILY RF: 0 bupropion HCl 300 MG tablet extended release 24 hr 300 mg PO DAILY RF: 0 metoprolol tartrate 50 MG tablet 50 mg PO BID RF: 0 pantoprazole 40 MG tablet,delayed release (DR/EC) 40 mg PO DAILY RF: 0 bbqjofrb-osc-IT-lycopen-lutein 1 EACH tablet 1 ea PO DAILY RF: 0 tramadol 50 MG tablet 50 mg PO TID PRN PRN (Reason: Moderate Pain (4-5/10)) Qty: 9 RF: 0 alprazolam 0.5 MG tablet 0.5 mg PO TID PRN PRN (Reason: Anxiety) RF: 0 paroxetine HCl 10 MG tablet 40 mg PO DAILY RF: 0 lisinopril 20 MG tablet 40 mg PO DAILY RF: 0 atorvastatin 10 MG tablet 5 mg PO QHS RF: 0 albuterol sulfate 2.5 MG/3 ML solution for nebulization 2.5 mg INHALATION Q4H PRN PRN (Reason: breathing) RF: 0 glipizide 5 MG tablet extended release 24hr 5 mg PO BID RF: 0 potassium chloride 20 MEQ tablet,ER particles/crystals 40 meq PO DAILYCM RF: 0 gabapentin 300 MG capsule 300 mg PO TIDCM RF: 0 polyethylene glycol 3350 17 GM powder in packet 17 gm PO DAILY PRN (Reason: Constipation) RF: 0 Referrals / Follow Up: TANYA MANCINI [Other] (Office will call Ainsley mckeon, with telehealth appointment time for follow up appointment) TANYA MANCINI [Other] - Within 1 Week Ricardo Grimm DO [STAFF PHYSICIAN] - Within 1 Month (COVID pneumonia with MSSA bacterial pneumnia) Disposition Disposition (needs filled in before D/C Order can be placed): Home, Self Care
[2020-12-13] MEDS: Gabapentin 300 MG Capsule PO ×3 (10:05→18:10)
[2020-12-13] MEDS: Paroxetine 20 MG Tablet 40 MG PO (10:06)
[2020-12-13] MEDS: Enoxaparin 30 MG/0.3 ML Syringe SC ×2 (10:06→23:15)
[2020-12-13] MEDS: ALPRAZolam 0.5 MG Tablet PO (10:09)
[2020-12-13] MEDS: hydrALAZINE 25 MG Tablet PO (10:18)
--- NOTE | 2020-12-13 11:20 | DS.PCM_ITS ---
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 Diagnosis Discharge Diagnosis (1) COVID-19: Status: Acute Code(s): U07.1 - COVID-19 (2) Pneumonia: Status: Acute Code(s): J18.9 - Pneumonia, unspecified organism Qualifiers: Pneumonia type: due to unspecified organism Medications at Discharge Home Medications bupropion HCl 300 mg PO DAILY 07/03/17 clopidogrel 75 mg PO DAILY 07/03/17 metoprolol tartrate 50 mg PO BID 07/03/17 dehwcskl-chr-SY-lycopen-lutein 1 ea PO DAILY 07/04/17 pantoprazole 40 mg PO DAILY 07/04/17 tramadol 50 mg PO TID PRN PRN #9 tab 07/13/17 alprazolam 0.5 mg PO TID PRN PRN 07/16/18 paroxetine HCl 40 mg PO DAILY 07/16/18 metformin 1,000 mg tablet 1,000 mg PO DAILY tab 10/28/18 atorvastatin 5 mg PO QHS 01/14/20 lisinopril 40 mg PO DAILY 01/14/20 albuterol sulfate 2.5 mg INHALATION Q4H PRN PRN 12/11/20 gabapentin 300 mg PO TIDCM 12/11/20 glipizide 5 mg PO BID 12/11/20 polyethylene glycol 3350 17 gm PO DAILY PRN 12/11/20 potassium chloride 40 meq PO DAILYCM 12/11/20 apixaban [Eliquis] 2.5 mg PO BID #30 tab 12/13/20 cephalexin 500 mg PO TID #15 tab 12/13/20 dexamethasone 6 mg PO DAILY #7 tab 12/13/20 guaifenesin [Mucinex] 1,200 mg PO BID #14 tab 12/13/20 Hospital Course Summary of Care Provided Hospital Course: This 80-year-old gentleman admitted with Covid pneumonia and mild hypoxia 1 Covid infection with possible bacterial superinfection, left lower lobe, MSSA pneumonia. Patient is being admitted in PCU. Lactic acid elevated. Mild leukopenia. Was started on IV Decadron and remdesivir. IV ceftriaxone and Zithromax for bacterial superinfection. ID consult. Inflammatory markers elevated. Patient was resuscitated with IV fluid ALT and AST are elevated. Sodium 133, mild hyponatremia. Sputum culture shows 3+ is MSSA qSOFA score is 0. Leukopenia with with monocytosis. Continue antibiotics. Blood pressure is elevated and controlled with adjustment of blood pressure medications I talked to patient's and daughter when patient is ready to be discharged. Patient is discharged on Keflex for 5 more days. Decadron 6 mg daily total of 10 days, Mucinex and Eliquis 2.5 mg twice daily for 2 weeks. 2. COPD exacerbation probably from pneumonia: DuoNeb every 4 hourly. Patient is on Decadron. Incentive spirometry PEP. 3. Debility due to T8 spinal cord injury with paraplegia and anesthesia, neurogenic bladder on self intermittent catheterization and colostomy: PT and OT ordered. Nursing care. 4. Diabetes mellitus type 2: Glucose 199. Accu-Chek ACH and cover with block sliding scale 5. Hypertension, GERD with history of a stroke: Home medication reconciliation done 6. Anxiety and depression disorder VTE prophylaxis: Lovenox 30 mg subcu twice daily. D-dimer normal Discharge medication reconciliation done. Discharge follow-up instructions completed. Discharge process discussed with the patient and all questions were answered to patient's satisfaction. Total time spent, exact 35 minutes on discharge meds reconciliation, examination, coordination of care with nurses and ancillary staff, review of imaging and blood test and discussion with the patient on follow-up instructions Physical Exam Narrative Seen and examined. Patient wants to go home. No tachypnea. Pulse ox 93% on room air General: Alert, Oriented x3, Cooperative HEENT: Atraumatic, PERRLA, EOMI, Normocephalic Oral: No Gingival or Mucosal Lesions/ Ulcerations Neck: Supple, No JVD, Negative Carotid Bruits Lungs: Air entry diminished in bilateral lung bases. No crepitation/rhonchi Cardiovascular: Sinus rhythm, PVCs, Normal S1, Normal S2, No murmurs Abdomen: Colostomy present. Bowel Sounds Present, Soft, Non Tender, Non- Distended : Clifford catheter, draining clear urine. No renal angle or suprapubic tenderness. Extremities: Mild dependent bilateral ankle edema, Capillary Refill Less than 3 Seconds Skin: No rashes, No breakdown Musculoskeletal: Back surgery. Muhammad rods multiple thoracic vertebra. Paraplegic Neurological: Cranial nerves II-XII grossly intact, paraplegia and no sensation below T8 level Psych/Mental Status: Restless, anxious Weight / BMI Weight Weight: 228 lb 13.437 oz Body Mass Index (BMI) 31.0 ABG / Lab / Microbiology Data Result Diagrams: 12/13/20 07:10 12/13/20 07:10 Laboratory: Laboratory Results - last 24 hr 12/13/20 07:10: WBC 5.5, RBC 5.04, Hgb 14.7, Hct 42.8, MCV 84.9, MCH 29.2, MCHC 34.3, RDW Std Deviation 44.0 H, RDW Coeff of Madhav 14.3, Plt Count 187, MPV 10.5 12/13/20 07:10: Sodium 133 L, Potassium 3.6, Chloride 102, Carbon Dioxide 23.0, Anion Gap 8, BUN 9, Creatinine 0.44 L, Estim Creat Clear Calc 64.67, Est GFR (MDRD) Af Amer 238, Est GFR (MDRD) Non-Af 196, BUN/Creatinine Ratio 20.4 H, Glucose 247 H, Calcium 8.8, Total Bilirubin 0.50, AST 99 H, ALT 84 H, Alkaline Phosphatase 108, Total Protein 7.2, Albumin 3.0 L, Globulin 4.2, Albumin/ Globulin Ratio 0.7 L Microbiology: Microbiology 12/11/20 15:50 Sputum, Expectorated/Coughed Gram Stain - Final 12/11/20 15:50 Sputum, Expectorated/Coughed Respiratory Culture - Final Staphylococcus aureus 12/11/20 10:15 Blood Culture (Wb) - Right Hand Blood Culture - Preliminary No growth in 48 hours. 12/11/20 10:15 Blood Culture (Wb) - Anticubital Right Blood Culture - Preliminary No growth in 48 hours. 12/11/20 15:00 Urine Catheter - Catheter Legionella Antigen - Final 12/11/20 15:00 Urine Catheter - Catheter Streptococcus pneumoniae Antigen (M - Final D/C Instructions Discharge Diet: Low fat / Low cholesterol Weight Bearing Status: Weight bearing as tolerated Call your doctor if you observe: Fever of 101 or Higher, Change in Color, Fainting spells, Swelling in the ankles, Prolonged hiccupping, Increased palpitations (irregular heartbeat) and Uncontrolled pain Meaningful Use Info Meaningful Use Diagnoses (Choose all that apply): None applicable Discharge Plan Admission Admit Date/Time: 12/11/20 11:42 Primary Reason for Your Visit: MSSA Pneumonia on COVID Pnuemonia Attending Provider: Benjy Wills Consulting Providers: Cruz Alberto Instructions Additional Instructions / Restrictions: Patient Problems: Altered Health Status related to Hospitalization Patient Goals: *Optimal Level of Health *Keep Appointments *Medication Compliance *Remain SafePatient Problems: Altered Health Status related to Hospitalization Patient Goals: *Optimal Level of Health *Keep Appointments *Medication Compliance *Remain Safe Self quarantine for 3 weeks from the start of symptoms on December 03, 2020 Discharge Orders/Prescriptions Prescriptions: New cephalexin 500 mg tablet 500 mg PO TID Qty: 15 RF: 0 dexamethasone 6 mg tablet 6 mg PO DAILY Qty: 7 RF: 0 Mucinex 1,200 mg tablet extended release 12hr 1,200 mg PO BID Qty: 14 RF: 0 Eliquis 2.5 mg tablet 2.5 mg PO BID Qty: 30 RF: 0 Continued metformin 1,000 mg tablet 1,000 mg PO DAILY RF: 0 clopidogrel 75 MG tablet 75 mg PO DAILY RF: 0 bupropion HCl 300 MG tablet extended release 24 hr 300 mg PO DAILY RF: 0 metoprolol tartrate 50 MG tablet 50 mg PO BID RF: 0 pantoprazole 40 MG tablet,delayed release (DR/EC) 40 mg PO DAILY RF: 0 sfvmnlwy-ryr-NQ-lycopen-lutein 1 EACH tablet 1 ea PO DAILY RF: 0 tramadol 50 MG tablet 50 mg PO TID PRN PRN (Reason: Moderate Pain (4-5/10)) Qty: 9 RF: 0 alprazolam 0.5 MG tablet 0.5 mg PO TID PRN PRN (Reason: Anxiety) RF: 0 paroxetine HCl 10 MG tablet 40 mg PO DAILY RF: 0 lisinopril 20 MG tablet 40 mg PO DAILY RF: 0 atorvastatin 10 MG tablet 5 mg PO QHS RF: 0 albuterol sulfate 2.5 MG/3 ML solution for nebulization 2.5 mg INHALATION Q4H PRN PRN (Reason: breathing) RF: 0 glipizide 5 MG tablet extended release 24hr 5 mg PO BID RF: 0 potassium chloride 20 MEQ tablet,ER particles/crystals 40 meq PO DAILYCM RF: 0 gabapentin 300 MG capsule 300 mg PO TIDCM RF: 0 polyethylene glycol 3350 17 GM powder in packet 17 gm PO DAILY PRN (Reason: Constipation) RF: 0 Referrals / Follow Up: TANYA MANCINI [Other] (Office will call Ainsley mckeon, with telehealth appointment time for follow up appointment) TANYA MANCINI [Other] - Within 1 Week Ricardo Grimm DO [STAFF PHYSICIAN] - Within 1 Month (COVID pneumonia with MSSA bacterial pneumnia) Disposition Disposition (needs filled in before D/C Order can be placed): Home, Self Care Charges/Coding Visit Charges Inpatient E&M: 29492 Disch Hosp
--- NOTE | 2020-12-13 11:41 | CASEMGMT ---
Pt states no preference for DME company at this time and was previously provided list of local in-network DME companies. Pt states no further concerns/needs and therapy does not recommend any further therapy. Alyssa DOHERTY CM
[2020-12-13] MEDS: Cefazolin 2 GM in 0.9% Normal Saline 100 ML IV ×2 (12:07→23:06)
[2020-12-13] MEDS: hydrALAZINE 50 MG Tablet PO ×2 (14:40→23:12)
--- NOTE | 2020-12-13 15:25 | CASEMGMT ---
Per Ginger RN, pt qualifies for 2L continuous nc as he was 87% on room air. Pt stated no preference for DME and [place] [facility] [facility] [place]. Pt voices no further concerns with going home at time of discharge. Alyssa DOHERTY CM
[2020-12-13] MEDS: Atorvastatin Calcium 10 MG Tablet 5 MG PO (23:06)
[2020-12-14] VITALS (18 sets, daily range): BP systolic 112–157; BP diastolic 75–81; PULSE 61–95; RESP 16–20; TEMP 36.3–36.6; O2SAT 93–94
[2020-12-14] MEDS: Cefazolin 2 GM in 0.9% Normal Saline 100 ML IV ×3 (05:42→21:51)
[2020-12-14] MEDS: hydrALAZINE 50 MG Tablet PO ×3 (05:44→21:49)
[2020-12-14 05:54] LABS: Hematocrit 41.8 % (40-54); Hemoglobin 14.2 g/dL (13.0-16.5); Mean Corpuscular Volume 85.3 fL (80-94); Mean Platelet Vol. 10.5 fl (6.2-12.0); Platelet Count 193 K/mm3 (150-450); RBC Distribution Width CV 14.5 % (11.6-14.6); RBC Distribution Width SD 44.9 fl (35.1-43.9); White Blood Count 6.3 K/mm3 (4.4-11.0)
[2020-12-14 06:23] LABS: ALB/GLOB Ratio 0.7 RATIO (0.9-2.4); AST(SGOT) 64 U/L (15-37); Alanine Aminotransfer ALT/SGPT 75 U/L (16-61); Albumin, Serum 2.6 g/dL (3.2-5.0); Alkaline Phosphatase 106 U/L (45-117); Anion Gap 8 (5-15); BUN 10 mg/dL (7-18); BUN/Creat Ratio 18.9 RATIO (10-20); Calcium,Total 8.3 mg/dL (8.5-10.1); Chloride 102 mmol/L (98-107); Creatinine, Serum 0.53 mg/dL (0.70-1.30); EST Glomerular Filtration Rate 159 mL/min (>60); Est Glom Filt Rate - Afr Amer 193 mL/min (>60); Estimated Creatinine Clearance 64.67 ml/min; Globulin 3.9 g/dL (2.2-4.2); Glucose 260 mg/dL (74-106); Potassium 3.7 mmol/L (3.5-5.1); Protein, Total 6.5 g/dL (6.4-8.2); Sodium Level 133 mmol/L (136-145)
[2020-12-14] MEDS: Ipratropium/Albuterol Sulfate 3 ML AMPUL.NEB INHALATION ×3 (07:05→19:13)
[2020-12-14] MEDS: buPROPion (XL) 300 MG TABLET.XL PO (09:22)
[2020-12-14] MEDS: Potassium Chloride Oral Tablet 20 MEQ 40 MEQ PO (09:22)
[2020-12-14] MEDS: Pantoprazole Sodium 40 MG Tablet PO (09:22)
[2020-12-14] MEDS: dexAMETHasone 10 MG/ML Vial 6 MG IV (09:22)
[2020-12-14] MEDS: Paroxetine 20 MG Tablet 40 MG PO (09:22)
[2020-12-14] MEDS: Clopidogrel Bisulfate 75 MG Tablet PO (09:22)
[2020-12-14] MEDS: Enoxaparin 30 MG/0.3 ML Syringe SC ×2 (09:22→21:51)
[2020-12-14] MEDS: Gabapentin 300 MG Capsule PO ×3 (09:22→17:18)
[2020-12-14] MEDS: glipiZIDE 5 MG Tablet PO ×2 (09:22→17:18)
[2020-12-14] MEDS: Lisinopril 40 MG Tablet PO (09:23)
[2020-12-14] MEDS: Metoprolol Tartrate 50 MG Tablet PO ×2 (09:23→21:50)
[2020-12-14] MEDS: Senna/Docusate Sodium 1 Tablet 2 TABLET PO ×2 (09:23→21:49)
--- NOTE | 2020-12-14 09:31 | CASEMGMT ---
SW received a message that patient's family would like for him to go to a longterm[facility]. Therapy saw patient and said patient did not need further therapy. Patient is a paraplegic, uses a sliding board, and straight caths. However, this is not new so it is unlikely insurance would consider this a skilled need. SW spoke with patient, introduced self and role at [facility]. Patient is agreeable to going to a longterm. SW told him we will have to work on it. SW then got a message to call patient's daughter, Ivet. SW called Ivet. Introduced self and role at [facility]. SW told her that at this time he does not appear to have a skilled need. Therapy saw him and did not recommend any further therapy. She said he was supposed to start outpatient therapy for balance issues right around when he tested positive. She said even if there is no skilled need they will private pay. She said her mom cannot take care of him right now she is too sick. There is no way he can go home. SW told her that [facility] is not an option as they are only taking patient's that are 14 days out from their positive test. SW said patient tested positive on the 1st. SW went over the facilities that are taking patient's that are 10 days out and the ones that are taking positive patients. IVANNA also gave her star ratings for the facilities. IVANNA told her SW needs at least 3 choices and SW will take care of making referrals. IVANNA also told her that we will have therapy come and re-evaluate him. She thanked SW for the help. She will call patient's and discuss options. IVANNA gave her SW's direct number. Await return call. [facility] COSTA called therapy and asked them to re-evaluate patient. Ila Sherwood REAL ESTATE CLOSING COORDINATOR MANN
--- NOTE | 2020-12-14 10:11 | CASEMGMT ---
Addendum entered by Ila Sherwood 12/14/20 11:52: PT/OT evaluations faxed to [facility]. Ila DARNELL Original Note: SW received a return call from patient's daughter Ivet. She said their choices are as follows: [facility], [facility], [facility], and [facility]. SW told her SW will work on the referrals and get back with her as soon as SW gets more information. SW faxed referral to [facility]. IVANNA called [facility] and spoke with Sabra regarding referral. She said she will have the exceptional children's teacher look at it as well as Peri. Await return call. SW is also awaiting PT/OT re-evaluations. Ila DARNELL
[2020-12-14] MEDS: ALPRAZolam 0.5 MG Tablet PO ×2 (10:22→17:18)
--- NOTE | 2020-12-14 11:57 | PCM.TXEXTCAR ---
Diet 12/12/20 14:38 Diet: Carbohydrate Controlled Food consistency:: Regular Liquid Consistency:: Regular/Thin Dietary Modifications:: Cardiac / Heart Healthy Type of Dietary Supplement:: Glucerna Shake Diet Comments: 120ml glucerna shake TID w/ meals Routine Orders/Code Status Change Clifford Catheter: Self intermittent catheterization every 4 hours Code Status: DNRCC-A (No intubation) Therapies Weight Bearing: Weight bearing as tolerated Extremity Affected:: Bilateral Lower Physical Therapy: Eval and Treat Occupational Therapy: Eval and Treat Speech Therapy: Eval and Treat Problem/Diagnosis (1) COVID-19: Status: Acute (2) Pneumonia: Status: Acute Allergies/Procedures Done in Hospital Allergies codeine Allergy (Verified 12/11/20 09:33) Unknown morphine Allergy (Verified 12/11/20 09:33) Unknown Type of Care/Length of Stay Estimated LOS: Convalescent Care Less Than 30 days Type of Care Needed: Skilled Rehab Potential: Good Prognosis: Good Additional Orders/Day of Discharge Day of Discharge: 12/14/20 Dietary and Speech Recommendations Dietitian Recommendations/Changes: Will change diet to Carbohydrate-Controlled; Cardiac. Will add 120ml glucerna shake TID w/ meals. Follow Up Care Please follow up with your Primary Care Physician in: In 2 weeks Discharge Plan Admission Admit Date/Time: 12/11/20 11:42 Primary Reason for Your Visit: MSSA Pneumonia on COVID Pnuemonia Attending Provider: Benjy Wills Consulting Providers: Cruz Alberto Instructions Additional Instructions / Restrictions: Patient Problems: Altered Health Status related to Hospitalization Patient Goals: *Optimal Level of Health *Keep Appointments *Medication Compliance *Remain SafePatient Problems: Altered Health Status related to Hospitalization Patient Goals: *Optimal Level of Health *Keep Appointments *Medication Compliance *Remain Safe Self quarantine for 3 weeks from the start of symptoms on December 03, 2020 Discharge Orders/Prescriptions Prescriptions: New cephalexin 500 mg tablet 500 mg PO TID Qty: 15 RF: 0 dexamethasone 6 mg tablet 6 mg PO DAILY Qty: 7 RF: 0 Mucinex 1,200 mg tablet extended release 12hr 1,200 mg PO BID Qty: 14 RF: 0 Eliquis 2.5 mg tablet 2.5 mg PO BID Qty: 30 RF: 0 Continued metformin 1,000 mg tablet 1,000 mg PO DAILY RF: 0 clopidogrel 75 MG tablet 75 mg PO DAILY RF: 0 bupropion HCl 300 MG tablet extended release 24 hr 300 mg PO DAILY RF: 0 metoprolol tartrate 50 MG tablet 50 mg PO BID RF: 0 pantoprazole 40 MG tablet,delayed release (DR/EC) 40 mg PO DAILY RF: 0 nviikqkg-nro-CC-lycopen-lutein 1 EACH tablet 1 ea PO DAILY RF: 0 tramadol 50 MG tablet 50 mg PO TID PRN PRN (Reason: Moderate Pain (4-510)) Qty: 9 RF: 0 alprazolam 0.5 MG tablet 0.5 mg PO TID PRN PRN (Reason: Anxiety) RF: 0 paroxetine HCl 10 MG tablet 40 mg PO DAILY RF: 0 lisinopril 20 MG tablet 40 mg PO DAILY RF: 0 atorvastatin 10 MG tablet 5 mg PO QHS RF: 0 albuterol sulfate 2.5 MG/3 ML solution for nebulization 2.5 mg INHALATION Q4H PRN PRN (Reason: breathing) RF: 0 glipizide 5 MG tablet extended release 24hr 5 mg PO BID RF: 0 potassium chloride 20 MEQ tablet,ER particles/crystals 40 meq PO DAILYCM RF: 0 gabapentin 300 MG capsule 300 mg PO TIDCM RF: 0 polyethylene glycol 3350 17 GM powder in packet 17 gm PO DAILY PRN (Reason: Constipation) RF: 0 Referrals / Follow Up: TANYA MANCINI [Other] (Office will call Ainsley mckeon, with telehealth appointment time for follow up appointment) TANYA MANCINI [Other] - Within 1 Week Ricardo Grimm DO [STAFF PHYSICIAN] - Within 1 Month (COVID pneumonia with MSSA bacterial pneumnia) Disposition Disposition (needs filled in before D/C Order can be placed): Home, Self Care
--- NOTE | 2020-12-14 15:20 | PN.HOSP_ITS ---
Subjective Subjective Today evening, patient family changed her mind from discharge home to custodial. Patient did state and discharge test to be canceled. Objective Data Objective Data Vital Signs: Vital Signs Temp Pulse Resp BP Pulse Ox 97.4 F L 76 18 154/76 H 94 12/14/20 13:15 12/14/20 13:17 12/14/20 13:15 12/14/20 13:15 12/14/20 13:15 Oxygen Flow Rate (L/min) [At 2 REST with Oxygen] Oxygen Flow Rate (L/min) [At 0 REST on Room Air] Oxygen Flow Rate (L/min) 2 Oxygen Delivery Method Room Air Weight: 228 lb 13.437 oz Body Mass Index (BMI) 31.0 Intake & Output: Intake and Output for Last 24 Hours 12/12/20 12/13/20 12/14/20 23:59 23:59 23:59 Intake Total 1462.92 / 1462.92 1310 / 1310 1060 / 1060 Output Total 2700 / 3300 4000 / 4600 1700 / 1700 Balance -1237.08 / -1837.08 -2690 / -3290 -640 / -640 Lab / Micro Data Result Diagrams: 12/14/20 05:36 12/14/20 05:36 Labs: Laboratory Results - last 24 hr 12/14/20 05:36: WBC 6.3, RBC 4.90, Hgb 14.2, Hct 41.8, MCV 85.3, MCH 29.0, MCHC 34.0, RDW Std Deviation 44.9 H, RDW Coeff of Madhav 14.5, Plt Count 193, MPV 10.5 12/14/20 05:36: Sodium 133 L, Potassium 3.7, Chloride 102, Carbon Dioxide 23.0, Anion Gap 8, BUN 10, Creatinine 0.53 L, Estim Creat Clear Calc 64.67, Est GFR (MDRD) Af Amer 193, Est GFR (MDRD) Non-Af 159, BUN/Creatinine Ratio 18.9, Glucose 260 H, Calcium 8.3 L, Total Bilirubin 0.70, AST 64 H, ALT 75 H, Alkaline Phosphatase 106, Total Protein 6.5, Albumin 2.6 L, Globulin 3.9, Albumin/Globulin Ratio 0.7 L Micro: Microbiology 12/11/20 15:50 Sputum, Expectorated/Coughed Gram Stain - Final 12/11/20 15:50 Sputum, Expectorated/Coughed Respiratory Culture - Final Staphylococcus aureus 12/11/20 10:15 Blood Culture (Wb) - Right Hand Blood Culture - Preliminary No growth in 48 hours. 12/11/20 10:15 Blood Culture (Wb) - Anticubital Right Blood Culture - Preliminary No growth in 48 hours. 12/11/20 15:00 Urine Catheter - Catheter Legionella Antigen - Final 12/11/20 15:00 Urine Catheter - Catheter Streptococcus pneumoniae Antigen (M - Final Physical Exam Narrative Seen and examined. Heart rate and blood pressure are controlled. General: Alert, Oriented x3, Cooperative HEENT: Atraumatic, PERRLA, EOMI, Normocephalic Oral: No Gingival or Mucosal Lesions/ Ulcerations Neck: Supple, No JVD, Negative Carotid Bruits Lungs: Air entry diminished in bilateral lung bases. No crepitation/rhonchi Cardiovascular: Sinus rhythm, PVCs, Normal S1, Normal S2, No murmurs Abdomen: Colostomy present. Bowel Sounds Present, Soft, Non Tender, Non- Distended : Clifford catheter, draining clear urine. No renal angle or suprapubic tenderness. Extremities: Mild dependent bilateral ankle edema, Capillary Refill Less than 3 Seconds Skin: No rashes, No breakdown Musculoskeletal: Back surgery. Muhammad rods multiple thoracic vertebra. Paraplegic Neurological: Cranial nerves II-XII grossly intact, paraplegia and no sensation below T8 level Psych/Mental Status: Restless, anxious Assessment & Plan Assessment/Plan (1) COVID-19: (2) Pneumonia: QUALIFIERS: Pneumonia type: due to unspecified organism PLAN: This 80-year-old gentleman admitted with Covid pneumonia and mild hypoxia 1 Covid infection with possible bacterial superinfection, left lower lobe. Patient is admitted in PCU. Lactic acid elevated. Mild leukopenia. Started on IV Decadron and remdesivir. IV ceftriaxone and Zithromax for bacterial superinfection. ID consult. Inflammatory markers ordered. IV fluid 1 L in 2 hours and then 125 mL/h for 1 L, then reevaluate. Pneumonia work-up including urinary antigens and sputum culture and blood culture ordered. ALT and AST are elevated. Sodium 133, mild hyponatremia 9/8: qSOFA score is 0. Patient still visibly short of breath on mild exertion. Leukopenia with with monocytosis. Continue antibiotics. Blood pressure is britany vated. Blood pressure meds adjusted. I talked to patient's and daughter and though the patient wants to go home, they are agreeable for more monitoring and keeping the patient here and if he continues to improve then discharge. 12/14: Sepsis ruled out. MSSA left lower lobe pneumonia. On IV cefazolin. 2. COPD exacerbation probably from pneumonia: DuoNeb every 4 hourly. Patient is on Decadron. Incentive spirometry PEP. 3. Debility due to T8 spinal cord injury with paraplegia and anesthesia, neurogenic bladder on self intermittent catheterization and colostomy: PT and OT eval and treatment. Nursing care. 4. Diabetes mellitus type 2: Glucose 199. Accu-Chek ACH and cover with block sliding scale 5. Hypertension, GERD with history of a stroke: Home medication reconciliation done 6. Anxiety and depression disorder VTE prophylaxis: Lovenox 30 mg subcu twice daily. D-dimer normal Discussed with case assistant and social worker school in detail and plan for custodial. Living will/advanced directive/end of life care: Patient does have living will or advanced directive. His is power of corporate associate attorney for health. After discussion of benefits/risks procedures involved with full code, DNR CC arrest and DNR CC, the patient opted for DNR-CC Arrest with no intubation Patient does not want artificial life support including intubation, tube feed, ventilator and/chest compression, central venous catheter, vasopressor and DC shock if needed Total time spent in [id number] encounter in discussion of advanced directive 16 minutes. Microbiology Past 72 Hours 12/11/20 15:50 Sputum, Expectorated/Coughed Gram Stain - Final 12/11/20 15:50 Sputum, Expectorated/Coughed Respiratory Culture - Preliminary Staphylococcus aureus 12/11/20 15:00 Urine Catheter - Catheter Legionella Antigen - Final 12/11/20 15:00 Urine Catheter - Catheter Streptococcus pneumoniae Antigen (M - Final Laboratory Results 12/12/20 07:06: WBC 2.0 L, RBC 4.81, Hgb 14.0, Hct 41.6, MCV 86.5, MCH 29.1, MCHC 33.7, RDW Std Deviation 45.8 H, RDW Coeff of Madhav 14.3, Plt Count 139 L, MPV 10.8, Immature Gran % (Auto) 1.500 H, Neut % (Auto) 55.8, Lymph % (Auto) 30.4, [place] % (Auto) 11.8 H, Eos % (Auto) 0.0, Baso % (Auto) 0.5, Absolute Neuts (auto) 1.1 L, Absolute Lymphs (auto) 0.62 L, Nucleated RBC % 0 12/12/20 07:06: Sodium 135 L, Potassium 3.5, Chloride 104, Carbon Dioxide 25.0, Anion Gap 6, BUN 8, Creatinine 0.45 L, Estim Creat Clear Calc 64.67, Est GFR (MDRD) Af Amer 233, Est GFR (MDRD) Non-Af 193, BUN/Creatinine Ratio 17.9, Glucose 211 H, Calcium 8.3 L, Total Bilirubin 0.50, AST 75 H, ALT 77 H, Alkaline Phosphatase 110, Total Protein 6.8, Albumin 2.8 L, Globulin 4.0, Albumin/Globulin Ratio 0.7 L Clinical Impression(s) from Imaging Studies Chest X-Ray 12/11/20 10:27 IMPRESSION: Patchy lingular/left lower lobe infiltrate. Charges/Coding Visit Charges Inpatient E&M: 33977 Subs Hosp L2
--- NOTE | 2020-12-14 16:28 | CASEMGMT ---
IVANNA [place] a [place] from [place] [facility] not [place] patient as per physician note he is supposed to quarantine for 20 days and this will not be until . IVANNA called [facility] and they are full with a waiting list. IVANNA called Jasmin with [facility] and left her a voice mail regarding referral. SW also faxed referral. IVANNA called and faxed referral to [facility]. They are not able to take patient for the same reason as [facility]. IVANNA called patient's daughter at 1445 to update her. SW let her know that [facility] said no as he has to be out of quarantine which is 20 days. SW told her about the other referrals listed above. She was in agreement with IVANNA faxing referrals to facilities that are considering patient's 10 days out around the [facility]. IVANNA called 28+ facilities around [place]. SW left several messages. IVANNA did also talk with a handful of places that are taking COVID positive patient's 10 days or 14 days out, but they are full or full with a waiting list. IVANNA did talk with admissions at [facility] and she agreed to look at the referral. Her song plugger said she is not comfortable taking him over the weekend and she will re-look at him Thursday. IVANNA also spoke with admissions at [facility] and she agreed to look at the referral. However, IVANNA could not get the fax to go through. IVANNA called [facility] back, but no one was available. IVANNA called [facility] to see if they are in network. She checked to see if they are and they are not. At this point admissions people are leaving for the day. IVANNA called patient's daughter and let her know above information. She thanked IVANNA for the update. IVANNA told her SW will talk with her Thursday. SW notified physician, patient, and broker in charge. Plan: IVANNA will begin to make referrals again on Thursday. Ila DARNELL
[2020-12-14] MEDS: Atorvastatin Calcium 10 MG Tablet 5 MG PO (21:50)
[2020-12-14] MEDS: guaiFENesin 10 ML UDC (200MG/10ML) PO (22:02)
[2020-12-15] VITALS (10 sets, daily range): BP systolic 140–175; BP diastolic 66–100; PULSE 82–94; RESP 18; TEMP 36.1–36.6; O2SAT 91–94
[2020-12-15] MEDS: ALPRAZolam 0.5 MG Tablet PO ×3 (02:37→22:39)
[2020-12-15] MEDS: Cefazolin 2 GM in 0.9% Normal Saline 100 ML IV ×3 (06:12→22:42)
[2020-12-15] MEDS: hydrALAZINE 50 MG Tablet PO ×3 (06:16→22:42)
[2020-12-15 07:33] LABS: Hematocrit 43.4 % (40-54); Hemoglobin 14.6 g/dL (13.0-16.5); Mean Corp Hgb Conc 33.6 g/dL (32-36); Mean Corpuscular Hgb 28.7 pg (27.0-32.0); Mean Corpuscular Volume 85.4 fL (80-94); Mean Platelet Vol. 10.7 fl (6.2-12.0); Platelet Count 230 K/mm3 (150-450); RBC Distribution Width CV 14.3 % (11.6-14.6); RBC Distribution Width SD 44.9 fl (35.1-43.9); Red Blood Count 5.08 M/mm3 (4.6-6.2)
[2020-12-15 07:45] LABS: ALB/GLOB Ratio 0.7 RATIO (0.9-2.4); AST(SGOT) 60 U/L (15-37); Alanine Aminotransfer ALT/SGPT 78 U/L (16-61); Albumin, Serum 2.7 g/dL (3.2-5.0); Alkaline Phosphatase 109 U/L (45-117); Anion Gap 9 (5-15); BUN 11 mg/dL (7-18); BUN/Creat Ratio 25.2 RATIO (10-20); Calcium,Total 8.5 mg/dL (8.5-10.1); Chloride 101 mmol/L (98-107); Creatinine, Serum 0.44 mg/dL (0.70-1.30); EST Glomerular Filtration Rate 198 mL/min (>60); Est Glom Filt Rate - Afr Amer 240 mL/min (>60); Estimated Creatinine Clearance 64.67 ml/min; Globulin 3.8 g/dL (2.2-4.2); Glucose 256 mg/dL (74-106); Potassium 3.6 mmol/L (3.5-5.1); Protein, Total 6.5 g/dL (6.4-8.2); Sodium Level 133 mmol/L (136-145)
[2020-12-15] MEDS: Metoprolol Tartrate 50 MG Tablet PO ×2 (10:17→22:39)
[2020-12-15] MEDS: Senna/Docusate Sodium 1 Tablet 2 TABLET PO ×2 (10:18→22:38)
[2020-12-15] MEDS: 0.9% Saline Lock 10 ML Syringe IV ×2 (10:18→17:04)
[2020-12-15] MEDS: Potassium Chloride Oral Tablet 20 MEQ 40 MEQ PO (10:44)
[2020-12-15] MEDS: glipiZIDE 5 MG Tablet PO ×2 (10:44→17:10)
[2020-12-15] MEDS: dexAMETHasone 10 MG/ML Vial 6 MG IV (10:45)
[2020-12-15] MEDS: Enoxaparin 30 MG/0.3 ML Syringe SC ×2 (10:45→22:38)
[2020-12-15] MEDS: Gabapentin 300 MG Capsule PO ×3 (10:45→17:10)
[2020-12-15] MEDS: Paroxetine 20 MG Tablet 40 MG PO (10:45)
[2020-12-15] MEDS: buPROPion (XL) 300 MG TABLET.XL PO (10:46)
[2020-12-15] MEDS: Clopidogrel Bisulfate 75 MG Tablet PO (10:46)
[2020-12-15] MEDS: Lisinopril 40 MG Tablet PO (10:46)
[2020-12-15] MEDS: Pantoprazole Sodium 40 MG Tablet PO (10:46)
[2020-12-15] MEDS: Ipratropium/Albuterol Sulfate 3 ML AMPUL.NEB INHALATION (15:29)
--- NOTE | 2020-12-15 15:42 | PCM.PN.HOSP ---
Subjective Subjective Patient still the same. Yesterday social services technician called more than 28 facilities and did not find anyone to take her. Family does not want to take the patient. Social issues besides patient low functional status with paraplegia. Objective Data Objective Data Vital Signs: Vital Signs Temp Pulse Resp BP Pulse Ox 97.0 F L 94 18 162/100 H 91 12/15/20 10:00 12/15/20 10:17 12/15/20 10:00 12/15/20 10:17 12/15/20 14:07 Oxygen Flow Rate (L/min) [At 2 REST with Oxygen] Oxygen Flow Rate (L/min) [At 0 REST on Room Air] Oxygen Flow Rate (L/min) 2 Oxygen Delivery Method Room Air Weight: 228 lb 13.437 oz Body Mass Index (BMI) 31.0 Intake & Output: Intake and Output for Last 24 Hours 12/13/20 12/14/20 12/15/20 23:59 23:59 23:59 Intake Total 1310 / 1310 2170 / 2170 960 / 960 Output Total 4000 / 4600 4400 / 4400 1100 / 1100 Balance -2690 / -3290 -2230 / -2230 -140 / -140 Lab / Micro Data Result Diagrams: 12/15/20 07:10 12/15/20 07:10 Labs: Laboratory Results - last 24 hr 12/15/20 07:10: WBC 7.0, RBC 5.08, Hgb 14.6, Hct 43.4, MCV 85.4, MCH 28.7, MCHC 33.6, RDW Std Deviation 44.9 H, RDW Coeff of Madhav 14.3, Plt Count 230, MPV 10.7 12/15/20 07:10: Sodium 133 L, Potassium 3.6, Chloride 101, Carbon Dioxide 23.0, Anion Gap 9, BUN 11, Creatinine 0.44 L, Estim Creat Clear Calc 64.67, Est GFR (MDRD) Af Amer 240, Est GFR (MDRD) Non-Af 198, BUN/Creatinine Ratio 25.2 H, Glucose 256 H, Calcium 8.5, Total Bilirubin 1.00, AST 60 H, ALT 78 H, Alkaline Phosphatase 109, Total Protein 6.5, Albumin 2.7 L, Globulin 3.8, Albumin/Globulin Ratio 0.7 L Micro: Microbiology 12/11/20 15:50 Sputum, Expectorated/Coughed Gram Stain - Final 12/11/20 15:50 Sputum, Expectorated/Coughed Respiratory Culture - Final Staphylococcus aureus 12/11/20 10:15 Blood Culture (Wb) - Right Hand Blood Culture - Preliminary No growth in 48 hours. 12/11/20 10:15 Blood Culture (Wb) - Anticubital Right Blood Culture - Preliminary No growth in 48 hours. 12/11/20 15:00 Urine Catheter - Catheter Legionella Antigen - Final 12/11/20 15:00 Urine Catheter - Catheter Streptococcus pneumoniae Antigen (M - Final Physical Exam Narrative Seen and examined. Patient states he wants to go home. There is no family member to pick him up or wants to take him home. General: Alert, Oriented x3, Cooperative HEENT: Atraumatic, PERRLA, EOMI, Normocephalic Oral: No Gingival or Mucosal Lesions/ Ulcerations Neck: Supple, No JVD, Negative Carotid Bruits Lungs: Air entry diminished in bilateral lung bases. No crepitation/rhonchi Cardiovascular: Sinus rhythm, PVCs, Normal S1, Normal S2, No murmurs Abdomen: Colostomy present. Bowel Sounds Present, Soft, Non Tender, Non-Distended : Clifford catheter. No renal angle or suprapubic tenderness. Extremities: Mild dependent bilateral ankle edema, Capillary Refill Less than 3 Seconds Skin: No rashes, No breakdown Musculoskeletal: Back surgery. Muhammad rods multiple thoracic vertebra. Paraplegic Neurological: Cranial nerves II-XII grossly intact, paraplegia and no sensation below T8 level Psych/Mental Status: Restless, anxious Assessment & Plan Assessment/Plan (1) COVID-19: (2) Pneumonia: QUALIFIERS: Pneumonia type: due to unspecified organism PLAN: This 80-year-old gentleman admitted with Covid pneumonia and mild hypoxia 1 Covid infection with possible bacterial superinfection, left lower lobe. Patient is admitted in PCU. Lactic acid elevated. Mild leukopenia. Started on IV Decadron and remdesivir. IV ceftriaxone and Zithromax for bacterial superinfection. ID consult. Inflammatory markers ordered. IV fluid 1 L in 2 hours and then 125 mL/h for 1 L, then reevaluate. Pneumonia work-up including urinary antigens and sputum culture and blood culture ordered. ALT and AST are elevated. Sodium 133, mild hyponatremia 12/12: qSOFA score is 0. Patient still visibly short of breath on mild exertion. Leukopenia with with monocytosis. Continue antibiotics. Blood pressure is elevated. Blood pressure meds adjusted. I talked to patient's and daughter and though the patient wants to go home, they are agreeable for more monitoring and keeping the patient here and if he continues to improve then discharge. 12/14: Sepsis ruled out. MSSA left lower lobe pneumonia. On IV cefazolin. 12/15: Continue antibiotic. 2. COPD exacerbation probably from pneumonia: DuoNeb every 4 hourly. Patient is on Decadron. Incentive spirometry PEP. 3. Debility due to T8 spinal cord injury with paraplegia and anesthesia, neurogenic bladder on self intermittent catheterization and colostomy: PT and OT eval and treatment. Nursing care. 4. Diabetes mellitus type 2: Glucose 199. Accu-Chek ACH and cover with sliding scale 5. Hypertension, GERD with history of a stroke: Home medication reconciliation done 6. Anxiety and depression disorder VTE prophylaxis: Lovenox 30 mg subcu twice daily. D-dimer normal Discussed with protective services case worker and social services technician in detail and plan for retirement. Living will/advanced directive/end of life care: Patient does have living will or advanced directive. His is power of workers compensation attorney for health. After discussion of benefits/risks procedures involved with full code, DNR CC arrest and DNR CC, the patient opted for DNR-CC Arrest with no intubation Patient does not want artificial life support including intubation, tube feed, ventilator and/chest compression, central venous catheter, vasopressor and DC shock if needed Total time spent in vero-um-neno encounter in discussion of advanced directive 16 minutes. Microbiology Past 72 Hours 12/11/20 15:50 Sputum, Expectorated/Coughed Gram Stain - Final 12/11/20 15:50 Sputum, Expectorated/Coughed Respiratory Culture - Final Staphylococcus aureus 12/11/20 10:15 Blood Culture (Wb) - Right Hand Blood Culture - Preliminary No growth in 48 hours. 12/11/20 10:15 Blood Culture (Wb) - Anticubital Right Blood Culture - Preliminary No growth in 48 hours. Laboratory Results 12/15/20 07:10: WBC 7.0, RBC 5.08, Hgb 14.6, Hct 43.4, MCV 85.4, MCH 28.7, MCHC 33.6, RDW Std Deviation 44.9 H, RDW Coeff of Madhav 14.3, Plt Count 230, MPV 10.7 12/15/20 07:10: Sodium 133 L, Potassium 3.6, Chloride 101, Carbon Dioxide 23.0, Anion Gap 9, BUN 11, Creatinine 0.44 L, Estim Creat Clear Calc 64.67, Est GFR (MDRD) Af Amer 240, Est GFR (MDRD) Non-Af 198, BUN/Creatinine Ratio 25.2 H, Glucose 256 H, Calcium 8.5, Total Bilirubin 1.00, AST 60 H, ALT 78 H, Alkaline Phosphatase 109, Total Protein 6.5, Albumin 2.7 L, Globulin 3.8, Albumin/Globulin Ratio 0.7 L Clinical Impression(s) from Imaging Studies Chest X-Ray 12/11/20 10:27 IMPRESSION: Patchy lingular/left lower lobe infiltrate. Charges/Coding Visit Charges Inpatient E&M: 76365 Subs Hosp L2
[2020-12-15] MEDS: Atorvastatin Calcium 10 MG Tablet 5 MG PO (22:39)
[2020-12-15] MEDS: Acetaminophen 325 MG Tablet 650 MG PO (22:39)
[2020-12-16] VITALS (11 sets, daily range): BP systolic 116–161; BP diastolic 86–92; PULSE 82–99; RESP 16–20; TEMP 36.3–36.8; O2SAT 93–96
[2020-12-16 01:11] LABS: Bedside Glucose 332 mg/dL (70-110)
[2020-12-16] MEDS: traMADol 50 MG Tablet PO (03:36)
[2020-12-16] MEDS: hydrALAZINE 50 MG Tablet PO ×3 (06:45→21:52)
[2020-12-16] MEDS: Cefazolin 2 GM in 0.9% Normal Saline 100 ML IV ×3 (06:46→21:53)
[2020-12-16] MEDS: ALPRAZolam 0.5 MG Tablet PO ×3 (06:46→21:54)
[2020-12-16 07:00] LABS: Bedside Glucose 233 mg/dL (70-110)
[2020-12-16] MEDS: Ipratropium/Albuterol Sulfate 3 ML AMPUL.NEB INHALATION ×2 (07:36→20:05)
[2020-12-16] MEDS: Lisinopril 40 MG Tablet PO (10:33)
[2020-12-16] MEDS: Senna/Docusate Sodium 1 Tablet 2 TABLET PO ×2 (10:33→21:52)
[2020-12-16] MEDS: Pantoprazole Sodium 40 MG Tablet PO (10:33)
[2020-12-16] MEDS: Enoxaparin 30 MG/0.3 ML Syringe SC ×2 (10:33→21:57)
[2020-12-16] MEDS: glipiZIDE 5 MG Tablet PO ×2 (10:33→16:58)
[2020-12-16] MEDS: buPROPion (XL) 300 MG TABLET.XL PO (10:34)
[2020-12-16] MEDS: Metoprolol Tartrate 50 MG Tablet PO ×2 (10:34→21:54)
[2020-12-16] MEDS: Potassium Chloride Oral Tablet 20 MEQ 40 MEQ PO (10:34)
[2020-12-16] MEDS: Gabapentin 300 MG Capsule PO ×2 (10:34→16:59)
[2020-12-16] MEDS: Paroxetine 20 MG Tablet 40 MG PO (10:34)
[2020-12-16] MEDS: Clopidogrel Bisulfate 75 MG Tablet PO (10:34)
[2020-12-16] MEDS: dexAMETHasone 10 MG/ML Vial 6 MG IV (10:35)
[2020-12-16] MEDS: LORazepam 2 MG/ML Syringe 1 MG IV (12:11)
--- NOTE | 2020-12-16 14:30 | PCM.PN.HOSP ---
Subjective Subjective Patient could not sleep because of his discomfort. He wants to go home but does not like hospital bed. Objective Data Objective Data Vital Signs: Vital Signs Temp Pulse Resp BP Pulse Ox 97.4 F L 82 18 141/88 H 93 12/16/20 10:30 12/16/20 10:34 12/16/20 10:30 12/16/20 10:34 12/16/20 10:30 Oxygen Flow Rate (L/min) [At 2 REST with Oxygen] Oxygen Flow Rate (L/min) [At 0 REST on Room Air] Oxygen Flow Rate (L/min) 2 Oxygen Delivery Method Room Air Weight: 228 lb 13.437 oz Body Mass Index (BMI) 31.0 Intake & Output: Intake and Output for Last 24 Hours 12/14/20 12/15/20 12/16/20 23:59 23:59 23:59 Intake Total 2170 / 2170 1070 / 1870 1620 / 1620 Output Total 4400 / 4400 1100 / 0 2049 / 2049 Balance -2230 / -2230 -30 / -180 -430 / -430 Lab / Micro Data Result Diagrams: 12/15/20 07:10 12/15/20 07:10 Labs: Laboratory Results - last 24 hr 12/15/20 22:48: POC Glucose 332 H 12/16/20 06:38: POC Glucose 233 H Micro: Microbiology 12/11/20 10:15 Blood Culture (Wb) - Right Hand Blood Culture - Final No growth in 5 days. 12/11/20 10:15 Blood Culture (Wb) - Anticubital Right Blood Culture - Final No growth in 5 days. 12/11/20 15:50 Sputum, Expectorated/Coughed Gram Stain - Final 12/11/20 15:50 Sputum, Expectorated/Coughed Respiratory Culture - Final Staphylococcus aureus 12/11/20 15:00 Urine Catheter - Catheter Legionella Antigen - Final 12/11/20 15:00 Urine Catheter - Catheter Streptococcus pneumoniae Antigen (M - Final Physical Exam Narrative Seen and examined. General: Alert, Oriented x3, Cooperative HEENT: Atraumatic, PERRLA, EOMI, Normocephalic Oral: No Gingival or Mucosal Lesions/ Ulcerations Neck: Supple, No JVD, Negative Carotid Bruits Lungs: Air entry diminished in bilateral lung bases. No crepitation/rhonchi Cardiovascular: Sinus rhythm, PVCs, Normal S1, Normal S2, No murmurs Abdomen: Colostomy present. Bowel Sounds Present, Soft, Non Tender, Non-Distended : Clifford catheter. No renal angle or suprapubic tenderness. Extremities: Mild dependent bilateral ankle edema, Capillary Refill Less than 3 Seconds Skin: No rashes, No breakdown Musculoskeletal: Back surgery. Muhammad rods multiple thoracic vertebra. Paraplegic Neurological: Cranial nerves II-XII grossly intact, paraplegia and no sensation below T8 level Psych/Mental Status: Restless, anxious Assessment & Plan Assessment/Plan (1) COVID-19: (2) Pneumonia: QUALIFIERS: Pneumonia type: due to unspecified organism PLAN: This 80-year-old gentleman admitted with Covid pneumonia and mild hypoxia 1 Covid infection with possible bacterial superinfection, left lower lobe. Patient is admitted in PCU. Lactic acid elevated. Mild leukopenia. Started on IV Decadron and remdesivir. IV ceftriaxone and Zithromax for bacterial superinfection. ID consult. Inflammatory markers ordered. IV fluid 1 L in 2 hours and then 125 mL/h for 1 L, then reevaluate. Pneumonia work-up including urinary antigens and sputum culture and blood culture ordered. ALT and AST are elevated. Sodium 133, mild hyponatremia 12/12: qSOFA score is 0. Patient still visibly short of breath on mild exertion. Leukopenia with with monocytosis. Continue antibiotics. Blood pressure is elevated. Blood pressure meds adjusted. I talked to patient's and daughter and though the patient wants to go home, they are agreeable for more monitoring and keeping the patient here and if he continues to improve then discharge. 12/14: Sepsis ruled out. MSSA left lower lobe pneumonia. On IV cefazolin. 12/15: Continue antibiotic. 12/16: No fever. No acute issues. Waiting for pre-CERT 2. COPD exacerbation probably from pneumonia: DuoNeb every 4 hourly. Patient is on Decadron. Incentive spirometry PEP. 3. Debility due to T8 spinal cord injury with paraplegia and anesthesia, neurogenic bladder on self intermittent catheterization and colostomy: PT and OT eval and treatment. Nursing care. 4. Diabetes mellitus type 2: Glucose 199. Accu-Chek ACH and cover with sliding scale 5. Hypertension, GERD with history of a stroke: Home medication reconciliation done 6. Anxiety and depression disorder VTE prophylaxis: Lovenox 30 mg subcu twice daily. D-dimer normal Discussed with case loader operator and high school social science teacher in detail and plan for [facility]. Living will/advanced directive/end of life care: Patient does have living will or advanced directive. His is power of trial attorney for health. After discussion of benefits/risks procedures involved with full code, DNR CC arrest and DNR CC, the patient opted for DNR-CC Arrest with no intubation Patient does not want artificial life support including intubation, tube feed, ventilator and/chest compression, central venous catheter, vasopressor and DC shock if needed Total time spent in [id number] encounter in discussion of advanced directive 16 minutes. Microbiology Past 72 Hours 12/11/20 15:50 Sputum, Expectorated/Coughed Gram Stain - Final 12/11/20 15:50 Sputum, Expectorated/Coughed Respiratory Culture - Final Staphylococcus aureus 12/11/20 10:15 Blood Culture (Wb) - Right Hand Blood Culture - Preliminary No growth in 48 hours. 12/11/20 10:15 Blood Culture (Wb) - Anticubital Right Blood Culture - Preliminary No growth in 48 hours. Laboratory Results 12/15/20 07:10: WBC 7.0, RBC 5.08, Hgb 14.6, Hct 43.4, MCV 85.4, MCH 28.7, MCHC 33.6, RDW Std Deviation 44.9 H, RDW Coeff of Madhav 14.3, Plt Count 230, MPV 10.7 12/15/20 07:10: Sodium 133 L, Potassium 3.6, Chloride 101, Carbon Dioxide 23.0, Anion Gap 9, BUN 11, Creatinine 0.44 L, Estim Creat Clear Calc 64.67, Est GFR (MDRD) Af Amer 240, Est GFR (MDRD) Non-Af 198, BUN/Creatinine Ratio 25.2 H, Glucose 256 H, Calcium 8.5, Total Bilirubin 1.00, AST 60 H, ALT 78 H, Alkaline Phosphatase 109, Total Protein 6.5, Albumin 2.7 L, Globulin 3.8, Albumin/Globulin Ratio 0.7 L Clinical Impression(s) from Imaging Studies Chest X-Ray 12/11/20 10:27 IMPRESSION: Patchy lingular/left lower lobe infiltrate. Charges/Coding Visit Charges Inpatient E&M: 01890 Subs Hosp L2
[2020-12-16] MEDS: Atorvastatin Calcium 10 MG Tablet 5 MG PO (21:56)
[2020-12-16 23:05] LABS: Bedside Glucose 359 mg/dL (70-110)
[2020-12-16] MEDS: guaiFENesin 10 ML UDC (200MG/10ML) PO (23:14)
[2020-12-16] MEDS: 0.9% Saline Lock 10 ML Syringe IV (23:14)
[2020-12-16] MEDS: Acetaminophen 325 MG Tablet 650 MG PO (23:14)
[2020-12-17] VITALS (12 sets, daily range): BP systolic 126–161; BP diastolic 42–96; PULSE 67–95; RESP 17–18; TEMP 36.1–36.6; O2SAT 92–94
[2020-12-17] MEDS: 0.9% Saline Lock 10 ML Syringe IV (05:23)
[2020-12-17] MEDS: Acetaminophen 325 MG Tablet 650 MG PO ×2 (05:24→21:22)
[2020-12-17] MEDS: ALPRAZolam 0.5 MG Tablet PO ×4 (05:24→21:46)
[2020-12-17] MEDS: hydrALAZINE 50 MG Tablet PO ×3 (05:24→20:10)
[2020-12-17] MEDS: guaiFENesin 10 ML UDC (200MG/10ML) PO (05:24)
[2020-12-17] MEDS: Cefazolin 2 GM in 0.9% Normal Saline 100 ML IV ×3 (05:24→20:11)
[2020-12-17] MEDS: Ipratropium/Albuterol Sulfate 3 ML AMPUL.NEB INHALATION ×2 (07:16→15:03)
[2020-12-17] MEDS: Gabapentin 300 MG Capsule PO ×3 (07:49→16:34)
[2020-12-17] MEDS: glipiZIDE 5 MG Tablet PO ×2 (07:49→16:34)
[2020-12-17] MEDS: Potassium Chloride Oral Tablet 20 MEQ 40 MEQ PO (07:50)
--- NOTE | 2020-12-17 09:23 | CASEMGMT ---
IVANNA faxed updates to [facility]. IVANNA did get correct fax number for [facility] and information was faxed. IVANNA also re-faxed referral to [facility]. IVANNA called patient's daughter Ivet and updated her on what SW is working on. She was in agreement with these referrals. IVANNA told her SW will update her once IVANNA gets updates. Ila Sherwood COMMUNICATIONS DEPARTMENT HEAD MANN
[2020-12-17] MEDS: dexAMETHasone 10 MG/ML Vial 6 MG IV (11:49)
[2020-12-17] MEDS: Metoprolol Tartrate 50 MG Tablet PO ×2 (11:49→20:10)
[2020-12-17] MEDS: Enoxaparin 30 MG/0.3 ML Syringe SC ×2 (11:50→20:16)
[2020-12-17] MEDS: Paroxetine 20 MG Tablet 40 MG PO (11:50)
[2020-12-17] MEDS: Pantoprazole Sodium 40 MG Tablet PO (11:51)
[2020-12-17] MEDS: Clopidogrel Bisulfate 75 MG Tablet PO (11:51)
[2020-12-17] MEDS: Senna/Docusate Sodium 1 Tablet 2 TABLET PO ×2 (11:51→20:09)
[2020-12-17] MEDS: Lisinopril 40 MG Tablet PO (11:51)
[2020-12-17] MEDS: buPROPion (XL) 300 MG TABLET.XL PO (11:52)
--- NOTE | 2020-12-17 12:00 | CASEMGMT ---
IVANNA has not heard anything from the facilities SW faxed information to. IVANNA called [facility] admission person's cell and left her a voice mail requesting a return phone call. IVANNA called [facility] and left a message requesting a return call. IVANNA also called Jasmin with [facility] and left her a voice mail requesting a return call. Ila Sherwood PUBLICATIONS DESIGNER MANN
--- NOTE | 2020-12-17 15:54 | CASEMGMT ---
IVANNA called Jasmin with [facility] again and she did answer. She said they are full right now. IVANNA then called Padmini with [facility] and she did not answer so another message was left for her to return IVANNA's call. IVANNA then called [facility] and she said they cannot take patient as they do not have room. IVANNA spoke with patient's daughter letting her know above. IVANNA told her SW will follow up with her tomorrow. Ila Sherwood MSW MANN
--- NOTE | 2020-12-17 16:16 | CASEMGMT ---
Patient's daughter asked IVANNA about [facility] again if patient would still be here on Thu. IVANNA told her SW will continue to work to get him to a facility that will take him now. However, if this cannot be done and Wed arrives IVANNA can talk with [facility]. IVANNA told her SW will go ahead and make a referral just to see if they can even take him if IVANNA is unable to find anywhere else. IVANNA spoke with Eli at [facility] regarding referral. Information was faxed. Ila Sherwood CASUALTY UNDERWRITERKaylene DARNELL
--- NOTE | 2020-12-17 17:19 | PN.HOSP_ITS ---
Subjective Subjective Patient complain of back pain on mattress. Patient also complained abdominal pain. Abdomen is soft. Colostomy is empty in the morning. Objective Data Objective Data Vital Signs: Vital Signs Temp Pulse Resp BP Pulse Ox 97.6 F L 79 17 148/62 H 93 12/17/20 14:29 12/17/20 15:04 12/17/20 15:04 12/17/20 14:29 12/17/20 14:29 Oxygen Flow Rate (L/min) [At 2 REST with Oxygen] Oxygen Flow Rate (L/min) [At 0 REST on Room Air] Oxygen Flow Rate (L/min) 2 Oxygen Delivery Method Room Air Weight: 228 lb 13.437 oz Body Mass Index (BMI) 31.0 Intake & Output: Intake and Output for Last 24 Hours 12/15/20 12/16/20 12/17/20 23:59 23:59 23:59 Intake Total 1070 / 1870 1840 / 2540 1420 / 1420 Output Total 1100 / 2050 2700 / 3150 2350 / 2350 Balance -30 / -180 -860 / -610 -930 / -930 Lab / Micro Data Result Diagrams: 12/15/20 07:10 12/15/20 07:10 Labs: Laboratory Results - last 24 hr 12/16/20 21:50: POC Glucose 359 H Micro: Microbiology 12/11/20 10:15 Blood Culture (Wb) - Right Hand Blood Culture - Final No growth in 5 days. 12/11/20 10:15 Blood Culture (Wb) - Anticubital Right Blood Culture - Final No growth in 5 days. 12/11/20 15:50 Sputum, Expectorated/Coughed Gram Stain - Final 12/11/20 15:50 Sputum, Expectorated/Coughed Respiratory Culture - Final Staphylococcus aureus 12/11/20 15:00 Urine Catheter - Catheter Legionella Antigen - Final 12/11/20 15:00 Urine Catheter - Catheter Streptococcus pneumoniae Antigen (M - Final Physical Exam Narrative Seen and examined. General: Alert, Oriented x3, Cooperative HEENT: Atraumatic, PERRLA, EOMI, Normocephalic Oral: No Gingival or Mucosal Lesions/ Ulcerations Neck: Supple, No JVD, Negative Carotid Bruits Lungs: Air entry diminished in bilateral lung bases. No crepitation/rhonchi Cardiovascular: Sinus rhythm, PVCs, Normal S1, Normal S2, No murmurs Abdomen: Colostomy present. Bowel Sounds Present, Soft, Non Tender, Non- Distended : Clifford catheter. No renal angle or suprapubic tenderness. Extremities: Nonpitting dependent bilateral ankle edema, Capillary Refill Less than 3 Seconds Skin: No rashes, No breakdown Musculoskeletal: Back surgery. Muhammad rods multiple thoracic vertebra. Paraplegic Neurological: Cranial nerves II-XII grossly intact, paraplegia and no sensation below T8 level Psych/Mental Status: Restless, anxious Assessment & Plan Assessment/Plan (1) COVID-19: (2) Pneumonia: QUALIFIERS: Pneumonia type: due to unspecified organism PLAN: This 80-year-old gentleman admitted with Covid pneumonia and mild hypoxia 1 Covid infection with possible bacterial superinfection, left lower lobe. Patient is admitted in PCU. Lactic acid elevated. Mild leukopenia. Started on IV Decadron and remdesivir. IV ceftriaxone and Zithromax for bacterial superinfection. ID consult. Inflammatory markers ordered. IV fluid 1 L in 2 hours and then 125 mL/h for 1 L, then reevaluate. Pneumonia work-up including urinary antigens and sputum culture and blood culture ordered. ALT and AST are elevated. Sodium 133, mild hyponatremia 12/12: qSOFA score is 0. Patient still visibly short of breath on mild exertion. Leukopenia with with monocytosis. Continue antibiotics. Blood pressure is elevated. Blood pressure meds adjusted. I talked to patient's and daughter and though the patient wants to go home, they are agreeable for more monitoring and keeping the patient here and if he continues to improve then discharge. 12/14: Sepsis ruled out. MSSA left lower lobe pneumonia. On IV cefazolin. 12/15: Continue antibiotic. 12/16: No fever. No acute issues. Waiting for pre-CERT 12/17: Patient pulse ox 93% on room air. Complain of back pain and uncomfortable. Discussed with insurance case managerproduct communications manager worker. Continue antibiotic cefazolin changed to Keflex at the time of discharge 2. COPD exacerbation probably from pneumonia: DuoNeb every 4 hourly. Patient is on Decadron. Incentive spirometry PEP. 3. Debility due to T8 spinal cord injury with paraplegia and anesthesia, neurogenic bladder on self intermittent catheterization and colostomy: PT and OT eval and treatment. Nursing care. 4. Diabetes mellitus type 2: Glucose 199. Accu-Chek ACH and cover with sliding scale 5. Hypertension, GERD with history of a stroke: Home medication reconciliation done 6. Anxiety and depression disorder VTE prophylaxis: Lovenox 30 mg subcu twice daily. D-dimer normal Discussed with insurance case manager and marriage and family social worker in detail and plan for residential. Living will/advanced directive/end of life care: Patient does have living will or advanced directive. His is power of estate planning attorney for health. After discussion of benefits/risks procedures involved with full code, DNR CC arrest and DNR CC, the patient opted for DNR-CC Arrest with no intubation Patient does not want artificial life support including intubation, tube feed, ventilator and/chest compression, central venous catheter, vasopressor and DC shock if needed Total time spent in [id number] encounter in discussion of advanced directive 16 minutes. Microbiology Past 72 Hours 12/11/20 15:50 Sputum, Expectorated/Coughed Gram Stain - Final 12/11/20 15:50 Sputum, Expectorated/Coughed Respiratory Culture - Final Staphylococcus aureus 12/11/20 10:15 Blood Culture (Wb) - Right Hand Blood Culture - Preliminary No growth in 48 hours. 12/11/20 10:15 Blood Culture (Wb) - Anticubital Right Blood Culture - Preliminary No growth in 48 hours. Laboratory Results 12/15/20 07:10: WBC 7.0, RBC 5.08, Hgb 14.6, Hct 43.4, MCV 85.4, MCH 28.7, MCHC 33.6, RDW Std Deviation 44.9 H, RDW Coeff of Madhav 14.3, Plt Count 230, MPV 10.7 12/15/20 07:10: Sodium 133 L, Potassium 3.6, Chloride 101, Carbon Dioxide 23.0, Anion Gap 9, BUN 11, Creatinine 0.44 L, Estim Creat Clear Calc 64.67, Est GFR (MDRD) Af Amer 240, Est GFR (MDRD) Non-Af 198, BUN/Creatinine Ratio 25.2 H, Glucose 256 H, Calcium 8.5, Total Bilirubin 1.00, AST 60 H, ALT 78 H, Alkaline Phosphatase 109, Total Protein 6.5, Albumin 2.7 L, Globulin 3.8, Albumin/Globulin Ratio 0.7 L Clinical Impression(s) from Imaging Studies Chest X-Ray 12/11/20 10:27 IMPRESSION: Patchy lingular/left lower lobe infiltrate. Charges/Coding Visit Charges Inpatient E&M: 20564 Subs Hosp L2
[2020-12-17] MEDS: traMADol 50 MG Tablet PO (19:07)
[2020-12-17] MEDS: Atorvastatin Calcium 10 MG Tablet 5 MG PO (20:09)
[2020-12-17 21:30] LABS: Bedside Glucose 297 mg/dL (70-110)
[2020-12-18] VITALS (10 sets, daily range): BP systolic 123–160; BP diastolic 56–87; PULSE 78–101; RESP 18–28; TEMP 36.4–36.8; O2SAT 92–94
[2020-12-18] MEDS: ALPRAZolam 0.5 MG Tablet PO ×2 (03:04→10:05)
[2020-12-18] MEDS: traMADol 50 MG Tablet PO ×3 (03:04→22:02)
[2020-12-18] MEDS: hydrALAZINE 50 MG Tablet PO ×2 (05:16→22:03)
[2020-12-18] MEDS: Cefazolin 2 GM in 0.9% Normal Saline 100 ML IV (05:16)
[2020-12-18] MEDS: Acetaminophen 325 MG Tablet 650 MG PO (05:19)
[2020-12-18] MEDS: Pantoprazole Sodium 40 MG Tablet PO (09:03)
[2020-12-18] MEDS: dexAMETHasone 10 MG/ML Vial 6 MG IV (09:03)
[2020-12-18] MEDS: Lisinopril 40 MG Tablet PO (09:03)
[2020-12-18] MEDS: 0.9% Saline Lock 10 ML Syringe IV (09:03)
[2020-12-18] MEDS: Clopidogrel Bisulfate 75 MG Tablet PO (09:03)
[2020-12-18] MEDS: glipiZIDE 5 MG Tablet PO ×2 (09:03→17:10)
[2020-12-18] MEDS: Senna/Docusate Sodium 1 Tablet 2 TABLET PO ×2 (09:04→22:02)
[2020-12-18] MEDS: Paroxetine 20 MG Tablet 40 MG PO (09:04)
[2020-12-18] MEDS: buPROPion (XL) 300 MG TABLET.XL PO (09:04)
[2020-12-18] MEDS: Gabapentin 300 MG Capsule PO ×3 (09:04→17:10)
[2020-12-18] MEDS: Enoxaparin 30 MG/0.3 ML Syringe SC ×2 (09:04→22:02)
[2020-12-18] MEDS: Metoprolol Tartrate 50 MG Tablet PO ×2 (09:04→22:02)
[2020-12-18] MEDS: Potassium Chloride Oral Tablet 20 MEQ 40 MEQ PO (09:04)
--- NOTE | 2020-12-18 09:16 | PCM.PN.ID ---
ID ID: Route of nutrition/ use of supplements: [] Nutritional Intake: [] IV Site: [] Clifford Catheter: [] Assessment & Plan Assessment/Plan (1) COVID-19: PLAN: Has completed abx, will stop cefazolin. Will follow as needed (2) T8 Paraplegia after Spinal Cord Injury:
--- NOTE | 2020-12-18 09:28 | CASEMGMT ---
IVANNA called [facility], [place] and left a message for the admissions department. IVANNA also called her cell phone and left a message requesting a return call. Ila DARNELL
--- NOTE | 2020-12-18 10:27 | CASEMGMT ---
IVANNA called [facility] and spoke with Eli. Her director of physical education asked for nurses notes. She wanted to know if he will be on IV antibiotics and if he has a montez or straight cath. IVANNA faxed her information and let her know he will not be on IV antibiotics. Ila DARNELL
--- NOTE | 2020-12-18 11:58 | CASEMGMT ---
IVANNA received a return call from [facility] and they can take patient tomorrow. IVANNA notified RN. IVANNA also called patient's daughter and let her know. She was very pleased and thanked IVANNA. She will let everyone know. Plan: d/c to [facility] at [place] tomorrow 12-19-20 Ila DARNELL
[2020-12-18] MEDS: QUEtiapine 25 MG Tablet 50 MG PO (12:00)
--- NOTE | 2020-12-18 13:37 | CASEMGMT ---
IVANNA received a call from patient's daughter. She said he needs a bigger bed. IVANNA let her know that patient will have to quarantine for 14 days. There will be no regular visits at that time. IVANNA told her if patient is having a tough time they can do what they call compassionate care visits. IVANNA called [facility] and told her about patient needing a bigger bed. She said their beds are wider and longer than the standard. She said they do have partial rails they can put on his bed if he needs this to help him scoot up in bed. Ila Sherwood FORENSIC ECONOMIST MANN
--- NOTE | 2020-12-18 14:38 | CASEMGMT ---
[facility] palliative screening tool completed and pt does not qualify for palliative referral at this time. SStmedhat DOHERTY CM
--- NOTE | 2020-12-18 14:58 | CASEMGMT ---
SW received a call from [facility] and patient was approved. Plan: d/c to [facility] at [place] tomorrow. Ila DARNELL
--- NOTE | 2020-12-18 17:01 | PN.HOSP_ITS ---
Subjective Subjective Patient very restless, anxious and agitated as per the nursing staff. I have my cell phone the same. Started on Seroquel. On room air. Objective Data Objective Data Vital Signs: Vital Signs Temp Pulse Resp BP Pulse Ox 97.6 F L 80 20 H 123/56 H 93 12/18/20 15:00 12/18/20 15:00 12/18/20 15:00 12/18/20 15:00 12/18/20 15:00 Oxygen Flow Rate (L/min) [At 2 REST with Oxygen] Oxygen Flow Rate (L/min) [At 0 REST on Room Air] Oxygen Flow Rate (L/min) 2 Oxygen Delivery Method Room Air Weight: 228 lb 13.437 oz Body Mass Index (BMI) 31.0 Intake & Output: Intake and Output for Last 24 Hours 12/16/20 12/17/20 12/18/20 23:59 23:59 23:59 Intake Total 1840 / 2540 2030 / 2030 1210 / 1210 Output Total 2700 / 3150 3050 / 3050 1175 / 1175 Balance -860 / -610 -1020 / -1020 35 / 35 Lab / Micro Data Result Diagrams: 12/15/20 07:10 12/15/20 07:10 Labs: Laboratory Results - last 24 hr 12/17/20 20:06: POC Glucose 297 H Micro: Microbiology 12/11/20 10:15 Blood Culture (Wb) - Right Hand Blood Culture - Final No growth in 5 days. 12/11/20 10:15 Blood Culture (Wb) - Anticubital Right Blood Culture - Final No growth in 5 days. 12/11/20 15:50 Sputum, Expectorated/Coughed Gram Stain - Final 12/11/20 15:50 Sputum, Expectorated/Coughed Respiratory Culture - Final Staphylococcus aureus 12/11/20 15:00 Urine Catheter - Catheter Legionella Antigen - Final 12/11/20 15:00 Urine Catheter - Catheter Streptococcus pneumoniae Antigen (M - Final Physical Exam Narrative Seen and examined. General: Awake, Oriented x3, Cooperative HEENT: Atraumatic, PERRLA, EOMI, Normocephalic Oral: No Gingival or Mucosal Lesions/ Ulcerations Neck: Supple, No JVD, Negative Carotid Bruits Lungs: Air entry diminished in bilateral lung bases. No crepitation/rhonchi Cardiovascular: Sinus rhythm, PVCs, Normal S1, Normal S2, No murmurs Abdomen: Colostomy present. Bowel Sounds Present, Soft, Non Tender, Non- Distended : Clifford catheter. No renal angle or suprapubic tenderness. Extremities: Nonpitting dependent bilateral ankle edema, Capillary Refill Less than 3 Seconds Skin: No rashes, No breakdown Musculoskeletal: Back surgery. Muhammad rods multiple thoracic vertebra. Paraplegic Neurological: Cranial nerves II-XII grossly intact, paraplegia and no sensation below T8 level Psych/Mental Status: Restless, anxious, mildly exaggerated Assessment & Plan Assessment/Plan (1) COVID-19: (2) Pneumonia: QUALIFIERS: Pneumonia type: due to unspecified organism PLAN: This 80-year-old gentleman admitted with Covid pneumonia and mild hypoxia 1 Covid infection with possible bacterial superinfection, left lower lobe. Patient is admitted in PCU. Lactic acid elevated. Mild leukopenia. Started on IV Decadron and remdesivir. IV ceftriaxone and Zithromax for bacterial superinfection. ID consult. Inflammatory markers ordered. IV fluid 1 L in 2 hours and then 125 mL/h for 1 L, then reevaluate. Pneumonia work-up including urinary antigens and sputum culture and blood culture ordered. ALT and AST are elevated. Sodium 133, mild hyponatremia 12/12: qSOFA score is 0. Patient still visibly short of breath on mild exertion. Leukopenia with with monocytosis. Continue antibiotics. Blood pressure is elevated. Blood pressure meds adjusted. I talked to patient's and daughter and though the patient wants to go home, they are agreeable for more monitoring and keeping the patient here and if he continues to improve then discharge. 12/14: Sepsis ruled out. MSSA left lower lobe pneumonia. On IV cefazolin. 12/15: Continue antibiotic. 12/16: No fever. No acute issues. Waiting for pre-CERT 12/17: Patient pulse ox 93% on room air. Complain of back pain and uncomfortable. Discussed with mattress spring encasermanager of sales worker. Continue antibiotic cefazolin changed to Keflex at the time of discharge 12/18: Possible discharge to [facility] tomorrow a.m. Seroquel 50 mg 1 dose now and then 25 mg twice daily 2. COPD exacerbation probably from pneumonia: DuoNeb every 4 hourly. Patient is on Decadron. Incentive spirometry PEP. 3. Debility due to T8 spinal cord injury with paraplegia and anesthesia, neurogenic bladder on self intermittent catheterization and colostomy: PT and OT eval and treatment. Nursing care. 4. Diabetes mellitus type 2: Glucose 199. Accu-Chek ACH and cover with sliding scale 5. Hypertension, GERD with history of a stroke: Home medication reconciliation done 6. Anxiety and depression disorder VTE prophylaxis: Lovenox 30 mg subcu twice daily. D-dimer normal Discussed with mattress spring encaser and trail maintenance worker in detail and plan for long-term. Living will/advanced directive/end of life care: Patient does have living will or advanced directive. His is power of manager decision support for health. After discussion of benefits/risks procedures involved with full code, DNR CC arrest and DNR CC, the patient opted for DNR-CC Arrest with no intubation Patient does not want artificial life support including intubation, tube feed, ventilator and/chest compression, central venous catheter, vasopressor and DC shock if needed Total time spent in [id number] encounter in discussion of advanced directive 16 minutes. Clinical Impression(s) from Imaging Studies Chest X-Ray 12/11/20 10:27 IMPRESSION: Patchy lingular/left lower lobe infiltrate. Charges/Coding Visit Charges Inpatient E&M: 95373 Subs Hosp L2
[2020-12-18] MEDS: Ipratropium/Albuterol Sulfate 3 ML AMPUL.NEB INHALATION (20:20)
[2020-12-18] MEDS: QUEtiapine 25 MG Tablet PO (22:02)
[2020-12-18] MEDS: Atorvastatin Calcium 10 MG Tablet 5 MG PO (22:03)
[2020-12-18 22:21] LABS: Bedside Glucose 249 mg/dL (70-110)
[2020-12-19] MEDS: ALPRAZolam 0.5 MG Tablet PO (04:05)
[2020-12-19] MEDS: traMADol 50 MG Tablet PO (04:05)
[2020-12-19 04:09] VITALS: BP 122/76; PULSE 89; RESP 20; TEMP 36.7; O2SAT 97
[2020-12-19 05:34] VITALS: BP 132/64; PULSE 86
--- NOTE | 2020-12-19 07:33 | TREXTCAR_ITS ---
Diet 12/12/20 14:38 Diet: Carbohydrate Controlled Food consistency:: Regular Liquid Consistency:: Regular/Thin Dietary Modifications:: Cardiac / Heart Healthy Type of Dietary Supplement:: Glucerna Shake Diet Comments: 120ml glucerna shake TID w/ meals Routine Orders/Code Status Suppository Type: Dulcolax 10mg Suppository Frequency: Daily PRN Change Clifford Catheter: Self intermittent catheterization every 4 hours Code Status: DNRCC-A (No intubation) Therapies Weight Bearing: Weight bearing as tolerated Extremity Affected:: Bilateral Lower Physical Therapy: Eval and Treat Occupational Therapy: Eval and Treat Speech Therapy: Eval and Treat Problem/Diagnosis (1) COVID-19: Status: Acute (2) Pneumonia: Status: Acute Allergies/Procedures Done in Hospital Allergies codeine Allergy (Verified 12/11/20 09:33) Unknown morphine Allergy (Verified 12/11/20 09:33) Unknown Type of Care/Length of Stay Estimated LOS: Convalescent Care Less Than 30 days Type of Care Needed: Skilled Rehab Potential: Good Prognosis: Good Additional Orders/Day of Discharge Day of Discharge: 12/19/20 Dietary and Speech Recommendations Dietitian Recommendations/Changes: Continue Carbohydrate-Controlled; Cardiac diet and 120ml glucerna shake TID w/ meals. Follow Up Care Please follow up with your Primary Care Physician in: In 2 weeks Discharge Plan Admission Admit Date/Time: 12/11/20 11:42 Primary Reason for Your Visit: MSSA Pneumonia on COVID [place] Attending Provider: Benjy Wills Consulting Providers: Cruz Alberto Instructions Additional Instructions / Restrictions: Patient Problems: Altered Health Status related to Hospitalization Patient Goals: *Optimal Level of Health *Keep Appointments *Medication Compliance *Remain SafePatient Problems: Altered Health Status related to Hospitalization Patient Goals: *Optimal Level of Health *Keep Appointments *Medication Compliance *Remain Safe Self quarantine for 3 weeks from the start of symptoms on December 03, 2020 Discharge Orders/Prescriptions Prescriptions: New Eliquis 2.5 mg tablet 2.5 mg PO BID Qty: 30 RF: 0 cephalexin 500 mg tablet 500 mg PO TID Qty: 4 RF: 0 dexamethasone 6 mg tablet 6 mg PO DAILY Qty: 2 RF: 0 Continued metformin 1,000 mg tablet 1,000 mg PO DAILY RF: 0 clopidogrel 75 MG tablet 75 mg PO DAILY RF: 0 bupropion HCl 300 MG tablet extended release 24 hr 300 mg PO DAILY RF: 0 metoprolol tartrate 50 MG tablet 50 mg PO BID RF: 0 pantoprazole 40 MG tablet,delayed release (DR/EC) 40 mg PO DAILY RF: 0 bnnktmlb-bde-AN-lycopen-lutein 1 EACH tablet 1 ea PO DAILY RF: 0 tramadol 50 MG tablet 50 mg PO TID PRN PRN (Reason: Moderate Pain (4-5/10)) Qty: 9 RF: 0 alprazolam 0.5 MG tablet 0.5 mg PO TID PRN PRN (Reason: Anxiety) RF: 0 paroxetine HCl 10 MG tablet 40 mg PO DAILY RF: 0 lisinopril 20 MG tablet 40 mg PO DAILY RF: 0 atorvastatin 10 MG tablet 5 mg PO QHS RF: 0 albuterol sulfate 2.5 MG/3 ML solution for nebulization 2.5 mg INHALATION Q4H PRN PRN (Reason: breathing) RF: 0 glipizide 5 MG tablet extended release 24hr 5 mg PO BID RF: 0 potassium chloride 20 MEQ tablet,ER particles/crystals 40 meq PO DAILYCM RF: 0 gabapentin 300 MG capsule 300 mg PO TIDCM RF: 0 polyethylene glycol 3350 17 GM powder in packet 17 gm PO DAILY PRN (Reason: Constipation) RF: 0 Referrals / Follow Up: TANYA MANCINI [Other] (Office will call Ainsley mckeon, with telehealth appointment time for follow up appointment) TANYA MANCINI [Other] - Within 1 Week Ricardo Grimm DO [STAFF PHYSICIAN] - Within 1 Month (COVID pneumonia with MSSA bacterial pneumnia) Disposition Disposition (needs filled in before D/C Order can be placed): Longterm Facility
--- NOTE | 2020-12-19 09:48 | DS.PCM_ITS ---
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 Diagnosis Discharge Diagnosis (1) COVID-19: Status: Acute Code(s): U07.1 - COVID-19 (2) Pneumonia: Status: Acute Code(s): J18.9 - Pneumonia, unspecified organism Qualifiers: Pneumonia type: due to unspecified organism Medications at Discharge Home Medications bupropion HCl 300 mg PO DAILY 07/03/17 clopidogrel 75 mg PO DAILY 07/03/17 metoprolol tartrate 50 mg PO BID 07/03/17 funbgdno-zfi-VN-lycopen-lutein 1 ea PO DAILY 07/04/17 pantoprazole 40 mg PO DAILY 07/04/17 tramadol 50 mg PO TID PRN PRN #9 tab 07/13/17 alprazolam 0.5 mg PO TID PRN PRN 07/16/18 paroxetine HCl 40 mg PO DAILY 07/16/18 metformin 1,000 mg tablet 1,000 mg PO DAILY tab 10/28/18 atorvastatin 5 mg PO QHS 01/14/20 lisinopril 40 mg PO DAILY 01/14/20 albuterol sulfate 2.5 mg INHALATION Q4H PRN PRN 12/11/20 gabapentin 300 mg PO TIDCM 12/11/20 glipizide 5 mg PO BID 12/11/20 polyethylene glycol 3350 17 gm PO DAILY PRN 12/11/20 potassium chloride 40 meq PO DAILYCM 12/11/20 apixaban [Eliquis] 2.5 mg PO BID #30 tab 12/13/20 cephalexin 500 mg PO TID #4 tab 12/19/20 dexamethasone 6 mg PO DAILY #2 tab 12/19/20 Hospital Course Summary of Care Provided Hospital Course: This 80-year-old gentleman admitted with Covid pneumonia and mild hypoxia 1 Covid infection with possible bacterial superinfection, left lower lobe, MSSA pneumonia. Patient is being admitted in PCU. Lactic acid elevated. Mild leukopenia. Was started on IV Decadron and remdesivir. IV ceftriaxone and Zithromax for bacterial superinfection. ID consult. Inflammatory markers elevated. Patient was resuscitated with IV fluid ALT and AST are elevated. Sodium 133, mild hyponatremia. Sputum culture shows 3+ is MSSA qSOFA score is 0. Leukopenia with with monocytosis. Continue antibiotics. Blood pressure is elevated and controlled with adjustment of blood pressure medications I talked to patient's and daughter when patient is ready to be discharged. Patient is discharged on Keflex, last date 12/20/2020, for total of 7 days and Decadron 6 mg daily complete 10 days Eliquis 2.5 mg twice daily for 2 weeks. Patient completed Mucinex. 2. COPD exacerbation probably from pneumonia: DuoNeb every 4 hourly. Patient is on Decadron. Incentive spirometry PEP. 3. Debility due to T8 spinal cord injury with paraplegia and anesthesia, neurogenic bladder on self intermittent catheterization and colostomy: PT and OT ordered. Nursing care. 4. Diabetes mellitus type 2: Glucose 199. Accu-Chek ACH and cover with block sliding scale 5. Hypertension, GERD with history of a stroke: Home medication reconciliation done 6. Anxiety and depression disorder: Patient gets intermittently agitated restless. Patient was started on Seroquel 25 mg p.o. twice daily. Required intermittent Xanax and Ativan IV. VTE prophylaxis: Lovenox 30 mg subcu twice daily. D-dimer normal Discharge to SNF. Discharge medication reconciliation done. Discharge follow- up instructions completed. Discharge process discussed with the patient and all questions were answered to patient's satisfaction. Total time spent, exact 35 minutes on discharge meds reconciliation, examination, coordination of care with nurses and ancillary staff, review of i maging and blood test and discussion with the patient on follow-up instructions Physical Exam Narrative Seen and examined. General: Awake, Oriented x3, Cooperative HEENT: Atraumatic, PERRLA, EOMI, Normocephalic Oral: No Gingival or Mucosal Lesions/ Ulcerations Neck: Supple, No JVD, Negative Carotid Bruits Lungs: Air entry diminished in bilateral lung bases. No crepitation/rhonchi. No hypoxia Cardiovascular: Sinus rhythm, PVCs, Normal S1, Normal S2, No murmurs Abdomen: Colostomy present. Bowel Sounds Present, Soft, Non Tender, Non- Distended : Clifford catheter. No renal angle or suprapubic tenderness. Extremities: Nonpitting dependent, mild bilateral ankle edema, Capillary Refill Less than 3 Seconds Skin: No rashes, No breakdown Musculoskeletal: Back surgery. Muhammad rods multiple thoracic vertebra. Par aplegic Neurological: Cranial nerves II-XII grossly intact, paraplegia and no sensation below T8 level Psych/Mental Status: Restless, anxious, mildly exaggerated Weight / BMI Weight Weight: 228 lb 13.437 oz Body Mass Index (BMI) 31.0 ABG / Lab / Microbiology Data Result Diagrams: 12/15/20 07:10 12/15/20 07:10 Laboratory: Laboratory Results - last 24 hr 12/18/20 21:57: POC Glucose 249 H Microbiology: Microbiology 12/11/20 10:15 Blood Culture (Wb) - Right Hand Blood Culture - Final No growth in 5 days. 12/11/20 10:15 Blood Culture (Wb) - Anticubital Right Blood Culture - Final No growth in 5 days. 12/11/20 15:50 Sputum, Expectorated/Coughed Gram Stain - Final 12/11/20 15:50 Sputum, Expectorated/Coughed Respiratory Culture - Final Staphylococcus aureus 12/11/20 15:00 Urine Catheter - Catheter Legionella Antigen - Final 12/11/20 15:00 Urine Catheter - Catheter Streptococcus pneumoniae Antigen (M - Final D/C Instructions Discharge Diet: Low fat / Low cholesterol Weight Bearing Status: Weight bearing as tolerated Call your doctor if you observe: Fever of 101 or Higher, Change in Color, Dimitrios nting spells, Swelling in the ankles, Prolonged hiccupping, Increased palpitations (irregular heartbeat) and Uncontrolled pain Meaningful Use Info Meaningful Use Diagnoses (Choose all that apply): None applicable Discharge Plan Admission Admit Date/Time: 12/11/20 11:42 Primary Reason for Your Visit: MSSA Pneumonia on COVID Pnuemonia Attending Provider: Benjy Wills Consulting Providers: Cruz Alberto Instructions Additional Instructions / Restrictions: Patient Problems: Altered Health Status related to Hospitalization Patient Goals: *Optimal Level of Health *Keep Appointments *Medication Compliance *Remain SafePatient Problems: Altered Health Status related to Hospitalization Patient Goals: *Optimal Level of Health *Keep Appointments *Medication Compliance *Remain Safe Self quarantine for 3 weeks from the start of symptoms on December 03, 2020 Discharge Orders/Prescriptions Prescriptions: New Eliquis 2.5 mg tablet 2.5 mg PO BID Qty: 30 RF: 0 cephalexin 500 mg tablet 500 mg PO TID Qty: 4 RF: 0 dexamethasone 6 mg tablet 6 mg PO DAILY Qty: 2 RF: 0 Continued metformin 1,000 mg tablet 1,000 mg PO DAILY RF: 0 clopidogrel 75 MG tablet 75 mg PO DAILY RF: 0 bupropion HCl 300 MG tablet extended release 24 hr 300 mg PO DAILY RF: 0 metoprolol tartrate 50 MG tablet 50 mg PO BID RF: 0 pantoprazole 40 MG tablet,delayed release (DR/EC) 40 mg PO DAILY RF: 0 toijzwav-pyw-OE-lycopen-lutein 1 EACH tablet 1 ea PO DAILY RF: 0 tramadol 50 MG tablet 50 mg PO TID PRN PRN (Reason: Moderate Pain (4-5/10)) Qty: 9 RF: 0 alprazolam 0.5 MG tablet 0.5 mg PO TID PRN PRN (Reason: Anxiety) RF: 0 paroxetine HCl 10 MG tablet 40 mg PO DAILY RF: 0 lisinopril 20 MG tablet 40 mg PO DAILY RF: 0 atorvastatin 10 MG tablet 5 mg PO QHS RF: 0 albuterol sulfate 2.5 MG/3 ML solution for nebulization 2.5 mg INHALATION Q4H PRN PRN (Reason: breathing) RF: 0 glipizide 5 MG tablet extended release 24hr 5 mg PO BID RF: 0 potassium chloride 20 MEQ tablet,ER particles/crystals 40 meq PO DAILYCM RF: 0 gabapentin 300 MG capsule 300 mg PO TIDCM RF: 0 polyethylene glycol 3350 17 GM powder in packet 17 gm PO DAILY PRN (Reason: Constipation) RF: 0 Referrals / Follow Up: TANYA MANCINI [Other] (Office will call Ainsley mckeon, with telehealth appointment time for follow up appointment) TANYA MANCINI [Other] - Within 1 Week Ricardo Grimm DO [STAFF PHYSICIAN] - Within 1 Month (COVID pneumonia with MSSA bacterial pneumnia) Disposition Disposition (needs filled in before D/C Order can be placed): [facility] Facility Charges/Coding Visit Charges Inpatient E&M: 38177 Disch Hosp
--- NOTE | 2020-12-19 09:55 | CASEMGMT ---
Call to Veronika at [facility] to notify that pt to discharge to [facility] today, voices understanding. Alyssa DOHERTY CM
[2020-12-19 10:00] VITALS: BP 137/88; PULSE 106; RESP 18; TEMP 36.8; O2SAT 94
--- NOTE | 2020-12-19 10:00 | CASEMGMT ---
Patient is ready for discharge to [facility] today. IVANNA arranged for patient to get picked up at 1130 via cot. SW faxed orders to [facility] and notified them of metal pickling equipment operator time by writing it on the fax face sheet and left a message for Jodi (who is covering for Eli today). IVANNA also notified RN, sales secretary, and left a message for patient's daughter. Plan: d/c to [facility] at [place] under skilled level of care on a convalescent stay. [facility] transported via cot. Ila DARNELL
[2020-12-19] MEDS: Gabapentin 300 MG Capsule PO (10:09)
[2020-12-19] MEDS: glipiZIDE 5 MG Tablet PO (10:09)
[2020-12-19] MEDS: Senna/Docusate Sodium 1 Tablet 2 TABLET PO (10:09)
[2020-12-19] MEDS: Potassium Chloride Oral Tablet 20 MEQ 40 MEQ PO (10:09)
[2020-12-19] MEDS: dexAMETHasone 10 MG/ML Vial 6 MG IV (10:09)
[2020-12-19] MEDS: Lisinopril 40 MG Tablet PO (10:09)
[2020-12-19 10:10] VITALS: PULSE 106
[2020-12-19] MEDS: buPROPion (XL) 300 MG TABLET.XL PO (10:10)
[2020-12-19] MEDS: Pantoprazole Sodium 40 MG Tablet PO (10:10)
[2020-12-19] MEDS: Metoprolol Tartrate 50 MG Tablet PO (10:10)
[2020-12-19] MEDS: Clopidogrel Bisulfate 75 MG Tablet PO (10:10)
[2020-12-19] MEDS: Paroxetine 20 MG Tablet 40 MG PO (10:10)
[2020-12-19] MEDS: LORazepam 2 MG/ML Syringe 1 MG IV (10:27)
--- NOTE | 2020-12-19 11:00 | WOUNDNOTE ---
Ostomy appliance changed d/t patient having appliance on with no clip to the end. stool leaking onto bed. patient continually leans forward on elbows in the bed. removed appliance. there is some tape residual to the peristomal skin otherwise peristomal skin is intact. cleansed skin with warm water. pat dry. applied a new flat 2 piece flat Alfonzo appliance with an [employer] ring. pt tolerated well.
--- NOTE | 2020-12-19 11:15 | PHA.DC.MR ---
Pharmacy Service has performed discharge medication reconciliation for this patient. The patient's discharge medication list was reviewed for discrepancies and discrepancies were resolved. Home Medications bupropion HCl 300 mg PO DAILY 07/03/17 clopidogrel 75 mg PO DAILY 07/03/17 metoprolol tartrate 50 mg PO BID 07/03/17 wcertzjt-qsb-GM-lycopen-lutein 1 ea PO DAILY 07/04/17 pantoprazole 40 mg PO DAILY 07/04/17 tramadol 50 mg PO TID PRN PRN #9 tab 07/13/17 alprazolam 0.5 mg PO TID PRN PRN 07/16/18 paroxetine HCl 40 mg PO DAILY 07/16/18 metformin 1,000 mg tablet 1,000 mg PO DAILY tab 10/28/18 atorvastatin 5 mg PO QHS 01/14/20 lisinopril 40 mg PO DAILY 01/14/20 albuterol sulfate 2.5 mg INHALATION Q4H PRN PRN 12/11/20 gabapentin 300 mg PO TIDCM 12/11/20 glipizide 5 mg PO BID 12/11/20 polyethylene glycol 3350 17 gm PO DAILY PRN 12/11/20 potassium chloride 40 meq PO DAILYCM 12/11/20 apixaban [Eliquis] 2.5 mg PO BID #30 tab 12/13/20 cephalexin 500 mg PO TID #4 tab 12/19/20 dexamethasone 6 mg PO DAILY #2 tab 12/19/20
--- NOTE | 2020-12-19 13:54 | CASEMGMT ---
[facility] was unable to take patient's wheelchair due to lack of room. IVANNA called patient's daughter, Ivet and left her a voice mail letting her know this information. IVANNA also left IVANNA's number for her to return IVANNA's call. Ila Sherwood SCALE OPERATOR MANN
== END 2020-12-19 12:04 | disposition skilled nursing facility (03) | DRG 177 ==
LOC: ED 11:45 → PCU 11:57
PROVIDERS: Internal Medicine Infectious Disease; Admitting Provider Internal Medicine; Emergency Provider Emergency Medicine; Visit Provider Internal Medicine
DX: U07.1 COVID-19 (principal); J12.82 Pneumonia due to coronavirus disease 2019; J15.211 Pneumonia due to Methicillin susceptible Staphylococcus aureus; J44.0 Chronic obstructive pulmonary disease with (acute) lower respiratory infection; J44.1 Chronic obstructive pulmonary disease with (acute) exacerbation; E87.1 Hypo-osmolality and hyponatremia; G82.20 Paraplegia, unspecified; Z28.3 Underimmunization status; E11.9 Type 2 diabetes mellitus without complications; I10 Essential (primary) hypertension; K21.9 Gastro-esophageal reflux disease without esophagitis; F32.9 Major depressive disorder, single episode, unspecified; F41.9 Anxiety disorder, unspecified; Z86.73 Personal history of transient ischemic attack (TIA), and cerebral infarction without residual deficits; Z93.3 Colostomy status; N31.9 Neuromuscular dysfunction of bladder, unspecified; Z66 Do not resuscitate; Z79.01 Long term (current) use of anticoagulants; Z79.84 Long term (current) use of oral hypoglycemic drugs; Z82.49 Family history of ischemic heart disease and other diseases of the circulatory system; Z90.49 Acquired absence of other specified parts of digestive tract; Z83.3 Family history of diabetes mellitus; Z88.5 Allergy status to narcotic agent
CPT/HCPCS: 36415; 71045; 80053; 82550; 82962; 83605; 83615; 83735; 83880; 84145; 84484; 85025; 85027; 85379; 85384; 85610; 86140; 87040; 87070; 87077; 87186; 87205; 87449; 93005; 94640; 97162; 97164; 97166; 97168; 97530; 99251; 99285; J7030; J7050; A4216; G0463

== ENCOUNTER 2020-12-20 05:26 | Inpatient (IN) | payer MEDICARE, SELFPAY ==
[2020-12-20] VITALS (34 sets, daily range): BP systolic 85–198; BP diastolic 50–148; PULSE 78–119; RESP 19–38; TEMP 35.8–36.6; O2SAT 85–97; BMI 30.3; BMI 29.9; BMI 31.1
--- NOTE | 2020-12-20 05:34 | EKG12_ITS ---
Test Reason : DYSRHYTHMIA Blood Pressure : / mmHG Vent. Rate : 085 BPM Atrial Rate : 085 BPM P-R Int : 216 ms QRS Dur : 096 ms QT Int : 370 ms P-R-T Axes : 034 023 209 degrees QTc Int : 440 ms Sinus rhythm with 1st degree A-V block with frequent Premature ventricular complexes ST & T wave abnormality, consider lateral ischemia Abnormal ECG Confirmed by SONAL REESE, AGNES ([id number]), features editor MARCELLO WEI ([id number]) on 12/21/2020 1:06:50 PM Referred By: CHANCE Confirmed By:AGNES PRUITT MD
--- NOTE | 2020-12-20 05:35 | EX.ED.DYSGE1 ---
HPI History of Present Illness Chief Complaint: General Illness Detail of Chief Complaint: sob Informant: patient and EMS Onset/Context/Timing Onset: Today Context: - (unk) Quality: sob, hypoxic Current Severity: Moderate Maximum Severity: Moderate Worsened by: unk Relieved by: nothing but pt will not keep O2 on Associated Symptoms Associated Symptoms: confusion Narrative Narrative: Patient presents from a skilled nursing post Covid, where he was sent for recovery, he has been there for about 24 hours and has been agitated, confused since he has been there, but dyspneic and hypoxic this morning which was noticed after a minor fall without injury, when he was 79% on room air. Very limited information as patient is agitated and confused. He would not leave oxygen nasal cannula or mask on for EMS or nurses at the skilled nursing. Apparently they tried medicating him to try to get him to calm down including alprazolam, giving him oxygen, albuterol, and redirecting him but he was too agitated for them. He is currently anticoagulated on Eliquis and on 2 different antibiotics for suspected bacterial superinfection left lower lobe MSSA pneumonia, and he has tested negative recently for Covid indicating that he is over the actual infection itself. From recent discharge summary done yesterday here at the hospital, it appears he was alert and oriented x3 at discharge although restless and anxious. [facility] Medical History (Updated 12/20/20 @ 07:[address] 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 Home Medications bupropion HCl 300 mg PO DAILY 07/03/17 [History Last Taken 07/03/17 08:00] clopidogrel 75 mg PO DAILY 07/03/17 [History Last Taken 07/03/17 08:00] metoprolol tartrate 50 mg PO BID 07/03/17 [History Last Taken 07/03/17 08:00] rwjkxvot-emm-[place]-lycopen-lutein 1 ea PO DAILY 07/04/17 [History Last Taken Unknown] pantoprazole 40 mg PO DAILY 07/04/17 [History Last Taken Unknown] tramadol 50 mg PO TID PRN PRN #9 tab 07/13/17 [Rx Last Taken Unknown] alprazolam 0.5 mg PO TID PRN PRN 07/16/18 [History Last Taken Unknown] paroxetine HCl 40 mg PO DAILY 07/16/18 [History Last Taken Unknown] metformin 1,000 mg tablet 1,000 mg PO DAILY tab 10/28/18 [History Last Taken Unknown] atorvastatin 5 mg PO QHS 01/14/20 [History Last Taken Unknown] lisinopril 20 mg PO DAILY 01/14/20 [History Last Taken Unknown] albuterol sulfate 2.5 mg INHALATION Q4H PRN PRN 12/11/20 [History Last Taken Unknown] gabapentin 300 mg PO TIDCM 12/11/20 [History Last Taken Unknown] glipizide 5 mg PO BID 12/11/20 [History Last Taken Unknown] polyethylene glycol 3350 17 gm PO DAILY PRN 12/11/20 [History Last Taken Unknown] potassium chloride 40 meq PO DAILYCM 12/11/20 [History Last Taken Unknown] apixaban [Eliquis] 2.5 mg PO BID #30 tab 12/13/20 [Rx Last Taken Unknown] dexamethasone 6 mg PO DAILY #2 tab 12/19/20 [Rx Last Taken Unknown] Allergy/AdvReac Type Severity Reaction Status Date / Time codeine Allergy Unknown Verified 12/20/20 05:35 morphine Allergy Unknown Verified 12/20/20 05:35 Family History Father Diabetes Mother Hypertension Surgical History history left arm surgery History of colostomy History of hemorrhoidectomy History of laparoscopic cholecystectomy History of spinal surgery History of tonsillectomy history nato left leg Social History Smoking Status: Never smoker alcohol intake: never substance use type: does not use ROS ROS ED Review of Systems ROS Unobtainable: due to mental status Cardiovascular Cardiovascular: Denies chest pain or palpitations Respiratory/Chest Respiratory/Chest: Reports dyspnea Neurologic Neurologic: Reports confusion EXAM Physical Exam Const Vital Signs: 12/20/20 05:29 12/20/20 05:39 12/20/20 06:18 Temperature 96.6 F L Temperature Source Temporal Pulse Rate 93 90 Respiratory Rate 26 H 24 H Respiratory Pattern Tachypnea Blood Pressure 85/66 L Blood Pressure Mean 72 Pulse Ox 85 Oxygen Delivery Method Room Air Room Air Oxygen Flow Rate (L/min) 12/20/20 06:48 12/20/20 06:50 12/20/20 07:12 Temperature Temperature Source Pulse Rate 82 88 Respiratory Rate 22 H 19 H Respiratory Pattern Normal Blood Pressure 103/69 137/88 H Blood Pressure Mean 80 104 Pulse Ox 91 88 Oxygen Delivery Method Nasal Cannula Oxygen Flow Rate (L/min) 4 12/20/20 07:20 Temperature Temperature Source Pulse Rate Respiratory Rate Respiratory Pattern Blood Pressure Blood Pressure Mean Pulse Ox 88 Oxygen Delivery Method Nasal Cannula Oxygen Flow Rate (L/min) 4 Positive well nourished and well developed General Appearance ED: well developed and NAD HEENT Reports moist mucous membranes normocephalic and atraumatic Eyes PERRL and EOMs intact bilaterally Neck full ROM and supple Resp Resp Narrative: Mild tachypnea without retractions. Crackles and rhonchi in the left base otherwise clear and diminished more on the right. Trachea midline. Cardio regular rate, regular rhythm and no murmurs GI non-tender and non-distended GI Narrative: Left lower quadrant colostomy site benign nontender no hernia Auscultation: normoactive bowel sounds Palpation: soft Back/Spine no CVA tenderness General Back: other FROM Extremity normal to inspection General Extremety ED: Negative for edema, pulses abnormal or tenderness General Extremity: Negative for edema or pulses abnormal Neuro CN's II-XII intact bilaterally Neuro Narrative: Decreased sensation below the waist, paraplegic Andrade Coma Scale: document GCS findings Spontaneous Obeys Commands Confused 14 Sensorium / Orientation: awake, alert and oriented to person; Negative for oriented to place or oriented to time Meningeal Signs: no meningeal signs Psych Psych Narrative: Agitated and confused but redirectable for a short period of time. Skin no rashes or lesions noted and no wounds MDM MDM MDM Narrative Medical decision making narrative: We were able to get the patient to keep some oxygen on via nasal cannula and give him a nebulizer treatment which did help his breathing, maintaining oxygen saturations 91-93% on 2 L nasal cannula. However, this changed and he required more oxygen; later he was 89% on 4L, so he was increased to 5L. We were able to manage his agitation by repeated redirection and wrist soft restraints without the need for pharmacologic sedation. He has a significant leukocytosis of 16, in addition to a lactic acidosis of 4.1. Venous blood gas shows Ph 7.38 and pCO2 31. He was given some IV fluids to begin with, his low blood pressure 85/66 did improve, he will be ordered IV fluid bolusing, and more antibiotics, his recent sputum culture grew out MSSA that was resistant only to tetracycline and erythromycin. Accompanying paperwork declares him DNR-CCA. After discussion with hospitalist, and discovering that the patient actually did not have a negative Covid PCR, and currently is on day #17 since he started having Covid symptoms, a repeat PCR will be obtained as well as CT angiography of the chest in order to evaluate for pulmonary embolus and evaluate his infiltrates. Lab Data Attestation: I reviewed the patient's lab results. Labs: Laboratory Results - last 24 hr 12/20/20 12/20/20 12/20/20 06:05 06:05 06:05 WBC 16.2 H RBC 5.24 Hgb 15.3 Hct 45.4 MCV 86.6 MCH 29.2 MCHC 33.7 RDW Std Deviation 45.9 H RDW Coeff of Madhav 14.6 Plt Count 333 MPV 11.1 Immature Gran % (Auto) 3.200 H Neut % (Auto) 84.7 H Lymph % (Auto) 6.1 L Fajardo % (Auto) 5.1 Eos % (Auto) 0.6 Baso % (Auto) 0.3 Absolute Neuts (auto) 13.7 H Absolute Lymphs (auto) 0.98 Nucleated RBC % 0 Sodium 134 L Potassium 4.1 Chloride 102 Carbon Dioxide 18.0 L Anion Gap 14 BUN 20 H Creatinine 0.89 Estim Creat Clear Calc 72.66 Est GFR (MDRD) Af Amer 105 Est GFR (MDRD) Non-Af 87 BUN/Creatinine Ratio 22.4 H Glucose 205 H Lactic Acid 4.1 H* Calcium 9.1 Troponin I High Sens 25 ABG Data ABG results: ABG 12/20/20 07:01 Specimen Type MARY VBG pH 7.38 VBG pO2 36 VBG HCO3 19 L VBG Total CO2 19 L VBG O2 Sat (Calc) 69 VBG Base Excess -7 L POC Mix VBG pCO2 Pt Tmp 30.9 L Radiography Chest X-Ray - ED: 1 View, Read by ED Physician, Right Infiltrate and Left Infiltrate Diagnostic Testing: CXR significantly worse when compared w/ last CXR on 12/11 EKG Initial EKG: Attestation: I personally reviewed and interpreted this EKG as follows: Interpretation: Sinus Rhythm, No Acute Injury Pattern, AV Block (First-degree) and Non-Specific ST Changes Comments: PVCs Prior EKG tracings: available for review Prior: Unchanged Critical Care Time Critical Care Time: Yes Critical care time (excluding procedures): 30-74 minutes (35 min), Including time spent:, Discussing w/Patient &/or Family/Painter Foreman, Discussing w/Consultants, Arranging Admission or Transfer and Performing Direct Patient Care at Bedside Discharge Plan Dx/Rx/DC Orders Clinical Impression: Pneumonia, COPD (chronic obstructive pulmonary disease), Encephalopathy, Septic shock, Hypoxemia Disposition Disposition: Acute Care [facility]
[2020-12-20] MEDS: Albuterol 2.5 MG/3 ML VIAL.NEB. INHALATION (05:39)
--- NOTE | 2020-12-20 06:15 | RAD_ITS ---
STUDY: X-RAY CHEST REASON FOR EXAM: Male, 80 years old. sob TECHNIQUE: Single AP portable view of the chest. COMPARISON: 12/11/2020 FINDINGS: Stable hyperinflation. Worsening of aeration with increasing airspace disease in the left lung periphery and bases, right mid and lower lung periphery, less left upper lung periphery. There is no demonstrated pleural abnormality. Normal size heart. Normal mediastinum and jesus. Normal visualized pulmonary arteries. Normal visualized aortic arch and descending thoracic aorta. Prior TEIXEIRA nato fixation. Normal visualized ribs, clavicles, and shoulders. There is no demonstrated abnormality of the visualized soft tissue structures of the upper abdomen. RAD/Chest 1 View (Portable) IMPRESSION: Bilateral airspace disease as above, worsened since previous exam. Imaging features can be seen with covid 19 pneumonia, but are nonspecific and may occur with a variety of infectious and noninfectious processes. Electronically Signed: Natasha Lynn MD at 8:13 EDT , Service support ,
[2020-12-20 06:20] LABS: Absolute Lymphocyte Count 0.98 X10^3/uL (0.83-4.51); Absolute Neutrophil Count 13.7 X10^3/uL (2.0-7.7); Basophil# 0.05 X10^3/uL; Basophil% 0.3 % (0-1); Eosinophils% 0.6 % (0-5); Hematocrit 45.4 % (40-54); Hemoglobin 15.3 g/dL (13.0-16.5); Lymphocyte # 0.98 X10^3/ul (0.83-4.51); Lymphocyte % 6.1 % (19-41); Mean Corp Hgb Conc 33.7 g/dL (32-36); Mean Corpuscular Hgb 29.2 pg (27.0-32.0); Mean Corpuscular Volume 86.6 fL (80-94); Mean Platelet Vol. 11.1 fl (6.2-12.0); Monocyte# 0.83 X10^3/uL; Monocyte% 5.1 % (0-10); NRBC Flagged by Analyzer 0 % (0-5); Neutrophil % 84.7 % (47-70); Platelet Count 333 K/mm3 (150-450); RBC Distribution Width CV 14.6 % (11.6-14.6); RBC Distribution Width SD 45.9 fl (35.1-43.9); Red Blood Count 5.24 M/mm3 (4.6-6.2); White Blood Count 16.2 K/mm3 (4.4-11.0)
[2020-12-20] MEDS: 0.9% Normal Saline 1,000 ML 150 ML IV (06:20)
[2020-12-20 06:44] LABS: Anion Gap 14 (5-15); BUN 20 mg/dL (7-18); BUN/Creat Ratio 22.4 RATIO (10-20); Calcium,Total 9.1 mg/dL (8.5-10.1); Chloride 102 mmol/L (98-107); Creatinine, Serum 0.89 mg/dL (0.70-1.30); EST Glomerular Filtration Rate 87 mL/min (>60); Est Glom Filt Rate - Afr Amer 105 mL/min (>60); Estimated Creatinine Clearance 72.66 ml/min; Glucose 205 mg/dL (74-106); Potassium 4.1 mmol/L (3.5-5.1); Sodium Level 134 mmol/L (136-145); Troponin-I HS 25 pg/mL (3.0-78.0)
[2020-12-20 06:50] LABS: Lactic Acid 4.1 mmol/L (0.4-1.9)
[2020-12-20 07:06] LABS: Blood Gas Specimen Type VEN; VBG BASE EXCESS -7 mmol/L (-1.0-3.5); VBG Bicarbonate 19 mmol/L (22-26); VBG PO2 36 mmHg (25-40); VBG SO2 69 % (50-70); VBG TCO2 19 mmol/L (23-33); VBG pCO2 30.9 mmHg (41-51); VBG pH 7.38 (7.32-7.42)
[2020-12-20] MEDS: 0.9% Normal Saline 1,000 ML 999 ML IV (07:30)
--- NOTE | 2020-12-20 07:31 | CT_ITS ---
STUDY: CTA CHEST REASON FOR EXAM: Male, 80 years old. pneumonia, hypoxia, covid RADIATION DOSAGE (If Supplied By Facility): CTDIvol = ( 16.59 ) mGy, DLP = ( 566.58 ) mGycm TECHNIQUE: The examination was performed with the intravenous administration of IV 100ML ISOVUE 370. Post-processing of the angiographic images was performed, with multiplanar reformation and 3D reconstruction. Individualized dose optimization techniques were used for this CT. COMPARISON: Chest x-ray 12/20/2020 FINDINGS: Normal enhancement of the main pulmonary artery and right and left pulmonary arteries. Normal enhancement of the bilateral peripheral pulmonary arteries. There is no demonstrated pulmonary embolism. Normal thoracic aorta and visualized great vessels. There is no demonstrated aortic dissection. Normal heart and pericardium. Normal mediastinum. Normal hilar regions. Normal visualized trachea and bronchi. The lungs are well expanded. Bilateral peripheral patchy groundglass opacities consistent with subsegmental atelectasis or pneumonitis. Normal pleura. Normal chest wall structures. Chronic compression fractures midthoracic spine with spinal rods. Normal visualized upper abdomen. CT/CTA Chest W/WO Contrast IMPRESSION: 1. No CT evidence of pulmonary embolism. 2. Bilateral subsegmental atelectasis or pneumonitis. Commonly reported imaging features October 19 pneumonia are present. Other processes such as influenza pneumonia and organized pneumonia as can be seen from drug toxicity or connective tissue disease can cause similar imaging pattern. Electronically Signed: Jose Elias Teague MD at 9:36 EDT Tel , Service support ,
[2020-12-20] MEDS: levoFLOXacin IV 750 MG/150 ML BAG 100 MG IV (07:32)
--- NOTE | 2020-12-20 07:58 | HP.PCM.HOS_ITS ---
HPI - General General Date of Admission: 12/20/20 HPI Narrative KIN FONTANEZ, is a 80 M who was sent to extended care facility on 12/12:15 days of admission for COVID-19 pneumonia with bacterial superinfection of MSSA pneumonia. Patient has multiple comorbidities including spinal cord injury below T8 level about 29 years ago. He has colostomy and straight catheterization every 4 hours but was changed to Clifford catheter while during previous hospital stay and discharged the same. Patient was sent back from half-way for hypoxia, pulse ox 86% on room air. Patient was on 94 to 96% on room air for almost last 7 days before discharge. Patient chest x-ray also shows worsening of infiltrates, pneumonia. Patient has been agitated, restless during previous hospital course and required intermittent Xanax and Seroquel. Patient wanted to go home but family wanted him to go to half-way because of increased family care burden. In ED, triage vitals shows 85/66, pulse 93, respiratory rate 24-26, pulse ox 85% on room air. Afebrile. Patient had 1 L of fluid bolus and blood pressure currently 137/88, 160/91. Currently on 5 L of oxygen. [facility] Medical History (Updated 12/20/20 @ 08:[address] 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 Home Medications bupropion HCl 300 mg PO DAILY 07/03/17 [History Last Taken 07/03/17 08:00] clopidogrel 75 mg PO DAILY 07/03/17 [History Last Taken 07/03/17 08:00] metoprolol tartrate 50 mg PO BID 07/03/17 [History Last Taken 07/03/17 08:00] xpjhmlwk-ohs-MH-lycopen-lutein 1 ea PO DAILY 07/04/17 [History Last Taken Unknow n] pantoprazole 40 mg PO DAILY 07/04/17 [History Last Taken Unknown] tramadol 50 mg PO TID PRN PRN #9 tab 07/13/17 [Rx Last Taken Unknown] alprazolam 0.5 mg PO TID PRN PRN 07/16/18 [History Last Taken Unknown] paroxetine HCl 40 mg PO DAILY 07/16/18 [History Last Taken Unknown] metformin 1,000 mg tablet 1,000 mg PO DAILY tab 10/28/18 [History Last Taken Unknown] atorvastatin 5 mg PO QHS 01/14/20 [History Last Taken Unknown] lisinopril 20 mg PO DAILY 01/14/20 [History Last Taken Unknown] albuterol sulfate 2.5 mg INHALATION Q4H PRN PRN 12/11/20 [History Last Taken Unknown] gabapentin 300 mg PO TIDCM 12/11/20 [History Last Taken Unknown] glipizide 5 mg PO BID 12/11/20 [History Last Taken Unknown] polyethylene glycol 3350 17 gm PO DAILY PRN 12/11/20 [History Last Taken Unknown] potassium chloride 40 meq PO DAILYCM 12/11/20 [History Last Taken Unknown] apixaban [Eliquis] 2.5 mg PO BID #30 tab 12/13/20 [Rx Last Taken Unknown] dexamethasone 6 mg PO DAILY #2 tab 12/19/20 [Rx Last Taken Unknown] Allergy/AdvReac Type Severity Reaction Status Date / Time codeine Allergy Unknown Verified 12/20/20 05:35 morphine Allergy Unknown Verified 12/20/20 05:35 Family History Father Diabetes Mother Hypertension Surgical History history left arm surgery History of colostomy History of hemorrhoidectomy History of laparoscopic cholecystectomy History of spinal surgery History of tonsillectomy history nato left leg Social History Smoking Status: Never smoker alcohol intake: never substance use type: does not use ROS ROS Narrative 12 ROS currently unobtainable because patient is agitated, restless. He has both wrists soft restraint. Confused and disoriented but in general denies excessive cough or significant respiratory change from discharge. Vital Signs Vital Signs Vital Signs: 12/20/20 05:29 12/20/20 05:39 12/20/20 06:18 Temperature 96.6 F L Temperature Source Temporal Pulse Rate 93 90 Respiratory Rate 26 H 24 H Respiratory Pattern Tachypnea Blood Pressure 85/66 L Blood Pressure Mean 72 Pulse Ox 85 Oxygen Delivery Method Room Air Room Air Oxygen Flow Rate (L/min) 12/20/20 06:48 12/20/20 06:50 12/20/20 07:12 Temperature Temperature Source Pulse Rate 82 88 Respiratory Rate 22 H 19 H Respiratory Pattern Normal Blood Pressure 103/69 137/88 H Blood Pressure Mean 80 104 Pulse Ox 91 88 Oxygen Delivery Method Nasal Cannula Oxygen Flow Rate (L/min) 4 12/20/20 07:20 12/20/20 07:57 Temperature 97.8 F Temperature Source Temporal Pulse Rate 78 Respiratory Rate Respiratory Pattern Blood Pressure 160/91 H Blood Pressure Mean 114 Pulse Ox 88 90 Oxygen Delivery Method Nasal Cannula Nasal Cannula Oxygen Flow Rate (L/min) 4 4 Weight Weight: 233 lb 3.985 oz Body Mass Index (BMI) 29.9 Physical Exam Narrative General: Agitated, restless, confused and disoriented HEENT: Atraumatic, PERRLA, EOMI, Normocephalic Oral: No Gingival or Mucosal Lesions/ Ulcerations Neck: Supple, No JVD, Negative Carotid Bruits Lungs: Air entry diminished in bilateral lung bases. Mild bilateral crepitations. Hypoxic. Intermittent tachypneic Cardiovascular: Sinus rhythm, PVCs, Normal S1, Normal S2, No murmurs Abdomen: Colostomy present. Bowel Sounds Present, Soft, Non Tender, Non- Distended : Clifford catheter. No renal angle or suprapubic tenderness. Extremities: Nonpitting dependent, mild bilateral ankle edema, Capillary Refill Less than 3 Seconds Skin: No rashes, No breakdown Musculoskeletal: Back surgery. Muhammad rods multiple thoracic vertebra. Paraplegic Neurological: Cranial nerves II-XII grossly intact, paraplegia and no sensation below T8 level Psych/Mental Status: Restless, anxious, mildly agitated Results Lab / Micro Data Result Diagrams: 12/20/20 06:05 12/20/20 06:05 Labs: Laboratory Results - last 24 hr 12/20/20 06:05: WBC 16.2 H, RBC 5.24, Hgb 15.3, Hct 45.4, MCV 86.6, MCH 29.2, MCHC 33.7, RDW Std Deviation 45.9 H, RDW Coeff of Madhav 14.6, Plt Count 333, MPV 11.1, Immature Gran % (Auto) 3.200 H, Neut % (Auto) 84.7 H, Lymph % (Auto) 6.1 L , Pierce % (Auto) 5.1, Eos % (Auto) 0.6, Baso % (Auto) 0.3, Absolute Neuts (auto) 13.7 H, Absolute Lymphs (auto) 0.98, Nucleated RBC % 0 12/20/20 06:05: Sodium 134 L, Potassium 4.1, Chloride 102, Carbon Dioxide 18.0 L , Anion Gap 14, BUN 20 H, Creatinine 0.89, Estim Creat Clear Calc 72.66, Est GFR (MDRD) Af Amer 105, Est GFR (MDRD) Non-Af 87, BUN/Creatinine Ratio 22.4 H, Glucose 205 H, Calcium 9.1, Troponin I High Sens 25 12/20/20 06:05: Lactic Acid 4.1 H* Micro: Microbiology 12/20/20 05:50 Mucosa - Nasopharyngeal Influenza Types A,B Direct FA (JEET) - Final ABG Data ABG results: ABG 12/20/20 07:01 Specimen Type MARY VBG pH 7.38 VBG pO2 36 VBG HCO3 19 L VBG Total CO2 19 L VBG O2 Sat (Calc) 69 VBG Base Excess -7 L POC Mix VBG pCO2 Pt Tmp 30.9 L Assessment & Plan Assessment/Plan (1) COVID-19: (2) Pneumonia: QUALIFIERS: Pneumonia type: due to methicillin-sensitive Staphylococcus aureus (MSSA) (3) Hypoxemia: PLAN: This 80-year-old gentleman was originally admitted with COVID-19 with bacterial MSSA superinfection, pneumonia with mild hypoxia is readmitted from half-way for hypoxia, worsening of pneumonia, altered mental status and agitation. 1 acute hypoxic respiratory failure due to Covid infection with superinfection, left lower lobe, MSSA pneumonia with lactic acidosis. Patient is being admitted in ICU. Antibiotic coverage is broadened to IV Zosyn. IV fluid earlier patient was treated with IV cefazolin and discharged on Keflex, for total of 7 days, last antibiotic completion was today 12/20/2020. Patient had IV Decadron and remdesivir during previous hospital stay. Lactic acid 4.1, leukocytosis. Patient blood pressure was low but has recovered with IV fluid bolus. Patient is hypovolemic and lactic acidosis may be from infection, hypovolemia and hypoxia. Microbiology Analyst and ID are consulted for further recommendation. His last dose of Decadron will be as 12/21/2020. Previous culture shows a sputum 3+ MSSA. Patient completed Mucinex. 2. COPD exacerbation probably from pneumonia: DuoNeb every 4 hourly. Patient is on Decadron. Incentive spirometry and PEP. 3. Debility due to T8 spinal cord injury with paraplegia and anesthesia, neurogenic bladder on self intermittent catheterization and colostomy: PT and OT ordered. Nursing care. 4. Diabetes mellitus type 2: Accu-Chek before meals and cover with Humalog sliding scale 5. Hypertension, GERD with history of a stroke: Home medication reconciliation done. 6. Anxiety and depression disorder: Patient gets intermittently agitated restless. Patient is started on Seroquel 50 mg twice daily. Benzodiazepines not indicated in view of intermittent agitation VTE prophylaxis: Eliquis 2.5 mg Living will/advanced directive/end of life care: As per previous hospital stay between 12/11/2020 to 12/19/2020. Patient does have living will or advanced directive. His is power of civil attorney for health. After discussion of benefits/risks procedures involved with full code, DNR CC arrest and DNR CC, the patient opted for DNR-CC Arrest with no intubation Patient does not want artificial life support including intubation, tube feed, ventilator and/chest compression, central venous catheter, vasopressor and DC shock if needed Charges/Coding Visit Charges Inpatient E&M: 88132 Init Hosp L3
--- NOTE | 2020-12-20 07:58 | ED.RN ---
per dr. evans stop the order for NS at 150ml/hr. give the 3L bolus only.
--- NOTE | 2020-12-20 08:01 | ED.RN ---
Update given to and she has ICU number to call for update with charge nurse
[2020-12-20] MEDS: 0.9% Normal Saline 1,000 ML 1000 ML IV ×2 (08:11→08:18)
--- NOTE | 2020-12-20 08:18 | ED.RN ---
Patient agitated and will not even let me get him more than 3 feet away from the wall while trying to transport him. He keeps pulling his oxygen off and trying to get out of bed and hanging over the bed. tying to stop at CT for the floor order, on way to ICU. Called and had Dr Anderson paged and requested medication. Haldol 2mg orderded.
--- NOTE | 2020-12-20 08:22 | NURSING ---
Called and talked to pharmacy to have the verify the haldol, so I can pull it, per Dr Anderson.
[2020-12-20] MEDS: Haloperidol Lactate 5 MG/ML Vial 1 MG IV (08:33)
[2020-12-20 08:50] LABS: Magnesium 1.8 mg/dL (1.6-2.6)
[2020-12-20 08:54] LABS: International Normalized Ratio 1.4; Prothrombin Time (Protime)PT. 16.2 SECONDS (11.7-14.9)
[2020-12-20 08:55] LABS: Partial Thromboplast Time 38.8 Seconds (24.1-36.2)
[2020-12-20 09:06] LABS: AST(SGOT) 56 U/L (15-37); Alanine Aminotransfer ALT/SGPT 49 U/L (16-61); Albumin, Serum 2.6 g/dL (3.2-5.0); Alkaline Phosphatase 104 U/L (45-117); Bilirubin, Direct 0.71 mg/dL (0.00-0.30); CPK Total, Creatine Kinase 683 U/L (39-308); Globulin 4.4 g/dL (2.2-4.2)
[2020-12-20 09:34] LABS: BNP,B-Type NATRIURETIC PEPTIDE 75.3 pg/mL (0-100)
[2020-12-20 09:52] LABS: Bacteria 0 SEEN /hpf (None Seen); Mucous, Urine 0 SEEN /hpf (<or=2+); Squamous Epithelial Cells - UA 0 SEEN /hpf (0-5)
[2020-12-20 09:57] LABS: Color, Urine Yellow (Yellow); Glucose, Dipstick 250 mg/dl (Normal); Ketone-Dipstick 50 mg/dl (Negative); Leukocyte Esterase-Dipstick 25 /ul (Negative); Nitrite-Dipstick Negative (Negative); Occult Blood-Urine 250 /ul (Negative); Protein-Dipstick 100 mg/dl (Negative); Urine Bilirubin Dipstick Negative (Negative); Urine Clarity Clear (Clear); Urine Urobilinogen Normal (Normal)
--- NOTE | 2020-12-20 10:00 | NURSING ---
unable to obtain accurate vitals due to patient agitation/restlessness
[2020-12-20] MEDS: QUEtiapine 25 MG Tablet 50 MG PO (10:05)
--- NOTE | 2020-12-20 10:08 | EKG12_ITS ---
Test Reason : CHESTPAIN Blood Pressure : / mmHG Vent. Rate : 102 BPM Atrial Rate : 102 BPM P-R Int : 206 ms QRS Dur : 100 ms QT Int : 352 ms P-R-T Axes : 031 019 216 degrees QTc Int : [address] & T wave abnormality, consider inferolateral ischemia Abnormal ECG No previous ECGs available Confirmed by RADHA REESE, AUTUMN ([id number]), film or videotape editor MARCELLO WEI ([id number]) on 12/24/2020 10:16:14 AM Referred By: Confirmed By:AUTUMN GARCIA MD
[2020-12-20 10:14] LABS: Reflex Lactate? Y
[2020-12-20 10:24] LABS: White Blood Cells 0-5 SEEN /hpf (0-5)
[2020-12-20 10:25] LABS: Red Blood Cells-Urine 0-5 SEEN /hpf (0-5)
[2020-12-20] MEDS: Haloperidol Lactate 5 MG/ML Vial IV ×3 (10:55→21:40)
[2020-12-20] MEDS: 0.9% Saline Lock 10 ML Syringe IV ×2 (11:04→16:02)
[2020-12-20] MEDS: dexAMETHasone 4 MG Tablet 6 MG PO (11:04)
[2020-12-20] MEDS: 0.9% Normal Saline 1,000 ML 75 ML IV (11:04)
[2020-12-20] MEDS: Clopidogrel Bisulfate 75 MG Tablet PO (11:04)
[2020-12-20] MEDS: buPROPion (XL) 300 MG TABLET.XL PO (11:05)
[2020-12-20] MEDS: APIXABAN 2.5 MG TABLET PO ×2 (11:05→21:37)
[2020-12-20] MEDS: Metoprolol Tartrate 25 MG Tablet PO (11:06)
[2020-12-20] MEDS: Paroxetine 20 MG Tablet 40 MG PO (11:06)
[2020-12-20 11:27] LABS: M R Staph aureus DNA By PCR Negative (Negative); Probe Check PASS; Specimen Processing Control PASS
[2020-12-20 11:48] LABS: Lactic Acid 3.7 mmol/L (0.4-1.9)
--- NOTE | 2020-12-20 14:21 | CON.PCM.ID_ITS ---
Assessment & Plan Assessment/Plan (1) Hypoxemia: PLAN: Recent admit with covid, complicated by mssa bacteremia. Now with worsened hypoxia, agitation. On zosyn and dex, cultures pending. Will follow, thank you (2) Pneumonia: QUALIFIERS: Pneumonia type: due to methicillin-sensitive Staphylococcus aureus (MSSA) (3) COVID-19: (4) Altered mental status, unspecified: QUALIFIERS: Altered mental status type: unspecified Qualified Code(s): R41.82 - Altered mental status, unspecified HPI Consult Data Date of Consult: 12/20/20 HPI Narrative HPI Narrative: KIN FONTANEZ, is a 80 M who presented with worsening hypoxia. No fever. Admitted 12/11 with covid, unvaccinated. Given dex and remdesivir. Course complicated by mssa pneumonia, completed course with cefazolin 12/18. Now back with worsening dyspnea and hypoxia. Restarted on dex, zosyn. Trouble breathing if he leans back. Minimal sputum. 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 Home Medications bupropion HCl 300 mg PO DAILY 07/03/17 [History Last Taken 07/03/17 08:00] clopidogrel 75 mg PO DAILY 07/03/17 [History Last Taken 07/03/17 08:00] metoprolol tartrate 50 mg PO BID 07/03/17 [History Last Taken 07/03/17 08:00] vnyizlfl-gvy-EA-lycopen-lutein 1 ea PO DAILY 07/04/17 [History Last Taken Unknown] pantoprazole 40 mg PO DAILY 07/04/17 [History Last Taken Unknown] tramadol 50 mg PO TID PRN PRN #9 tab 07/13/17 [Rx Last Taken Unknown] alprazolam 0.5 mg PO TID PRN PRN 07/16/18 [History Last Taken Unknown] paroxetine HCl 40 mg PO DAILY 07/16/18 [History Last Taken Unknown] metformin 1,000 mg tablet 1,000 mg PO DAILY tab 10/28/18 [History Last Taken Unknown] atorvastatin 5 mg PO QHS 01/14/20 [History Last Taken Unknown] lisinopril 20 mg PO DAILY 01/14/20 [History Last Taken Unknown] albuterol sulfate 2.5 mg INHALATION Q4H PRN PRN 12/11/20 [History Last Taken Unknown] gabapentin 300 mg PO TIDCM 12/11/20 [History Last Taken Unknown] glipizide 5 mg PO BID 12/11/20 [History Last Taken Unknown] polyethylene glycol 3350 17 gm PO DAILY PRN 12/11/20 [History Last Taken Unknown] potassium chloride 40 meq PO DAILYCM 12/11/20 [History Last Taken Unknown] apixaban [Eliquis] 2.5 mg PO BID #30 tab 12/13/20 [Rx Last Taken Unknown] dexamethasone 6 mg PO DAILY #2 tab 12/19/20 [Rx Last Taken Unknown] Allergy/AdvReac Type Severity Reaction Status Date / Time codeine Allergy Unknown Verified 12/20/20 05:35 morphine Allergy Unknown Verified 12/20/20 05:35 Family History Father Diabetes Mother Hypertension Surgical History history left arm surgery History of colostomy History of hemorrhoidectomy History of laparoscopic cholecystectomy History of spinal surgery History of tonsillectomy history nato left leg Social History Smoking Status: Never smoker alcohol intake: never substance use type: does not use Physical Exam Const Constitutional Narrative: agitated HEENT normocephalic and head/scalp atraumatic Eyes PERRL and EOMs intact bilaterally Neck supple and No nodes Resp Resp Narrative: MARQUIS rhonchi Cardio regular rate and regular rhythm GI normal to inspection, nondistended, normoactive bowel sounds Extremity General Extremity: edema Skin no rashes or lesions noted Neuro CN's II-XII intact bilaterally Lab / Micro Data Result Diagrams: 12/20/20 06:05 12/20/20 06:05 Labs: Laboratory Results - last 24 hr 12/20/20 06:05: WBC 16.2 H, RBC 5.24, Hgb 15.3, Hct 45.4, MCV 86.6, MCH 29.2, MCHC 33.7, RDW Std Deviation 45.9 H, RDW Coeff of Madhav 14.6, Plt Count 333, MPV 11.1, Immature Gran % (Auto) 3.200 H, Neut % (Auto) 84.7 H, Lymph % (Auto) 6.1 L , Dooly % (Auto) 5.1, Eos % (Auto) 0.6, Baso % (Auto) 0.3, Absolute Neuts (auto) 13.7 H, Absolute Lymphs (auto) 0.98, Nucleated RBC % 0 12/20/20 06:05: Sodium 134 L, Potassium 4.1, Chloride 102, Carbon Dioxide 18.0 L , Anion Gap 14, BUN 20 H, Creatinine 0.89, Estim Creat Clear Calc 72.66, Est GFR (MDRD) Af Amer 105, Est GFR (MDRD) Non-Af 87, BUN/Creatinine Ratio 22.4 H, Glucose 205 H, Calcium 9.1, Troponin I High Sens 25 12/20/20 06:05: B-Natriuretic Peptide 75.3 12/20/20 06:05: Lactic Acid 4.1 H* 12/20/20 06:05: Magnesium 1.8 12/20/20 06:08: PT 16.2 H, INR 1.4, APTT 38.8 H 12/20/20 06:08: Total Bilirubin 2.10 H, Direct Bilirubin 0.71 H, AST 56 H, ALT 49, Alkaline Phosphatase 104, Total Creatine Kinase 683 H, Total Protein 7.0, Albumin 2.6 L, Globulin 4.4 H 12/20/20 07:45: COVID-19 (MALU) Detected 12/20/20 09:45: MRSA (PCR) Negative 12/20/20 09:45: Urine Color Yellow, Urine Clarity Clear, Urine pH 6.0, Ur Specific Wheaton 1.010, Urine Protein 100 H, Urine Glucose (UA) 250 H, Urine Ketones 50 H, Urine Occult Blood 250 H, Urine Nitrite Negative, Urine Bilirubin Negative, Urine Urobilinogen Normal, Ur Leukocyte Esterase 25 H, Urine RBC 0-5 SEEN, Urine WBC 0-5 SEEN, Ur Squamous Epith Cells 0 SEEN, Urine Bacteria 0 SEEN, Urine Mucus 0 SEEN 12/20/20 11:00: Lactic Acid 3.7 H* Micro: Microbiology 12/20/20 07:45 Mucosa - Nasopharyngeal Respiratory Panel (PCR) - Final 12/20/20 09:45 Urine Catheter - Clifford Legionella Antigen - Final 12/20/20 09:45 Urine Catheter - Clifford Streptococcus pneumoniae Antigen (M - Final 12/20/20 05:50 Mucosa - Nasopharyngeal Influenza Types A,B Direct FA (JEET) - Final ABG Data ABG results: ABG 12/20/20 07:01 Specimen Type MARY VBG pH 7.38 VBG pO2 36 VBG HCO3 19 L VBG Total CO2 19 L VBG O2 Sat (Calc) 69 VBG Base Excess -7 L POC Mix VBG pCO2 Pt Tmp 30.9 L Radiology Impression Chest X-Ray 12/20/20 06:15 IMPRESSION: Bilateral airspace disease as above, worsened since previous exam. Imaging features can be seen with covid 19 pneumonia, but are nonspecific and may occur with a variety of infectious and noninfectious processes. Electronically Signed: Natasha Lynn MD at 8:13 EDT , Service support , Chest CTA 12/20/20 07:31 IMPRESSION: 1. No CT evidence of pulmonary embolism. 2. Bilateral subsegmental atelectasis or pneumonitis. Commonly reported imaging features January 22 pneumonia are present. Other processes such as influenza pneumonia and organized pneumonia as can be seen from drug toxicity or connective tissue disease can cause similar imaging pattern. Electronically Signed: Jose Elias Teague MD at 9:36 EDT Tel , Service support ,
--- NOTE | 2020-12-20 14:23 | CASEMGMT ---
Social Work Pt dgt I[employer] presenting Durable POA papers and requesting to be pts decision maker which does have a Health Care clause but also states HCPOA/LW does supersede this Durable POA. Pt HCPOA and LW on file naming 1. Ainsley Julien, 2. Ivet Julien 3. Benedicto Julien. Phone call to Ainsley who states she would continue to like medical updates but cannot come in as she has covid. Ainsley is agreeable to a conference call with Ivet and Benedicto as they are here visiting pt. This IVANNA, Janessa DOHERTY, Benedicto Cooney and Ainsley on conference call and discussed pt status. Also discussed pt care goals including agressive treatment, palliative medicine and hospice care. Family undecided on what to do at this time but are agreeable to referral to [facility] to gather more information on Palliative and Hospice options. IVANNA explained HCPOA and decision making order and Benedicto Cooney and Ainsley agreeable to work together to make plans for pt who is currently confused but are all understanding that Ainsley is HCPOA. Referral made to [facility] and spoke with raymond Cano faxed. [facility] to contact family to set up appointment for meeting (likely meeting on Thursday). SW to continue to follow. BREANNE Thornton
--- NOTE | 2020-12-20 14:38 | WOUNDNOTE ---
removed ostomy appliance. stoma is beefy red and well budded. peristomal intact. cleansed with warm water. pat dry. applied a new 2 piece flat Alfonzo appliance with an [employer] ring. pt tolerated well.
[2020-12-20] MEDS: fentaNYL 100 MCG/2 ML Ampul 25 MCG IV ×3 (14:48→22:49)
--- NOTE | 2020-12-20 14:57 | CON.PCM.CC_ITS ---
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 Control of behavior with anxiolytics 2. Agree with broader spectrum antibiotics per infectious disease 3. Wean oxygen as tolerated 4. Continue with DuoNeb therapy 5. Consider placement of Clifford IMPRESSIONS: 1. Acute hypoxic respiratory failure Likely multifactorial. Patient does have a history of recent Covid pneumonia with superinfection with MSSA. Unclear if patient has had a secondary infection or has developed resistance with MRSA. Patient's anxiety does worsen pulmonary mechanics and may be leading to some of the problem. Continue with supplemental oxygen. Could attempt diuretics. 2. Acute metabolic encephalopathy/delirium Unclear etiology. Would avoid benzodiazepines if possible as this can exacerbate the condition. The use of atypical such as Seroquel or Haldol would be appropriate. Family is to discuss goals of therapy and get back to us. Ideally, restraints would be avoided. Continue with nursing protocol. Could use Haldol acutely and Seroquel chronically. We will have to watch QT interval closely. 3. Debility with paraplegia/diabetes mellitus type 2/hyp ertension/GERD/history of stroke Complicates care, management, recovery and prognosis. Okay to continue with baseline medications from my perspective. Blood pressure is difficult to assess given current agitation. HPI Consult Data Date of Consult: 12/20/20 HPI Narrative HPI Narrative: KIN FONTANEZ is an 80 M, with past medical history listed below, who presents to [facility] 12/20/2020 from a intermediate secondary to hypoxia and agitation. Patient was recently admitted to [facility] for COVID-19 and had been sent to an outside facility. Patient reportedly was tolerating room air prior to discharge. Patient reportedly had episodes of confusion and would not leave his nasal cannula in place. Patient was noted to be 79% on room air by EMS. Patient is currently on Eliquis and 2 different antibiotics for suspected superinfection with MSSA in the left lower lobe. In the ER, patient was afebrile, but tachypneic at 26 breaths/min. Blood pressures were somewhat down at 85/66 and patient was noted to be 85% on room air. Patient was eventually placed in soft wrist restraints secondary to failure of repeated redirection. Patient was noted to have a lactic acidosis of 4.1 with a venous pH of 38. Laboratory data was notable for a white blood cell count of 16.2, slightly elevated glucose of 205 and normal renal function. Patient was given boluses, more antibiotics and admitted to the intensive care unit. Since being in the intensive care unit, patient has remained confused. Patient has been yelling out and will desaturate despite having nasal cannula in place. Patient also is trying to sit up in bed despite receiving Haldol and Seroquel. Patient was evaluated by speech therapy and patient was cleared for only essential medications. Blood pressures have normalized with IV fluid bolusing, so no pressors have been required. Patient was unable to do a review of systems secondary to confusion. 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 Home Medications bupropion HCl 300 mg PO DAILY 07/03/17 [History Last Taken 07/03/17 08:00] clopidogrel 75 mg PO DAILY 07/03/17 [History Last Taken 07/03/17 08:00] metoprolol tartrate 50 mg PO BID 07/03/17 [History Last Taken 07/03/17 08:00] kazzelcq-wxi-DA-lycopen-lutein 1 ea PO DAILY 07/04/17 [History Last Taken Unknown] pantoprazole 40 mg PO DAILY 07/04/17 [History Last Taken Unknown] tramadol 50 mg PO TID PRN PRN #9 tab 07/13/17 [Rx Last Taken Unknown] alprazolam 0.5 mg PO TID PRN PRN 07/16/18 [History Last Taken Unknown] paroxetine HCl 40 mg PO DAILY 07/16/18 [History Last Taken Unknown] metformin 1,000 mg tablet 1,000 mg PO DAILY tab 10/28/18 [History Last Taken Unknown] atorvastatin 5 mg PO QHS 01/14/20 [History Last Taken Unknown] lisinopril 20 mg PO DAILY 10/10/20 [History Last Taken Unknown] albuterol sulfate 2.5 mg INHALATION Q4H PRN PRN 12/11/20 [History Last Taken Unknown] gabapentin 300 mg PO TIDCM 12/11/20 [History Last Taken Unknown] glipizide 5 mg PO BID 12/11/20 [History Last Taken Unknown] polyethylene glycol 3350 17 gm PO DAILY PRN 12/11/20 [History Last Taken Unknown] potassium chloride 40 meq PO DAILYCM 12/11/20 [History Last Taken Unknown] apixaban [Eliquis] 2.5 mg PO BID #30 tab 12/13/20 [Rx Last Taken Unknown] dexamethasone 6 mg PO DAILY #2 tab 12/19/20 [Rx Last Taken Unknown] Allergy/AdvReac Type Severity Reaction Status Date / Time codeine Allergy Unknown Verified 12/20/20 05:35 morphine Allergy Unknown Verified 12/20/20 05:35 Family History Father Diabetes Mother Hypertension Surgical History history left arm surgery History of colostomy History of hemorrhoidectomy History of laparoscopic cholecystectomy History of spinal surgery History of tonsillectomy history nato left leg Social History Smoking Status: Never smoker alcohol intake: never substance use type: does not use ROS Review of Systems ROS Unobtainable: due to encephalopathy Physical Exam Const General Appearance: combative and disheveled HEENT normocephalic, head/scalp atraumatic and moist oral mucous membranes Eyes PERRL and EOMs intact bilaterally Neck full ROM and no lymphadenopathy Chest inspection of chest normal Chest: symmetrical chest wall rise; Negative for crepitus Resp no use of accessory muscles Effort and Inspection: symmetric chest movement Auscultation: rales and diminished lung sounds; Negative for rhonchi or wheezes Percussion: Negative for dullness Cardio regular rhythm, S1 normal heart sound, S2 normal heart sound, no murmurs, no rub and no gallops Rate: tachycardic GI soft to palpation, non-tender and non-distended GI Narrative: Colostomy noted Extremity General Extremity: edema; Negative for clubbing or cyanosis Peripheral Pulses: Yes pulses 2+ throughout Skin no rashes or lesions noted Neuro Neuro Narrative: Paraplegia noted Psych cooperative and affect normal Lab / Micro Data Result Diagrams: 12/20/20 06:05 12/20/20 06:05 Labs: Laboratory Results - last 24 hr 12/20/20 06:05: WBC 16.2 H, RBC 5.24, Hgb 15.3, Hct 45.4, MCV 86.6, MCH 29.2, MCHC 33.7, RDW Std Deviation 45.9 H, RDW Coeff of Madhav 14.6, Plt Count 333, MPV 11.1, Immature Gran % (Auto) 3.200 H, Neut % (Auto) 84.7 H, Lymph % (Auto) 6.1 L , [place] % (Auto) 5.1, Eos % (Auto) 0.6, Baso % (Auto) 0.3, Absolute Neuts (auto) 13.7 H, Absolute Lymphs (auto) 0.98, Nucleated RBC % 0 12/20/20 06:05: Sodium 134 L, Potassium 4.1, Chloride 102, Carbon Dioxide 18.0 L , Anion Gap 14, BUN 20 H, Creatinine 0.89, Estim Creat Clear Calc 72.66, Est GFR (MDRD) Af Amer 105, Est GFR (MDRD) Non-Af 87, BUN/Creatinine Ratio 22.4 H, Glucose 205 H, Calcium 9.1, Troponin I High Sens 25 12/20/20 06:05: B-Natriuretic Peptide 75.3 12/20/20 06:05: Lactic Acid 4.1 H* 12/20/20 06:05: Magnesium 1.8 12/20/20 06:08: PT 16.2 H, INR 1.4, APTT 38.8 H 12/20/20 06:08: Total Bilirubin 2.10 H, Direct Bilirubin 0.71 H, AST 56 H, ALT 49, Alkaline Phosphatase 104, Total Creatine Kinase 683 H, Total Protein 7.0, Albumin 2.6 L, Globulin 4.4 H 12/20/20 07:45: COVID-19 (MALU) Detected 12/20/20 09:45: MRSA (PCR) Negative 12/20/20 09:45: Urine Color Yellow, Urine Clarity Clear, Urine pH 6.0, Ur Specific [place] 1.010, Urine Protein 100 H, Urine Glucose (UA) 250 H, Urine Ketones 50 H, Urine Occult Blood 250 H, Urine Nitrite Negative, Urine Bilirubin Negative, Urine Urobilinogen Normal, Ur Leukocyte Esterase 25 H, Urine RBC 0-5 SEEN, Urine WBC 0-5 SEEN, Ur Squamous Epith Cells 0 SEEN, Urine Bacteria 0 SEEN, Urine Mucus 0 SEEN 12/20/20 11:00: Lactic Acid 3.7 H* Micro: Microbiology 12/20/20 07:45 Mucosa - Nasopharyngeal Respiratory Panel (PCR) - Final 12/20/20 09:45 Urine Catheter - Clifford Legionella Antigen - Final 12/20/20 09:45 Urine Catheter - Clifford Streptococcus pneumoniae Antigen (M - Final 12/20/20 05:50 Mucosa - Nasopharyngeal Influenza Types A,B Direct FA (JEET) - Final ABG Data ABG results: ABG 12/20/20 07:01 Specimen Type MARY VBG pH 7.38 VBG pO2 36 VBG HCO3 19 L VBG Total CO2 19 L VBG O2 Sat (Calc) 69 VBG Base Excess -7 L POC Mix VBG pCO2 Pt Tmp 30.9 L Radiology Impression Chest X-Ray 12/20/20 06:15 IMPRESSION: Bilateral airspace disease as above, worsened since previous exam. Imaging features can be seen with covid 19 pneumonia, but are nonspecific and may occur with a variety of infectious and noninfectious processes. Electronically Signed: Natasha Lynn MD at 8:13 EDT , Service support , Chest CTA 12/20/20 07:31 IMPRESSION: 1. No CT evidence of pulmonary embolism. 2. Bilateral subsegmental atelectasis or pneumonitis. Commonly reported imaging features January 22 pneumonia are present. Other processes such as influenza pneumonia and organized pneumonia as can be seen from drug toxicity or connective tissue disease can cause similar imaging pattern. Electronically Signed: Jose Elias Teague MD at 9:36 EDT Tel , Service support , Charges/Coding Visit Charges Inpatient E&M: 55340 Init Hosp L3
[2020-12-20] MEDS: Menthol/Lanolin/Calamine/Znox 113 GM Tube 1 APPLIC TOPICAL ×2 (17:49→21:35)
[2020-12-20] MEDS: QUEtiapine 100 MG Tablet PO (21:37)
[2020-12-21] VITALS (29 sets, daily range): BP systolic 124–193; BP diastolic 67–141; PULSE 83–114; RESP 21–35; TEMP 36.1–36.3; O2SAT 88–97
[2020-12-21] MEDS: Haloperidol Lactate 5 MG/ML Vial IV ×4 (02:55→18:44)
[2020-12-21] MEDS: 0.9% Normal Saline 1,000 ML 75 ML IV (05:09)
[2020-12-21] MEDS: fentaNYL 100 MCG/2 ML Ampul 25 MCG IV ×4 (05:33→20:56)
[2020-12-21 05:58] LABS: Absolute Lymphocyte Count 0.53 X10^3/uL (0.83-4.51); Absolute Neutrophil Count 8.2 X10^3/uL (2.0-7.7); Basophil# 0.04 X10^3/uL; Basophil% 0.4 % (0-1); Hematocrit 39.7 % (40-54); Hemoglobin 13.3 g/dL (13.0-16.5); Lymphocyte # 0.53 X10^3/ul (0.83-4.51); Lymphocyte % 5.4 % (19-41); Mean Corp Hgb Conc 33.5 g/dL (32-36); Mean Corpuscular Hgb 28.9 pg (27.0-32.0); Mean Corpuscular Volume 86.3 fL (80-94); Mean Platelet Vol. 10.6 fl (6.2-12.0); Monocyte# 0.63 X10^3/uL; Monocyte% 6.4 % (0-10); NRBC Flagged by Analyzer 0 % (0-5); Neutrophil # 8.22 X10^3/uL (2.7-7.7); Neutrophil % 83.2 % (47-70); POSITIVE DIFFERENTIAL YES; Platelet Count 267 K/mm3 (150-450); RBC Distribution Width CV 14.6 % (11.6-14.6); RBC Distribution Width SD 45.9 fl (35.1-43.9); White Blood Count 9.9 K/mm3 (4.4-11.0)
[2020-12-21 06:00] LABS: Differential Indicated SCAN CRITERIA MET
[2020-12-21 06:19] LABS: ALB/GLOB Ratio 0.5 RATIO (0.9-2.4); AST(SGOT) 43 U/L (15-37); Alanine Aminotransfer ALT/SGPT 50 U/L (16-61); Albumin, Serum 2.1 g/dL (3.2-5.0); Alkaline Phosphatase 92 U/L (45-117); Anion Gap 16 (5-15); BUN 8 mg/dL (7-18); BUN/Creat Ratio 18.3 RATIO (10-20); Calcium,Total 8.3 mg/dL (8.5-10.1); Chloride 108 mmol/L (98-107); Creatinine, Serum 0.44 mg/dL (0.70-1.30); EST Glomerular Filtration Rate 199 mL/min (>60); Est Glom Filt Rate - Afr Amer 241 mL/min (>60); Estimated Creatinine Clearance 64.67 ml/min; Globulin 4.1 g/dL (2.2-4.2); Glucose 269 mg/dL (74-106); Potassium 3.2 mmol/L (3.5-5.1); Protein, Total 6.2 g/dL (6.4-8.2); Sodium Level 140 mmol/L (136-145)
[2020-12-21 06:48] LABS: Differential Comment SCANNED
--- NOTE | 2020-12-21 07:01 | PCM.PN.INT ---
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 Control of behavior with anxiolytics. Increase Seroquel 2. Agree with broader spectrum antibiotics per infectious disease 3. Wean oxygen as tolerated. Diurese as tolerated 4. Continue with DuoNeb therapy 5. Electrolyte repletion as necessary IMPRESSIONS: 1. Acute hypoxic respiratory failure Likely multifactorial. Patient does have a history of recent Covid pneumonia with superinfection with MSSA. Unclear if patient has had a secondary infection or has developed resistance with MRSA. Patient's anxiety does worsen pulmonary mechanics and may be leading to some of the problem. Continue with supplemental oxygen. Will attempt to diuresis patient tolerates. We will also increase Seroquel to help with agitation. 2. Acute metabolic encephalopathy/delirium Unclear etiology. Would avoid benzodiazepines if possible as this can exacerbate the condition. The use of atypical such as Seroquel or Haldol would be appropriate. Family is to discuss goals of therapy and get back to us. Ideally, restraints would be avoided. Continue with nursing protocol. Could use Haldol acutely and Seroquel chronically. We will have to watch QT interval closely. 3. Debility with paraplegia/diabetes mellitus type 2/hypertension/GERD/history of stroke Complicates care, management, recovery and prognosis. Okay to continue with baseline medications from my perspective. Blood pressure is difficult to assess given current agitation. Subjective Subjective Patient did okay from a hemodynamic standpoint overnight. Patient remains significantly confused and hollering out. Patient is still requiring 8 L nasal cannula to maintain saturations. Patient has attempted to get out of bed frequently. Objective Data Objective Data Vital Signs: Vital Signs Temp Pulse Resp BP Pulse Ox 36.3 C L 107 H 28 H 168/112 H 95 12/21/20 05:00 12/21/20 06:00 12/21/20 06:00 12/21/20 06:00 12/21/20 06:50 Oxygen Flow Rate (L/min) 8 Oxygen Delivery Method Nasal Cannula Weight: 104 kg Body Mass Index (BMI) 31.1 Intake & Output: Intake and Output for Last 24 Hours 12/19/20 12/20/20 12/21/20 23:59 23:59 23:59 Intake Total 3691.25 / 3691.25 823.75 / 823.75 Output Total 2500 / 2500 850 / 850 Balance 1191.25 / 1191.25 -26.25 / -26.25 Lab / Micro Data Result Diagrams: 12/21/20 04:20 12/21/20 04:20 Labs: Laboratory Results - last 24 hr 12/20/20 06:05: B-Natriuretic Peptide 75.3 12/20/20 06:05: Magnesium 1.8 12/20/20 06:08: PT 16.2 H, INR 1.4, APTT 38.8 H 12/20/20 06:08: Total Bilirubin 2.10 H, Direct Bilirubin 0.71 H, AST 56 H, ALT 49, Alkaline Phosphatase 104, Total Creatine Kinase 683 H, Total Protein 7.0, Albumin 2.6 L, Globulin 4.4 H 12/20/20 07:45: COVID-19 (MALU) Detected 12/20/20 09:45: MRSA (PCR) Negative 12/20/20 09:45: Urine Color Yellow, Urine Clarity Clear, Urine pH 6.0, Ur Specific [place] 1.010, Urine Protein 100 H, Urine Glucose (UA) 250 H, Urine Ketones 50 H, Urine Occult Blood 250 H, Urine Nitrite Negative, Urine Bilirubin Negative, Urine Urobilinogen Normal, Ur Leukocyte Esterase 25 H, Urine RBC 0-5 SEEN, Urine WBC 0-5 SEEN, Ur Squamous Epith Cells 0 SEEN, Urine Bacteria 0 SEEN, Urine Mucus 0 SEEN 12/20/20 11:00: Lactic Acid 3.7 H* 12/21/20 04:20: WBC 9.9, RBC 4.60, Hgb 13.3, Hct 39.7 L, MCV 86.3, MCH 28.9, MCHC 33.5, RDW Std Deviation 45.9 H, RDW Coeff of Madhav 14.6, Plt Count 267, MPV 10.6, Immature Gran % (Auto) 4.600 H, Neut % (Auto) 83.2 H, Lymph % (Auto) 5.4 L, [place] % (Auto) 6.4, Eos % (Auto) 0.0, Baso % (Auto) 0.4, Absolute Neuts (auto) 8.2 H, Absolute Lymphs (auto) 0.53 L, Nucleated RBC % 0, Differential Comment SCANNED 12/21/20 04:20: Sodium 140, Potassium 3.2 L, Chloride 108 H, Carbon Dioxide 16.0 L, Anion Gap 16 H, BUN 8, Creatinine 0.44 L, Estim Creat Clear Calc 64.67, Est GFR (MDRD) Af Amer 241, Est GFR (MDRD) Non-Af 199, BUN/Creatinine Ratio 18.3, Glucose 269 H, Calcium 8.3 L, Total Bilirubin 1.50 H, AST 43 H, ALT 50, Alkaline Phosphatase 92, Total Protein 6.2 L, Albumin 2.1 L, Globulin 4.1, Albumin/Globulin Ratio 0.5 L Micro: Microbiology 12/20/20 07:45 Mucosa - Nasopharyngeal Respiratory Panel (PCR) - Final 12/20/20 09:45 Urine Catheter - Clifford Legionella Antigen - Final 12/20/20 09:45 Urine Catheter - Clifford Streptococcus pneumoniae Antigen (M - Final 12/20/20 05:50 Mucosa - Nasopharyngeal Influenza Types A,B Direct FA (JEET) - Final ABG Data ABG results: ABG 12/20/20 07:01 Specimen Type MARY VBG pH 7.38 VBG pO2 36 VBG HCO3 19 L VBG Total CO2 19 L VBG O2 Sat (Calc) 69 VBG Base Excess -7 L POC Mix VBG pCO2 Pt Tmp 30.9 L Radiography Diagnostic Testing: Radiology Impression Chest X-Ray 12/20/20 06:15 IMPRESSION: Bilateral airspace disease as above, worsened since previous exam. Imaging features can be seen with covid 19 pneumonia, but are nonspecific and may occur with a variety of infectious and noninfectious processes. Electronically Signed: Natasha Lynn MD at 8:13 EDT , Service support , Chest CTA 12/20/20 07:31 IMPRESSION: 1. No CT evidence of pulmonary embolism. 2. Bilateral subsegmental atelectasis or pneumonitis. Commonly reported imaging features October pneumonia are present. Other processes such as influenza pneumonia and organized pneumonia as can be seen from drug toxicity or connective tissue disease can cause similar imaging pattern. Electronically Signed: Jose Elias Teague MD at 9:36 EDT Tel , Service support , Physical Exam Const General Appearance: combative and disheveled HEENT normocephalic, head/scalp atraumatic and moist oral mucous membranes Eyes PERRL and EOMs intact bilaterally Neck full ROM and no lymphadenopathy Chest inspection of chest normal Chest: symmetrical chest wall rise; Negative for crepitus Resp no use of accessory muscles Effort and Inspection: symmetric chest movement Auscultation: rales and diminished lung sounds; Negative for rhonchi or wheezes Percussion: Negative for dullness Cardio regular rhythm, S1 normal heart sound, S2 normal heart sound, no murmurs, no rub and no gallops Rate: tachycardic GI soft to palpation, non-tender and non-distended GI Narrative: Colostomy noted Extremity General Extremity: edema; Negative for clubbing or cyanosis Peripheral Pulses: Yes pulses 2+ throughout Skin no rashes or lesions noted Neuro Neuro Narrative: Paraplegia noted Psych cooperative and affect normal Charges/Coding Visit Charges Inpatient E&M: 44845 Subs Hosp L3
--- NOTE | 2020-12-21 08:39 | CASEMGMT ---
SW spoke w/Rachael at [facility]. Pt's , son and daughter spoke w/Rachael yesterday, she reviewed both palliative and hospice. Demetria from palliative care is to come see pt this morning, and will then follow up w/ and daughter. IVANNA will continue to follow. SHARI Duran
[2020-12-21] MEDS: Furosemide 40 MG/4 ML Vial IV (09:35)
[2020-12-21] MEDS: Paroxetine 20 MG Tablet 40 MG PO (09:35)
[2020-12-21] MEDS: Metoprolol Tartrate 25 MG Tablet PO (09:35)
[2020-12-21] MEDS: dexAMETHasone 4 MG Tablet 6 MG PO (09:36)
[2020-12-21] MEDS: Clopidogrel Bisulfate 75 MG Tablet PO (09:36)
[2020-12-21] MEDS: buPROPion (XL) 300 MG TABLET.XL PO (09:36)
[2020-12-21] MEDS: QUEtiapine 25 MG Tablet 50 MG PO (09:36)
[2020-12-21] MEDS: QUEtiapine 100 MG Tablet PO (09:36)
[2020-12-21] MEDS: Potassium Chloride Oral Tablet 20 MEQ 40 MEQ PO ×2 (09:37→14:26)
[2020-12-21] MEDS: APIXABAN 2.5 MG TABLET PO (09:53)
[2020-12-21] MEDS: Menthol/Lanolin/Calamine/Znox 113 GM Tube 1 APPLIC TOPICAL (09:54)
[2020-12-21] MEDS: Potassium Chloride 10mEq/100mL 10 MEQ/100 ML IV.SOLN. 100 MEQ IV BOLUS ×4 (10:47→14:24)
--- NOTE | 2020-12-21 11:27 | WOUNDNOTE ---
Pt had pulled the colostomy flange. removed ostomy appliance. stoma remains pink and moist. slightly edematous this am. peristomal skin is intact. cleansed skin with warm water. pat dry. applied a 2 piece flat Alfonzo appliance. patient tolerated well. will continue to monitor.
[2020-12-21] MEDS: Insulin Lispro 100 UNIT/ML INSULN.PEN SC (12:04)
[2020-12-21 12:30] LABS: Bedside Glucose 315 mg/dL (70-110)
--- NOTE | 2020-12-21 14:00 | PCM.DC.SUM ---
Providers Date of Admission: 12/20/20 Date of Discharge: 12/21/20 Primary Care Physician: Dr. Juan Alberto Mathews MD Consultations 12/20/20 08:05 Consult: Infectious Disease Routine Consulting Provider: Cruz Alberto Reason for Consult: Covid test onset on 12/04 EMERGENT Consult: No MD Notified: Yes Date Notified: 12/20/20 Time Notified: 10:16 Method of Notification: Verbal Consult: Asic Verification Engineer / Pulmonary Medicine Routine Consulting Provider: Pulmonary Medicine yoana [place] Reason for Consult: Lactic acidosis, mild hypoxic, worsening of pneumonia, Covid positive EMERGENT Consult: No MD Notified: Yes Date Notified: 12/20/20 Time Notified: 08:18 Method of Notification: Verbal 12/20/20 09:42 Consult: Hospice / Palliative Care Routine Consulting Provider: [facility] Reason for Consult: code status change, end of life care EMERGENT Consult: No MD Notified: Yes Date Notified: 12/20/20 Time Notified: 12:01 Method of Notification: Verbal 12/20/20 10:40 Consult: Onc/Wound/institutional asset manager Routine Comment: wound to buttocks Reason For Visit: COVID 19 PNEUMONIA WITH LACTIC ACIDOSIS Diagnosis Discharge Diagnosis (1) Shortness of breath: Status: Acute Code(s): R06.02 - Shortness of breath (2) Debility: Status: Acute Code(s): R53.81 - Other malaise (3) Pneumonia: Status: Acute Code(s): J18.9 - Pneumonia, unspecified organism Qualifiers: Pneumonia type: due to methicillin-sensitive Staphylococcus aureus (MSSA) (4) COVID-19: Status: Acute Code(s): U07.1 - COVID-19 (5) Anxiety and depression: Status: Chronic Code(s): F41.8 - Other specified anxiety disorders (6) 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 Acute hypoxic respiratory failure-secondary to methicillin sensitive staph aureus pneumonia #2 acute metabolic encephalopathy-secondary to multiple medical problems #3 type 2 diabetes #4 essential hypertension #5 paraplegia-remote #6 pneumonia secondary to methicillin sensitive staph aureus Medications at Discharge Home Medications bupropion HCl 300 mg PO DAILY 07/03/17 clopidogrel 75 mg PO DAILY 07/03/17 metoprolol tartrate 50 mg PO BID 07/03/17 ydvcvnmi-lxy-DW-lycopen-lutein 1 ea PO DAILY 07/04/17 pantoprazole 40 mg PO DAILY 07/04/17 tramadol 50 mg PO TID PRN PRN #9 tab 07/13/17 alprazolam 0.5 mg PO TID PRN PRN 07/16/18 paroxetine HCl 40 mg PO DAILY 07/16/18 metformin 1,000 mg tablet 1,000 mg PO DAILY tab 10/28/18 atorvastatin 5 mg PO QHS 01/14/20 lisinopril 20 mg PO DAILY 01/14/20 albuterol sulfate 2.5 mg INHALATION Q4H PRN PRN 12/11/20 gabapentin 300 mg PO TIDCM 12/11/20 glipizide 5 mg PO BID 12/11/20 polyethylene glycol 3350 17 gm PO DAILY PRN 12/11/20 potassium chloride 40 meq PO DAILYCM 12/11/20 apixaban [Eliquis] 2.5 mg PO BID #30 tab 12/13/20 dexamethasone 6 mg PO DAILY #2 tab 12/19/20 Hospital Course Operations None Procedures None Summary of Care Provided Minutes Spent on Discharge: 32 Hospital Course: This 80-year-old white male was seen in the emergency room at [facility] after being sent in from an extended care facility where he was undergoing rehab services due to increasing shortness of breath, he was found to be hypoxic, work-up in the ER included a CTA of the chest which showed no evidence of pulmonary embolism, there was bilateral pneumonitis noted to be present. Patient was felt to have methicillin sensitive staph aureus pneumonia, he was admitted to [place] [id number], he was seen in consultation by pulmonary medicine and infectious diseases, patient became agitated during his hospital stay. Conversations were carried out with the family regarding palliative care or hospice care, family agreed to have the patient go to an inpatient hospice facility for terminal care. On 12/21/2020, patient was seen and examined: On examination he appeared confused with moderate respiratory distress. Vital signs as documented. Skin warm and dry and without overt rashes. Neck without JVD, neck was supple, trachea midline, thyroid was normal. Lungs clear bilaterally, normal air movement was noted. Heart exam notable for regular rhythm, normal sounds and absence of murmurs, rubs or gallops. Abdomen unremarkable and without evidence of organomegaly, masses, or abdominal aortic enlargement. Bowel sounds are present, abdomen is not distended. Extremities nonedematous, no cyanosis was noted, no clubbing was noted. Neuro: Cranial nerves II through XII are grossly intact, no focal motor deficits were noted, sensation to light touch and pinprick intact, motor exam 5/5 throughout. Psych: Patient is alert but confused On 12/21/2020, patient was transferred to inpatient hospice care in stable condition, prognosis was poor. Weight / BMI Weight Weight: 104 kg Body Mass Index (BMI) 31.1 ABG / Lab / Microbiology Data Result Diagrams: 12/21/20 04:20 12/21/20 04:20 Microbiology: Microbiology 12/20/20 09:45 Urine Catheter - Clifford Urine Culture - Final Culture exhibits no growth. 12/20/20 09:45 Urine Catheter - Clifford Legionella Antigen - Final 12/20/20 06:05 Blood Culture (Wb) - Venous Blood Culture - Preliminary No growth in 48 hours. 12/20/20 06:05 Blood Culture (Wb) - Anticubital Left Blood Culture - Preliminary No growth in 48 hours. 12/20/20 07:45 Mucosa - Nasopharyngeal Respiratory Panel (PCR) - Final 12/20/20 09:45 Urine Catheter - Clifford Streptococcus pneumoniae Antigen (M - Final 12/20/20 05:50 Mucosa - Nasopharyngeal Influenza Types A,B Direct FA (JEET) - Final Meaningful Use Info Meaningful Use Diagnoses (Choose all that apply): None applicable Discharge Plan Admission Admit Date/Time: 12/20/20 07:45 Attending Provider: Ryland Amezquita Primary Care Provider: Juan Alberto Mathews Consulting Providers: Cooper Ferrera ; Ricardo Grimm ; Allegra Robledo CLINIC NURSE ; Cruz Alberto ; Rajwinder Newman ; Gregg Harmon ; Willa Richardson ; Demetria Ojeda ; Capri Roper ; Marilee Johnson CLINIC NURSE Discharge Orders/Prescriptions Prescriptions: No Action metformin 1,000 mg tablet 1,000 mg PO DAILY RF: 0 clopidogrel 75 MG tablet 75 mg PO DAILY RF: 0 bupropion HCl 300 MG tablet extended release 24 hr 300 mg PO DAILY RF: 0 metoprolol tartrate 50 MG tablet 50 mg PO BID RF: 0 pantoprazole 40 MG tablet,delayed release (DR/EC) 40 mg PO DAILY RF: 0 ngpizefr-slj-VE-lycopen-lutein 1 EACH tablet 1 ea PO DAILY RF: 0 tramadol 50 MG tablet 50 mg PO TID PRN PRN (Reason: Moderate Pain (4-5/10)) Qty: 9 RF: 0 alprazolam 0.5 MG tablet 0.5 mg PO TID PRN PRN (Reason: Anxiety) RF: 0 paroxetine HCl 10 MG tablet 40 mg PO DAILY RF: 0 lisinopril 20 MG tablet 20 mg PO DAILY RF: 0 atorvastatin 10 MG tablet 5 mg PO QHS RF: 0 albuterol sulfate 2.5 MG/3 ML solution for nebulization 2.5 mg INHALATION Q4H PRN PRN (Reason: breathing) RF: 0 glipizide 5 MG tablet extended release 24hr 5 mg PO BID RF: 0 potassium chloride 20 MEQ tablet,ER particles/crystals 40 meq PO DAILYCM RF: 0 gabapentin 300 MG capsule 300 mg PO TIDCM RF: 0 polyethylene glycol 3350 17 GM powder in packet 17 gm PO DAILY PRN (Reason: Constipation) RF: 0 Eliquis 2.5 mg tablet 2.5 mg PO BID Qty: 30 RF: 0 dexamethasone 6 mg tablet 6 mg PO DAILY Qty: 2 RF: 0 Referrals / Follow Up: Juan Alberto Mathews MD [Primary Care Provider] - Disposition Disposition (needs filled in before D/C Order can be placed): Hospice in Medical Facility Charges/Coding Visit Charges Inpatient E&M: 23557 Disch Hosp
[2020-12-21] MEDS: Nystatin Powder 15gm Bottle 1 APPLIC TOPICAL (14:51)
--- NOTE | 2020-12-21 15:19 | PCM.PN.ID ---
Physical Exam Narrative Agitated, no fever, some dyspnea. Const General Appearance: cooperative Resp clear to auscultation bilaterally Auscultation: diminished lung sounds Cardio regular rate and regular rhythm GI normal to inspection, nondistended, normoactive bowel sounds Skin no rashes or lesions noted ID ID: Route of nutrition/ use of supplements: [] Nutritional Intake: [] IV Site: [] Clifford Catheter: [] Assessment & Plan Assessment/Plan (1) Hypoxemia: PLAN: Recent admit with covid, complicated by mssa bacteremia. Now with worsened hypoxia, agitation. On zosyn, cxs neg so far. Not clear there is any infection. Likely can stop abx soon. Will follow (2) Pneumonia: QUALIFIERS: Pneumonia type: due to methicillin-sensitive Staphylococcus aureus (MSSA) (3) COVID-19: (4) Altered mental status, unspecified: QUALIFIERS: Altered mental status type: unspecified Qualified Code(s): R41.82 - Altered mental status, unspecified
--- NOTE | 2020-12-21 15:49 | PCM.CONS.P ---
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 Explained that current findings are likely due to ongoing hypoxia and other side effects from COVID-19 and previous pneumonia. Patient's Ainsley, as well as a son and daughter were on speaker phone and agreed to goals of care. We did discuss limitations of palliative medicine versus hospice. Family decided that they would like Kin transferred to [facility] hospice inpatient unit at earliest convenience. They have agreed to make him a DNRCC, as that is exactly what he wants. Family did inquire about continuation of IV antibiotics while in the IPU, discussed that that would require approval by emergency medical dispatcher or physician manager of organizational development for hospice, but that patient's white blood cell count has returned to normal. Discussed that chest x-ray findings done yesterday did indicate and that CTA showed bilateral subsegmental atelectasis or pneumonitis. Questions and expectations answered to best of my abilities. and family would at this point prefer that patient be discharged to [facility] hospice inpatient unit. Discussed above conversation with Dr. Amezquita, who is in agreement with transfer to inpatient hospice unit for comfort care measures. Referral made to [facility] hospice main office. Discussed case with Dr. Vieyra at [facility] as well. *Recommendations for comfort care: Initiate morphine 5 mg IV/SQ every 4 hours scheduled and every hour as needed for pain or shortness of breath, lorazepam 0.5 mg IV every 4 hours scheduled and every 2 hours as needed for agitation or restlessness, if no IV site Versed 1 mg subcu every 4 hours scheduled and every hour as needed agitation or restlessness, oxygen via nasal cannula as tolerated. Total time spent on case including review of medical record, discussion with family, documentation, and discussion with other healthcare providers: 112 minutes ([id number]) HPI Consult Data Date of Consult: 12/21/20 HPI Narrative HPI Narrative: KIN FONTANEZ, is a 80 M who was admitted on 12/20/2020 after returning to the emergency room for symptoms consistent with hypoxia, agitation, restlessness, and shortness of breath from group home facility where he was discharged 1 day prior after a 5-day hospitalization for COVID-19 pneumonia with MSSA pneumonia. He is currently in CVICU where he is being treated for acute hypoxic respiratory failure secondary to both COVID-19 and MSSA pneumonia along with acute delirium, encephalopathy, and sepsis. Palliative medicine has been consulted to evaluate for symptom management. Kin is extremely confused and appears quite agitated and uncomfortable in his ICU bed. He is in special droplet isolation for current COVID-19 infection. He is frequently yelling out and mumbling incomprehensible speech to himself. Unable to perform physical exam given isolation status. Discussion of case with ICU charge nurse and railroad track inspector while on the unit. 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 Home Medications bupropion HCl 300 mg PO DAILY 07/03/17 [History Last Taken 07/03/17 08:00] clopidogrel 75 mg PO DAILY 07/03/17 [History Last Taken 07/03/17 08:00] metoprolol tartrate 50 mg PO BID 07/03/17 [History Last Taken 07/03/17 08:00] wmjzqamb-ygt-UZ-lycopen-lutein 1 ea PO DAILY 07/04/17 [History Last Taken Unknown] pantoprazole 40 mg PO DAILY 07/04/17 [History Last Taken Unknown] tramadol 50 mg PO TID PRN PRN #9 tab 07/13/17 [Rx Last Taken Unknown] alprazolam 0.5 mg PO TID PRN PRN 07/16/18 [History Last Taken Unknown] paroxetine HCl 40 mg PO DAILY 07/16/18 [History Last Taken Unknown] metformin 1,000 mg tablet 1,000 mg PO DAILY tab 10/28/18 [History Last Taken Unknown] atorvastatin 5 mg PO QHS 01/14/20 [History Last Taken Unknown] lisinopril 20 mg PO DAILY 01/14/20 [History Last Taken Unknown] albuterol sulfate 2.5 mg INHALATION Q4H PRN PRN 12/11/20 [History Last Taken Unknown] gabapentin 300 mg PO TIDCM 12/11/20 [History Last Taken Unknown] glipizide 5 mg PO BID 12/11/20 [History Last Taken Unknown] polyethylene glycol 3350 17 gm PO DAILY PRN 12/11/20 [History Last Taken Unknown] potassium chloride 40 meq PO DAILYCM 12/11/20 [History Last Taken Unknown] apixaban [Eliquis] 2.5 mg PO BID #30 tab 12/13/20 [Rx Last Taken Unknown] dexamethasone 6 mg PO DAILY #2 tab 12/19/20 [Rx Last Taken Unknown] Allergy/AdvReac Type Severity Reaction Status Date / Time codeine Allergy Unknown Verified 12/20/20 05:35 morphine Allergy Unknown Verified 12/20/20 05:35 Family History Father Diabetes Mother Hypertension Surgical History history left arm surgery History of colostomy History of hemorrhoidectomy History of laparoscopic cholecystectomy History of spinal surgery History of tonsillectomy history nato left leg Social History Smoking Status: Never smoker alcohol intake: never substance use type: does not use ROS Review of Systems ROS Unobtainable: due to encephalopathy Constitutional Constitutional: Reports as per HPI Psychiatric Psychiatric: Reports confusion Physical Exam Const Negative for no apparent distress General Appearance: uncooperative; Negative for comfortable Orientation / Consciousness: awake, oriented to person, confused and disoriented Resp Effort and Inspection: tachypneic Psych Negative for cooperative or speech normal
[2020-12-21] MEDS: 0.9% Saline Lock 10 ML Syringe IV ×2 (15:56→18:45)
--- NOTE | 2020-12-21 21:30 | NURSING ---
[facility] here to transport pt to Hospice. fentanyl 25 mcg iv given at this time. pt is awake and restless. 139/118, 110, 95% on 5l n/c. emotional support given. bilat wrist & cynthia vest remain on for transport
--- NOTE | 2020-12-21 21:39 | NURSING ---
Ainsley called & notified that patient just left with [facility] ambulance to go to Hospice
== END 2020-12-21 21:30 | disposition hospice, inpatient (51) | DRG 177 ==
LOC: ED 06:58 → ICU 07:54
PROVIDERS: Admitting Provider Internal Medicine; Emergency Provider Emergency Medicine; PCP Family Medicine; Visit Provider Internal Medicine
DX: U07.1 COVID-19 (principal); J15.211 Pneumonia due to Methicillin susceptible Staphylococcus aureus; J96.01 Acute respiratory failure with hypoxia; J12.82 Pneumonia due to coronavirus disease 2019; G93.41 Metabolic encephalopathy; G82.20 Paraplegia, unspecified; J44.0 Chronic obstructive pulmonary disease with (acute) lower respiratory infection; J44.1 Chronic obstructive pulmonary disease with (acute) exacerbation; E87.2 Acidosis; I10 Essential (primary) hypertension; F41.0 Panic disorder [episodic paroxysmal anxiety]; E11.65 Type 2 diabetes mellitus with hyperglycemia; K21.9 Gastro-esophageal reflux disease without esophagitis; F32.9 Major depressive disorder, single episode, unspecified; F41.9 Anxiety disorder, unspecified; N31.9 Neuromuscular dysfunction of bladder, unspecified; Z79.01 Long term (current) use of anticoagulants; Z93.3 Colostomy status; Z79.84 Long term (current) use of oral hypoglycemic drugs; Z82.49 Family history of ischemic heart disease and other diseases of the circulatory system; Z83.3 Family history of diabetes mellitus; Z86.73 Personal history of transient ischemic attack (TIA), and cerebral infarction without residual deficits; Z87.01 Personal history of pneumonia (recurrent); Z88.5 Allergy status to narcotic agent; Z90.49 Acquired absence of other specified parts of digestive tract; Z78.1 Physical restraint status
CPT/HCPCS: 71045; 71275; 80048; 80053; 80076; 81001; 82550; 82803; 82962; 83605; 83735; 83880; 84484; 85025; 85610; 85730; 87040; 87086; 87449; 87633; 87635; 87641; 87804; 92507; 92610; 93005; 94640; 99285; J7030; Q9967; U0005; A4216; J1940; U0003